=== PATIENT | female | born 1955 | race Caucasian/White ===

== ENCOUNTER 2023-04-18 10:14 | Emergency (ER) | payer MEDICARE, OTHER, SELFPAY ==
[2023-04-18 10:51] VITALS: BP 133/90; PULSE 56; RESP 20; TEMP 36.4; O2SAT 97; BMI 31.1
--- NOTE | 2023-04-18 10:56 | XR_ITS ---
[address] [address] Patient Name: BHARGAVI CHOPRA MRN: [id number] date: 1955 Sex: F Assigned Patient Location: ER Current Patient Location: ER Accession/Order Number: [id number] Exam Date: 04/18/2023 11:34 Report Date: 04/18/2023 12:16 At the request of: RICO BOBO Procedure: XR ankle RT min 3V STUDY: XR foot RT min 3V, XR ankle RT min 3V, [id number], [id number] HISTORY: c/o pain with injury COMPARISON: None FINDINGS: No acute fracture, dislocation, or suspicious osseous lesion. Healed fracture of the fifth metatarsal. 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 Mild osteoarthritis at the articulation of the medial and lateral malleoli with the talus. No lucent lesion of the talar dome. IMPRESSION: No acute osseous abnormality. Electronically authenticated by: BELINDA AGUILA Date: 04/18/2023 12:16
--- NOTE | 2023-04-18 10:56 | XR_ITS ---
[address] [address] Patient Name: BHARGAVI CHOPRA MRN: [id number] date: 1955 Sex: F Assigned Patient Location: ER Current Patient Location: ER Accession/Order Number: [id number] Exam Date: 04/18/2023 11:34 Report Date: 04/18/2023 12:16 At the request of: RICO BOBO Procedure: XR foot RT min 3V STUDY: XR foot RT min 3V, XR ankle RT min 3V, [id number], [id number] HISTORY: c/o pain with injury COMPARISON: None FINDINGS: No acute fracture, dislocation, or suspicious osseous lesion. Healed fracture of the fifth metatarsal. 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 Mild osteoarthritis at the articulation of the medial and lateral malleoli with the talus. No lucent lesion of the talar dome. IMPRESSION: No acute osseous abnormality. Electronically authenticated by: BELINDA AGUILA Date: 04/18/2023 12:16
--- NOTE | 2023-04-18 13:10 | ED_ITS ---
HPI - Extremity Injury (Lower) General Chief Complaint: Extremity Injury, Lower Stated Complaint: LOWER EXTREMITY INJURY RT ANKLE Time Seen by Provider: 04/18/23 13:10 Source: patient Mode of arrival: ambulance Limitations: no limitations History of Present Illness HPI Narrative: Patient presents to emergency department complaining of right ankle pain. Patient states 2 weeks ago she skipped a step and inverted her right foot causing it to swell and have pain. She has been putting weight on it but still has a lot of pain when she walks so she came in to be evaluated. He denies any paresthesias or weakness. She did not hit her head or have loss of consciousness and denies any other injury. She has not taking any medications at home for pain. Related Data Allergies Allergy/AdvReac Type Severity Reaction Status Date / Time codeine Allergy Severe Anaphylaxis Verified 04/18/23 10:49 metronidazole [From Flagyl] Allergy Severe Hives Verified 04/18/23 10:49 shellfish derived Allergy Severe Anaphylaxis Verified 04/18/23 10:51 iodoine Allergy Severe Anaphylaxis Uncoded 04/18/23 10:51 Review of Systems ROS Status of ROS 10 or more systems reviewed and unremarkable except as noted in history and below [facility] Social History Smoking status: Former smoker Exam Narrative Exam Narrative: Nurses notes and vital signs reviewed and patient is not hypoxic. General: Nontoxic, Well-appearing and in no apparent distress. Skin: Warm, dry, no pallor noted. No Rash Head: Normocephalic, atraumatic. Neck: Supple, non-tender. Eye: Pupils are equal, round and EOMI. No scleral icterus. Ears, Nose, Mouth, and Throat: TM clear, no posterior oropharynx erythema or nasal mucosal hypertrophy, uvula is mid-line Oral mucosa is moist Cardiovascular: Regular Rate and Rhythm without murmur, gallop or rub. Respiratory: No accessory muscle use or respiratory distress. Lungs are clear to auscultation, no wheezing, rales or rhonchi Chest Wall: no tenderness Back: No midline thoracic or lumbar vertebral tenderness. No CVA tenderness Musculoskeletal: Tenderness to palpation to the right mid lateral malleolus with mild edema noted. No ecchymosis. No pain at the base of the 5th. DP +2, PTT is 2, capillary refill is brisk. Full range of motion. no calf or popliteal tenderness, no lower extremity edema/swelling GI: Abdomen is soft, non-distended. Normal bowel sounds. No masses appreciated. No tenderness to palpation. No rebound, guarding, or rigidity noted. Neurological: A&O x4. No cranial nerve dysfunction observed. No truncal ataxia. Moves all extremities. Sensation intact. Psychiatric: Cooperative and interactive. Normal mood and affect. Constitutional Vital Signs - 24 hr 04/18/23 10:51 Temperature 97.6 F Pulse Rate [Monitor] 56 L Respiratory Rate 20 Blood Pressure [Right Arm] 133/90 H Pulse Oximetry 97 Oxygen Delivery Method Room Air Course Vital Signs Vital signs: Vital Signs Temperature 97.6 F 04/18/23 10:51 Pulse Rate 56 L 04/18/23 10:51 Respiratory Rate 20 04/18/23 10:51 Blood Pressure 133/90 H 04/18/23 10:51 Pulse Oximetry 97 04/18/23 10:51 Oxygen Delivery Method Room Air 04/18/23 10:51 Temperature 97.6 F 04/18/23 10:51 Pulse Rate 56 L 04/18/23 10:51 Respiratory Rate 20 04/18/23 10:51 Blood Pressure 133/90 H 04/18/23 10:51 Pulse Oximetry 97 04/18/23 10:51 Oxygen Delivery Method Room Air 04/18/23 10:51 MDM - Extremity Injury (Lower) MDM Narrative Medical decision making narrative: All results discussed with patient. Patient was placed in an Aircast and she has crutches at home. She is follow-up with primary care doctor and Dr. funes. rice, At this time the patient is without objective evidence of an acute process requiring hospitalization or inpatient management. The patient has remained hemodynamically stable. No additional indication for emergent studies at this time. I answered all questions. Discussed discharge instructions including standard anticipatory guidance and what should prompt a return to the emergency department, including if they get worse are not getting better or develops any new or concerning symptoms. I've given them specific time frame in which to follow-up, and who to follow-up with. The patient demonstrates understanding. Patient is nontoxic and stable for discharge with outpatient follow-up. This note was created with the assistance of a speech recognition program. Although the intention is to generate documents that actually reflects the content of the visit, no guarantees can be provided that every mistake has been identified and corrected by editing. Discharge Plan Discharge Chief Complaint: Extremity Injury, Lower Clinical Impression: Ankle sprain and strain Patient Disposition: Home, Self-Care Time of Disposition Decision: 13:13 Condition: Good Instructions: Ankle Sprain (ED) Stand Alone Forms: Portal Instructions Referrals: Melody Pearson MD [Primary Care Provider] - 1 week Lui Funes MD [Physician] - 1 week
[2023-04-18 13:29] VITALS: BP 161/93; PULSE 58; RESP 14; O2SAT 100
== END 2023-04-18 13:42 | disposition home or self-care (01) ==
PROVIDERS: Emergency Provider Emergency Medicine; PCP Emergency Medicine
DX: S93.401A Sprain of unspecified ligament of right ankle, initial encounter (principal); S96.911A Strain of unspecified muscle and tendon at ankle and foot level, right foot, initial encounter; X50.9XXA Other and unspecified overexertion or strenuous movements or postures, initial encounter; Z87.891 Personal history of nicotine dependence
CPT/HCPCS: 73610; 73630; 99284

== ENCOUNTER 2023-06-11 13:15 | Outpatient (OUT) | payer MEDICARE, OTHER, SELFPAY ==
[2023-06-11 13:41] LABS: Basophils Absolute Auto 0.1 10^3/uL (0.0-0.1); Basophils Percent Auto 0.8 % (0.2-2.0); Eosinophils Absolute Auto 0.2 10^3/uL (0.0-0.7); Eosinophils Percent Auto 3.4 % (0.9-7.0); Hematocrit 40.8 % (36.0-48.0); Hemoglobin 13.3 g/dL (12.0-16.0); Immature Granulocytes Abs Auto 0.01 10^3/uL (0.00-0.03); Immature Granulocytes Pct Auto 0.2 % (0.0-0.5); Lymphocytes Absolute Auto 2.5 10^3/uL (1.2-3.8); Lymphocytes Percent Auto 37.4 % (20.5-60.0); Mean Corpuscular HGB Conc 32.6 g/dL (29.9-35.2); Mean Corpuscular Hemoglobin 28.4 pg (26.7-34.0); Mean Platelet Volume 10.2 fL (9.5-13.5); Monocytes Absolute Auto 0.7 10^3/uL (0.3-0.8); Monocytes Percent Auto 10.2 % (1.7-12.0); Neutrophils Absolute Auto 3.2 10^3/uL (1.4-6.5); Platelet Count 301 10^3/uL (150-450); Red Blood Count 4.69 10^6/uL (4.20-5.40); Red Cell Distribution Width 14.5 % (11.0-15.0); White Blood Count 6.6 10^3/uL (4.0-11.0)
[2023-06-11 13:48] LABS: Microalbumin Urine Random <1.3 mg/dL (<=30.0)
[2023-06-11 14:00] LABS: Alanine Aminotransferase 23 U/L (14-59); Albumin Globulin Ratio 0.9; Albumin Level 3.9 g/dL (3.4-5.0); Alkaline Phosphatase 109 U/L (46-116); Aspartate Amino Transferase 22 U/L (15-37); BUN Creatinine Ratio 12.7; Bilirubin Total 0.5 mg/dL (0.2-1.0); Calcium 9.2 mg/dL (8.5-10.1); Carbon Dioxide 25.2 mmol/L (21.0-32.0); Chloride 108 mmol/L (98-107); Chol HDL Ratio 2.7; Cholesterol 143 mg/dL (<=200); Estimated GFR (African America 51 (>=60); Estimated GFR (Non-African Ame 42 (>=60); Globulin 4.2 g/dL; Glucose 90 mg/dL (74-106); HDL Cholesterol 53 mg/dL (40-60); Potassium 4.2 mmol/L (3.5-5.1); Sodium 142 mmol/L (136-145); Total Protein 8.1 g/dL (6.4-8.2); Triglycerides 60 mg/dL (<=150)
== END 2023-06-11 13:16 | disposition home or self-care (01) ==
LOC: LAB 13:19
PROVIDERS: PCP Family Medicine; Visit Provider Family Medicine
DX: I10 Essential (primary) hypertension (principal); E78.5 Hyperlipidemia, unspecified
CPT/HCPCS: 36415; 80053; 80061; 82043; 85025

== ENCOUNTER 2023-07-29 12:01 | Outpatient (OUT) | payer MEDICARE, OTHER, SELFPAY ==
--- NOTE | 2023-07-29 12:21 | XR_ITS ---
The [address] [address] Patient Name: BHARGAVI CHOPRA MRN: [id number] date: 1955 Sex: F Assigned Patient Location: LAB Current Patient Location: LAB Accession/Order Number: [id number] Exam Date: 07/29/2023 12:25 Report Date: 07/29/2023 17:02 At the request of: CORNELIUS DE LA TORRE Procedure: XR hand LT min 3V PROCEDURE: XR hand LT min 3V COMPARISON: None. HISTORY: Pain In Left Finger M79.645 FINDINGS: BONES:no acute fracture, mild degenerative changes most significant at first carpal-metacarl joint SOFT TISSUES:Negative. No visible soft tissue swelling. EFFUSION:None visible. OTHER: Negative. XR/XR hand LT min 3V IMPRESSION: Mild degenerative changes Electronically authenticated by: NIEVES CISNEROS Date: 07/29/2023 17:02
[2023-07-29 12:25] LABS: Basophils Absolute Auto 0.1 10^3/uL (0.0-0.1); Basophils Percent Auto 0.8 % (0.2-2.0); Eosinophils Absolute Auto 0.2 10^3/uL (0.0-0.7); Eosinophils Percent Auto 2.5 % (0.9-7.0); Hematocrit 40.4 % (36.0-48.0); Immature Granulocytes Abs Auto 0.01 10^3/uL (0.00-0.03); Immature Granulocytes Pct Auto 0.2 % (0.0-0.5); Lymphocytes Absolute Auto 2.3 10^3/uL (1.2-3.8); Lymphocytes Percent Auto 37.5 % (20.5-60.0); Mean Corpuscular HGB Conc 32.2 g/dL (29.9-35.2); Mean Corpuscular Hemoglobin 29.2 pg (26.7-34.0); Mean Corpuscular Volume 90.8 fL (81.0-99.0); Mean Platelet Volume 10.6 fL (9.5-13.5); Monocytes Absolute Auto 0.6 10^3/uL (0.3-0.8); Monocytes Percent Auto 10.2 % (1.7-12.0); Neutrophils Percent Auto 48.8 % (43.0-75.0); Platelet Count 277 10^3/uL (150-450); Red Blood Count 4.45 10^6/uL (4.20-5.40); Red Cell Distribution Width 14.6 % (11.0-15.0); White Blood Count 6.1 10^3/uL (4.0-11.0)
[2023-07-29 12:28] LABS: Erythrocyte Sedimentation Rate 20 mm/hr (<=30)
[2023-07-30 04:07] LABS: Rheumatoid Factor (RF) <10.0 IU/mL (<14.0)
== END 2023-07-29 12:02 | disposition home or self-care (01) ==
LOC: LAB 12:03
PROVIDERS: PCP Family Medicine; Visit Provider Family Medicine
DX: M79.645 Pain in left finger(s) (principal)
CPT/HCPCS: 36415; 73130; 85025; 85652; 86430; 86431

== ENCOUNTER 2023-11-05 15:19 | Outpatient (OUT) | payer MEDICARE, OTHER, SELFPAY ==
[2023-11-05 15:51] LABS: Anion Gap 10.3; BUN Creatinine Ratio 14.4; Calcium 9.8 mg/dL (8.5-10.1); Carbon Dioxide 28.5 mmol/L (21.0-32.0); Chloride 106 mmol/L (98-107); Estimated GFR (African America 59 (>=60); Estimated GFR (Non-African Ame 49 (>=60); Glucose 72 mg/dL (74-106); Potassium 3.8 mmol/L (3.5-5.1); Sodium 141 mmol/L (136-145)
== END 2023-11-05 15:20 | disposition home or self-care (01) ==
LOC: LAB 15:21
PROVIDERS: PCP Family Medicine; Visit Provider Family Medicine
DX: I10 Essential (primary) hypertension (principal)
CPT/HCPCS: 36415; 80048; 87624

== ENCOUNTER 2024-07-21 13:00 | Outpatient (OUT) | payer MEDICARE, OTHER, SELFPAY ==
--- OUTSIDE RECORDS SUMMARY | 2024-07-21 13:18 | XMS_ITS | CCD ---
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 Role Phone Janet Velásquez Attending Unavailable Aurea De La Torre Primary Care Provider JULIETA TOMAS Referring Unavailable JULIETA TOMAS Attending Unavailable JULIETA TOMAS Admitting Unavailable AUREA DE LA TORRE Primary Care Unavailable [place] Unavailable Nieves Adams Unavailable DAIANA, DR VO Admitting Unavailable KARASIK, DR VO Attending Unavailable DE LA TORRE, DR AUREA Dixon Primary Care Unavailable KARASIK, DR VO Consulting Unavailable DE LA TORRE, DR AUREA Dixon Admitting Unavailable DE LA TORRE, DR AUREA Dixon Attending Unavailable DE LA TORRE, DR AUREA Dixon Primary Care Unavailable DE LA TORRE, DR AUREA Dixon Consulting Unavailable KARASIK, DR VO Admsusan Unavailable KARASIK, DR VO Attending Unavailable DE LA TORRE, DR AUREA Dixon Primary Care Unavailable KARASIK, DR VO Consulting Unavailable WEST, DR NIEVES Hernandez Consulting Unavailable KARASIK, DR VO Admitting Unavailable KARASIK, DR VO Attending Unavailable DE LA TORRE, DR AUREA Dixon Primary Care Unavailable KARASIK, DR VO Consulting Unavailable KARASIK, DR VO Admsusan Unavailable KARASIK, DR VO Attending Unavailable DE LA TORRE, DR AUREA Dixon Primary Care Unavailable KARASIK, DR VO Consulting Unavailable KARASIK, DR VO Admsusan Unavailable KARASIK, DR VO Attending Unavailable DE LA TORRE, DR AUREA Dixon Primary Care Unavailable KARASIK, DR VO Consulting Unavailable KARASIK, DR VO Admitting Unavailable KARASIK, DR VO Attending Unavailable DE LA TORRE, DR AUREA Dixon Primary Care Unavailable KARASIK, DR VO Consulting Unavailable DE LA TORRE, DR AUREA Dixon Primary Care Unavailable KARASIK, DR VO Admitting Unavailable KARASIK, DR VO Attending Unavailable KARASIK, DR VO Consulting Unavailable Aurea De La Torre Unavailable ShanelleHunterin Unavailable Jaqueline Huerta Unavailable Aurea De La Torre MD Primary Care Provider [phone] ERNESTINA CALLAHAN Attending Unavailable ERNESTINA CALLAHAN Referring Unavailable MARCOS FERNANDEZ Attending Unavailable DAVIDSON DUMONT Attending Unavailable DAVIDSON DUMONT Attending Unavailable DAVIDSON DUMONT Attending Unavailable Allergies Allergy Classification Reported Allergen(s) Allergy Type Date of Onset Reaction(s) Facility (2 sources) Codeine Drug Allergy 03-15-[address] [facility], heart beat fast, [facility] Repository (11 sources) Iodine Drug Allergy 03-15-20 18 [facility] Repository (2 sources) metroNIDAZOLE Drug Allergy 03-15-20 18 [facility] Repository (2 sources) Sulfonamides (Antibiotic) Drug allergy (disorder) 03-15-20 18 [facility] Repository (8 sources) Codeine Drug Allergy 02-20-20 10 [place], [place] (2 sources) Iodine Drug Allergy 02-20-20 10 [place], [place] (11 sources) metroNIDAZOLE Drug Allergy 12-14-19 21 [place], [place] (1 source) Sulfonamides (Antibiotic) Propensity to adverse reactions to drug 12-14-19 21 [place], [place] (9 sources) Codeine Drug Allergy [facility] Other (9 sources) Sulfacetamide / Sulfur Drug Allergy [facility] Other (2 sources) Cephalexin Drug Allergy 07-14-20 24 Unknown Reaction [facility] Repository (1 source) clopidogrel Drug Allergy [facility] Repository (1 source) Codeine Drug Allergy 09-27-20 20 [facility] Repository (1 source) Iodine Drug Allergy 09-27-20 20 [facility] Repository (1 source) metroNIDAZOLE Drug Allergy 09-27-20 20 [facility] Repository (1 source) nabumetone Drug Allergy [facility] Rep[facility] (1 source) Naproxen Drug Allergy [facility] (1 source) pantoprazole Drug Allergy 09-27-20 20 [facility] (1 source) Penicillin Drug Allergy [facility] (1 source) Shellfish Drug allergy (disorder) [facility] (1 source) Sulfonamides (Antibiotic) Drug allergy (disorder) 09-27-20 20 [facility] Repository (7 sources) Cephalexin Drug Allergy 11-20-19 24 Unknown [facility] (8 sources) clopidogrel Drug Allergy 02-20-20 10 [facility] Other (13 sources) nabumetone Drug Allergy 09-19-20 13 Unknown, Unknown Reaction [facility] (8 sources) Naproxen Drug Allergy 11-20-19 24 Unknown, Unknown Reaction [facility] Other (6 sources) Shellfish Drug allergy Unknown [facility] Other (7 sources) Substance with sulfonamide structure and antibacterial mechanism of action (substance) Drug allergy 02-20-20 10 [facility] Other (6 sources) Substance with penicillin structure and antibacterial mechanism of action (substance) Drug allergy Unknown [facility] Other (1 source) nabumetone Drug Allergy 11-20-19 24 [facility] (1 source) Penicillin G Drug Allergy 11-20-19 24 [facility] (1 source) Sulfamethoxazole / Trimethoprim Drug Allergy 11-20-19 24 [facility] (1 source) Shellfish-Derived Products Drug Allergy 11-20-19 24 [facility] (1 source) Penicillins Allergy to substance 07-14-20 24 Unknown Reaction [facility] (1 source) Shellfish Allergy to substance 07-14-20 24 Unknown Reaction [facility] Medications Current Medications Medication Drug Class(es) Dates Sig (Normalized) Sig (Original) Aspir-81 (3 sources) Aspir-81 Active aspirin 81 mg chewable tablet (2 sources) Platelet Aggregation Inhibitor, Nonsteroidal Anti-inflammatory Drug Start: 12-17-2020 aspirin chewable tablet 81 mg take 1 tablet by mouth once erinn y aspirin 81 MG EC tablet Take 81 mg by mouth daily 0 Suspended atorvastatin (10 sources) HMG-CoA Reductase Inhibitor take 1 tablet by mouth in the morning atorvastatin (Lipitor) 40 MG tablet Take 40 mg by mouth in the morning. 0 Active Lipitor Active benztropine mesylate 0.5 mg oral tablet (1 source) Anticholinergic, Antihistamine Start: 11-28-2022 take 1 tablet by mouth at bedtime benztropine (Cogentin) 0.5 MG tablet Take 0.5 mg by mouth at bedtime 0 11/28/2022 Active ciprofloxacin 3 mg/ml ophthalmic solution (1 source) Quinolone Antimicrobial Start: 12-28-2023 Ciprofloxacin HCl 0.3 % 1 application into the lower eyelid of affected eye Ophthalmic tid for 5 day(s) Dec, Active clindamycin 300 mg oral capsule (5 sources) Lincosamide Antibacterial Start: 09-04-2023 take 1 capsule by mouth every twelve hours Clindamycin HCl 300 MG 1 capsule Orally every 12 hrs for 7 day(s) Dec, Active clomiPRAMINE hydrochloride 25 mg oral capsule (11 sources) Tricyclic Antidepressant Start: 03-15-2018 take 25 mg by mouth once daily at bedtime Clomipramine Active 25 MG PO Daily at bedtime March 15, 2018 12:00am clomiPRAMINE HCl Active clonazePAM 0.5 mg oral tablet (12 sources) Benzodiazepine Start: 03-09-2024 take 0.5 mg by mouth once daily at bedtime Clonazepam Active 0.5 MG PO Daily at bedtime March 09, 2024 12:00am take 1 tablet by miguelito th every twenty-four hours clonazePAM 0.5 MG 1 tablet at bedtime Orally Once a day Active take 1 tablet by mouth three marleny es daily clonazePAM (KLONOPIN) 0.5 MG tablet Take 0.5 mg by mouth 3 times daily. 0 Suspended estradiol 0.01 mg vaginal insert (1 source) Estrogen Start: 11-23-2023 End: 11-22-2024 estradiol (Vagifem) 10 MCG tablet vaginal tablet Indications: Vaginal atrophy , Vaginal itching Insert 1 tablet (10 mcg) into the vagina 2 (two) times a week 24 tablet 3 11/23/2023 11/22/2024 Active estrogens, conjugated (fdc) 0.625 mg/ml vaginal cream (1 source) Estrogen Estrogens Conjugated (Premarin) 0.625 MG/GM cream as directed Vaginal 0 Active fluconazole 100 mg oral tablet (7 sources) Azole Antifungal Start: 07-07-2024 take 100 mg by mouth once daily Fluconazole Active 100 MG PO Daily July 07, 2024 12:00am take 1 tablet by mouth once Fluc onazole 150 MG 1 tablet Orally once for 10 days Active FLUoxetine 10 mg oral capsule (1 source) Serotonin Reuptake Inhibitor take 1 capsule by mouth in the morning FLUoxetine (PROzac) 10 MG capsule Take 10 mg by mouth in the morning. 0 Active hydrocortisone 25 mg/ml topical cream (1 source) Corticosteroid Anusol-HC 2.5 % 1 application Externally three times daily, as needed for 30 days Active losartan potassium 50 mg oral tablet (14 sources) Angiotensin 2 Receptor Quan Start: 02-16-20 End: 05-16-20 take 1 tablet by mouth once daily Losartan Active 0 .ROUTE .COMPLEX May 16, 2024 8:35am TAKE 1 TABLET BY MOUTH EVERY DAY Start: 02-16-2024 End: 02-16-2024 take 50 mg by mouth once daily Losartan Discontinued 5 0 MG PO Daily February 16, 2024 12:00am February 16, 2024 8:47am take 1 tablet by miguelito th once daily Losartan Potassium 50 MG TAKE 1 TABLET BY MOUTH EVERY DAY for 90 Active metoprolol tartrate 25 mg oral tablet (2 sources) beta-Adrenergic Quan take 1 tablet by mouth twice daily at mealtime metoprolol tartrate (Lopressor) 25 MG tablet TAKE 1 TABLET BY MOUTH TWICE A DAY WITH FOOD FOR 90 DAYS 0 Active pantoprazole 40 mg delayed release oral tablet (12 sources) Proton Pump Inhibitor Start: 03-09-20 End: 07-07-20 take 40 mg by mouth once daily Pantoprazole Active 40 MG PO Daily July 07, 2024 2:34pm Start: 06-17-2021 take 1 tablet by miguelito th every twenty-four hours Pantoprazole Sodium 40 MG 1 tablet Orally Once a day for 90 days Jun, Active microencapsulated potassium chloride 20 meq extended release oral tablet (9 sources) Start: 03-09-2024 take 20 mEq by mouth twice daily Potassium Chloride Active 20 MEQ PO Twice daily March 09, 2024 12:00am take 1 tablet by mouth twice caren ly Klor-Con M20 20 MEQ TAKE 1 TABLET BY MOUTH TWICE A DAY for 90 Active potassium chlori de (Klor-Con) 20 MEQ packet 1 (one) time each day at the same time 0 Active Klor-Con Active take 20 mEq by mouth twice daily potassium chloride (KLOR-CON) 20 MEQ packet Take 20 mEq by mouth 2 times daily 0 Suspended predniSONE 10 mg oral tablet (1 source) Start: 12-26-2023 take 1 mg by mouth three times daily at mealtime predniSONE (Deltasone) 10 MG tablet Indications: Viral URI 1 po tid with food x 5 days 9 tablet 0 12/26/2023 Active 72 hr scopolamine 0.0139 mg/hr transdermal system (1 source) Anticholinergic Scopolamine 1 MG/3DAYS 1 patch to skin behind the ear as needed Transdermal for 15 days Active 1000 ml sodium chloride 9 mg/ml injection (1 source) Start: 12-17-2020 0.9 % sodium chloride infusion Completed/Discontinued Medications Medication Drug Class(es) Dates Sig (Normalized) Sig (Original) acetaminophen 325 mg / HYDROcodone bitartrate 5 mg oral tablet (1 source) Opioid Agonist Start: 03-22-2018 End: 03-09-2024 take 1-2 tablets by mouth every six hours as needed for pain Hydrocodone-Acetam inophen (Hiram) 5-325 mg tablet Discontinued 2 TAB PO Q6H 45 March 22, 2018 March 09, 2024 9:18am 1-2 tabs every 6 hours as needed for pain benzonatate 200 mg oral capsule (2 sources) Non-narcotic Antitussive Start: 03-09-2024 End: 07-14-2024 take 200 mg by mouth three times daily Benzonatate Discontinued 200 MG PO Three times daily 14 09March 09, 2024 12:00am July 14, 2024 2:01pm Start: 12-29-2023 End: 03-09-2024 Benzonatate Discontinued 200 MG PO 2-3 TIMES PER DAY December 29, 2023 1:00am March 09, 2024 9:18am fluvoxaMINE maleate 100 mg oral tablet (1 source) Serotonin Reuptake Inhibitor Start: 03-15-2018 End: 03-09-2024 take 100 mg by mouth once daily at bedtime Fluvoxamine Discontinued 100 MG PO Daily at bedtime March 15, 2018 12:00am March 09, 2024 9:18am hydroCHLOROthiazide 12.5 mg / losartan potassium 50 mg oral tablet (2 sources) Thiazide Diuretic, Angiotensin 2 Receptor Quan Start: 03-15-2018 End: 02-16-2024 take 1 tablet by mouth once daily at bedtime Losartan-Hydrochl orothiazide Discontinued 1 TAB PO Daily at bedtime March 15, 2018 12:00am February 16, 2024 8:22am losartan-hydroCH LOROthiazide (Hyzaar) 100-25 MG tablet Take by mouth 0 Active methylPREDNISolone 4 mg oral tablet (4 sources) Corticosteroid Start: 03-09-2024 End: 07-14-2024 take 1 tablet by mouth once Methylprednisolone (Medrol (Theo)) 4 mg tablets,dose pack Discontinued 0 PO per package directions 06 05March 09, 2024 12:00am July 14, 2024 2:01pm PO PER PKG DIR Start: 06-13-2021 Medrol 4 MG as directed Orally May, Active mupirocin 0.02 mg/mg topical ointment (5 sources) RNA Synthetase Inhibitor Antibacterial Start: 03-09-2024 End: 07-14-2024 Mupirocin Discontinued 1 APPLIC TOPICAL Twice daily March 09, 2024 12:00am July 14, 2024 2:02pm Start: 09-04-2023 Mupirocin 2 % 1 application Externally Twice a day for 5 days Aug, Active 24 hr nitroglycerin 0.2 mg/h r transdermal system (2 sources) Nitrate Vasodilator nitroGLYCERI N (NITROSTAT) 0.[address] 0.4 mg under the tongue every 5 minutes as needed for Chest pain up to max of 3 total doses. If no relief after 1 dose, call 911. 0 Suspended apply 0.2 mg transdermal route e very hour nitroGLYCERIN (NITRODUR) 0.2 MG/HR Place 1 patch onto the skin daily 0 Suspended oseltamivir 75 mg oral capsule (1 source) Neuraminidase Inhibitor Start: 03-09-2024 End: 07-14-2024 take 1 capsule by mouth twice daily Oseltamivir (Tamiflu) 75 mg capsule Discontinued 75 MG PO Twice daily 10 March 09, 2024 12:00am July 14, 2024 2:01pm triamcinolone acetonide 40 mg/ml injectable suspension (10 sources) Corticosteroid Start: 08-04-2023 Kenalog-40 Jul, 40 mg Problems Active Problems Problem Classification Problem Date Documented Date Episodic/Chronic Abdominal pain (9 sources) Left upper quadrant pain; Translations: [Left upper quadrant pain] Episodic Bacterial infection; unspecified site (1 source) Other specified bacterial agents as the cause of diseases classified elsewhere Episodic Disorders of lipid metabolism (8 sources) Dyslipidemia; Translations: [Hyperlipidemia, unspecified] 07-14-2024 Chronic Esophageal disorders (6 sources) Gastroesophageal reflux disease without esophagitis; Translations: [Gastro-esophageal reflux disease without esophagitis] Chronic Essential hypertension (13 sources) Essential (primary) hypertension; Translations: [Essential hypertension] Onset: 09-18-2022 Chronic Immunizations and screening for infectious disease (2 sources) Encounter for screening for human papillomavirus (HPV); Translations: [Contact with or exposure to other viral diseases] Onset: 11-12-2022 12-26-2023 Episodic Inflammation; infection of eye (except that caused by tuberculosis or sexually transmitteddisease) (1 source) Unspecified acute conjunctivitis, bilateral Episodic Influenza (1 source) Influenza; Translations: [Influenza due to unidentified influenza virus with other respiratory manifestations] 03-09-2024 Episodic Osteoarthritis (15 sources) Bilateral arthritis of hip; Translations: [Bilateral primary osteoarthritis of hip] Onset: 08-07-2021 Resolved: 08-07-2021 Chronic Other acquired deformities (9 sources) Lumbar spondylolisthesis; Translations: [Spondylolisthesis, lumbar region] Episodic Other connective tissue disease (1 source) Pain in left finger(s) Episodic Other connective tissue disease (1 source) Trigger thumb, left thumb Episodic Other connective tissue disease (1 source) Radial styloid tenosynovitis [de Quervain] Episodic Other female genital disorders (4 sources) Other specified noninflammatory disorders of vagina; Translations: [OTH SPEC NONINFLAMMATORY D/O VAGINA] Onset: 08-19-2022 Episodic Other screening for suspected conditions (not mental disorders or infectious disease) (8 sources) Encounter for screening for malignant neoplasm of cervix; Translations: [Encounter for screening mammogram for malignant neoplasm of breast] Onset: 09-18-2022 Episodic Other upper respiratory infections (2 sources) Bacterial sinusitis; Translations: [Chronic sinusitis, unspecified] Chronic Other upper respiratory infections (1 source) Viral upper respiratory tract infection; Translations: [Acute upper respiratory infection, unspecified] 12-26-2023 Episodic Residual codes; unclassified (1 source) Family history of malignant neoplasm of kidney; Translations: [FAM HX MALIGNANT NEOPLASM KIDNEY] Onset: 09-22-2022 Episodic Residual codes; unclassified (1 source) Family history of malignant neoplasm of other organs or systems; Translations: [FAM HX MALIG NEOPLASM OTH ORGN/SYS] Onset: 09-22-2022 Episodic Skin and subcutaneous tissue infections (1 source) Local infection of the skin and subcutaneous tissue, unspecified Episodic Superficial injury; contusion (1 source) Blister (nonthermal) of nose, initial encounter Episodic Unclassified (1 source) L08.9 - Local infection of the skin and subcutaneous tissue, unspecified; Translations: [L08.9 - Local infection of the skin and subcutaneous tissue, unspecified] Onset: 12-04-2018 Unclassified (2 sources) History of cardiac catheterization; Translations: [S/P cardiac cath] Onset: 12-17-2020 12-17-2020 Past or Other Problems Problem Classification Problem Date Documented Da te Episodic/Chronic Other acquired deformities (1 source) Spondylolisthesi s, lumbar region; Translations: [Spondylolisthes is, lumbar region M43.16] Onset: 08-07-2021 Resolved: 08-07-2021 Episodic Other non-traumatic joint disorders (1 source) Pain in right hip; Translations: [Pain in right hip M25.551] Onset: 08-07-2021 Resolved: 08-07-2021 Episodic Other non-traumatic joint disorders (1 source) Pain in left hip; Translations: [Pain in left hip M25.552] Onset: 08-07-2021 Resolved: 08-07-2021 Episodic Spondylosis; intervertebral disc disorders; other back problems (1 source) Low back pain; Translations: [Lumbar pain M54.5] Onset: 08-07-2021 Resolved: 08-07-2021 Episodic Results Test Name Value Interpretation Reference Range Facility RAPID DNA COVIDon 12-26-2023 Interpretation and review of laboratory results Normal [facility] SARS-CoV-2 (COVID-19) RNA DEBORAH+probe Ql (Unsp spec) Negative [facility] RHEUMATOID FACTORon 07-29-20 23 RHEUMATOID FACTOR see note [place] [facility] Other RHEUMATOID FACTOR <10.0 IU/mL <14.0 IU/mL [facility] Other PAP ACOG PANEL 2: 30 to 65on 11-15-2022 . . Normal [facility] Comment on above: Performed By: #### [id number] #### [facility] [address] [place] [address] Dr. Ricardo Malhotra Age Gdln ACOG Testing Comment Normal [facility] Comment on above: Result Comment: <21 or >65 or no age provided Performed By: #### [id number] #### [facility] [address] [place] [address] Dr. Ricardo Malhotra DIAGNOSIS: Comment [facility] Comment on above: Result Comment: NEGA TIVE FOR INTRAEPITHELIAL LESION OR MALIGNANCY. Performed By: #### [id number] #### [facility] [address] [place] [address] Dr. Ricardo Malhotra Methodology: Comment [facility] Comment on above: Result Comment: This liquid based ThinPrep(R) pap test was screened with the use of an image guided system. Performed By: #### [id number] #### [facility] [address] [place] [address] Dr. Ricardo Malhotra Note: Comment [facility] Comment on above: Result Comment: The Pap smear is a screening test designed to aid in the detection of premalignant and malignant conditions of the uterine cervix. It is not a diagnostic procedure and should not be used as the sole means of detecting cervical cancer. Both false-positive and false-negative reports do occur. . Performed By: #### [id number] #### [facility] [address] [place] [address] Dr. Ricardo Malhotra Performed by: Comment [facility] Comment on above: Result Comment: Amina Stephenson, [employer] Manager (ASCP) Performed By: #### [id number] #### [facility] [address] [place] [address] Dr. Ricardo Malhotra Specimen adequacy: Comment Normal [facility] Comment on above: Result Comment: Sati sfactory for evaluation. No endocervical component is identified. Performed By: #### [id number] #### [facility] [address] [place] [address] Dr. Ricardo Malhotra CBC AUTO DIFFon 09-18-2022 BASO # 0.1 103/ul Normal 0.0-0.1 [facility] Comment on above: Performed By: #### C BC #### [facility] [address] [place] [address] Dr. Ricardo Malhotra Basophils/100 WBC (Bld) 1.1 % Normal 0.2-2.0 [facility] Comment on above: Performed By: #### C BC #### [facility] [address] [place] [address] Dr. Ricardo Malhotra EO # 0.3 103/ul Normal 0.0-0.7 [facility] Comment on above: Performed By: #### C BC #### [facility] [address] [place] [address] Dr. Ricardo Malhotra Eosinophils/100 WBC (Bld) 3.6 % Normal 0.9-7.0 [facility] Comment on above: Performed By: #### C BC #### [facility] [address] [place] [address] Dr. Ricardo Malhotra Erythrocyte distribution width (RBC) [Ratio] 14.1 % Normal 11.0-15.0 [facility] Comment on above: Performed By: #### C BC #### [facility] [address] [place] [address] Dr. Ricardo Malhotra Hematocrit (Bld) [Volume fraction] 39.1 % Normal 36.0-48.0 [facility] Comment on above: Performed By: #### C BC #### [facility] [address] [place] [address] Dr. Ricardo Malhotra Hemoglobin (Bld) [Mass/Vol] 12.8 g/dL Normal 12.0-16.0 [facility] Comment on above: Performed By: #### C BC #### [facility] [address] [place] [address] Dr. Ricardo Malhotra IG # 0.02 10e3/ul Normal 0.00-0.03 [facility] Comment on above: Performed By: #### C BC #### [facility] [address] [place] [address] Dr. Ricardo Malhotra IG % 0.3 % Normal 0.0-0.5 [facility] Comment on above: Performed By: #### C BC #### [facility] [address] [place] [address] Dr. Ricardo Malhotra LYMPH # 2.2 103/ul Normal 1.2-3.8 [facility] Comment on above: Performed By: #### C BC #### [facility] [address] [place] [address] Dr. Ricardo Malhotra Lymphocytes/100 WBC (Bld) 32.0 % Normal 20.5-60.0 [facility] Comment on above: Performed By: #### C BC #### [facility] [address] [place] [address] Dr. Ricardo Malhotra MANUAL DIFF REQ NO Normal [facility] Comment on above: Performed By: #### C BC #### [facility] [address] [place] [address] Dr. Ricardo Malhotra MCH (RBC) [Entitic mass] 28.7 pg Normal 26.7-34.0 [facility] Comment on above: Performed By: #### C BC #### [facility] [address] [place] [address] Dr. Ricardo Malhotra MCHC (RBC) [Mass/Vol] 32.7 g/dL Normal 29.9-35.2 [facility] Comment on above: Performed By: #### C BC #### [facility] [address] [place] [address] Dr. Ricardo Malhotra MCV (RBC) [Entitic vol] 87.7 fL Normal 81.0-99.0 [facility] Comment on above: Performed By: #### C BC #### [facility] [address] [place] [address] Dr. Ricardo Malhotra MONO # 0.8 103/ul Normal 0.3-0.8 [facility] Comment on above: Performed By: #### C BC #### [facility] [address] [place] [address] Dr. Ricardo Malhotra Monocytes/100 WBC (Bld) 10.9 % Normal 1.7-12.0 [facility] Comment on above: Performed By: #### C BC #### [facility] [address] [place] [address] Dr. Ricardo Malhotra NEUT # 3.7 103/ul Normal 1.4-6.5 [facility] Comment on above: Performed By: #### C BC #### [facility] [address] [place] [address] Dr. Ricardo Malhotra Neutrophils/100 WBC (Bld) 52.1 % Normal 43.0-75.0 [facility] Comment on above: Performed By: #### C BC #### [facility] [address] [place] [address] Dr. Ricardo Malhotra Platelet mean volume (Bld) [Entitic vol] 10.5 fL Normal 9.5-13.5 [facility] Comment on above: Performed By: #### C BC #### [facility] [address] [place] [address] Dr. Ricardo Malhotra PLT 301 103/ul Normal 150-450 [facility] Comment on above: Performed By: #### C BC #### [facility] [address] [place] [address] Dr. Ricardo Malhotra RBC 4.46 106/ul Normal 4.20-5.40 [facility] Comment on above: Performed By: #### C BC #### [facility] [address] [place] [address] Dr. Ricardo Malhotra WBC 7.0 103/ul Normal 4.0-11.0 [facility] Comment on above: Performed By: #### C BC #### [facility] [address] [place] [address] Dr. Ricardo Malhotra LIPID PROFILEon 09-18-2022 CHOL-HDL RATIO NORM SEE BELOW Normal [facility] Comment on above: Result Comment: 3.3 - 4.4 LOW RISK 4.4 - 7.1 AVERAGE RISK 7.1 - 11.0 MODERATE RISK >11.0 HIGH RISK Performed By: #### L IPID, BMP #### [facility] [address] [address] [address] Ricardo Malhotra Cholesterol [Mass/Vol] 154 mg/dL Normal <=200 [facility] Comment on above: Performed By: #### L IPID, BMP #### [facility] [address] [address] [address] Ricardo Malhotra Cholesterol in HDL [Mass/Vol] 54 mg/dL Normal 40-60 [facility] Comment on above: Performed By: #### L IPID, BMP #### [facility] [address] [address] [address] Ricardo Malhotra Cholesterol in LDL [Mass/Vol] 82.6 mg/dL Normal [facility] Comment on above: Performed By: #### L IPID, BMP #### [facility] [address] [address] [address] Ricardo Malhotra Cholesterol.total/Cho lesterol in HDL [Mass ratio] 2.9 {ratio} Normal [facility] Comment on above: Performed By: #### L IPID, BMP #### [facility] [address] [place] [address] Dr. Ricardo Malhotra HDL NORMAL > or = 60 mg/dl - LOW CARDIOVASCULAR RISK <40 mg/dl - HIGH CARDIOVASCULAR RISK Normal [facility] Comment on above: Performed By: #### L IPID, BMP #### [facility] [address] [place] [address] Dr. Ricardo Malhotra LDL CALC NORMAL SEE BELOW Normal [facility] Comment on above: Result Comment: <100 mg/dl OPTIMAL 100 - 129 mg/dl NEAR OR ABOVE OPTIMAL 130 - 159 mg/dl BORDERLINE HIGH 160 - 189 mg/dl HIGH >190 mg/dl VERY HIGH Performed By: #### L IPID, BMP #### [facility] [address] [address] [address] Ricardo Malhotra Triglyceride [Mass/Vol] 87 mg/dL Normal <=150 [facility] Comment on above: Performed By: #### L IPID, BMP #### [facility] [address] [address] [address] Ricardo Malhotra VLDL CALC 17.4 mg/dL Normal [facility] Comment on above: Performed By: #### L IPID, BMP #### [facility] [address] [address] [address] Ricardo Malhotra MG MAMM SCREEN 3D IRLANDA CADon 09-18-2022 MG MAMM SCREEN 3D IRLANDA CAD Patient: BHARGAVI CHOPRA Exam Date: 09/18/2022 : 1955 Gender:F Ordering : DR TAVO AHMADI . Admission #: [id number] Family : DR AUREA DE LA TORRE M.D. Order #: [id number] CLICK HERE TO VIEW EXAM RADIOLOGY REPORT PROCEDURE: MAMMOGRAM SCREENING 3D BILATERAL CAD COMPARISON: MG MAMM SCREEN IRLANDA W CAD, 01/09/2021. INDICATIONS: Screening mammography Calculator Name NCI Breast Cancer Risk Assessment Tool 5 Year Breast Cancer Risk 2.20% Lifetime Breast Cancer Risk 7.20% Personal Breast Cancer No Personal Ovarian Cancer No Treatments Excision Family Cancers Father with skin cancer at age 55; Father with renal cancer at age 83. LOCATION: [facility] BREAST COMPOSITION: Heterogeneously dense,which may obscure small masses. FINDINGS: DIAGNOSTIC CATEGORY 1--NEGATIVE. NO CHANGE FROM COMPARISON ASSESSMENT. Scattered benign-appearing calcifications are present. Scattered benign-appearing lymph nodes are present. RIGHT BREAST: No significant suspicious finding. LEFT BREAST: No significant suspicious finding. Linear scar marker RECOMMENDATIONS: ROUTINE MAMMOGRAM AND CLINICAL EVALUATION IN 12 MONTHS. PLEASE NOTE: A NORMAL MAMMOGRAM DOES NOT EXCLUDE THE POSSIBILITY OF BREAST CANCER. A CLINICALLY SUSPICIOUS PALPABLE LUMP SHOULD BE BIOPSIED. Dictated by: Nieves Zuniga MD on 09/18/2022 at 13:40 Approved by: Nieves Zuniga MD on 09/18/2022 at 13:42 Normal [facility] PROF CHEM 8 (BAS METB)on Anion gap [Moles/Vol] 11.0 mmol/L Normal [facility] Comment on above: Performed By: #### L IPID, BMP #### [facility] [address] [address] [address] Ricardo Malhotra Calcium [Mass/Vol] 8.7 mg/dL Normal 8.5-10.1 [facility] Comment on above: Performed By: #### L IPID, BMP #### [facility] [address] [address] [address] Ricardo Malhotra Chloride [Moles/Vol] 107 mmol/L Normal 98-107 [facility] Comment on above: Performed By: #### L IPID, BMP #### [facility] [address] [address] [address] Ricardo Malhotra CO2 [Moles/Vol] 25.9 mmol/L Normal 21.0-32.0 [facility] Comment on above: Performed By: #### L IPID, BMP #### [facility] [address] [address] [address] Ricardo Malhotra Creatinine [Mass/Vol] 1.06 mg/dL Critically high 0.55-1.02 [facility] Comment on above: Performed By: #### L IPID, BMP #### [facility] [address] [address] [address] Ricardo Malhotra EGFR-AF ZAMBIAN >60 Normal >=60 [facility] Comment on above: Performed By: #### L IPID, BMP #### [facility] [address] [address] [address] Ricardo aMlhotra EGFR-NON AF ZAMBIAN 52 mL/min/1.73m2 Critically low >=60 [facility] Comment on above: Performed By: #### L IPID, BMP #### [facility] [address] [address] [address] Ricardo Malhotra Glucose [Mass/Vol] 89 mg/dL Normal 74-106 [facility] Comment on above: Performed By: #### L IPID, BMP #### [facility] [address] [address] [address] Ricardo Malhotra Potassium [Moles/Vol] 3.9 mmol/L Normal 3.5-5.1 [facility] Comment on above: Performed By: #### L IPID, BMP #### [facility] [address] [address] [address] Ricardo Malhotra Sodium [Moles/Vol] 140 mmol/L Normal 136-145 [facility] Comment on above: Performed By: #### L IPID, BMP #### [facility] [address] [place] [address] Dr. Ricardo Malhotra Urea nitrogen [Mass/Vol] 18.0 mg/dL Normal 7.0-18.0 [facility] Comment on above: Performed By: #### L IPID, BMP #### [facility] [address] [place] [address] Dr. Ricardo Malhotra Urea nitrogen/Creatinine [Mass ratio] 17.0 mg/mg Normal [facility] Comment on above: Performed By: #### L IPID, BMP #### [facility] [address] [place] [address] Dr. Ricardo Malhotra VAGINITIS/VAGINOSIS DNA PROB Yifan 08-21-2022 Reba species Negative Normal Negative [facility] Comment on above: Performed By: #### V AGINT #### [facility] [address] [place] [address] Dr. Ricardo Malhotra Gardnerella vaginalis Negative Normal Negative [facility] Comment on above: Performed By: #### V AGINT #### [facility] [address] [place] [address] Dr. Ricardo Malhotra Trichomonas vaginalis Negative Normal Negative [facility] Comment on above: Performed By: #### V AGINT #### [facility] [address] [place] [address] Dr. Ricardo Malhotra VAGINITIS/VAGINOSIS DNA PROB Yifan 06-12-2022 Reba species Positive Abnormal Negative [facility] Comment on above: Performed By: #### V AGINT #### [facility] [address] [place] [address] Dr. Ricardo Malhotra Gardnerella vaginalis Positive Abnormal Negative [facility] Comment on above: Performed By: #### V AGINT #### [facility] [address] [place] [address] Dr. Ricardo Malhotra Trichomonas vaginalis Negative Normal Negative [facility] Comment on above: Performed By: #### V AGINT #### [facility] [address] [place] [address] Dr. Ricardo Malhotra VAGINITIS/VAGINOSIS DNA PROB Yifan 04-13-2022 Reba species Negative Normal Negative [facility] Comment on above: Performed By: #### V AGINT #### [facility] [address] [place] [address] Dr. Ricardo Malhotra Gardnerella vaginalis Negative Normal Negative [facility] Comment on above: Performed By: #### V AGINT #### [facility] [address] [place] [address] Dr. Ricardo Malhotra Trichomonas vaginalis Negative Normal Negative [facility] Comment on above: Performed By: #### V AGINT #### [facility] [address] [place] [address] Dr. Ricardo Malhotra VAGINITIS/VAGINOSIS DNA PROB Yifan 03-27-2022 Reba species Negative Normal Negative [facility] Comment on above: Performed By: #### V AGINT #### [facility] [address] [place] [address] Dr. Ricardo Malhotra Gardnerella vaginalis Positive Abnormal Negative [facility] Comment on above: Performed By: #### V AGINT #### [facility] [address] [place] [address] Dr. Ricardo Malhotra Trichomonas vaginalis Negative Normal Negative [facility] Comment on above: Performed By: #### V AGINT #### [facility] [address] [place] [address] Dr. Ricardo Malhotra VAGINITIS/VAGINOSIS DNA PROB Yifan 03-07-2022 Reba species Negative Normal Negative [facility] Comment on above: Performed By: #### V AGINT #### [facility] [address] [place] [address] Dr. Ricardo Malhotra Gardnerella vaginalis Positive Abnormal Negative [facility] Comment on above: Performed By: #### V AGINT #### [facility] [address] [place] [address] Dr. Ricardo Malhotra Trichomonas vaginalis Negative Normal Negative [facility] Comment on above: Performed By: #### V AGINT #### [facility] [address] [address] [address] Ricardo Malhotra Cardiac Catheterizationon Cardiac Diagnostic Report Demographics Patient KEYSHA BURK Date of Study 12/17/2020 Name Date of 1955 Gender Female Age 65 year(s) Race Room [id number]^GREGORIO Height: 62.99 inch, 160 cm Number Corporate [id number] Weight: 167 pounds, 75.9 kg ID # Patient [id number] BSA: 1.79 m^2 BMI: 29.65 Acct # kg/m^2 MR # [id number] Performing Physician Julieta Tomas Referring Physician # Assisting Physician Additional Comments H&P reviewed and patient examined by performing physician prior to the procedure on 12/17/2020 at 1152 No changes noted. If changes, see note below. Mallampati Classification 2 / ASA Classification II : per Physician . Patient medications reviewed by Physician prior to procedure. Procedure Procedure Type: Diagnostic procedure: Lt Heart, Coronary Angio, LVgram Complications: - No complication Indications: - Abnormal adenosine stress study - Angina - Stable Conclusions Procedure Summary Nonobstructive coronary disease Good ventricular function. Recommendations Risk factor modification. Medical therapy as needed. GI work up Signature ---- ---- Angiographic Findings Cardiac Arteries and Lesion Findings LMCA: Mild irregularities 10-20%. LAD: Normal 0% stenosis.Diagonal is NL LCx: Normal 0% stenosis. RCA: Mild irregularities 20-30%.PDA and PLB are NL Ramus: Mild irregularities 30-40%.ostial disease Coronary Tree Dominance: Right LV Analysis LV function assessed as:Normal. Ejection Fraction + +---+ !Method !EF%! + +---+ !LV gram !60 ! + +---+ LV Segment Contractility 1 - Normal 3 - Mild 5 - Severe 7 - Dyskinesis hypokinesis hypokinesis 2 - 4 - Moderate 6 - Akinesis 8 - Aneurysm Hypokinesis hypokinesis Procedure Data Procedure Start Time: 12/17/2020 12:05. Procedure End Time: 12/17/2020 12:15. Diagnostic Cath Status: Elective Entry Locations - Retrograde Percutaneous access was performed through the Right Femoral artery. A 6 Fr sheath was inserted. Procedure Medications: - Versed I.V. 1 mg. - Pepcid I.V. 20 mg. - Lidocaine HCl 1% 10mg/ml S.Q. 10 ml. Catheters and Wires: - 6 FrRight side6F Catheter JL 4 was used for Left coronary angiography. - 6 FrRight side6F Catheter JR 4 was used for Left ventriculography. Contrast Material: - Isovue 016033 ml - Isovue 45051 ml Fluoroscopy Time: Diagnostic: 2:30 minutes. Total: 2:30 minutes. Estimated Blood Loss: 2 ml. Medical History Allergies - Codeine:Reaction - Other. - Iodine:Reaction - Other. - Sulfa:Reaction - Other. - *Unlisted:(Flagyl). Risk Factors The patient risk factors include:last creatinine: 1 mg/dl and creatinine clearance: 66.31 ml/min. Admission Data Admission Date: 12/17/2020 Admission Status: Outpatient. -The patient's anginal syndrome was assessed as CCS II according to the [place] clinical classification. Hemodynamics Condition: Baseline Room Air Estimated: 176.45Heart Rate: 84 bpm Pressure +-----+ + !Site !Pressure ! +-----+ + !AO !161/81 (116) ! +-----+ + !AO !153/74 (104) ! +-----+ + !LV !148/1 ,13 ! +-----+ + !LV !151/-1 ,15 ! +-----+ + !LV !161/1 ,13 ! +-----+ + !LV !158/1 ,16 ! +-----+ + Valve Gradients and Areas + +------- --+---------+------- --+ +------ ---+ + !Valve !Peak !Mean !Area !Index !Flow !Source ! + +------- --+---------+------- --+ +------ ---+ + !Aortic !0 !0 ! ! ! ! ! + +------- --+---------+------- --+ +------ ---+ + !Aortic !0 !0 ! ! ! ! ! + +------- --+---------+------- --+ +------ ---+ + Shunts Oxygen Values O2 [id number] Lokicvvdedo008.45 [employer] [facility] [place] [place] Lazaro, fay Incoming Cardio Results From [facility]/ - 12/17/2020 12:46 PM EST Cardiac Diagnostic Report Demographics Patient KEYSHA BURK Date of Study 12/17/2020 Name Date of 1955 Gender Female Age 65 year(s) Race Room [id number]^ACOSTANisha Height: 62.99 inch, 160 cm Number Corporate [id number] Weight: 167 pounds, 75.9 kg ID # Patient [id number] BSA: 1.79 m^2 BMI: 29.65 Acct # kg/m^2 MR # [id number] Performing Physician Julieta Tomas Referring Physician # Assisting Physician Additional Comments H&P reviewed and patient examined by performing physician prior to the procedure on 12/17/2020 at 1152 No changes noted. If changes, see note below. Mallampati Classification 2 / ASA Classification II : per Physician . Patient medications reviewed by Physician prior to procedure. Procedure Procedure Type: Diagnostic procedure: Lt Heart, Coronary Angio, LVgram Complications: - No complication Indications: - Abnormal adenosine stress study - Angina - Stable Conclusions Procedure Summary Nonobstructive coronary disease Good ventricular function. Recommendations Risk factor modification. Medical therapy as needed. GI work up Signature ---- ---- Angiographic Findings Cardiac Arteries and Lesion Findings LMCA: Mild irregularities 10-20%. LAD: Normal 0% stenosis.Diagonal is NL LCx: Normal 0% stenosis. RCA: Mild irregularities 20-30%.PDA and PLB are NL Ramus: Mild irregularities 30-40%.ostial disease Coronary Tree Dominance: Right LV Analysis LV function assessed as:Normal. Ejection Fraction + +--- + !Method !EF%! + +--- + !LV gram !60 ! + +--- + LV Segment Contractility 1 - Normal 3 - Mild 5 - Severe 7 - Dyskinesis hypokinesis hypokinesis 2 - 4 - Moderate 6 - Akinesis 8 - Aneurysm Hypokinesis hypokinesis Procedure Data Procedure Start Time: 12/17/2020 12:05. Procedure End Time: 12/17/2020 12:15. Diagnostic Cath Status: Elective Entry Locations - Retrograde Percutaneous access was performed through the Right Femoral artery. A 6 Fr sheath was inserted. Procedure Medications: - Versed I.V. 1 mg. - Pepcid I.V. 20 mg. - Lidocaine HCl 1% 10mg/ml S.Q. 10 ml. Catheters and Wires: - 6 FrRight side6F Catheter JL 4 was used for Left coronary angiography. - 6 FrRight side6F Catheter JR 4 was used for Left ventriculography. Contrast Material: - Isovue 814025 ml - Isovue 40172 ml Fluoroscopy Time: Diagnostic: 2:30 minutes. Total: 2:30 minutes. Estimated Blood Loss: 2 ml. Medical History Allergies - Codeine:Reaction - Other. - Iodine:Reaction - Other. - Sulfa:Reaction - Other. - *Unlisted:(Flagyl). Risk Factors The patient risk factors include:last creatinine: 1 mg/dl and creatinine clearance: 66.31 ml/min. Admission Data Admission Date: 12/17/2020 Admission Status: Outpatient. -The patient's anginal syndrome was assessed as CCS II according to the [place] clinical classification. Hemodynamics Condition: Baseline Room Air Estimated: 176.45Heart Rate: 84 bpm Pressure +-----+ + !Site !Pressure ! +-----+ + !AO !161/81 (116) ! +-----+ + !AO !153/74 (104) ! +-----+ + !LV !148/1 ,13 ! +-----+ + !LV !151/-1 ,15 ! +-----+ + !LV !161/1 ,13 ! +-----+ + !LV !158/1 ,16 ! +-----+ + Valve Gradients and Areas + +------- --+---------+------- --+ +------ ---+ + !Valve !Peak !Mean !Area !Index !Flow !Source ! + +------- --+---------+------- --+ +------ ---+ + !Aortic !0 !0 ! ! ! ! ! + +------- --+---------+------- --+ +------ ---+ + !Aortic !0 !0 ! ! ! ! ! + +------- --+---------+------- --+ +------ ---+ + Shunts Oxygen Values O2 Fbxkienf792.24O2 Gsgtmfwwbji925.45 [place], [place] Vital Signs Date Time Vital Sign Value Performing Clinician Facility 07-14-2024 13:39-0400 Body height 157.48 cm [facility] 07-14-2024 13:39-0400 Body mass index (BMI) [Ratio] 30.7 kg/m2 [facility] 07-14-2024 13:39-0400 Body weight 76.2 kg [facility] 07-14-2024 13:39-0400 Diastolic blood pressure 85 mm[Hg] [facility] 07-14-2024 13:39-0400 Heart rate 64 /min [facility] 07-14-2024 13:39-0400 Systolic blood pressure 134 mm[Hg] [facility] 12-26-2023 12:58-0500 Body temperature 96.6 [degF] Marcos Fernandez DO Work Phone: [facility] 12-26-2023 12:58-0500 Diastolic blood pressure 78 mm[Hg] Marcos Fernandez DO Work Phone: [facility] [employer] 12-26-2023 12:58-0500 Heart rate 69 /min Marcos Fernandez DO Work Phone: [facility] [employer] 12-26-2023 12:58-0500 SaO2% (BldA) [Mass fraction] 97 % Marcos Fernandez DO Work Phone: [facility] [employer] 12-26-2023 12:58-0500 Systolic blood pressure 120 mm[Hg] Marcos Fernandez DO Work Phone: [facility] [employer] 09-04-2023 11:00-0400 Body height 157.48 cm Jaqueline Huerta Other [employer] Other 09-04-2023 11:00-0400 Body mass index (BMI) [Ratio] 29.85 kg/m2 Jaqueline Huerta Other [employer] Other 09-04-2023 11:00-0400 Body weight 74.03 kg Jaqueline Huerta Other [employer] Other 09-04-2023 11:00-0400 Diastolic blood pressure 76 mm[Hg] Jaqueline Huerta Other [employer] Other 09-04-2023 11:00-0400 SaO2% (BldA) [Mass fraction] 97 % Jaqueline Huerta Other [employer] Other 09-04-2023 11:00-0400 Systolic blood pressure 138 mm[Hg] Jaqueline Huerta Other [employer] Other 08-04-2023 14:00-0400 Body height 157.48 cm Yo Timmons Other [employer] Other 08-04-2023 14:00-0400 Body mass index (BMI) [Ratio] 30.36 kg/m2 Yo Manleyley Other [employer] Other 08-04-2023 14:00-0400 Body weight 75.3 kg Yo Manleyley Other [employer] Other 07-29-2023 11:15-0400 Body height 157.48 cm Aurea De La Torre Other [employer] Other 07-29-2023 11:15-0400 Body mass index (BMI) [Ratio] 30.4 kg/m2 Aurea De La Torre Other [employer] Other 07-29-2023 11:15-0400 Body weight 75.39 kg Aurea De La Torre Other [employer] Other 07-29-2023 11:15-0400 Diastolic blood pressure 76 mm[Hg] Aurea De La Torre Other [employer] Other 07-29-2023 11:15-0400 Respiratory rate 12 /min Aurea De La Torre Other [employer] Other 07-29-2023 11:15-0400 Systolic blood pressure 102 mm[Hg] Aurea De La Torre Other [employer] Other 12-17-2020 15:15-0500 BP Diastolic 62 mm[Hg] [facility] [place] 12-17-2020 15:15-0500 BP Systolic 136 mm[Hg] [facility] , [place] 12-17-2020 15:15-0500 Pulse (Heart Rate) 72 /min [facility] [place] 12-17-2020 15:15-0500 Pulse Oximetry 99 % randee [facility] , [place] 12-17-2020 15:15-0500 Respiratory Rate 16 /min Julieta Garduno [facility], [place] 12-17-2020 13:10-0500 Body Temperature 97.81 [degF] Julieta Garduno [facility], [place] 12-17-2020 10:39-0500 BMI (Body Mass Index) 29.65 kg/m2 [facility], [place] 12-17-2020 10:39-0500 Body weight 75.93 kg [facility] [place] 12-17-2020 10:39-0500 Height 160 cm [facility] [place], [place] Encounters Encounter Date Encounter Type Care Provider Facility Start: 07-14-2024 End: 07-14-2024 ambulatory [facility] Work Phone: Start: 07-14-2024 End: 07-14-2024 Patient encounter procedure [facility] Work Phone: Start: 07-13-2024 End: 07-13-2024 ambulatory DAVIDSON NUNESISIAH Not Available Start: 06-13-2024 End: 06-13-2024 ambulatory DAVIDSON R JULIA Not Available Start: 05-30-2024 End: 05-30-2024 ambulatory DAVIDSON Draper JULIA Not Available Start: 12-28-2023 End: 12-28-2023 ambulatory Aurea De La Torre Other [employer] Other Start: 12-28-2023 Office outpatient visit 15 minutes Aurea De La Torre [facility] Start: 12-26-2023 End: 12-26-2023 Office outpatient visit 25 minutes Marcos Fernandez DO Work Phone: [facility] Comment on above: Viral URI (Primary D x); Exposure to COVID-19 virus Start: 12-26-2023 End: 12-26-2023 ambulatory MARCOS FERNANDEZ Not Available Start: 11-20-2023 End: 11-20-2023 ambulatory ERNESTINA CALLAHAN Not Available Start: 11-04-2023 End: 11-04-2023 ambulatory Aurea De La Torre Other [employer] Other Start: 11-04-2023 Telephone encounter Aurea De La Torre [facility] Start: 09-07-2023 End: 09-07-2023 ambulatory Aurea De La Torre Other [employer] Other Start: 09-07-2023 Nursing evaluation o f patient and report Aurea De La Torre [facility] Start: 09-04-2023 End: 09-04-2023 ambulatory Jaqueline Huerta Other [employer] Other Start: 09-04-2023 Office outpatient visit 15 minutes Jaqueline Huerta [facility] Start: 08-04-2023 End: 08-04-2023 ambulatory Yo Timmons Other [employer] Other Start: 08-04-2023 Office outpatient ne w 45 minutes Yo Timmons [facility] Start: 07-29-2023 End: 07-29-2023 ambulatory Aurea De La Torre Other [employer] Other Start: 07-29-2023 Office outpatient visit 15 minutes Aurea De La Torre [facility] Start: 01-14-2023 End: 01-14-2023 ambulatory Aurea De La Torre Other [employer] Other Start: 01-14-2023 Telephone encounter Aurea De La Torre [facility] Start: 11-04-2022 End: 11-04-[address] TAVO AHMADI Facility:[facility] Start: 09-18-2022 End: 09-19-[address] AUREA DE LA TORRE Facility:[facility] Start: 08-19-2022 End: 08-19-[address] TAVO AHMADI Facility:[facility] Start: 06-10-2022 End: 06-10-[address] TAVO AHMADI Facility:[facility] Start: 04-12-2022 End: 04-12-[address] TAVO AHMADI Facility:[facility] Start: 03-26-2022 End: 03-26-[address] TAVO AHMADI Facility:[facility] Start: 03-06-2022 End: 03-06-[address] AUREA DE LA TORRE Facility:[facility] Start: 12-16-2021 End: 12-16-2021 ambulatory Nieves Adams Other [employer] Other Start: 12-16-2021 Telephone encounter Nieves Adams [facility] Start: 08-07-2021 Office outpatient visit 15 minutes Tal Toro [facility] Start: 12-17-2020 End: 12-17-2020 Patient encounter procedure ALEJA TOMAS [facility] Start: 12-17-2020 End: 12-17-2020 Subsequent hospital visit by physician Julieta Tomas Work Phone: [facility] Start: 12-04-2018 End: 12-04-2018 Patient encounter procedure Janet Velásquez Facility:[facility] Procedures Date Procedure Procedure Detail Performing Clinician Start: 12-26-2023 Sars-cov-2 detection by dna/rna Phuc Azevedo DO Work Phone: Start: 09-18-2022 Mammography Marcos draper DO Work Phone: Start: 12-17-2020 End: 12-17-2020 [employer] RE[employer] Start: 12-17-2020 Catheterization and angiography procedure details panel Julieta Tomas Work Phone: Plan of Treatment Date Care Activity Detail Author Start: 12-14-2024 End: 12-14-2024 Patient encounter procedure 12/14/2024 1:30 PM EST Office Visit [facility] [address] [place] [address] Ernestina Callahan DO [address] [place] [address] (work) [facility] Start: 09-18-2023 Screening for malignant neoplasm of breast Mammogram [facility] Start: 07-17-2023 Influenza vaccination Influenza Vaccine (#1) [facility] Start: 12-08-2020 Annual Wellness Visit (AWV) Annual Wellness Visit (AWV) [place], [place] Start: 07-17-2020 Influenza vaccination Flu vaccine (#1) [place] Start: 2019 Pneumococcal 65+ years Vaccine (1 of 1 - PPSV23) Pneumococcal 65+ years Vaccine (1 of 1 - PPSV23) [place] Start: 2019 Pneumococcal Vaccine: 65+ Years (1 - PCV) Pneumococcal Vaccine: 65+ Years (1 - PCV) [facility] Start: 2009 Screening for osteoporosis DEXA (modify frequency per FRAX score) [place], [place] Start: 2004 Screening for malignant neoplasm of breast Breast cancer screen [place], [place] Start: 2004 Screening for malignant neoplasm of colon Colon cancer screen colonoscopy [place], [place] Start: 2004 Shingles Vaccine (1 of 2) Shingles Vaccine (1 of 2) [place] Start: 1994 Diabetes screen Diabetes screen [place], [place] Start: 1994 Lipid panel Lipid screen [place] Start: 1973 DTaP/Tdap/Td vaccine (1 - Tdap) DTaP/Tdap/Td vaccine (1 - Tdap) [place], [place] Start: 1954 Creatinine measurement Creatinine monitoring [place], [place] Start: 1954 Hepatitis C screening Hepatitis C screen [place], [place] Start: 1954 Potassium monitoring Potassium monitoring [place], [place] Start: 1954 Screening for malignant neoplasm of colon [facility] metabo lic 2000 panel - Serum or Plasma [facility] Immunizations Immunization Date Immunization Notes Care Provider Fa cility 09-07-2023 influenza, high dose seasonal, preservative-free Aurea De La Torre Other [employer] Other 09-07-2023 influenza virus vaccine, unspecified formulation [facility] 08-27-2022 influenza virus vaccine, split virus (incl. purified surface antigen) Aurea De La Torre Other [employer] Other 08-27-2022 influenza virus vaccine, unspecified formulation Marcos Fernandez DO Work Phone: [facility] 09-21-2021 COVID-19 Vaccine Pfi zer - Documentation Purposes Only Aurea De La Torre Other [facility] 08-29-2021 influenza virus vaccine, split virus (incl. purified surface antigen) Aurea De La Torre Other [employer] [facility] [employer] Other 08-29-2021 influenza virus vaccine, unspecified formulation [facility] 08-28-2020 influenza virus vaccine, split virus (incl. purified surface antigen) Aurea De La Torre Other [employer] [facility] Other 08-28-2020 influenza virus vaccine, unspecified formulation [facility] 09-15-2019 influenza virus vaccine, split virus (incl. purified surface antigen) Aurea De La Torre Other [employer] [facility] Other 09-15-2019 influenza virus vaccine, unspecified formulation [facility] 09-01-2018 influenza virus vaccine, split virus (incl. purified surface antigen) Aurea De La Torre Other [facility] [employer] Other 09-01-2018 influenza virus vaccine, unspecified formulation [facility] 08-31-2017 tetanus and diphther ia toxoids, adsorbed, preservative free, for adult use (5 Lf of tetanus toxoid and 2 Lf of diphtheria toxoid) Aurea De La Torre Other [facility] 08-13-2016 tetanus and diphther ia toxoids, adsorbed, preservative free, for adult use (5 Lf of tetanus toxoid and 2 Lf of diphtheria toxoid) Aurea De La Torre Other [facility] 08-24-2013 tetanus and diphther ia toxoids, adsorbed, preservative free, for adult use (5 Lf of tetanus toxoid and 2 Lf of diphtheria toxoid) Aurea Tyler Other [facility] Payers Date Payer Category Payer Unknown [id number] 2019 Medicare MEDICARE MEDICAR E PART B [id number] 2019-[place] [address] Medicare [id number] 2018 Self-pay 1959 Medicare [id number] 1959 Unknown [id number] 1954 Unknown [id number] 1954 Unknown [id number] [id number] 1954 Unknown [id number] [id number] 1954 Unknown [id number] 2.16.840.1.862130.3.579.2.593 1954 Unknown [id number] 2.16.840.1.181959.3.579.2.593 1954 Unknown [id number] 2.16.840.1.498280.3.579.2.593 1954 Unknown [id number] 2.16.840.1.166866.3.579.2.593 1954 Unknown [id number] 2.16.840.1.361005.3.579.2.593 1954 Unknown [id number] 2.16.840.1.966354.3.579.2.593 1954 Unknown [id number] 2.16.840.1.948110.3.579.2.9 1954 Unknown [id number] 2.16.840.1.060051.3.579.2.1259 1954 Unknown [id number] 2.16.840.1.295903.3.579.2.9 1954 Unknown [id number] 2.16.840.1.982315.3.579.2.9 1954 Unknown [id number] 2.16.840.1.496717.3.579.2.1259 Unknown [id number] Social History Date Type Detail Facility Start: 12-17-2020 End: 11-19-2023 Tobacco smoking status NMIS Never smoker [facility] Start: 12-17-2020 Tobacco use and exposure Never used [facility] Start: 12-17-2020 End: 11-20-2023 Alcohol intake Ex-drinker (finding) [facility] Sex Assigned At Not on file [facility] Start: 11-19-2023 Sex Assigned At [employer] Other Start: 11-19-2023 History of Social function [facility] Start: 11-19-2023 Alcohol Comment occasional [facility] Start: 1955 Sex Assigned At Female [facility] Start: 11-18-2023 Gender identity Identifies as female gender (finding) [facility] Start: 11-18-2023 Sexual orientation Heterosexual (finding) [facility] Start: 03-09-2024 Tobacco smoking status NMIS Ex-smoker (finding) [facility] Clinical Notes 08-07-2021 to 12-28-2023 Note Date & Type Note Facility 12-28-2023 Evaluation note Encounter Date Diagnosis Assessment Notes Dec, Chronic sinusitis, unspecified (ICD-10 - J32.9) Sinus infections can be triggered by a secondary infection from a viral URI or even seasonal allergies. Take medications as directed. Use saline nasal spray prior to presciption nasal spray. Take medications as directed, and complete all doses of medication even if you start to feel better. Patient advised to follow up with PCP if symptoms persist or worsen. Patient verbalized understanding and agreement with treatment plan. Dec, Other specified bacterial agents as the cause of diseases classified elsewhere (ICD-10 - B96.89) Dec, Acute bacterial conjunctivitis of both eyes (ICD-10 - H10.33) [place] eye is contagious. Wash hands frequently and try not to rub eyes. Use warm wash cloth to keep them clean or to remove discharge from eyes. Use drops until eyes are clear then 3 more days [employer] Other 02-10-2024 History of Present illness Narrative* Marcos Fernandez, - 12/26/2023 12:40 PM EST HPI: Historian of HPI: patient Bhargavi Chopra is a 68 y.o. female who presents today to the Urgent Care with the following complaints and denials which have been present for 3 day(s) C/O Denies Symptom Comments [] [x] Runny Nose [] [x] Difficulty Swallowing [] [x] Sore Throat [x] [] Cough [] [x] Ear Pain [x] [] Fever [] [x] Chills [] [x] Nasal Congestion [x] [] Myalgia [x] [] Sinus Pain [x] [] Sinus Pressure Additional Comments: pt has taken tylenol OTC medication without relief Admits headache ROS: A complete system ROS was performed and negative aside from the pertinent positives noted in the HPI and PE. Physical Exam Vitals reviewed. Constitutional: Appearance: Normal appearance. HENT: Head: Normocephalic and atraumatic. Right Ear: Tympanic membrane normal. Left Ear: Tympanic membrane normal. Nose: Nose normal. Mouth/Throat: Mouth: Mucous membranes are moist. Pharynx: Oropharynx is clear. Eyes: Extraocular Movements: Extraocular movements intact. Conjunctiva/sclera: Conjunctivae normal. Pupils: Pupils are equal, round, and reactive to light. Neck: Vascular: No carotid bruit. Cardiovascular: Rate and Rhythm: Normal rate and regular rhythm. Heart sounds: Normal heart sounds. No murmur heard. Pulmonary: Effort: Pulmonary effort is normal. Comments: Coarse air entry Abdominal: General: Abdomen is flat. Palpations: There is no mass. Musculoskeletal: General: Normal range of motion. Cervical back: Normal range of motion and neck supple. Right lower leg: No edema. Left lower leg: No edema. Skin: General: Skin is warm and dry. Neurological: General: No focal deficit present. Mental Status: She is alert and oriented to person, place, and time. Psychiatric: Mood and Affect: Mood normal. Behavior: Behavior normal. Thought Content: Thought content normal. Diagnoses and all orders for this visit: Viral URI (Primary) - predniSONE (Deltasone) 10 MG tablet; 1 po tid with food x 5 days Exposure to COVID-19 virus - RAPID DNA COVID COVID test is negative. Patient will take prednisone for general inflammation with her URI. Follow-up with PCP as necessary.Take medications as prescribed. Use a humidifier when possible. May use acetaminophen for pain or fever. IH Testing: [id number] Evaluation note* Encounter Date Diagnosis Assessment Notes Treatment Notes Treatment Clinical Notes Oct, Essential (primary) hypertension (ICD-10 - I10) [employer] Other 10-20-2023 Evaluation note* Encounter Date Diagnosis Assessment Notes Treatment Notes Treatment Clinical Notes Aug, Local infection of the skin and subcutaneous tissue, unspecified (ICD-10 - L08.9) Discussed with pt symptoms and most likely staph infection as she has had in the past. Discussed treatment. Directed on use. Call if symptoms worsen or change. Aug, Blister (nonthermal) of nose, initial encounter (ICD-10 - S00.32XA) [employer] Other 09-19-2023 Evaluation note* Encounter Date Diagnosis Assessment Notes Treatment Notes Treatment Clinical Notes Jul, Trigger finger of left thumb (ICD-10 - M65.312) Patient's symptoms are likely the result of trigger finger. However some pain could be coming from degeneration in the first MCP joint as well. The etiology and pathologic process was discussed in length with the patient. We discussed treatment options including observation, anti-inflammatories, corticosteroid injections, and surgery. Patient wishes to proceed with a corticosteroid injection. We performed marcaine/kenalog cortisone injection into the palmar aspect of the finger near at the A1 tracy under sterile technique. The patient tolerated this well without complication. We discussed that the finger may feel numb and tingle for hours after this injection. Jul, Tendinitis, de Quervain's (ICD-10 - M65.4) Patient's symptoms are likely the result of De Quervains tenosynovitis of the first dorsal compartment of the wrist. The etiology and pathologic process was discussed in length with the patient. We discussed treatment options including observation, anti-inflammatories, corticosteroid injections, and surgery. Patient wishes to proceed with a corticosteroid injection. We performed marcaine/kenalog cortisone injection into the first dorsal wrist compartment under sterile technique. The patient tolerated this well without complication. We discussed that the finger may feel numb and tingle for hours after this injection. She was also given a thumb spica brace to help with immobilization of the thumb to help with symptoms. She will return to office in 4 weeks as needed if she continues to have symptoms. [employer] Other 09-13-2023 Evaluation note* Encounter Date Diagnosis Assessment Notes Treatment Notes Treatment Clinical Notes Jul, Pain of left thumb (ICD-10 - M79.645) Pt has family history of RA. Would like to have labs and xray. Discussed ortho referral for possible injection [employer] Other 09-22-2021 Evaluation note* Encounter Date Diagnosis Assessment Notes Treatment Notes Treatment Clinical Notes Jul, Pain in right hip (ICD-10 - M25.551) Jul, Spondylolisthesi s, lumbar region (ICD-10 - M43.16) Bhargavi returns today for follow-up of her discogenic back pain resultant of spondylolisthesis. She did a trial of therapy as well as medications and currently has no complaints and is very happy with her recovery. At this juncture we have discussed the findings and diagnosis as well as reviewed appropriate imaging and performed interpretation of related testing and examination. Prior medical notes and history have been reviewed. At this time I would recommend continuing back stretching and core strengthening exercises and have also recommended a trial of a supportive back brace to help with postural changes. She agrees to this and will follow up as needed As patient is improving, we will continue conservative treatment. Advised patient if at any point she develops radicular pain, to contact us. Patient was in understanding. Suggested patient obtain an OTC lumbar support to help with posture as needed. Instructed on oral NSAIDs if needed. Call with questions/concerns . Jul, Pain in left hip (ICD-10 - M25.552) Jul, Lumbar pain (ICD-10 - M54.5) We will treat conservatively this time. Could require spine referral Jul, Arthritis of both hips (ICD-10 - M16.0) Today we have discussed degenerative joint disease of the hip and its treatment. Imaging was explained and discussed with the patient. We discussed recommended conservative therapies including physical therapy, anti-inflammatory medications, and weight loss strategies. We also discussed other treatment options including cortisone injections. I have laid out the course of hip DJD including the end-stage treatment of total joint arthroplasty. The patient recognizes and understands our options and goals and we will move forward with our treatment. This is very mild at the time and I do not believe is her main issue. We will treat accordingly but no treatment at this time [employer] Other Evaluation noteNo [employer] Other Evaluation note* Diagnosis Viral URI- Primary Acute upper respiratory infections of unspecified site Exposure to COVID-19 virus [facility] Diagnosis Onset Date Resolution Status Dyslipidemia acute Essential (primary) hypertension [facility] Work Phone: History general Narrative - Reported* Type Description Date Medical History hypertension Medical History mood disorder Medical History hiatal hernia Surgical History C section Surgical History cholecystectomy Surgical History heart cath 2020 Hospitalization History see above [employer] Other Summary Purpose Family History No Family History Records Found Relationship Condition Age at Onset Recorded Date/T neptali father Heart disease Unknown Unknown Malignant neoplasm Unknown Hypertension Unknown mother Unknown Heart disease Unknown Advance Directives No Advanced Directives Records Found Advance Directive Response Recorded Date/ Time Advance Directives No March 11 12:45pm Discharge Instructions * Discharge Instr - Activity* Precious Flor RN - 12/17/2020 12:57 PM EST Refer to Cardiac Cath Discharge * Additional Instructions* Precious Flor RN - 12/17/2020 Refer to Cardiac Cath Discharge Instructions documented in this encounter Assessments Diagnosis S/P cardiac cath Other postprocedural status Reason for Referral Reason [facility] - Bone cre ek - OV, xray, labs Diagnosis 1 Pain of left thumb ( M79.645) Referral Organization [facility] linbrian Referring Provider First Name Aurea Referring Provider Last Name Tyler Referring Provider Specialty Family [facility] Referred Organization Unknown Facility Referred Provider Specialty Orthopaedic Surgery Referral Priority Routine Chief Complaint and Reason for Visit Chief Complaint wellness Reason for Visit Dyslipidemia Essential (primary) hypertension Additional Source Comments INFORMATION SOURCE (unrecogn ized section and content) DATE CREATED AUTHOR 12/20/2018 [facility] DATE CREATED AUTHOR AUTHOR'S ORGANIZ ATION 12/17/2020 [facility] DATE CREATED AUTHOR AUTHOR'S ORGANIZ ATION 11/15/2022 [facility] pital DATE CREATED AUTHOR AUTHOR'S ORGANIZ ATION 07/15/2024 [facility] EPIC Reason for Visit (unrecogniz ed section and content) Status Reason Specialty Diagnoses / Procedures Referre d By Contact Referred To Contact [facility] Care Teams (unrecognized sec tion and content) 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 Specialty Start Date End Date Aurea De La Torre MD [address] [place] [address] PCP - General Family Medicine 11/20/23 Team Status: Active Member Role Status Dates Aurea De La Torre MD Primary Care Provider Active Team Status: Inactive Member Role Status Dates Aurea De La Torre MD Primary Care Provide r, Attending Provider Active Start: July 14, 2024 End: July 14, 2024 Goals (unrecognized section and content) Goals may be documented in a n alternate section FOR RECORDS PERTAINING TO PATIENTS WHO ARE OR HAVE BEEN ENROLLED IN A CHEMICAL DEPENDENCY/SUBSTANCEABUSE PROGRAM, SOME INFORMATION MAY BE OMITTED. This clinical summary was aggregated from multiple sources. Caution should be exercised in using it in the provision of clinical care. This summary normalizes information from multiple sources, and as a consequence, information in this document may materially change the coding, format and clinical context of patient data. In addition, data may be omitted in some cases. CLINICAL DECISIONS SHOULD BE BASED ON THE PRIMARY CLINICAL RECORDS. [employer] [facility]. provides no warranty or guarantee of the accuracy or completeness of information in this document.
[2024-07-21 13:30] LABS: Basophils Absolute Auto 0.1 10^3/uL (0.0-0.1); Basophils Percent Auto 0.7 % (0.2-2.0); Eosinophils Absolute Auto 0.3 10^3/uL (0.0-0.7); Eosinophils Percent Auto 2.7 % (0.9-7.0); Hematocrit 41.6 % (36.0-48.0); Hemoglobin 13.9 g/dL (12.0-16.0); Immature Granulocytes Abs Auto 0.04 10^3/uL (0.00-0.03); Immature Granulocytes Pct Auto 0.4 % (0.0-0.5); Lymphocytes Absolute Auto 3.9 10^3/uL (1.2-3.8); Mean Corpuscular HGB Conc 33.4 g/dL (29.9-35.2); Mean Corpuscular Hemoglobin 28.7 pg (26.7-34.0); Mean Corpuscular Volume 85.8 fL (81.0-99.0); Mean Platelet Volume 10.2 fL (9.5-13.5); Monocytes Percent Auto 10.4 % (1.7-12.0); Neutrophils Absolute Auto 4.3 10^3/uL (1.4-6.5); Neutrophils Percent Auto 44.8 % (43.0-75.0); Platelet Count 330 10^3/uL (150-450); Red Blood Count 4.85 10^6/uL (4.20-5.40); Red Cell Distribution Width 13.9 % (11.0-15.0); White Blood Count 9.6 10^3/uL (4.0-11.0)
[2024-07-21 14:05] LABS: Alanine Aminotransferase 26 U/L (14-59); Albumin Globulin Ratio 0.9; Albumin Level 3.5 g/dL (3.4-5.0); Alkaline Phosphatase 102 U/L (46-116); Anion Gap 13.7; Aspartate Amino Transferase 18 U/L (15-37); BUN Creatinine Ratio 15.4; Bilirubin Total 0.6 mg/dL (0.2-1.0); Calcium 9.3 mg/dL (8.5-10.1); Carbon Dioxide 26.1 mmol/L (21.0-32.0); Chloride 106 mmol/L (98-107); Chol HDL Ratio 2.8; Cholesterol 168 mg/dL (<=200); Estimated GFR (African America 55 (>=60); Estimated GFR (Non-African Ame 46 (>=60); Globulin 3.7 g/dL; Glucose 88 mg/dL (74-106); HDL Cholesterol 59 mg/dL (40-60); Potassium 3.8 mmol/L (3.5-5.1); Sodium 142 mmol/L (136-145); Total Protein 7.2 g/dL (6.4-8.2); Triglycerides 100 mg/dL (<=150)
== END 2024-07-21 13:01 | disposition home or self-care (01) ==
PROVIDERS: PCP Family Medicine; Visit Provider Family Medicine
DX: E78.5 Hyperlipidemia, unspecified (principal); I10 Essential (primary) hypertension
CPT/HCPCS: 36415; 80053; 80061; 85025

== ENCOUNTER 2024-09-29 14:02 | Outpatient (OUT) | payer MEDICARE, OTHER, SELFPAY ==
--- NOTE | 2024-09-29 14:09 | XR_ITS ---
The [address] [address] Patient Name: BHARGAVI CHOPRA MRN: [id number] date: 1955 Sex: F Assigned Patient Location: [facility] Current Patient Location: Accession/Order Number: [id number] Exam Date: 09/29/2024 14:18 Report Date: 10/01/2024 08:05 At the request of: CORNELIUS DE LA TORRE Procedure: XR hand IRLANDA min 3v EXAMINATION: XR hand IRLANDA min 3v HISTORY: Osteoarthritis ; bilateral hand pain, thumb pain radiating into wrist; no known injury COMPARISON: No relevant comparison available. FINDINGS: RIGHT FINDINGS: BONES: Mild degenerative changes at the first carpal-metacarpal joint and at the second distal interphalangeal joint. No fracture, dislocation, or bone lesion. SOFT TISSUES: No visible soft tissue swelling. OTHER: Negative. LEFT FINDINGS: BONES: Mild degenerative changes at the first carpal-metacarpal joint and at the second distal interphalangeal joint. No fracture, dislocation, or bone lesion. SOFT TISSUES: No visible soft tissue swelling. OTHER: Negative. XR/XR hand IRLANDA min 3v IMPRESSION: RIGHT CONCLUSION: Mild degenerative changes. LEFT CONCLUSION: Mild degenerative changes. Electronically authenticated by: YANELIS BOTELLO Date: 10/01/2024 08:05
--- OUTSIDE RECORDS SUMMARY | 2024-09-29 14:24 | XMS_ITS | CCD ---
Author Organization [facility] Care Team Providers Care Rib Matcher And Fitter Name Role Phone Janet Velásquez Attending Unavailable [...] AUREA Dixon Consulting Unavailable KARASIK, DR VO Admitting Unavailable [...] Attending Unavailable KARASIK, DR VO Consulting Unavailable De La Torre, Aurea Unavailable ShanelleYo wiseman Unavailable Jaqueline Huerta Unavailable [phone] Aurea De La Torre MD Primary Care Provider ERNESTINA CALLAHAN Attending Unavailable ERNESTINA CALLAHAN Referring Unavailable MARCOS FERNANDEZ Attending Unavailable KUBITZ, REYES R Attending Unavailable KUBITZ, REYES R Attending Unavailable KUBITZ, REYES R Attending Unavailable KUBITZ, REYES R Referring Unavailable KUBITZ, REYES R Attending Unavailable BLACKSTONCLOVER Attending Unavailable KUBITZ, REYES R Referring Unavailable WILFREDOKETURAH Attending Unavailable KUBITZ, REYES R Referring Unavailable BRINK, GREYSON Attending Unavailable KUBITZ, REYES R Referring Unavailable KUBITZ, REYES R Attending Unavailable BLACKSTON, CLOVER Azar Attending Unavailable KUBITZ, REYES R Referring Unavailable BRINK, GREYSON Attending Unavailable KUBITZ, REYES R Referring Unavailable BRINK, GREYSON Attending Unavailable KUBITZ, REYES R Referring Unavailable BRINK, GREYSON Attending Unavailable KUBITZ, REYES R Referring Unavailable BRINK, GREYSON Attending Unavailable KUBITZ, REYES R Referring Unavailable BRINK, GREYSON Attending Unavailable KUBITZ, REYES R Referring Unavailable BRINK, GREYSON Attending Unavailable KUBITZ, REYES R Referring Unavailable BLACKSTONCLOVER Attending Unavailable KUBITZ, REYES R Referring Unavailable BRINK, GREYSON Attending Unavailable KUBITZ, REYES R Referring Unavailable BRINK, GREYSON Attending Unavailable KUBITZ, REYES R Referring Unavailable BRINK, GREYSON Attending Unavailable KUBITZ, REYES R Referring Unavailable KUBITZ, REYES R Attending Unavailable BRINK, GREYSON Attending Unavailable KUBITZ, REYES R Referring Unavailable Allergies Allergy Classification Reported Allergen(s) Allergy Type Date of Onset Reaction(s) Facility (3 sources) Codeine Drug Allergy 03-15-20 18 Hives, heart beat fast, [facility] (12 sources) Iodine Drug Allergy 03-15-20 18 [facility] (3 sources) metroNIDAZOLE Drug Allergy 03-15-20 18 [facility] (3 sources) Sulfonamides (Antibiotic) Drug allergy (disorder) 03-15-20 18 [facility] (20 sources) Codeine Drug Allergy 02-20-20 10 [place], [place] (20 sources) Iodine Drug Allergy 02-20-20 10 [place], [place] (20 sources) metroNIDAZOLE Drug Allergy 12-14-19 21 [place], [place] (1 source) Sulfonamides (Antibiotic) Propensity to adverse reactions to drug 12-14-19 21 [place], [place] (9 sources) Codeine Drug Allergy [facility] Other (9 sources) Sulfacetamide / Sulfur Drug Allergy [facility] Other (3 sources) Cephalexin Drug Allergy 07-14-20 24 Unknown Reaction [facility] (1 source) clopidogrel Drug Allergy [facility] (1 source) Codeine Drug Allergy 09-27-20 20 [facility] (1 source) Iodine Drug Allergy 09-27-20 20 [facility] (1 source) metroNIDAZOLE Drug Allergy 09-27-20 20 [facility] (1 source) nabumetone Drug Allergy [facility] (1 source) Naproxen Drug Allergy [facility] (1 source) pantoprazole Drug Allergy 09-27-20 20 [facility] (1 source) Penicillin Drug Allergy [facility] (1 source) Shellfish Drug allergy (disorder) [facility] (1 source) Sulfonamides (Antibiotic) Drug allergy (disorder) 09-27-20 20 [facility] (20 sources) Cephalexin Drug Allergy 11-20-19 24 Unknown [facility] (20 sources) clopidogrel Drug Allergy 02-20-20 10 [facility] Other (14 sources) nabumetone Drug Allergy 09-19-20 13 Unknown, Unknown Reaction [facility] (20 sources) Naproxen Drug Allergy 11-20-19 24 [facility] Other (6 sources) Shellfish Drug allergy Unknown [facility] Other (20 sources) Substance with sulfonamide structure and antibacterial mechanism of action (substance) Drug allergy 02-20-20 10 [facility] Other (6 sources) Substance with penicillin structure and antibacterial mechanism of action (substance) Drug allergy Unknown [employer] Other (20 sources) nabumetone Drug Allergy 11-20-19 [facility] (20 sources) Penicillin G Drug Allergy 11-20-19 24 [facility] (20 sources) Sulfamethoxazole / Trimethoprim Drug Allergy 11-20-19 [facility] (20 sources) Shellfish-Derived Products Drug Allergy 11-20-19 Anaphylaxis [facility] (2 sources) Penicillins Allergy to substance 07-14-20 Unknown Reaction [facility] (2 sources) Shellfish Allergy to substance 07-14-20 Unknown Reaction [facility] Medications Current Medications Medication Drug Class(es) Dates Sig (Normalized) Sig (Original) Aspir-81 (3 sources) Aspir-81 Active aspirin 81 mg chewable tablet (2 sources) Platelet Aggregation Inhibitor, Nonsteroidal Anti-inflammatory Drug Start: 12-17-2020 aspirin chewable tablet 81 mg take 1 tablet by mouth once erinn y aspirin 81 MG EC tablet Take 81 mg by mouth daily 0 Suspended atorvastatin 40 mg oral tablet (20 sources) HMG-CoA Reductase Inhibitor take 1 tablet by mouth in the morning atorvastatin (Lipitor) 40 MG tablet Take 40 mg by mouth in the morning. Active Lipitor Active benztropine mesylate 0.5 mg oral tablet (20 sources) Anticholinergic, Antihistamine Start: 11-28-2022 take 1 tablet by mouth at bedtime benztropine (Cogentin) 0.5 MG tablet Take 0.5 mg by mouth at bedtime 11/28/2022 Active ciprofloxacin 3 mg/ml ophthalmic solution [...] Active clomiPRAMINE hydrochloride 25 mg oral capsule (12 sources) Tricyclic Antidepressant Start: 03-15-2018 take 25 mg by mouth once daily at bedtime Clomipramine Active 25 MG PO Daily at bedtime March 15, 2018 12:00am clomiPRAMINE HCl Active clonazePAM 0.5 mg oral tablet (20 sources) Benzodiazepine Start: 03-09-2024 take 0.5 mg by mouth once daily at bedtime Clonazepam Active 0.5 MG PO Daily at bedtime March 09, 2024 12:00am take 1 tablet by mouth three marleny es daily clonazePAM (KLONOPIN) 0.5 MG tablet Take 0.5 mg by mouth 3 times daily. 0 Suspended 1 ml dexamethasone phosphate 4 mg/ml injection (20 sources) Corticosteroid Start: 08-01-2024 dexAMETHasone (Decadron) 4 MG/ML injection Indications: Pain of left heel , Plantar fasciitis of left foot Apply to Iontophoresis pad qPT sessions x 9 max 30 mL 08/01/2024 Active estradiol 0.01 mg vaginal insert (20 sources) Estrogen Start: 08-15-2024 Yuvafem 10 MCG tablet vaginal tablet Indications: Vaginal atrophy , Vaginal itching INSERT 1 TABLET INTO THE VAGINA TWICE A WEEK 24 tablet 3 08/15/2024 Active Start: 11-23-2023 End: 11-22-2024 estradiol (Vagifem) 10 MCG t ablet vaginal tablet Indications: Vaginal atrophy , Vaginal itching Insert 1 tablet (10 mcg) into the vagina 2 (two) times a week 24 tablet 3 11/23/2023 08/15/2024 Discontinued estrogens, conjugated (intermediate) 0.625 mg/ml vaginal cream (20 sources) Estrogen Estrogens Conjug ated (Premarin) 0.625 MG/GM cream as directed Vaginal Active Estrogens Conjug ated (Premarin) 0.625 MG/GM cream as directed Vaginal 0 Active fluconazole 100 mg oral tablet (8 sources) Azole Antifungal Start: 07-07-2024 take 100 mg by mouth once daily Fluconazole Active 100 MG PO Daily July 07, 2024 12:00am take 1 tablet by mouth once Fluc onazole 150 MG 1 tablet Orally once for 10 days Active FLUoxetine 10 mg oral capsule (20 sources) Serotonin Reuptake Inhibitor take 1 capsule by mouth in the morning FLUoxetine (PROzac) 10 MG capsule Take 10 mg by mouth in the morning. Active hydrocortisone 25 mg/ml topical cream (1 source) Corticosteroid Anusol-HC 2.5 % 1 application Externally three times daily, as needed for 30 days Active Losartan (20 sources) Angiotensin 2 Receptor Quan Start: 08-08-20 take 1 tablet by mouth once daily Losartan Active 0 .ROUTE .COMPLEX August 08, 2024 1:11pm TAKE 1 TABLET BY MOUTH EVERY DAY Start: 02-16-2024 End: 08-08-2024 take 1 tablet by mouth once daily Losartan Discontinued 0 .ROUTE .COMPLEX May 16, 2024 8:35am August 08, 2024 1:11pm TAKE 1 TABLET BY MOUTH EVERY DAY Start: 02-16-2024 End: 02-16-2024 take 50 mg by mouth once daily Losartan Discontinued 5 0 MG PO Daily February 16, 2024 12:00am February 16, 2024 8:47am metoprolol tartrate 25 mg oral tablet (20 sources) beta-Adrenergic Quan take 1 tablet by mouth twice daily at mealtime metoprolol tartrate (Lopressor) 25 MG tablet TAKE 1 TABLET BY MOUTH TWICE A DAY WITH FOOD FOR 90 DAYS Active microencapsulated potassium chloride 20 meq extended release oral tablet (20 sources) Start: 024 take 20 mEq by mouth twice daily Potassium Chloride Active 20 MEQ PO Twice daily March 09, 2024 12:00am potassium chlori de (Klor-Con) 20 MEQ packet 1 (one) time each day at the same time Active take 1 tablet by mouth twice caren ly Klor-Con M20 20 MEQ TAKE 1 TABLET BY MOUTH TWICE A DAY for 90 Active Klor-Con Active take 20 mEq by [...] / HYDROcodone bitartrate 5 mg oral tablet (2 sources) Opioid Agonist Start: 03-22-2018 End: 03-09-2024 take 1-2 tablets by mouth every six hours as needed for pain Hydrocodone-Acetam inophen ([place]) 5-325 mg tablet Discontinued 2 TAB PO Q6H 45 March 22, 2018 March 09, 2024 9:18am 1-2 tabs every 6 hours as needed for pain benzonatate 200 mg oral capsule (4 sources) Non-narcotic Antitussive Start: 03-09-2024 End: 07-14-2024 take 200 mg by mouth three times daily Benzonatate Discontinued 200 MG PO Three times daily 14 09March 09, 2024 12:00am July 14, 2024 2:01pm Start: 12-29-2023 End: 03-09-2024 Benzonatate Discontinued 200 MG PO 2-3 TIMES PER DAY December 29, 2023 1:00am March 09, 2024 9:18am fluvoxaMINE maleate 100 mg oral tablet (2 sources) Serotonin Reuptake Inhibitor Start: 03-15-2018 End: 03-09-2024 take 100 mg by mouth once daily at bedtime Fluvoxamine Discontinued 100 MG PO Daily at bedtime March 15, 2018 12:00am March 09, 2024 9:18am hydroCHLOROthiazide 12.5 mg / losartan potassium 50 mg oral tablet (20 sources) Thiazide Diuretic, Angiotensin 2 Receptor Quan Start: 03-15-2018 End: 02-16-2024 take 1 tablet by mouth once daily at bedtime Losartan-Hydrochl orothiazide Discontinued 1 TAB PO Daily at bedtime March 15, 2018 12:00am February 16, 2024 8:22am losartan-hydroCH LOROthiazide (Hyzaar) 100-25 MG tablet Take by mouth Active methylPREDNISolone (7 sources) Corticosteroid Start: 07-13-2024 End: 08-01-2024 methylPREDNISolone (Medrol Dospak) 4 MG tablets Indications: Pain of left heel , Plantar fasciitis of left foot Follow schedule on package instructions 1 each 07/13/2024 08/01/2024 Discontinued Start: 03-09-2024 End: 07-14-2024 take 1 tablet by mouth once Methylprednisolone (Medrol (Theo)) 4 mg tablets,dose pack Discontinued 0 PO per package directions 06 05March 09, 2024 12:00am July 14, 2024 2:01pm PO PER PKG DIR Start: 06-13-2021 Medrol 4 MG as directed Orally May, Active mupirocin 0.02 mg/mg topical ointment (6 sources) RNA Synthetase Inhibitor Antibacterial Start: 03-09-2024 [...] 0 Suspended oseltamivir 75 mg oral capsule (2 sources) Neuraminidase Inhibitor Start: 03-09-2024 End: 07-14-2024 take 1 capsule by mouth twice daily Oseltamivir (Tamiflu) 75 mg capsule Discontinued 75 MG PO Twice daily 10 March 09, 2024 12:00am July 14, 2024 2:01pm pantoprazole 40 mg delayed release oral tablet (20 sources) Proton Pump Inhibitor Start: 06-17-2021 End: 07-07-2024 take 40 mg by mouth once daily Pantoprazole Discontinued 40 MG PO Daily March 09, 2024 12:00am July 07, 2024 2:34pm triamcinolone acetonide 40 mg/ml injectable suspension (10 sources) Corticosteroid Start: 08-04-2023 Kenalog-40 Jul, 40 mg Problems Active Problems Problem Classification Problem Date Documented Date Episodic/Chronic Abdominal pain (9 sources) Left upper quadrant pain; Translations: [Left upper quadrant pain] Episodic Bacterial infection; unspecified site (1 source) Other specified bacterial agents as the cause of diseases classified elsewhere Episodic Disorders of lipid metabolism (10 sources) Dyslipidemia; Translations: [Hyperlipidemia, unspecified] 07-14-2024 Chronic Esophageal disorders (6 sources) Gastroesophageal reflux disease without esophagitis; Translations: [Gastro-esophageal reflux disease without esophagitis] Chronic Essential hypertension (15 sources) Essential (primary) hypertension; Translations: [Essential hypertension] Onset: 09-18-2022 Chronic Immunizations and screening for infectious disease (2 sources) Encounter for screening for human papillomavirus (HPV); Translations: [Contact with or exposure to other viral diseases] Onset: 11-12-2022 12-26-2023 Episodic Inflammation; infection of eye (except that caused by tuberculosis or sexually transmitteddisease) (1 source) Unspecified acute conjunctivitis, bilateral Episodic Influenza (2 sources) Influenza; Translations: [Influenza due to unidentified influenza virus with other respiratory manifestations] 03-09-2024 Episodic Osteoarthritis (15 sources) Bilateral arthritis of hip; Translations: [Bilateral primary osteoarthritis of hip] Onset: 08-07-2021 Resolved: 08-07-2021 Chronic Osteoporosis (2 sources) Osteoporosis; Translations: [Age-related osteoporosis without current pathological fracture] 08-01-2024 Chronic Other acquired deformities (9 sources) Lumbar spondylolisthesis; Translations: [Spondylolisthesis, lumbar region] Episodic Other connective tissue disease (1 source) Pain in left finger(s) Episodic Other connective tissue disease (1 source) Trigger thumb, left thumb Episodic Other connective tissue disease (1 source) Radial styloid tenosynovitis [de Quervain] Episodic Other connective tissue disease (15 sources) Pain of left heel; Translations: [Pain in left foot] 08-22-2024 Episodic Other connective tissue disease (15 sources) Plantar fasciitis of left foot; Translations: [Plantar fascial fibromatosis] 08-22-2024 Episodic Other female genital disorders (4 sources) [...] Test Name Value Interpretation Reference Range Facility Basophils Auto (Bld) [#/Vol] on 07-21-2024 Basophils (Bld) [#/Vol] 0.1 10 3/uL 0.0-0.1 [facility] Basophils/100 WBC Auto (Bld) on 07-21-2024 Basophils/100 WBC (Bld) 0.7 % 0.2-2.0 [facility] Cholesterol in LDL Calc [Mas s/Vol]on 07-21-2024 Cholesterol in LDL [Mass/Vol] 89.0 mg/dL [facility] Comment on above: <100 mg/dl [id number] 0-129 mg/dl NEAR OR ABOVE [id number] mg/dl BORDERLINE [id number] mg/dl HIGH>190 mg/dl VERY HIGH Cholesterol in VLDL Calc [Ma ss/Vol]on 07-21-2024 Cholesterol in VLDL [Mass/Vol] 20.0 mg/dL [facility] Eosinophils/100 WBC Auto (Bl d)on 07-21-2024 Eosinophils/100 WBC (Bld) 2.7 % 0.9-7.0 [facility] Erythrocyte distribution wid th Auto (RBC) [Ratio]on 07-21-2024 Erythrocyte distribution width (RBC) [Ratio] 13.9 % 11.0-15.0 [facility] Estimated glomerular filtrat ion rate (GFR) non- Americanon 07-21-2024 GFR/1.73 sq M.predicted among non-blacks MDRD (S/P/Bld) [Vol rate/Area] 46 mL/min/{1.73_m2} Low >=60 [facility] Globulin Calc (S) [Mass/Vol] on 07-21-2024 Globulin (S) [Mass/Vol] 3.7 g/dL [facility] Hematocrit Auto (Bld) [Volum e fraction]on 07-21-2024 Hematocrit (Bld) [Volume fraction] 41.6 % 36.0-48.0 [facility] Hemoglobin [Mass/volume] in Bloodon 07-21-2024 Hemoglobin (Bld) [Mass/Vol] 13.9 g/dL 12.0-16.0 [facility] Laboratory - Chemistry and C hemistry - challengeon 07-21-2024 Albumin [Mass/Vol] 3.5 g/dL 3.4-5.0 [facility] ALP [Catalytic activity/Vol] 102 U/L 46-116 [facility] ALT [Catalytic activity/Vol] 26 U/L 14-59 [facility] AST [Catalytic activity/Vol] 18 U/L 15-37 [facility] Bilirubin [Mass/Vol] 0.6 mg/dL 0.2-1.0 [facility] Calcium [Mass/Vol] 9.3 mg/dL 8.5-10.1 [facility] Chloride [Moles/Vol] 106 mmol/L 98-107 [facility] Cholesterol [Mass/Vol] 168 mg/dL <=200 [facility] Cholesterol in HDL [Mass/Vol] 59 mg/dL 40-60 [facility] Comment on above: > or =60 mg/dl - LOW CARDIOVASCULAR RISK<40 mg/dl - HIGH CARDIOVASCULAR RISK CO2 [Moles/Vol] 26.1 mmol/L 21.0-32.0 [facility] Creatinine [Mass/Vol] 1.17 mg/dL High 0.55-1.02 [facility] GFR/1.73 sq M.predicted MDRD (S/P/Bld) [Vol rate/Area] 55 mL/min/{1.73_m2} Low >=60 [facility] Glucose [Mass/Vol] 88 mg/dL 74-106 [facility] Potassium [Moles/Vol] 3.8 mmol/L 3.5-5.1 [facility] Protein [Mass/Vol] 7.2 g/dL 6.4-8.2 [facility] Sodium [Moles/Vol] 142 mmol/L 136-145 [facility] Triglyceride [Mass/Vol] 100 mg/dL <=150 [facility] Urea nitrogen [Mass/Vol] 18.0 mg/dL 7.0-18.0 [facility] Urea nitrogen/Creatinine [Mass ratio] 15.4 mg/mg [facility] Laboratory - Hematology and Cell countson 07-21-2024 Immature granulocytes/100 WBC (Bld) 0.4 % 0.0-0.5 [facility] Leukocytes [#/volume] correc annabelle for nucleated erythrocytes in Blood by Automated counon 07-21-2024 WBC corrected for nucl RBC Auto (Bld) [#/Vol] 9.6 10 3/uL 4.0-11.0 [facility] Lymphocytes Auto (Bld) [#/Vo l]on 07-21-2024 Lymphocytes (Bld) [#/Vol] 3.9 10 3/uL High 1.2-3.8 [facility] Lymphocytes/100 WBC Auto (Bl d)on 07-21-2024 Lymphocytes/100 WBC (Bld) 41.0 % 20.5-60.0 [facility] MCH Auto (RBC) [Entitic mass ]on 07-21-2024 MCH (RBC) [Entitic mass] 28.7 pg 26.7-34.0 [facility] MCHC Auto (RBC) [Mass/Vol]on 07-21-2024 MCHC (RBC) [Mass/Vol] 33.4 g/dL 29.9-35.2 [facility] MCV Auto (RBC) [Entitic vol] on 07-21-2024 MCV (RBC) [Entitic vol] 85.8 fL 81.0-99.0 [facility] Monocytes Auto (Bld) [#/Vol] on 07-21-2024 Monocytes (Bld) [#/Vol] 1.0 10 3/uL High 0.3-0.8 [facility] Monocytes/100 WBC Auto (Bld) on 07-21-2024 Monocytes/100 WBC (Bld) 10.4 % 1.7-12.0 [facility] Neutrophils Auto (Bld) [#/Vo l]on 07-21-2024 Neutrophils (Bld) [#/Vol] 4.3 10 3/uL 1.4-6.5 [facility] Neutrophils/100 WBC Auto (Bl d)on 07-21-2024 Neutrophils/100 WBC (Bld) 44.8 % 43.0-75.0 [facility] No Panel Informationon 07-21 Eosinophils # (Auto) 0.3 10 3/uL 0.0-0.7 [facility] Immature Granulocyte # (Auto) 0.04 10 3/uL High 0.00-0.03 [facility] Platelet mean volume Auto (B ld) [Entitic vol]on 07-21-2024 Platelet mean volume (Bld) [Entitic vol] 10.2 fL 9.5-13.5 [facility] Platelets Auto (Bld) [#/Vol] on 07-21-2024 Platelets (Bld) [#/Vol] 330 10 3/uL 150-450 [facility] RBC Auto (Bld) [#/Vol]on RBC (Bld) [#/Vol] 4.85 10 6/uL 4.20-5.40 [facility] Serum or plasma albumin/glob ulin mass ratioon 07-21-2024 Albumin/Globulin [Mass ratio] 0.9 {ratio} [facility] Serum or plasma anion gap de terminationon 07-21-2024 Anion gap [Moles/Vol] 13.7 mmol/L [facility] Serum or plasma total choles terol/high density lipoprotein (HDL) cholesterol mass abel 07-21-2024 Cholesterol.total/Cho lesterol in HDL [Mass ratio] 2.8 {ratio} [facility] Comment on above: 3.3 - 4.4 LOW RISK4. 4 - 7.1 AVERAGE RISK7.1 - 11.0 MODERATE RISK>11.0 HIGH RISK MR ANKLE LEFT WO IV CONTRAST on 07-13-2024 MR ANKLE LEFT WO IV CONTRAST EXAM: MR ANKLE LEFT WO IV CONTRAST HISTORY: Heel pain. Planter fasciitis. TECHNIQUE: Multisequence multiplanar MRI of the ankle was performed without contrast COMPARISON: None available FINDINGS: Achilles tendon is intact. There is thickening of the medial cord plantar fascia with thickness measuring up to 6 mm. Mild adjacent soft tissue edema as well as minimal edema within the calcaneus at the attachment of the medial cord plantar fascia. Small plantar calcaneal enthesophyte. The tibialis posterior, flexor hallucis longus, and flexor digitorum longus tendons are intact. No space-occupying lesion within the tarsal tunnel. Peroneus longus and peroneus brevis tendons are intact. Extensor tendons are intact. The anterior and posterior tibiofibular ligaments, anterior and posterior talofibular ligaments, and calcaneofibular ligament are intact. Superficial and deep fibers of the deltoid ligament are intact. Spring ligament is intact. Sinus tarsi fat is preserved. No well defined or measurable cartilage defect of the tibial plafond, talar dome, or subtalar joint. No ankle joint effusion. No evidence of fracture or stress reaction of the visualized bones. Mild subcutaneous soft tissue edema of the ankle. IMPRESSION: Findings compatible with planter fasciitis. ELECTRONICALLY SIGNED BY: Angelo Carlson, DO Normal Not Available RAPID DNA COVIDon 12-26-2023 Interpretation and review of laboratory results Normal [facility] SARS-CoV-2 (COVID-19) RNA DEBORAH+probe Ql (Unsp spec) Negative [facility] RHEUMATOID FACTORon 07-29-20 23 RHEUMATOID FACTOR see note [employer] Other RHEUMATOID FACTOR <10.0 IU/mL <14.0 IU/mL [employer] Other PAP ACOG PANEL 2: 30 to 65on 11-15-2022 . . Normal [facility] Comment on above: Performed By: #### [id number] #### [facility] [address] [place] [address] Dr. Ricardo Malhotra Age Gdln ACOG Testing Comment Normal [facility] Comment on above: Result Comment: <21 or >65 or no age provided Performed By: #### [id number] #### [facility] [address] [address] [address] Ricardo Malhotra DIAGNOSIS: Comment [facility] Comment on above: Result Comment: NEGA TIVE FOR INTRAEPITHELIAL LESION OR MALIGNANCY. Performed By: #### [id number] #### [facility] [address] [address] [address] Ricardo Malhotra Methodology: Comment [facility] Comment on above: Result Comment: This liquid based ThinPrep(R) pap test was screened with the use of an image guided system. Performed By: #### [id number] #### [facility] [address] [address] [address] Ricardo Malhotra Note: Comment [facility] Comment on above: Result Comment: The Pap smear is a screening test designed to aid in the detection of premalignant and malignant conditions of the uterine cervix. It is not a diagnostic procedure and should not be used as the sole means of detecting cervical cancer. Both false-positive and false-negative reports do occur. . Performed By: #### [id number] #### [facility] [address] [place] [address] Dr. Ricardo Malhotra Performed by: Comment Normal [facility] Comment on above: Result Comment: Amina Stephenson, Supply Chain Generalist (ASCP) Performed By: #### [id number] #### [facility] [address] [place] [address] Dr. Ricardo Malhotra Specimen adequacy: Comment Normal [facility] Comment on above: Result Comment: Sati sfactory for evaluation. No endocervical component is identified. Performed By: #### [id number] #### [facility] [address] [place] [address] Dr. Ricardo Malhotra CBC AUTO DIFFon 09-18-2022 BASO # 0.1 103/ul Normal 0.0-0.1 [facility] Comment on above: Performed By: #### C BC #### [facility] [address] [place] [address] Dr. Ricardo Malhotra Basophils/100 WBC (Bld) 1.1 % Normal 0.2-2.0 [facility] Comment on above: Performed By: #### C BC #### [facility] [address] [place] [address] Dr. Ricardo Malhotra EO # 0.3 103/ul Normal 0.0-0.7 [facility] [facility] Comment on above: Performed By: #### C BC #### [facility] [address] [place] [address] Dr. Ricardo Malhotra Eosinophils/100 WBC (Bld) 3.6 % Normal 0.9-7.0 [facility] Comment on above: Performed By: #### C BC #### [facility] [address] [place] [address] Dr. Ricardo Malhotra Erythrocyte distribution width (RBC) [Ratio] 14.1 % Normal 11.0-15.0 [facility] Comment on above: Performed By: #### C BC #### [facility] [address] [place] [address] Dr. Ricardo Malhotra Hematocrit (Bld) [Volume fraction] 39.1 % Normal 36.0-48.0 [facility] Comment on above: Performed By: #### C BC #### [facility] [address] [place] [address] Dr. Ricardo Malhotra Hemoglobin (Bld) [Mass/Vol] 12.8 g/dL Normal 12.0-16.0 [facility] Comment on above: Performed By: #### C BC #### [facility] [address] [place] [address] Dr. Ricardo Malhotra IG # 0.02 10e3/ul Normal 0.00-0.03 [facility] Comment on above: Performed By: #### C BC #### [facility] [address] [place] [address] Dr. Ricardo Malhotra IG % 0.3 % Normal 0.0-0.5 [facility] Comment on above: Performed By: #### C BC #### [facility] [address] [place] [address] Dr. Ricardo Malhotra LYMPH # 2.2 103/ul Normal 1.2-3.8 [facility] Comment on above: Performed By: #### C BC #### [facility] [address] [place] [address] Dr. Ricardo Malhotra Lymphocytes/100 WBC (Bld) 32.0 % Normal 20.5-60.0 [facility] Comment on above: Performed By: #### C BC #### [facility] [address] [place] [address] Dr. Ricardo Malhotra MANUAL DIFF REQ NO Normal [facility] Comment on above: Performed By: #### C BC #### [facility] [address] [place] [address] Dr. Ricardo Malhotra MCH (RBC) [Entitic mass] 28.7 pg Normal 26.7-34.0 [facility] Comment on above: Performed By: #### C BC #### [facility] [address] [place] [address] Dr. Ricardo Malhotra MCHC (RBC) [Mass/Vol] 32.7 g/dL Normal 29.9-35.2 [facility] Comment on above: Performed By: #### C BC #### [facility] [address] [address] [address] Ricardo Malhotra MCV (RBC) [Entitic vol] 87.7 fL Normal 81.0-99.0 [facility] Comment on above: Performed By: #### C BC #### [facility] [address] [address] [address] Ricardo Malhotra MONO # 0.8 103/ul Normal 0.3-0.8 [facility] Comment on above: Performed By: #### C BC #### [facility] [address] [place] [address] Dr. Ricardo Malhotra Monocytes/100 WBC (Bld) 10.9 % Normal 1.7-12.0 [facility] Comment on above: Performed By: #### C BC #### [facility] [address] [place] [address] Dr. Ricardo Malhotra NEUT # 3.7 103/ul Normal 1.4-6.5 [facility] Comment on above: Performed By: #### C BC #### [facility] [address] [place] [address] Dr. Ricardo Malhotra Neutrophils/100 WBC (Bld) 52.1 % Normal 43.0-75.0 [facility] Comment on above: Performed By: #### C BC #### [facility] [address] [place] [address] Dr. Ricardo Malhotra Platelet mean volume (Bld) [Entitic vol] 10.5 fL Normal 9.5-13.5 [facility] Comment on above: Performed By: #### C BC #### [facility] [address] [place] [address] Dr. Ricardo Malhotra PLT 301 103/ul Normal 150-450 [facility] Comment on above: Performed By: #### C BC #### [facility] [address] [place] [address] Dr. Ricardo Malhotra RBC 4.46 106/ul Normal 4.20-5.40 [facility] Comment on above: Performed By: #### C BC #### [facility] [address] [address] [address] Ricardo Malhotra WBC 7.0 103/ul Normal 4.0-11.0 [facility] Comment on above: Performed By: #### C BC #### [facility] [address] [address] [address] Ricardo Malhotra LIPID PROFILEon 09-18-2022 CHOL-HDL RATIO NORM SEE BELOW Normal [facility] Comment on above: Result Comment: 3.3 - 4.4 LOW RISK 4.4 - 7.1 AVERAGE RISK 7.1 - 11.0 MODERATE RISK >11.0 HIGH RISK Performed By: #### L IPID, BMP #### [facility] [address] [address] [address] Ricardo Malhotra Cholesterol [Mass/Vol] 154 mg/dL Normal <=200 [facility] Comment on above: Performed By: #### L IPID, BMP #### [facility] [address] [address] [address] Ricardo Malhotra Cholesterol in HDL [Mass/Vol] 54 mg/dL Normal 40-60 [facility] Comment on above: Performed By: #### L IPID, BMP #### [facility] [address] [place] [address] Dr. Ricardo Malhotra Cholesterol in LDL [Mass/Vol] 82.6 mg/dL Normal [facility] Comment on above: Performed By: #### L IPID, BMP #### [facility] [address] [address] [address] Ricardo Malhotra Cholesterol.total/Cho lesterol in HDL [Mass ratio] 2.9 {ratio} Normal [facility] Comment on above: Performed By: #### L IPID, BMP #### [facility] [address] [place] [address] Dr. Ricardo Malhotra HDL NORMAL > or = 60 mg/dl - LOW CARDIOVASCULAR RISK <40 mg/dl - HIGH CARDIOVASCULAR RISK Normal [facility] Comment on above: Performed By: #### L IPID, BMP #### [facility] [address] [place] [address] Dr. Ricardo Malhotra LDL CALC NORMAL SEE BELOW Normal [facility] Comment on above: Result Comment: <100 mg/dl OPTIMAL 100 - 129 mg/dl NEAR OR ABOVE OPTIMAL 130 - 159 mg/dl BORDERLINE HIGH 160 - 189 mg/dl HIGH >190 mg/dl VERY HIGH Performed By: #### L IPID, BMP #### [facility] [address] [address] [address] Ricardo Malhotra Triglyceride [Mass/Vol] 87 mg/dL Normal <=150 [facility] Comment on above: Performed By: #### L IPID, BMP #### [facility] [address] [address] [address] Ricardo Malhotra VLDL CALC 17.4 mg/dL Normal [facility] Comment on above: Performed By: #### L IPID, BMP #### [facility] [address] [address] [address] Ricardo Malhotra MG MAMM SCREEN 3D IRLANDA CADon 09-18-2022 MG MAMM SCREEN 3D IRLANDA CAD Patient: BHARGAVI CHOPRA Exam Date: 09/18/2022 : 1955 Gender:F Ordering : DR TAVO AHMADI . Admission #: [id number] Family : DR AUREA DE LA TORRE M.D. Order #: [id number] CLICK HERE TO VIEW EXAM RADIOLOGY REPORT [...] renal cancer at age 82. LOCATION: [facility] BREAST COMPOSITION: Heterogeneously dense,which may obscure small [...] Zuniga MD on 09/18/2022 at 13:42 Normal [facility] PROF CHEM 8 (BAS METB)on Anion gap [Moles/Vol] 11.0 mmol/L Normal [facility] Comment on above: Performed By: #### L IPID, BMP #### [facility] [address] [place] [address] Dr. Ricardo Malhotra Calcium [Mass/Vol] 8.7 mg/dL Normal 8.5-10.1 [facility] Comment on above: Performed By: #### L IPID, BMP #### [facility] [address] [place] [address] Dr. Ricardo Malhotra Chloride [Moles/Vol] 107 mmol/L Normal 98-107 [facility] Comment on above: Performed By: #### L IPID, BMP #### [facility] [address] [place] [address] Dr. Ricardo Malhotra CO2 [Moles/Vol] 25.9 mmol/L Normal 21.0-32.0 [facility] Comment on above: Performed By: #### L IPID, BMP #### [facility] [address] [place] [address] Dr. Ricardo Malhotra Creatinine [Mass/Vol] 1.06 mg/dL Critically high 0.55-1.02 [facility] Comment on above: Performed By: #### L IPID, BMP #### [facility] [address] [place] [address] Dr. Ricardo Malhotra EGFR-AF NIGERIEN >60 Normal >=60 [facility] Comment on above: Performed By: #### L IPID, BMP #### [facility] [address] [place] [address] Dr. Ricardo Malhtora EGFR-NON AF NIGERIEN 52 mL/min/1.73m2 Critically low >=60 [facility] Comment on above: Performed By: #### L IPID, BMP #### [facility] [address] [place], [place] [address] Dr. Ricardo Malhotra Glucose [Mass/Vol] 89 mg/dL Normal 74-106 [facility] Comment on above: Performed By: #### L IPID, BMP #### [facility] [address] [place] [address] Dr. Ricardo Malhotra Potassium [Moles/Vol] 3.9 mmol/L Normal 3.5-5.1 [facility] Comment on above: Performed By: #### L IPID, BMP #### [facility] [address] [place] [address] Dr. Ricardo Malhotra Sodium [Moles/Vol] 140 mmol/L Normal 136-145 [facility] Comment on above: Performed By: #### L IPID, BMP #### [facility] [address] [place] [address] Dr. Ricardo Malhotra Urea nitrogen [Mass/Vol] 18.0 mg/dL Normal 7.0-18.0 [facility] Comment on above: Performed By: #### L IPID, BMP #### [facility] [address] [place] [address] Dr. Ricardo Malhotra Urea nitrogen/Creatinine [Mass ratio] 17.0 mg/mg Normal [facility] Comment on above: Performed By: #### L IPID, BMP #### [facility] [address] [place] [address] Dr. Ricardo Malhotra VAGINITIS/VAGINOSIS DNA PROB Yifan 08-21-2022 Reba species Negative Normal Negative [facility] Comment on above: Performed By: #### V AGINT #### [facility] [address] [place] [address] Dr. Ricardo Malhotra Gardnerella vaginalis Negative Normal Negative [facility] Comment on above: Performed By: #### V AGINT #### [facility] [address] [place] [address] Dr. Ricardo Malhotra Trichomonas vaginalis Negative Normal Negative [facility] Comment on above: Performed By: #### V AGINT #### [facility] [address] [place] [address] Dr. Ricardo Malhotra VAGINITIS/VAGINOSIS DNA PROB Yifan 06-12-2022 Reba species Positive Abnormal Negative [facility] Comment on above: Performed By: #### V AGINT #### [facility] [address] [place] [address] Dr. Ricardo Malhotra Gardnerella vaginalis Positive Abnormal Negative [facility] Comment on above: Performed By: #### V AGINT #### [facility] [address] [place] [address] Dr. Ricardo Malhotra Trichomonas vaginalis Negative Normal Negative [facility] Comment on above: Performed By: #### V AGINT #### [facility] [address] [place] [address] Dr. Ricardo Malhotra VAGINITIS/VAGINOSIS DNA PROB Yifan 04-13-2022 Reba species Negative Normal Negative [facility] Comment on above: Performed By: #### V AGINT #### [facility] [address] [place] [address] Dr. Ricardo Malhotra Gardnerella vaginalis Negative Normal Negative [facility] Comment on above: Performed By: #### V AGINT #### [facility] [address] [place] [address] Dr. Ricardo Malhotra Trichomonas vaginalis Negative Normal Negative [facility] Comment on above: Performed By: #### V AGINT #### [facility] [address] [place] [address] Dr. Ricardo Malhotra VAGINITIS/VAGINOSIS DNA PROB Yifan 03-27-2022 Reba species Negative Normal Negative [facility] Comment on above: Performed By: #### V AGINT #### [facility] [address] [place] [address] Dr. Ricardo Malhotra Gardnerella vaginalis Positive Abnormal Negative [facility] Comment on above: Performed By: #### V AGINT #### [facility] [address] [place] [address] Dr. Ricardo Malhotra Trichomonas vaginalis Negative Normal Negative [facility] Comment on above: Performed By: #### V AGINT #### [facility] [address] [place] [address] Dr. Ricardo Malhotra VAGINITIS/VAGINOSIS DNA PROB Yifan 03-07-2022 Reba species Negative Normal Negative [facility] Comment on above: Performed By: #### V AGINT #### [facility] [address] [address] [address] Ricardo Malhotra Gardnerella vaginalis Positive Abnormal Negative [facility] Comment on above: Performed By: #### V AGINT #### [facility] [address] [address] [address] Ricardo Malhotra Trichomonas vaginalis Negative Normal Negative [facility] Comment on above: Performed By: #### V AGINT #### [facility] [address] [address] [address] Ricardo Malhotra Cardiac Catheterizationon Cardiac Diagnostic Report Demographics Patient KEYSHA BURK Date of Study 12/17/2020 Name Date of 1955 Gender Female Age 65 year(s) Race Room 4606099^GREGORIO Height: 62.99 inch, 160 cm Number Corporate [id number] Weight: 167 pounds, 75.9 kg ID # Patient [id number] BSA: 1.79 m^2 BMI: 29.65 Acct # kg/m^2 MR # [id number] Performing Physician Julieta Tomas Referring Physician # [...] as needed. GI work up Signature ---- Electronically signed by Julieta Tomas(Perform [facility] Physician) on 12/17/2020 12:46 ---- Angiographic Findings Cardiac Arteries and Lesion [...] for Left ventriculography. Contrast Material: - Isovue [id number] ml - Isovue 07976 ml Fluoroscopy Time: Diagnostic: 2:30 minutes. Total: [...] assessed as CCS II according to the Williamson clinical classification. Hemodynamics Condition: Baseline Room Air [...] +------ ---+ + Shunts Oxygen Values O2 Cumoeugo343.24O2 [id number] [facility] [place] [place] Lazaro, fay Incoming Cardio Results From [facility]/ - 12/17/2020 12:46 PM EST Cardiac Diagnostic Report Demographics Patient KEYSHA BURK Date of Study 12/17/2020 Name Date of 1955 Gender Female Age 65 year(s) Race Room 1098703^GREGORIO Height: 62.99 inch, 160 cm Number Corporate [id number] Weight: 167 pounds, 75.9 kg ID # Patient [id number] BSA: 1.79 m^2 BMI: 29.65 Acct # kg/m^2 MR # [id number] Performing Physician Julieta Tomas Referring Physician # [...] as needed. GI work up Signature ---- Electronically signed by Julieta Tomas(Perform [facility] Physician) on 12/17/2020 12:46 ---- Angiographic Findings Cardiac Arteries and Lesion [...] for Left ventriculography. Contrast Material: - Isovue 235430 ml - Isovue 88722 ml Fluoroscopy Time: Diagnostic: 2:30 minutes. Total: [...] assessed as CCS II according to the Williamson clinical classification. Hemodynamics Condition: Baseline Room Air [...] +------ ---+ + Shunts Oxygen Values O2 Sddnbisg505.24O2 [address] [facility], [place] Vital Signs Date Time Vital Sign Value Performing Clinician Facility 07-14-2024 13:39-0400 Body height 157.48 cm [facility] 07-14-2024 13:39-0400 Body mass index (BMI) [Ratio] 30.7 kg/m2 [facility] 07-14-2024 13:39-0400 Body weight 76.2 kg [facility] 07-14-2024 13:39-0400 Diastolic blood pressure 85 mm[Hg] [facility] 07-14-2024 13:39-0400 Heart rate 64 /min [facility] 07-14-2024 13:39-0400 Systolic blood pressure 134 mm[Hg] [facility] 12-26-2023 12:58-0500 Body temperature 96.6 [degF] Marcos Fernandez DO Work Phone: [facility] [employer] 12-26-2023 12:58-0500 Diastolic blood pressure 78 mm[Hg] Marcos Fernandez [employer] Work Phone: [facility] 12-26-2023 12:58-0500 Heart rate 69 /min Marcos Fernandez [employer] Work Phone: [facility] [facility] 12-26-2023 12:58-0500 SaO2% (BldA) [Mass fraction] 97 % Marcos Fernandez [employer] Work Phone: [facility] [facility] 12-26-2023 12:58-0500 Systolic blood pressure 120 mm[Hg] Marcos Fernandez [employer] Work Phone: [facility] [facility] 09-04-2023 11:00-0400 Body height 157.48 cm Jaqueline Huerta Other [employer] Other 09-04-2023 11:00-0400 Body mass index (BMI) [Ratio] 29.85 kg/m2 Jaqueline Huerta Other [employer] Other 09-04-2023 11:00-0400 Body weight 74.03 kg Jaqueline Huerta Other [employer] Other 09-04-2023 11:00-0400 Diastolic blood pressure 76 mm[Hg] Jaqueline Huerta Other [employer] Other 09-04-2023 11:00-0400 SaO2% (BldA) [Mass fraction] 97 % Jaqueline Yaoacher Other [employer] Other 09-04-2023 11:00-0400 Systolic blood pressure 138 mm[Hg] Jaqueline Deanna Other [employer] Other 08-04-2023 14:00-0400 Body height 157.48 cm Yo Manleyley Other [employer] Other 08-04-2023 14:00-0400 Body mass index (BMI) [Ratio] 30.36 kg/m2 Yo Manleyley Other [employer] Other 08-04-2023 14:00-0400 Body weight 75.3 kg Yo Manleyley Other [employer] Other 07-29-2023 11:15-0400 Body height 157.48 cm Aurea De La Torre Other [employer] Other 07-29-2023 11:15-0400 Body mass index (BMI) [Ratio] 30.4 kg/m2 Aurea De La Torre Other [employer] Other 07-29-2023 11:15-0400 Body weight 75.39 kg Aurea De La Torre Other [employer] Other 07-29-2023 11:15-0400 Diastolic blood pressure 76 mm[Hg] Aurea De La Torre Other [employer] Other 07-29-2023 11:15-0400 Respiratory rate 12 /min Aurea De La Torre Other [employer] Other 07-29-2023 11:15-0400 Systolic blood pressure 102 mm[Hg] Aurea De La Torre Other [employer] Other 12-17-2020 15:15-0500 BP Diastolic 62 mm[Hg] [facility] [place] 12-17-2020 15:15-0500 BP Systolic 136 mm[Hg] [facility] [place] 12-17-2020 15:15-0500 Pulse (Heart Rate) 72 /min [facility] [place] 12-17-2020 15:15-0500 Pulse Oximetry 99 % [facility] [place] [facility] [place] 12-17-2020 15:15-0500 Respiratory Rate 16 /min [facility], [place] 12-17-2020 13:10-0500 Body Temperature 97.81 [degF] [facility], [place] 12-17-2020 10:39-0500 BMI (Body Mass Index) 29.65 kg/m2 [facility] [place] 12-17-2020 10:39-0500 Body weight 75.93 kg [place], [place] 12-17-2020 10:39-0500 Height 160 cm [place], [place] Encounters Encounter Date Encounter Type Care Provider Facility Start: 09-27-2024 End: 09-27-2024 ambulatory GREYSON KITCHEN Not Available Start: 09-26-2024 End: 09-26-2024 ambulatory REYES DUMONT Not Available Start: 09-23-2024 End: 09-23-2024 Bamboo flowsheet Greyson Kitchen TREATMENT COORDINATOR [facility] Start: 09-23-2024 End: 09-23-2024 Bamboo flowsheet Greyson Leivaink TREATMENT COORDINATOR [facility] Start: 09-23-2024 End: 09-23-2024 ambulatory Greyson Noam TREATMENT COORDINATOR [facility] Comment on above: Pain of left heel (P rimary Dx); Plantar fasciitis of left foot Start: 09-20-2024 End: 09-20-2024 Bamboo flowsheet Greyson Kitchen TREATMENT COORDINATOR [facility] Start: 09-20-2024 End: 09-20-2024 Bamboo flowsheet Greyson Brink TREATMENT COORDINATOR [facility] Start: 09-20-2024 End: 09-20-2024 ambulatory Greyson Brink TREATMENT COORDINATOR [facility] Comment on above: Pain of left heel (P rimary Dx); Plantar fasciitis of left foot Start: 09-15-2024 End: 09-15-2024 Bamboo flowsheet Greyson Brink TREATMENT COORDINATOR [facility] Start: 09-15-2024 End: 09-15-2024 Bamboo flowsheet Greyson Brink TREATMENT COORDINATOR [facility] Start: 09-15-2024 End: 09-15-2024 ambulatory Greyson Brink TREATMENT COORDINATOR [facility] Comment on above: Pain of left heel (P rimary Dx); Plantar fasciitis of left foot Start: 09-14-2024 End: 09-14-2024 Bamboo flowsheet Clover Andrew PT Work Phone: [facility] Start: 09-14-2024 End: 09-14-2024 Bamboo flowsheet Clover Andrew PT Work Phone: [facility] Start: 09-14-2024 End: 09-14-2024 ambulatory Clover Andrew PT Work Phone: [facility] Comment on above: Pain of left heel (P rimary Dx); Plantar fasciitis of left foot Start: 09-09-2024 End: 09-09-2024 Bamboo flowsheet Greyson Brink TREATMENT COORDINATOR [facility] Start: 09-09-2024 End: 09-09-2024 Bamboo flowsheet Greyson Brink TREATMENT COORDINATOR [facility] Start: 09-09-2024 End: 09-09-2024 ambulatory Greyson Brink TREATMENT COORDINATOR [facility] Comment on above: Pain of left heel (P rimary Dx); Plantar fasciitis of left foot Start: 09-06-2024 End: 09-06-2024 Bamboo flowsheet Greyson Brink TREATMENT COORDINATOR [facility] Start: 09-06-2024 End: 09-06-2024 Bamboo flowsheet Greyson Brink TREATMENT COORDINATOR [facility] Start: 09-06-2024 End: 09-06-2024 ambulatory Greyson Brink TREATMENT COORDINATOR [facility] Comment on above: Pain of left heel (P rimary Dx); Plantar fasciitis of left foot Start: 09-05-2024 End: 09-05-2024 ambulatory [facility] Work Phone: Start: 09-05-2024 End: 09-05-2024 Patient encounter procedure [facility] Work Phone: Start: 09-01-2024 End: 09-01-2024 Bamboo flowsheet Greyson Brink TREATMENT COORDINATOR [facility] Start: 09-01-2024 End: 09-01-2024 Bamboo flowsheet Greyson Brink TREATMENT COORDINATOR [facility] Start: 09-01-2024 End: 09-01-2024 ambulatory Greyson Brink TREATMENT COORDINATOR [facility] Comment on above: Pain of left heel (P rimary Dx); Plantar fasciitis of left foot Start: 08-30-2024 End: 08-30-2024 Bamboo flowsheet Greyson Brink TREATMENT COORDINATOR [facility] Start: 08-30-2024 End: 08-30-2024 Bamboo flowsheet Greyson Brink TREATMENT COORDINATOR [facility] Start: 08-30-2024 End: 08-30-2024 ambulatory Greyson Brink TREATMENT COORDINATOR [facility] Comment on above: Pain of left heel (P rimary Dx); Plantar fasciitis of left foot Start: 08-25-2024 End: 08-25-2024 Bamboo flowsheet Greyson Brink TREATMENT COORDINATOR [facility] Start: 08-25-2024 End: 08-25-2024 Bamboo flowsheet Greyson Brink TREATMENT COORDINATOR [facility] Start: 08-25-2024 End: 08-25-2024 ambulatory Greyson Brink TREATMENT COORDINATOR [facility] Comment on above: Pain of left heel (P rimary Dx); Plantar fasciitis of left foot Start: 08-23-2024 End: 08-23-2024 Bamboo flowsheet Greyson Brink TREATMENT COORDINATOR [facility] Start: 08-23-2024 End: 08-23-2024 Bamboo flowsheet Greyson Brink TREATMENT COORDINATOR [facility] Start: 08-23-2024 End: 08-23-2024 ambulatory Greyson Kitchen TREATMENT COORDINATOR [facility] Comment on above: Pain of left heel (P rimary Dx); Plantar fasciitis of left foot Start: 08-18-2024 End: 08-18-2024 Bamboo flowsheet Clover Andrew PT Work Phone: [facility] Start: 08-18-2024 End: 08-18-2024 Bamboo flowsheet Clover Andrew PT Work Phone: [facility] Start: 08-18-2024 End: 08-18-2024 ambulatory Clover Andrew PT Work Phone: [facility] Comment on above: Pain of left heel (P rimary Dx); Plantar fasciitis of left foot Start: 08-16-2024 End: 08-16-2024 ambulatory REYES DUMONT Not Available Start: 08-16-2024 End: 08-16-2024 Bamboo flowsheet Reyes Dumont DPM Work Phone: [facility] Start: 08-16-2024 End: 08-16-2024 Bamboo flowsheet Reyes Dumont DPM Work Phone: [facility] Start: 08-15-2024 End: 08-15-2024 ambulatory GREYSON KITCHEN Not Available Start: 08-11-2024 End: 08-11-2024 ambulatory KETURAH VILLALOBOS Not Available Start: 08-09-2024 End: 08-09-2024 ambulatory CLOVER ANDREW Not Available Start: 08-01-2024 End: 08-01-2024 Office outpatient visit 25 minutes Reyes Dumont DPM Work Phone: [facility] Comment on above: Pain of left heel (P rimary Dx); Plantar fasciitis of left foot; Osteoporosis, unspecified osteoporosis type, unspecified pathological fracture presence ([facility] Start: 08-01-2024 End: 08-01-2024 ambulatory REYES DUMONT Not Available Start: 07-27-2024 End: 07-27-2024 ambulatory REYES GONSALEZZ Not Available Start: 07-21-2024 Non-patient / Non-visit [facility] [employer] Work Phone: Start: 07-16-2024 Patient encounter procedure [facility] Start: 07-14-2024 End: 07-14-2024 ambulatory [facility] Work Phone: Start: 07-14-2024 End: 07-14-2024 Patient encounter procedure [facility] Work Phone: Start: 07-13-2024 End: 07-13-2024 ambulatory REYES Draper JULIA Not Available Start: 06-13-2024 End: 06-13-2024 ambulatory REYES R DESBITZ Not Available Start: 05-30-2024 End: 05-30-2024 ambulatory REYES R DESBITZ Not Available Start: 12-28-2023 End: 12-28-2023 ambulatory Aurea De La Torre Other [employer] Other Start: 12-28-2023 Office outpatient visit 15 minutes Aurea De La Torre [facility] Start: 12-26-2023 End: 12-26-2023 Office outpatient visit 25 minutes Marcos Fernandez DO Work Phone: [facility] Comment on above: Viral URI (Primary D x); Exposure to COVID-19 virus Start: 12-26-2023 End: 12-26-2023 ambulatory MARCOS FERNANDEZ Not Available Start: 11-20-2023 End: 11-20-2023 ambulatory ERNESTINA CALLAHAN Not Available Start: 11-04-2023 End: 11-04-2023 ambulatory Aurea De La Torre Other [employer] Other Start: 11-04-2023 Telephone encounter Aurea De La Torre [facility] Start: 09-07-2023 End: 09-07-2023 ambulatory Aurea De La Torre Other [employer] Other Start: 09-07-2023 Nursing evaluation o f patient and report Aurea De La Torre [facility] Start: 09-04-2023 End: 09-04-2023 ambulatory Jaqueline Huerta Other [employer] Other Start: 09-04-2023 Office outpatient visit 15 minutes Jaqueline Huerta [facility] Start: 08-04-2023 End: 08-04-2023 ambulatory Yo Timmons Other [employer] Other Start: 08-04-2023 Office outpatient ne w 45 minutes Yo Timmons [facility] Start: 07-29-2023 End: 07-29-2023 ambulatory Aurea De La Torre Other [employer] Other Start: 07-29-2023 Office outpatient visit 15 minutes Aurea De La Torre [facility] Start: 01-14-2023 End: 01-14-2023 ambulatory Aurea De La Torre Other [employer] Other Start: 01-14-2023 Telephone encounter Aurea De La Torre [facility] Start: 11-04-2022 End: 11-04-[address] TAVO [...] 12-16-2021 End: 12-16-2021 ambulatory Nieves Adams Other [employer] Other Start: 12-16-2021 Telephone encounter Nieves Adams [facility] Start: 08-07-2021 Office outpatient visit 15 minutes Tal Toro [facility] Start: 12-17-2020 End: 12-17-2020 Patient encounter procedure ERICANisha Emmie TOMAS [facility] Start: 12-17-2020 End: 12-17-2020 Subsequent hospital visit by physician Julieta Tomas Work Phone: [facility] Start: 12-04-2018 End: 12-04-2018 Patient encounter procedure Janet Velásquez Facility:[facility] Procedures Date Procedure Procedure Detail Performing Clinician Start: 12-26-2023 Sars-cov-2 detection by dna/rna Phuc Azevedo DO Work Phone: Start: 09-18-2022 Mammography Marcos draper DO Work Phone: Start: 12-17-2020 End: 12-17-2020 MOLD TECHNICIAN REPORT [facility] Start: 12-17-2020 Catheterization and angiography procedure details panel Julieta Emmie Tomas Work Phone: Plan of Treatment Date Care Activity Detail Author Start: 12-14-2024 End: 12-14-2024 Patient encounter procedure 12/14/2024 1:30 PM EST Office Visit [facility] [address] [place] [address] Ernestina Callahan DO [address] [place] [address] [facility] Start: 10-26-2024 End: 10-26-2024 Patient encounter procedure 10/26/2024 11:00 AM EST Office Visit [facility] [address] [place] [phone] Reyes Dumont DPM [address] [place] [address] [facility] Start: 10-06-2024 End: 10-06-2024 ambulatory 10/06/2024 1:00 PM EST Treatment [facility] [address] [place] [address] Greyson Kitchen TREATMENT COORDINATOR [facility] Start: 10-04-2024 End: 10-04-2024 ambulatory 10/04/2024 1:00 PM EST Treatment [facility] [address] [place] [address] Greyson Kitchen TREATMENT COORDINATOR [facility] Start: 09-29-2024 End: 09-29-2024 ambulatory 09/29/2024 1:00 PM EST Treatment [facility] [address] [facility] [address] [place] [address] Greyson Kitchen TREATMENT COORDINATOR [facility] Start: 09-27-2024 End: 09-27-2024 ambulatory 09/27/2024 1:00 PM EST Treatment [facility] [address] [place] [address] Greyson Kitchen TREATMENT COORDINATOR [facility] Start: 09-26-2024 End: 09-26-2024 Patient encounter procedure 09/26/2024 4:00 PM EST Office Visit [facility] [address] [facility] [address] [place] [address] Reyes Dumont DPM [address] [facility] [address] [place] [address] [facility] Start: 09-23-2024 End: 09-23-2024 ambulatory 09/23/2024 1:00 PM EST Treatment [facility] [address] [facility] [address] [place] [address] Greyson Kitchen TREATMENT COORDINATOR [facility] Start: 09-20-2024 End: 09-20-2024 ambulatory 09/20/2024 1:00 PM EST Treatment [facility] [address] [place] [address] Greyson Kitchen, TREATMENT COORDINATOR [facility] Start: 09-15-2024 End: 09-15-2024 ambulatory 09/15/2024 1:00 PM EDT Treatment [facility] [address] [place] [address] Greyson Kitchen, TREATMENT COORDINATOR [facility] Start: 09-14-2024 End: 09-14-2024 ambulatory 09/14/2024 11:00 AM EDT Treatment [facility] [address] [place] [address] Clover Andrew, PT [address] [address] [place] [address] [facility] Start: 09-09-2024 End: 09-09-2024 ambulatory 09/09/2024 11:30 AM EDT Treatment [facility] [address] [facility] [address] [place] [address] Greyson Kitchen, TREATMENT COORDINATOR [facility] Start: 09-06-2024 End: 09-06-2024 ambulatory 09/06/2024 1:00 PM EDT Treatment [facility] [address] [place] [address] Greyson Kitchen, TREATMENT COORDINATOR [facility] Start: 09-01-2024 End: 09-01-2024 ambulatory 09/01/2024 1:00 PM EDT Treatment [facility] [address] [place] [address] Greyson Kitchen, TREATMENT COORDINATOR [facility] Start: 08-30-2024 End: 08-30-2024 ambulatory 08/30/2024 11:00 AM EDT Treatment [facility] [address] [place] [address] Greyson Kitchen, TREATMENT COORDINATOR [facility] Start: 08-25-2024 End: 08-25-2024 ambulatory 08/25/2024 1:00 PM EDT Treatment [facility] [address] [place] [address] Greyson Kitchen, TREATMENT COORDINATOR [facility] Start: 08-23-2024 End: 08-23-2024 ambulatory 08/23/2024 1:00 PM EDT Treatment [facility] [address] [facility] [address] [place] [address] Greyson Kitchen, TREATMENT COORDINATOR [facility] Start: 08-18-2024 End: 08-18-2024 ambulatory 08/18/2024 1:00 PM EDT Treatment [facility] [address] [facility] [address] [place] [address] Clover Andrew, PT [address] [facility] [address] [place] [address] [facility] Start: 07-17-2024 Influenza vaccination Influenza Vaccine (#1) [facility] Start: 09-18-2023 Screening for malignant neoplasm of breast Mammogram [facility] Start: 07-17-2023 Influenza vaccination Influenza Vaccine (#1) [facility] Start: 12-08-2020 Annual Wellness Visit (AWV) Annual Wellness Visit (AWV) [place] Start: 07-17-2020 Influenza vaccination Flu vaccine (#1) [place] Start: 2019 Pneumococcal 65+ years Vaccine (1 of 1 - PPSV23) Pneumococcal 65+ years Vaccine (1 of 1 - PPSV23) [place] Start: 2019 Pneumococcal Vaccine: 65+ Years (1 - PCV) Pneumococcal Vaccine: 65+ Years (1 - PCV) [facility] Start: 2019 Pneumococcal Vaccine: 65+ Years (1 of 1 - PCV) Pneumococcal Vaccine: 65+ Years (1 of 1 - PCV) [facility] Start: 2009 Screening for osteoporosis DEXA (modify frequency per FRAX score) [place] Start: 2004 Screening for malignant neoplasm of breast Breast cancer screen [place] Start: 2004 Screening for malignant neoplasm of colon Colon cancer screen colonoscopy [place] Start: 2004 Shingles Vaccine (1 of 2) Shingles Vaccine (1 of 2) [place] Start: 1994 Diabetes screen Diabetes screen [place] Start: 1994 Lipid panel Lipid screen [place] Start: 1973 DTaP/Tdap/Td vaccine (1 - Tdap) DTaP/Tdap/Td vaccine (1 - Tdap) [place] Start: 1954 Creatinine measurement Creatinine monitoring [place], [place] Start: 1954 Hepatitis C screening Hepatitis C screen [place], [place] Start: 1954 Potassium monitoring Potassium monitoring [place], [place] Start: 1954 Screening for malignant neoplasm of colon [facility] Comprehensive metabo lic 2000 panel - Serum or Plasma [facility] Immunizations Immunization Date Immunization Notes Care Provider Fa cility 09-05-2024 influenza, high dose seasonal, preservative-free [facility] 09-05-2024 influenza virus vaccine, unspecified formulation Greyson Kitchen PTA [facility] 09-07-2023 influenza, high dose seasonal, preservative-free Aurea De La Torre Other [facility] [employer] Other 09-07-2023 influenza virus vaccine, unspecified formulation [facility] 08-27-2022 influenza virus vaccine, split virus (incl. purified surface antigen) Aurea De La Torre Other [facility] [employer] Other 08-27-2022 influenza virus vaccine, unspecified formulation Marcos Fernandez DO Work Phone: [facility] 09-21-2021 COVID-19 Vaccine Pfi zer - Documentation Purposes Only Aurea De La Torre Other [facility] 08-29-2021 influenza virus vaccine, split virus (incl. purified surface antigen) Aurea De La Torre Other [facility] [employer] Other 08-29-2021 influenza virus vaccine, unspecified formulation [facility] 08-28-2020 influenza virus vaccine, split virus (incl. purified surface antigen) Aurea De La Torre Other [employer] [facility] [employer] Other 08-28-2020 influenza virus vaccine, unspecified formulation [facility] 09-15-2019 influenza virus vaccine, split virus (incl. purified surface antigen) Aurea De La Torre Other [facility] [employer] Other 09-15-2019 influenza virus vaccine, unspecified formulation [facility] 09-01-2018 influenza virus vaccine, split virus (incl. purified surface antigen) Aurea De La Torre Other [facility] [employer] Other 09-01-2018 influenza virus vaccine, unspecified formulation [facility] 08-31-2017 tetanus and diphther ia toxoids, adsorbed, preservative free, for adult use (5 Lf of tetanus toxoid and 2 Lf of diphtheria toxoid) Aurea De La Torre Other [facility] 08-13-2016 tetanus and diphther ia toxoids, adsorbed, preservative free, for adult use (5 Lf of tetanus toxoid and 2 Lf of diphtheria toxoid) Aurea De La Torre Other [facility] 08-24-2013 tetanus and diphther ia toxoids, adsorbed, preservative free, for adult use (5 Lf of tetanus toxoid and 2 Lf of diphtheria toxoid) Aurea De La Torre Other [facility] Payers Date Payer Category Payer Private Health Insurance [employer] [id number] 2022 Unknown [id number]. [id number] 2019 Medicare [id number]. [id number] 2018 Self-pay 1959 Medicare [id number] [id number]. [id number] 1959 Unknown [id number] 1954 Unknown [id number] 2.16.840.1.497700.3.579.2. 177 1954 Unknown [id number] 2.16.840.1.314265.3.579.2. 593 1954 Unknown [id number] 2.16.840.1.922722.3.579.2. 593 1954 Unknown [id number] 2.16.840.1.245446.3.579.2. 593 1954 Unknown [id number] 2.16.840.1.458676.3.579.2. 593 1954 Unknown [id number] 2.16.840.1.857743.3.579.2. 593 1954 Unknown [id number] 2.16.840.1.881574.3.579.2. 593 1954 Unknown [id number] 2.16.840.1.893664.3.579.2. 593 1954 Unknown [id number] 2.16.840.1.594543.3.579.2. 593 1954 Unknown [id number] 2.16.840.1.760274.3.579.2. 1259 1954 Unknown [id number] 2.16.840.1.228120.3.579.2. 1259 1954 Unknown [id number] 2.16.840.1.899169.3.579.2. 1258 1954 Unknown [id number] 2.16840.1.638914.3.579.2. 1258 1954 Unknown [id number] 2.16.840.1.822944.3.579.2. 1258 1954 Unknown [id number] 2.840.1.916576.3.579.2. 1258 1954 Unknown [id number] 2.840.1.728125.3.579.2. 1258 1954 Unknown [id number] 2.840.1.142183.3.579.2. 1258 1954 Unknown [id number] 2.840.1.241906.3.579.2. 1258 1954 Unknown [id number] 2.840.1.608102.3.579.2. 1258 1954 Unknown [id number] 2.840.1.665924.3.579.2. 1258 1954 Unknown [id number] 2.840.1.643579.3.579.2. 1258 1954 Unknown [id number] 2.840.1.222104.3.579.2. 1258 1954 Unknown [id number] 2.840.1.908608.3.579.2. 1258 1954 Unknown [id number] 2.840.1.896742.3.579.2. 1258 1954 Unknown [id number] 2.840.1.752322.3.579.2. 1258 1954 Unknown [id number] 2.16840.1.907162.3.579.2. 1258 1954 Unknown [id number] 2.840.1.933353.3.579.2. 1259 1954 Unknown [id number] 2.16.840.1.760781.3.579.2. 9 1954 Unknown [id number] 2.16.840.1.000438.3.579.2. 9 1954 Unknown [id number] 2.16.840.1.510031.3.579.2. 9 1954 Unknown [id number] 2.16.840.1.530271.3.579.2. 9 1954 Unknown [id number] 2.16.840.1.294858.3.579.2. 9 1954 Unknown [id number] 2.16.840.1.628657.3.579.2. 9 Unknown [id number] 2.16.840.1.292968.3.579.2. 531 Social History Date Type Detail Facility Start: 12-17-2020 End: 05-30-2024 Tobacco smoking status OKIS Never smoker [facility] Start: 12-17-2020 End: 05-30-2024 Tobacco use and exposure [place] Start: 12-17-2020 End: 08-01-2024 Alcohol intake Ex-drinker (finding) [facility] Y Sex Assigned At Not on file [facility] [place] Start: 11-19-2023 End: 08-16-2024 Sex Assigned At [employer] Other Start: 11-19-2023 End: 08-16-2024 History of Social function [facility] Start: 11-19-2023 Alcohol Comment occasional [facility] Start: 1955 Sex Assigned At Female [facility] Start: 11-18-2023 Gender identity Identifies as female gender (finding) [facility] Start: 11-18-2023 Sexual orientation Heterosexual (finding) [facility] Start: 03-09-2024 Tobacco smoking status OKIS Ex-smoker (finding) [facility] Clinical Notes 08-07-2021 to 09-14-2024 Clover Andrew PT - 09/14/2024 11:00 AM EDTBrijeshdanielle Andrew, PT - 08/18/2024 1:00 PM Ney Dumont, DPM - 08/01/2024 2:00 PM EDT Note Date & Type Note Facility 09-14-2024 History of Presen t illness Narrative Physical Therapy Progress Visit Patient Name: Bhargavi Chopra Today's Date: 09/14/2024 Encounter Diagnoses Name Primary? Pain of left heel Yes Plantar fasciitis of left foot Visit number: 11 Timed Code Treatment Minutes: 40 minutes Total Treatment Time: 50 minutes (+15 min w/ Ionto to go patch) Time In: 1100 Time Out: 1150 History: Pt. Presents to PT with c/c of left heel pain which started 6 weeks ago. No CLEMENTINA. Presents to PT with CAM boot on left foot. Pt has been doing HEP with increased her pain. Tried power step orthotic and night splint. Injection helped decrease pain for 5 days. Pain is affecting her quality of life. Precautions: universal Subjective: Pt reports of some reduction in pain while walking. Pain as decreased from 10/10 to 5/10 while walking in shoes. Feels ionto patch is starting to help decrease pain. Has been using foot massager to help decrease pain. No worse no better. Pain: 5/10 walking in shoes, 0/10 walking in CAM boot Objective: PT Evaluation (08/09/24) Left ankle ROM: dorsiflexion 2 degree, PF normal, EV/INV normal Palpation: TTP plantar fascia origin Flexibility: calf muscle tightness Strength: grossly 4+/5 Gait: bilateral crutches NWB to PWB with CAM boot on left foot Treatment: Education: HEP education with demonstration, Educated on Eval Findings and POC Manual Therapy: (25 minutes) Passive ROM ankle, STM/IASTM to calf complex and plantar surface of foot. Joint mobilization (Grade III AP/PA mobs) in supine and prone. Soft Tissue Mobilization, Myofascial Release, Muscle Energy Technique, Neural Mobilization, Myofascial Cupping, Dry Needling, IASTM, and Scar mobilization Therapeutic Exercise: (15 minutes) Instructed Pt through Foot, intrinsic strengthening, ankle and calf flexibility type exercises. Strength, Endurance, Flexibility, ROM, HEP, Neural Mobilization, Power, and Core Stability Self Care: (0 Minutes): Extensive time spent educating Pt about her condition and how treating the intrinsic and ankle muscles will help to support her foot and reduce tension on Plantar Fascia. Pt was receptive and reported understanding. Therapeutic Activity: Exercises to improve dynamic activities, functional tasks, functional mobility to return to prior activity level Neuromuscular re-education: Balance Training, Muscle Facilitation, Dynamic Stability, Core Stabilization, and Blood Flow Restriction Training (BFRT) DN: left planter fascia, 5x needles, (10 minute rest) Modalities: (8 minutes) ultrasound, 1.5 intensity, 3.0 MHz, (held minutes) IFC with ice prone to left heel/plantar, (15 minutes) Iontophorsis patch placed on left heel pain, plantar surface; pt. Was educated to wear patch for up to 14 hours. Assessment: LEFS: Gait is antalgic due to heel pain. Passive Dorsiflexion 10 degrees (long sitting) Pt. Has participated in 11 PT session with start of POC on 08/09/24. Pt will benefit from skilled PT services to help decrease pain. PT treatment to focus on decreasing inflammation and improving ankle/foot muscular activation. Trial of DN treatment again today, pt. Tolerated well. Overall slow progress toward PT goals but is making progress in last couple weekly. Asked Pt to follow up with lpc for insoles/further recommendation. Follow up with Julia when orthotics arrive Outcome Measure: LEFS Short Term Goal: To be met in 2 weeks Goal 1: Pt to be instructed in home exercise program. [employer] Goals: To be met in 10 weeks Goal 1: Pt to report independence and compliance with home program. Goal 2: Pt. Will report of 0/10 left heel pain while walking/standing for long periods of time to help improve her quality of life and return to PLOF. Goal 3: Pt. Will demonstrate normal calf muscle flexibility to help decrease heel pain. Goal 4: Pt. Will demonstrate normal dorsiflexion ROM to help decrease heel pain. Goal 5: Pt. Will demonstrate normalized gait pattern without boot to return to PLOF. Pt will benefit from skilled PT for 1-2x/week from 08/18/24 to 10/31/24 to address the above impairments. I hereby deem this POC medically necessary. Please sign below. Date: documented in this encounter [facility] 08-18-2024 History of Presen t illness Narrative Physical Therapy Treatment Visit Patient Name: Bhargavi Chopra Today's Date: 08/18/24 Encounter Diagnoses Name Primary? Pain of left heel Yes Plantar fasciitis of left foot Visit number: 2 Timed Code Treatment Minutes: 25 minutes Total Treatment Time: 40 minutes Time In: 1300 Time Out: 1340 History: Pt. Presents to PT with c/c of left heel pain which started 6 weeks ago. No CLEMENTINA. Presents to PT with CAM boot on left foot. Pt has been doing HEP with increased her pain. Tried power step orthotic and night splint. Injection helped decrease pain for 5 days. Pain is affecting her quality of life. Precautions: universal Subjective: Pt has no drastic changes to report from initial visit. Continues to have severe foot pain. Pain: 10 Objective: PT Evaluation (08/09/24) Left ankle ROM: dorsiflexion 2 degree, PF normal, EV/INV normal Palpation: TTP plantar fascia origin Flexibility: calf muscle tightness Strength: grossly 4+/5 Gait: bilateral crutches NWB to PWB with CAM boot on left foot Treatment: Education: HEP education with demonstration, Educated on Eval Findings and POC Manual Therapy: (10 minutes) Passive ROM ankle, STM/IASTM to calf complex and plantar surface of foot. Joint mobilization, ice massage 5 minutes to heel, Soft Tissue Mobilization, Myofascial Release, Muscle Energy Technique, Neural Mobilization, Myofascial Cupping, Dry Needling, IASTM, and Scar mobilization Therapeutic Exercise: (20 minutes) Instructed Pt through Foot, intrinsic strengthening, and calf flexibility type exercises. Strength, Endurance, Flexibility, ROM, HEP, Neural Mobilization, Power, and Core Stability Therapeutic Activity: Exercises to improve dynamic activities, functional tasks, functional mobility to return to prior activity level Neuromuscular re-education: Balance Training, Muscle Facilitation, Dynamic Stability, Core Stabilization, and Blood Flow Restriction Training (BFRT) DN: 5x needles, 3x to dorsum of foot with plantar fascia and 2x on medial side of foot skin line junction (15 minute rest), pt. Was educated on DN and was agreeable. Pt. Tolerated treatment well. Modalities: (held minutes) ultrasound, 1.5 intensity, 3.0 MHz, (held minutes) IFC with ice prone to left heel/plantar, (held minutes) Iontophorsis patch placed on left heel pain; pt. Was educated to wear patch for up to 14 hours. Assessment: Pt. Has participated in 3 PT session with start of POC on 08/09/24. Pt will benefit from skilled PT services to help decrease pain. PT treatment to focus on decreasing inflammation. Trial of DN treatment today. Pt. Tolerated well. Added ice roller with helped to make foot feel better. Pt. Was instructed to order one for home. Outcome Measure: 20/80 LEFS Short Term Goal: To be met in 2 weeks Goal 1: Pt to be instructed in home exercise program. [facility] Goals: To be met in 10 weeks Goal 1: Pt to report independence and compliance with home program. Goal 2: Pt. Will report of 0/10 left heel pain while walking/standing for long periods of time to help improve her quality of life and return to PLOF. Goal 3: Pt. Will demonstrate normal calf muscle flexibility to help decrease heel pain. Goal 4: Pt. Will demonstrate normal dorsiflexion ROM to help decrease heel pain. Goal 5: Pt. Will demonstrate normalized gait pattern without boot to return to PLOF. Pt will benefit from skilled PT for 1-2x/week from 08/18/24 to 10/31/24 to address the above impairments. I hereby deem this POC medically necessary. Please sign below. Date: documented in this encounter [facility] 08-01-2024 History of Presen t illness Narrative Images from the original note were not included. Reason for Visit: Established Patient: Recheck LT heel pain Second Complaint: Recheck MRI LT ankle HPI Established patient presents for recheck of LT heel pain. Patient states that pain in the LT heel is 10/10 with ambulation/weightbearing activity. Pain has occasional 5/10 pain when sitting and resting. Patient states that she has been stretching several times a day however the heel hurts when she is stretching. Patient is icing 2-3 times a day and taking Tylenol as needed. Patient is applying Icy Hot to LT heel at bedtime. Patient is wearing a plantar fasciitis brace on the LT heel all night. Patient took a Medrol Dose Pack and the prednisone did not help her heel pain however it did help the arthritis in her hands. Patient denies any new injury or trauma. Second Complaint: To review MRI LT ankle without contrast performed at [facility] on 07-27-2024. Review of Systems General: Chills denies. Fatigue denies. Fever denies. Night sweats denies. Endocrine: Diabetes denies. Hyperpigmentation denies. Weakness denies. Cardiovascular: Chest pain denies. Shortness of breath denies. Gastrointestinal: Constipation denies. Diarrhea denies. Nausea denies. Vomiting denies. Hematology: Anemia denies. Bleeding problems denies. Easy bruising denies. Musculoskeletal: Bone/joint symptoms denies. Leg cramps denies. Peripheral Vascular: Edema denies. Raynaud's denies. Rest pain denies. Varicose veins denies. Skin: Nail changes denies. Rash denies. Skin lesion(s) denies. Ulceration admits. Neurologic: Dizziness denies. Gait abnormality denies. Headache denies. Tingling/Numbness denies. Examination General Examination: GENERAL EXAMINATION: awake, aware of surroundings, in no acute distress. is present through examination. Vascular: DORSALIS PEDIS PULSE: palpable bilateral. POSTERIOR TIBIAL PULSE: palpable bilateral. TEMPERATURE GRADIENT: warm to cool. EDEMA: none VARICOSITIES: CAPILLARY FILLING TIME(sec): less than 2 seconds bilateral. Ankle / Foot: MUSCLE STRENGTH:5/5 to the major muscle groups. Neurologic: NEUROLOGIC: normal. Dermatologic: SKIN FINDINGS: Texture, turgor and hair growth normal. NAIL PATHOLOGY: Intact toenails to 1-5 bilaterally. Orthopedic: JOINT RANGE OF MOTION: normal. DEFORMITIES: mild pes planovalgus bilaterally mild equinus 0 degrees dorsiflexion with the knee extended bilaterally. ORTHOPEDIC: Plantar fasciitis left at plantar fascial origin with increased plantar calcaneal bursitis left. No gross deformities noted besides mild pes planovalgus deformity. Right heel pain: Resolved. PAIN WITH PALPATION: Plantar fascial origin Left, plantar calcaneus at the area of bursitis left heel. Right heel pain: Resolved. PAIN WITH ROM: On end range dorsiflexion mild pulling bilaterally left. Right heel pain: Resolved. SHOE GEAR EVALUATION: Skechers slip on athletic shoes bilateral foot. Imaging: Heel X-Ray: 05-30-2024: Left heel x-rays, weightbearing LAT/LO views, obtained today show: Mild pes planovalgus with 1st metatarsal elevation, small plantar calcaneal spur. No other pathology noted. 05-30-2024: Right heel x-rays, weightbearing LAT/LO views, obtained today shows: Mild pes planovalgus right foot with 1st metatarsal head elevation, very minimal posterior calcaneal spur right, none plantarly. No other pathology noted. MRI: 07-27-2024: MRI left ankle without contrast performed at [facility] shows: Findings compatible with planter fasciitis. Assessments Left foot plantar fasciitis: Worsening Left heel pain: Worsening Plantar calcaneal bursitis: Worsening Left plantar calcaneal spur-mild Osteoporosis history Right posterior calcaneal spur-mild Pes planovalgus mild / flexible reducible: Bilaterally Right foot plantar fasciitis: Resolved Right heel pain: Resolved Plan 1. Patient was seen today for complaint of bilateral heel pain: With left pain still painful and right pain resolved. Patient is very happy that the right heel pain has resolved however left heel pain is worsening. Patient describes significant stretching -I believe she may have over stretched her left lower extremity including fascia and Achilles tendon and made it worse or she may have advanced to a partial-thickness tears pain is quite unbearable she can barely put her heel to the floor. NOTE: entire time in [id number] interaction with provider [id number] was 36 minutes and seconds with documentation and review of patient's x-rays: Greater than 40 minutes obviously. 2. Physical examination was performed. Patient was recent MRI was reviewed revealing patient's diagnoses. She was advised she does not have stress fracture or partial tear to plantar fascia that would cause her significant pain. 3. Patient was advised she needs complete nonweightbearing left heel until it is completely pain-free. We discussed differential diagnoses at this time which could include calcaneal stress fracture less likely though more likely plantar fascial partial tear. Activity modification: Patient was advised of the benefits of activity modification and the need to avoid activities that aggravate the injured anatomy, i.e., prolonged weightbearing/standing, bending, kneeling, squatting, climbing steps/stairs/ladders, and exercising. Patient voiced understanding. RX: Walker and kneeling scooter nonweightbearing requirement left heel. For assistance and complete nonweightbearing, immobilization, pain resolution and edema control: Appropriately fit and dispense 1 Aircast walker left lower extremity we also added two ADJUST -A -HEEL heel lifts left inside cam walker boot and 1 heel lift to right to assist with limb length discrepancy concern. She should wear this boot for all weight-bearing removed for ice bag application, stretching, sleeping, and bathing obviously. She may have to wear this while sleeping as well to assist with the plantar flexion of foot while sleeping in corresponding tightening of the plantar fascia. All this was explained to patient at length please note. 4. Oral anti-inflammatory: Extensive discussion with the patient entailed her multiple non podiatric issues that affect her ability to take oral anti-inflammatories. We discussed multiple types of medications topically orally injected with a could be used for pain resolution or improvement. Patient was advised to continue OTC Tylenol 2 tablets 500 mg b.I.d.-for pain and inflammation control. further prescription . 5. RX: physical therapy with iontophoresis and home exercise program. Continue to maximum medical improvement. Also, RX: Dexamethasone sent to patient's pharmacy for iontophoresis with physical therapy guidance. 6. Ice: Patient was advised of the benefits of ice application and the need to apply ice bag/frozen gel pack to affected area 15 minutes on/off for pain/edema control. Patient was advised to not fall asleep with ice bag/frozen gel pack applied to affected area. Patient voiced understanding. 7. Shoe gear: Patient was advised of the benefits of proper shoe gear and patient was instructed to wear well padded, well-constructed/stabilized type shoe, for all weightbearing. Patient should avoid walking barefoot and avoid wearing slippers, flip flops, sandals, low or high heeled shoes. Patient voiced understanding. As documented above, patient was advised nonweightbearing left heel until she is completely pain-free was advised. 8. Patient has been wearing Powerstep Professional Insoles in Bilateral shoes for all weightbearing activity, and yet pain has increased. I recommend custom foot orthotics be considered she was advised insurance will not be covering these items he financially responsible. We will pursue these pending MRI results. 9. Calf / Achilles Stretching: Patient was advised of the benefits of stretching. Patient was advised to perform calf/Achilles tendon stretches QID, hold for 15-25 seconds. Caution was advised about overstretching. Patient voiced understanding. Patient was given significant education about potential stretching. At this time I believe patient may have been over stretching she was advised to stop all stretching until her pain has completely resolved and then we can begin a gradual safely slowly returning to stretching as long as she remains pain-free. Apparently her stretching has been painful for her indicating either partial-thickness tear of the plantar fascia or patient has been over stretching which is obviously against medical advice. 10. Topical Pain relief: Patient advised to apply Biofreeze topically to Bilateral heel heel three times a day for pain reduction. Patient was further advised that other types of topical medicine may be required including prescription compounded medication from local pharmacy. 11. Custom foot orthotics/Night Splint/Airheel/possible corticosteroid injection: Patient was advised that we will check insurance for coverage for custom foot orthotics, night splint, Airheel and cortisone injection in case these treatment options are necessary. 12. Patient should reappoint in 2-3 weeks for recheck. documented in this encounter [facility] 12-28-2023 Evaluation note Encounter Date Diagnosis Assessment [...] conjunctivitis of both eyes (ICD-10 - H10.33) [facility] eye is contagious. Wash hands frequently and try not to rub eyes. Use warm wash cloth to keep them clean or to remove discharge from eyes. Use drops until eyes are clear then 3 more days [employer] Other 02-10-2024 History of Present illness Narrative* Marcos Fernandez, DO - 12/26/2023 12:40 PM EST HPI: Historian [...] or fever. IH Testing: [id number]* Encounter Date Diagnosis Assessment Notes Treatment Notes Treatment Clinical Notes Oct, Essential (primary) hypertension (ICD-10 - I10) [employer] Other 10-20-2023 Evaluation note* Encounter Date Diagnosis [...] of nose, initial encounter (ICD-10 - S00.32XA) [employer] Other 09-19-2023 Evaluation note* Encounter Date Diagnosis [...] needed if she continues to have symptoms. [employer] Other 09-13-2023 Evaluation note* Encounter Date Diagnosis Assessment Notes Treatment Notes Treatment Clinical Notes Jul, Pain of left thumb (ICD-10 - M79.645) Pt has family history of RA. Would like to have labs and xray. Discussed ortho referral for possible injection [employer] Other 09-22-2021 Evaluation note* Encounter Date Diagnosis [...] accordingly but no treatment at this time [facility]* Diagnosis Viral URI- Primary Acute upper respiratory infections of unspecified site Exposure to COVID-19 virus documented in this encounter [facility] Healthcare[facility] note* Diagnosis Onset Date Resolution Status Dyslipidemia acute Essential (primary) hypertension [facility] Work Phone: Evaluation note* Diagnosis Pain of left heel- Primary Plantar fasciitis of left foot [facility] Diagnosis Pain of left heel- Primary Plantar fasciitis of left foot documented in this encounter [facility] Healthcare[facility]* Diagnosis Pain of left heel- Primary Plantar fasciitis of left foot documented in this encounter [facility] Healthcare[facility] note* Diagnosis Pain of left heel- Primary Plantar fasciitis of left foot [facility] Diagnosis Onset Date Resolution Status Dyslipidemia acute Essential (primary) hypertension acute Medicare annual wellness visit, subsequent [facility] Work Phone: Evaluation note* Diagnosis Pain of left heel- Primary Plantar fasciitis of left foot [facility] Diagnosis Pain of left heel- Primary Plantar fasciitis of left foot Osteoporosis, unspecified osteoporosis type, unspecified pathological fracture presence (CMS/HCC) [facility] N[facility]ative - Reported* Type Description Date Medical History hypertension Medical History mood disorder Medical History hiatal hernia Surgical History C section Surgical History cholecystectomy Surgical History heart cath 2020 Hospitalization History see above [employer] Other Reason for visit Narrative* Rehabilitation - Outpatient (Routine) - Authorized Specialty Diagnoses / Procedures Referred By Ayana azar Referred To Contact Physical Therapy Diagnoses Pain of left heel Plantar fasciitis of left foot Procedures NC OFFICE/OUTPATIENT NEW HIGH MDM 60 MINUTES Reyes Dumont, DPSandi [address] [place] [address] Phone: tel: fax: Clover Andrew, PT [address] [facility] [address] [place] [address] Phone: tel: fax: Referral ID Status Reason Start Date Expiration Date Visits Requested Visits Authorized [id number] Authorized Specialty Services Required 08/01/2024 01/28/2025 20 30 [facility] Healthcare Summary Purpose Family History No Family History Records Found Relationship Condition Age at Onset Recorded Date/T neptali father Heart disease Unknown Unknown Malignant neoplasm Unknown Hypertension Unknown mother Unknown Heart disease Unknown Advance Directives No Advanced Directives Records Found Advance Directive Response Recorded Date/ Time Advance Directives No March 11 018 12:45pm Discharge Instructions * Discharge Instr - [...] of left thumb ( M79.645) Referral Organization [facility] Referring Provider First Name Aurea Referring Provider Last Name Tyler Referring Provider Specialty Family [facility] Referred Organization Unknown Facility Referred Provider Specialty Orthopaedic Surgery Referral Priority Routine Chief Complaint and Reason for Visit Chief Complaint wellness Reason for Visit Dyslipidemia Essential (primary) hypertension Chief Complaint wellness flu shot Reason for Visit Dyslipidemia Essential (primary) hypertension Medicare annual wellness visit, subsequent Additional Source Comments INFORMATION SOURCE (unrecogn ized section and content) DATE CREATED AUTHOR 12/20/2018 [facility] DATE CREATED AUTHOR AUTHOR'S ORGANIZ ATION 12/17/2020 [facility] DATE CREATED AUTHOR AUTHOR'S ORGANIZ ATION 11/15/2022 [facility] p[facility] DATE CREATED AUTHOR AUTHOR'S ORGANIZ ATION 09/28/2024 [facility] EPIC Reason for Visit (unrecogniz ed section and content) Status Reason Specialty Diagnoses / Procedures Referre d By Contact Referred To Contact [facility] Specialty Diagnoses / Procedures Referred By Ayana azar Referred To Contact Physical Therapy Diagnoses Pain of left heel Plantar fasciitis of left foot Procedures NC OFFICE/OUTPATIENT NEW HIGH MDM 60 MINUTES Reyes Dumont, DPM [address] [place] [address] Clover Andrew, PT [address] [facility] [address] [place] [address] Referral ID Status Reason Start Date Expiration Date Visits Requested Visits Authorized [id number] Authorized Specialty Services Required 08/01/2024 01/28/2025 20 30 Care Teams (unrecognized sec tion and content) [employer] Relationship Specialty Start Date End Date Aurea De La Torre MD [address] [facility] [place] [address] PCP - General Family Medicine 11/20/23 Team Status: Active Member Role Status Dates Aurea De La Torre MD Primary Care Provider Active Team Status: Inactive Member Role Status Dates Aurea De La Torre MD Primary Care Provide r, Attending Provider Active Start: July 14, 2024 End: July 14, 2024 [employer] Relationship Specialty Start Date End Date Aurea De La Torre MD [address] [facility] [place] [address] PCP - General Family Medicine 11/20/23 [employer] Relationship Specialty Start Date End Date Aurea De La Torre MD [address] [facility] [place] [address] PCP - General Family Medicine 11/20/23 [employer]cher [employer]itter Relationship Specialty Start Date End Date Aurea De La Torre MD [address] [facility] [place] [address] PCP - General Family Medicine 11/20/23 [employer] Relationship Specialty Start Date End Date Aurea De La Torre MD [address] [facility] [place] [address] PCP - General Family Medicine 11/20/23 [employer]cher [employer]itter Relationship Specialty Start Date End Date Aurea De La Torre MD [address] [facility] [place] [address] PCP - General Family Medicine 11/20/23 [employer]itter Relationship Specialty Start Date End Date Aurea De La Torre MD [address] [facility] [place] [address] PCP - General Family Medicine 11/20/23 [employer]cher [employer]itter Relationship Specialty Start Date End Date Aurea De La Torre MD [address] [facility] [place] [address] PCP - General Family Medicine 11/20/23 Team Status: Active Member Role Status Dates Aurea De La Torre MD Primary Care Provide r, Attending Provider Active Start: July 21, 2024 Team Status: Inactive Member Role Status Dates Aurea De La Torre MD Primary Care Provider Active Start: September 05, 2024 End: September 05, 2024 Ezequiel Love DO Attending Provider Active Sta rt: September 05, 2024 End: September 05, 2024 [employer] Relationship Specialty Start Date End Date Aurea De La Torre MD [address] [place] [phone] PCP - General Family Medicine 11/20/23 [employer]cher [employer]itter Relationship Specialty Start Date End Date Aurea De La Torre MD [address] [place] [phone] PCP - General Family Medicine 11/20/23 [employer] Matcher [employer]itter Relationship Specialty Start Date End Date Aurea De La Torre MD [address] [place] [address] PCP - General Family Medicine 11/20/23 Goals (unrecognized section and content) Goals may [...] BE BASED ON THE PRIMARY CLINICAL RECORDS. [employer] provides no warranty or guarantee of the accuracy or completeness of information in this document.
== END 2024-09-29 14:03 | disposition home or self-care (01) ==
PROVIDERS: PCP Family Medicine; Visit Provider Family Medicine
DX: M19.042 Primary osteoarthritis, left hand (principal); M19.041 Primary osteoarthritis, right hand
CPT/HCPCS: 73130

== ENCOUNTER 2025-01-19 11:57 | Outpatient (OUT) | payer MEDICARE, OTHER, SELFPAY ==
[2025-01-19 12:15] LABS: Basophils Percent Auto 0.7 % (0.2-2.0); Eosinophils Absolute Auto 0.2 10^3/uL (0.0-0.7); Eosinophils Percent Auto 2.9 % (0.9-7.0); Hematocrit 38.7 % (36.0-48.0); Hemoglobin 12.7 g/dL (12.0-16.0); Immature Granulocytes Abs Auto 0.01 10^3/uL (0.00-0.03); Immature Granulocytes Pct Auto 0.2 % (0.0-0.5); Lymphocytes Absolute Auto 2.1 10^3/uL (1.2-3.8); Lymphocytes Percent Auto 34.6 % (20.5-60.0); Mean Corpuscular HGB Conc 32.8 g/dL (29.9-35.2); Mean Corpuscular Hemoglobin 29.5 pg (26.7-34.0); Mean Corpuscular Volume 89.8 fL (81.0-99.0); Monocytes Absolute Auto 0.7 10^3/uL (0.3-0.8); Neutrophils Percent Auto 50.6 % (43.0-75.0); Platelet Count 240 10^3/uL (150-450); Red Blood Count 4.31 10^6/uL (4.20-5.40); Red Cell Distribution Width 14.6 % (11.0-15.0); White Blood Count 5.9 10^3/uL (4.0-11.0)
[2025-01-19 12:49] LABS: Alanine Aminotransferase 25 U/L (14-59); Albumin Level 3.6 g/dL (3.4-5.0); Alkaline Phosphatase 95 U/L (46-116); Anion Gap 13.5; Aspartate Amino Transferase 21 U/L (15-37); BUN Creatinine Ratio 12.6; Bilirubin Total 0.7 mg/dL (0.2-1.0); Calcium 9.1 mg/dL (8.5-10.1); Carbon Dioxide 25.5 mmol/L (21.0-32.0); Chloride 109 mmol/L (98-107); Estimated GFR (African America 59 (>=60 mL/min/1.73m^2); Estimated GFR (Non-African Ame 49 (>=60 mL/min/1.73m^2); Globulin 3.7 g/dL; Glucose 85 mg/dL (74-106); Sodium 144 mmol/L (136-145); Total Protein 7.3 g/dL (6.4-8.2)
== END 2025-01-19 11:58 | disposition home or self-care (01) ==
LOC: LAB 11:59
PROVIDERS: PCP Family Medicine; Visit Provider Internal Medicine Rheumatology
DX: M19.90 Unspecified osteoarthritis, unspecified site (principal); Z51.81 Encounter for therapeutic drug level monitoring; Z79.899 Other long term (current) drug therapy
CPT/HCPCS: 36415; 80053; 85025

== ENCOUNTER 2025-03-30 12:38 | Outpatient (OUT) | payer MEDICARE, OTHER, SELFPAY ==
--- OUTSIDE RECORDS SUMMARY | 2025-03-30 13:01 | XMS_ITS | CCD ---
Author Organization [facility] Care Team Providers Care Psychology Instructor Name Role Phone Janet Velásquez Attending Unavailable Cornelius De La Torre Primary Care Provider SUNITA TOMAS Referring Unavailable SUNITA TOMAS Attending Unavailable SUNITA TOMAS Admitting Unavailable CORNELIUS DE LA TORRE Primary Care Unavailable [place] Unavailable Nieves Adams Unavailable DAIANA, DR VO Admitting Unavailable KARASIK, DR VO Attending Unavailable DE LA TORRE, DR CORNELIUS Dixon Primary Care Unavailable KARASIK, DR VO Consulting Unavailable DE LA TORRE, DR CORNELIUS Dixon Admitting Unavailable DE LA TORRE, DR CORNELIUS Dixon Attending Unavailable DE LA TORRE, DR CORNELIUS Dixon Primary Care Unavailable DE LA TORRE, DR CORNELIUS Dixon Consulting Unavailable KARASIK, DR VO Admitting Unavailable KARASIK, DR VO Attending Unavailable DE LA TORRE, DR CORNELIUS Dixon Primary Care Unavailable KARASIK, DR VO Consulting Unavailable WEST, DR NIEVES Hernandez Consulting Unavailable KARASIK, DR VO Admitting Unavailable KARASIK, DR VO Attending Unavailable DE LA TORRE, DR CORNELIUS Dixon Primary Care Unavailable KARASIK, DR VO Consulting Unavailable KARASIK, DR VO Admsusan Unavailable KARASIK, DR VO Attending Unavailable DE LA TORRE, DR CORNELIUS Dixon Primary Care Unavailable KARASIK, DR VO Consulting Unavailable KARASIK, DR VO Admsusan Unavailable KARASIK, DR VO Attending Unavailable DE LA TORRE, DR CORNELIUS Dixon Primary Care Unavailable KARASIK, DR VO Consulting Unavailable KARASIK, DR VO Admitting Unavailable KARASIK, DR VO Attending Unavailable DE LA TORRE, DR CORNELIUS Dixon Primary Care Unavailable KARASIK, DR VO Consulting Unavailable DE LA TORRE, DR CORNELIUS Dixon Primary Care Unavailable KARASIK, DR VO Admitting Unavailable KARASIK, DR VO Attending Unavailable KARASIK, DR VO Consulting Unavailable De La Torre, Cornelius Unavailable ShanelleYo wiseman Unavailable Jaqueline Huerta Unavailable Cornelius De La Torre MD Primary Care Provider ERNESTINA CALLAHAN Attending Unavailable BRODIE POLLACK Referring Unavailable KUBITZ, REYES R Attending Unavailable KUBITZ, REYES R Attending Unavailable KUBITZ, REYES R Attending Unavailable KUBITZ, REYES R Referring Unavailable KUBITZ, REYES R Attending Unavailable BLACKSTONCLOVER Attending Unavailable KUBITZ, REYES R Referring Unavailable WILFREDOPONCHO Attending Unavailable KUBITZ, REYES R Referring Unavailable BRINK, ANTOINETTE Attending Unavailable KUBITZ, REYES R Referring Unavailable KUBITZ, REYES R Attending Unavailable BLACKSTON, CLOVER Azar Attending Unavailable KUBITZ, REYES R Referring Unavailable BRINK, ANTOINETTE Attending Unavailable KUBITZ, REYES R Referring Unavailable BRINK, ANTOINETTE Attending Unavailable KUBITZ, REYES R Referring Unavailable BRINK, ANTOINETTE Attending Unavailable KUBITZ, REYES R Referring Unavailable BRINK, ANTOINETTE Attending Unavailable KUBITZ, REYES R Referring Unavailable BRINK, ANTOINETTE Attending Unavailable KUBITZ, REYES R Referring Unavailable BRINK, ANTOINETTE Attending Unavailable KUBITZ, REYES R Referring Unavailable BLACKSTONCLOVER Attending Unavailable KUBITZ, REYES R Referring Unavailable BRINK, ANTOINETTE Attending Unavailable KUBITZ, REYES R Referring Unavailable BRINK, ANTOINETTE Attending Unavailable KUBITZ, REYES R Referring Unavailable BRINK, ANTOINETTE Attending Unavailable KUBITZ, REYES R Referring Unavailable KUBITZ, REYES R Attending Unavailable BRINK, ANTOINETTE Attending Unavailable KUBITZ, REYES R Referring Unavailable BRINK, ANTOINETTE Attending Unavailable KUBITZ, REYES R Referring Unavailable BRINK, ANTOINETTE Attending Unavailable KUBITZ, REYES R Referring Unavailable KUBITZ, REYES R Attending Unavailable Allergies Allergy Classification Reported Allergen(s) Allergy Type Date of Onset Reaction(s) Facility (5 sources) Codeine Drug Allergy 03-15-20 18 [facility], heart beat fast, [facility] Repository (14 sources) Iodine Drug Allergy 03-15-[address] [facility] Repository (5 sources) metroNIDAZOLE Drug Allergy 03-15-20 18 [place] Repository (5 sources) Sulfonamides (Antibiotic) Drug allergy (disorder) 03-15-20 18 [place] Repository (20 sources) Codeine Drug Allergy 02-20-20 10 [place], [place] (20 sources) Iodine Drug Allergy 02-20-20 10 [place], [place] (20 sources) metroNIDAZOLE Drug Allergy 12-14-19 21 [place], [place] (1 source) Sulfonamides (Antibiotic) Propensity to adverse reactions to drug 12-14-19 21 [place], [place] (9 sources) Codeine Drug Allergy [facility] [employer] Other (9 sources) Sulfacetamide / Sulfur Drug Allergy [facility] [facility] Other (5 sources) Cephalexin Drug Allergy 07-14-20 24 Unknown Reaction [facility] Repository (1 source) clopidogrel Drug Allergy [facility] Rep[facility] (1 source) Codeine Drug Allergy 09-27-20 20 [facility] (1 source) Iodine Drug Allergy 09-27-20 20 [facility] (1 source) metroNIDAZOLE Drug Allergy 09-27-20 20 [facility] (1 source) nabumetone Drug Allergy [facility] (1 source) Naproxen Drug Allergy [facility] (1 source) pantoprazole Drug Allergy 09-27-20 20 [facility] (1 source) Penicillin Drug Allergy [facility] (1 source) Shellfish Drug allergy (disorder) [facility] (1 source) Sulfonamides (Antibiotic) Drug allergy (disorder) 09-27-20 20 [facility] (20 sources) Cephalexin Drug Allergy 11-20-19 24 Unknown [facility] (20 sources) clopidogrel Drug Allergy 02-20-20 10 [facility] Other (16 sources) nabumetone Drug Allergy 09-19-20 13 Unknown, Unknown Reaction [facility] (20 sources) Naproxen Drug Allergy 11-20-19 24 [facility] [employer] Other (6 sources) Shellfish Drug allergy Unknown [facility] Other (20 sources) Substance with sulfonamide structure and antibacterial mechanism of action (substance) Drug allergy 02-20-20 10 [facility] Other (6 sources) Substance with penicillin structure and antibacterial mechanism of action (substance) Drug allergy Unknown [facility] Other (20 sources) nabumetone Drug Allergy 11-20-19 24 [facility] (20 sources) Penicillin G Drug Allergy 11-20-19 24 [facility] (20 sources) Sulfamethoxazole / Trimethoprim Drug Allergy 11-20-19 24 [facility] (20 sources) Shellfish-Derived Products Drug Allergy 11-20-19 24 Anaphylaxis [facility] (4 sources) Penicillins Allergy to substance 07-14-20 Unknown Reaction [facility] (4 sources) Shellfish Allergy to substance 07-14-20 24 Unknown Reaction [facility] Medications Current Medications Medication Drug Class(es) [...] Active clomiPRAMINE hydrochloride 25 mg oral capsule (14 sources) Tricyclic Antidepressant Start: 03-15-2018 take 1 capsule by mouth once daily at bedtime Clomipramine 25 mg capsule Active 25 MG PO Daily at bedtime March 14, 2018 11:00pm clomiPRAMINE HCl Active clonazePAM 0.5 mg oral tablet (20 sources) Benzodiazepine Start: 03-09-2024 take 1 tablet by mouth once daily at bedtime Clonazepam 0.5 mg tablet Active 0.5 MG PO Daily at bedtime March 08, 2024 11:00pm take 1 tablet by mouth three marleny es daily clonazePAM (KLONOPIN) 0.5 MG tablet Take 0.5 mg by mouth 3 times daily. 0 Suspended 1 ml dexamethasone phosphate 4 mg/ml injection (20 sources) Corticosteroid Start: 08-01-2024 End: 12-14-2024 dexAMETHasone (Decadron) 4 MG/ML injection Indications: Pain of left heel , Plantar fasciitis of left foot Apply to Iontophoresis pad qPT sessions x 9 max 30 mL 08/01/2024 12/14/2024 Discontinued doxycycline hyclate 100 mg oral tablet (1 source) Tetracycline-class Drug Start: 09-30-2024 take 1 tablet by mouth twice daily Doxycycline Hyclate 100 mg tablet Active 100 MG PO Twice daily September 30, 2024 12:00am estradiol 0.01 mg vaginal insert (20 sources) Estrogen Start: 12-15-2024 End: 12-15-2025 estradiol (Yuvafem) 10 MCG tablet vaginal tablet Indications: Vaginal atrophy , Vaginal itching Insert 1 tablet (10 mcg) into the vagina 2 (two) times a week 24 tablet 3 12/15/2024 12/15/2025 Active Start: 08-15-2024 End: 12-14-2024 Yuvafem 10 MCG tablet vagina l tablet Indications: Vaginal atrophy , Vaginal itching INSERT 1 TABLET INTO THE VAGINA TWICE A WEEK 24 tablet 3 08/15/2024 12/14/2024 Discontinued (Reorder) Start: 11-23-2023 End: 11-22-2024 estradiol (Vagifem) 10 MCG t ablet vaginal tablet Indications: Vaginal atrophy , Vaginal itching Insert 1 tablet (10 mcg) into the vagina 2 (two) times a week 24 tablet 3 11/23/2023 08/15/2024 Discontinued estrogens, conjugated (shelter) 0.625 mg/ml vaginal cream (20 sources) Estrogen End: 12-14-2024 Estrogens Conjugated (Premarin) 0.625 MG/GM cream as directed Vaginal 12/14/2024 Discontinued Estrogens Conjug ated (Premarin) 0.625 MG/GM cream as directed Vaginal 0 Active fluconazole 100 mg oral tablet (12 sources) Azole Antifungal Start: 07-07-2024 End: 09-27-2024 take 1 tablet by mouth once daily Fluconazole 100 mg tablet Active 100 MG PO Daily September 27, 2024 12:08pm take 1 tablet by mouth once Fluc [...] Active losartan potassium 50 mg oral tablet (20 sources) Angiotensin 2 Receptor Quan Start: 08-08-20 take 1 tablet by mouth once daily Losartan Active 0 .ROUTE .COMPLEX 90 August 08, 2024 1:11pm TAKE 1 TABLET BY MOUTH EVERY DAY Start: 02-16-2024 End: 08-08-2024 take 1 tablet by mouth once daily Losartan 50 mg tablet Discontinued 0 .ROUTE .COMPLEX 90 May 16, 2024 7:35am August 08, 2024 12:11pm TAKE 1 TABLET BY MOUTH EVERY DAY Start: 02-16-2024 End: 02-16-2024 take 1 tablet by mouth once daily Losartan 50 mg tablet Discontinued 50 MG PO Daily February 15, 2024 11:00pm February 16, 2024 7:47am metoprolol tartrate 25 mg oral tablet (20 sources) beta-Adrenergic Quan take 1 tablet by mouth twice daily at mealtime metoprolol tartrate (Lopressor) 25 MG tablet TAKE 1 TABLET BY MOUTH TWICE A DAY WITH FOOD FOR 90 DAYS Active Mupirocin (10 sources) RNA Synthetase Inhibitor Antibacterial Start: 09-27-20 Mupirocin 2 % ointment Active 1 APPLIC TOPICAL Twice daily September 27, 2024 12:08pm Start: 03-09-2024 End: 07-14-2024 Mupirocin 2 % ointment Disco ntinued 1 APPLIC TOPICAL Twice daily March 08, 2024 11:00pm July 14, 2024 1:02pm Start: 09-04-2023 Mupirocin 2 % 1 application Externally Twice a day for 5 days Aug, Active microencapsulated potassium chloride 20 meq extended release oral tablet (20 sources) Start: 03-09-2024 take 1 tablet by mouth twice daily Potassium Chloride 20 mEq tablet,ER particles/crystals Active 20 MEQ PO Twice daily March 08, 2024 11:00pm potassium chlori de (Klor-Con) 20 MEQ packet [...] / HYDROcodone bitartrate 5 mg oral tablet (4 sources) Opioid Agonist Start: 03-22-2018 End: 03-09-2024 take 1-2 tablets by mouth every six hours as needed for pain Hydrocodone-Acetam inophen (Chaplin) 5-325 mg tablet Discontinued 2 TAB PO Q6H as needed for pain 45 March 22, 2018 March 09, 2024 8:18am 1-2 tabs every 6 hours as needed for pain benzonatate 200 mg oral capsule (8 sources) Non-narcotic Antitussive Start: 03-09-2024 End: 07-14-2024 take 1 capsule by mouth three times daily as needed for cough Benzonatate 200 mg capsule Discontinued 200 MG PO Three times daily as needed for cough 14 09March 08, 2024 11:00pm July 14, 2024 1:01pm Start: 12-29-2023 End: 03-09-2024 Benzonatate 200 mg capsule D iscontinued 200 MG PO 2-3 TIMES PER DAY as needed for cough December 29, 2023 12:00am March 09, 2024 8:18am fluvoxaMINE maleate 100 mg oral tablet (4 sources) Serotonin Reuptake Inhibitor Start: 03-15-2018 End: 03-09-2024 take 1 tablet by mouth once daily at bedtime Fluvoxamine 100 mg tablet Discontinued 100 MG PO Daily at bedtime March 14, 2018 11:00pm March 09, 2024 8:18am hydroCHLOROthiazide 12.5 mg / losartan potassium 50 mg oral tablet (20 sources) Thiazide Diuretic, Angiotensin 2 Receptor Quan Start: 03-15-2018 End: 02-16-2024 take 1 tablet by mouth once daily at bedtime Losartan-Hydrochl orothiazide 50-12.5 mg tablet Discontinued 1 TAB PO Daily at bedtime March 14, 2018 11:00pm February 16, 2024 7:22am losartan-hydroCH LOROthiazide (Hyzaar) 100-25 MG tablet Take by mouth Active methylPREDNISolone (13 sources) Corticosteroid Start: 07-13-2024 End: 08-01-2024 methylPREDNISolone (Medrol Dospak) 4 MG tablets Indications: Pain of left heel , Plantar fasciitis of left foot Follow schedule on package instructions 1 each 07/13/2024 08/01/2024 Discontinued Start: 07-13-2024 methylPREDNISo lone (Medrol Dospak) 4 MG tablets Indications: Pain of left heel , Plantar fasciitis of left foot Follow schedule on package instructions 1 each 07/13/2024 Active Start: 03-09-2024 End: 07-14-2024 take 1 tablet by mouth once Methylprednisolone (Medrol (Theo)) 4 mg tablets,dose pack Discontinued 0 PO per package directions 06 05March 08, 2024 11:00pm July 14, 2024 1:01pm PO PER PKG DIR Start: 06-13-2021 Medrol 4 MG as directed Orally May, Active 24 hr nitroglycerin 0.2 mg/h r [...] 0 Suspended oseltamivir 75 mg oral capsule (4 sources) Neuraminidase Inhibitor Start: 03-09-2024 End: 07-14-2024 take 1 capsule by mouth twice daily Oseltamivir (Tamiflu) 75 mg capsule Discontinued 75 MG PO Twice daily 10 5 March 08, 2024 11:00pm July 14, 2024 1:01pm pantoprazole 40 mg delayed release oral tablet (20 sources) Proton Pump Inhibitor Start: 06-17-2021 End: 09-27-2024 take 1 tablet by mouth once daily Pantoprazole 40 mg tablet,delayed release (DR/EC) Discontinued 40 MG PO Daily March 08, 2024 11:00pm July 07, 2024 1:34pm triamcinolone acetonide 40 mg/ml injectable suspension (10 sources) Corticosteroid Start: 08-04-2023 Kenalog-40 Jul, 40 mg Problems Active Problems Problem Classification Problem Date Documented Date Episodic/Chronic Abdominal pain (9 sources) Left upper quadrant pain; Translations: [Left upper quadrant pain] Episodic Bacterial infection; unspecified site (1 source) Other specified bacterial agents as the cause of diseases classified elsewhere Episodic Disorders of lipid metabolism (14 sources) Dyslipidemia; Translations: [Hyperlipidemia, unspecified] 07-14-2024 Chronic Esophageal disorders (6 sources) Gastroesophageal reflux disease without esophagitis; Translations: [Gastro-esophageal reflux disease without esophagitis] Chronic Essential hypertension (19 sources) Essential (primary) hypertension; Translations: [Essential hypertension] Onset: 09-18-2022 Chronic Immunizations and screening for infectious disease (2 sources) Encounter for screening for human papillomavirus (HPV); Translations: [Contact with or exposure to other viral diseases] Onset: 11-12-2022 12-26-2023 Episodic Inflammation; infection of eye (except that caused by tuberculosis or sexually transmitteddisease) (1 source) Unspecified acute conjunctivitis, bilateral Episodic Influenza (4 sources) Influenza; Translations: [Influenza due to unidentified influenza virus with other respiratory manifestations] 03-09-2024 Episodic Menopausal disorders (2 sources) Atrophy of vagina; Translations: [Postmenopausal atrophic vaginitis] 12-14-2024 Chronic Osteoarthritis (19 sources) Bilateral arthritis of hip; Translations: [Bilateral primary osteoarthritis of hip] Onset: 08-07-2021 Resolved: 08-07-2021 Chronic Osteoporosis (4 sources) Osteoporosis; Translations: [Age-related osteoporosis without current pathological fracture] 08-01-2024 Chronic Other acquired deformities (9 sources) Lumbar spondylolisthesis; Translations: [Spondylolisthesis, lumbar region] Episodic Other aftercare (2 sources) Patient encounter status; Translations: [Encounter for other orthopedic aftercare] 11-25-2024 Episodic Other connective tissue disease (1 source) Pain in left finger(s) Episodic Other connective tissue disease (1 source) Trigger thumb, left thumb Episodic Other connective tissue disease (1 source) Radial styloid tenosynovitis [de Quervain] Episodic Other connective tissue disease (20 sources) Pain of left heel; Translations: [Pain in left foot] 08-22-2024 Episodic Other connective tissue disease (20 sources) Plantar fasciitis of left foot; Translations: [Plantar fascial fibromatosis] 08-22-2024 Episodic Other connective tissue disease (4 sources) Bilateral plantar fasciitis; Translations: [Plantar fascial fibromatosis] 07-13-2024 Episodic Other connective tissue disease (2 sources) Pain in right heel; Translations: [Pain in right foot] 08-01-2024 Episodic Other female genital disorders (4 sources) Other specified noninflammatory disorders of vagina; Translations: [OTH SPEC NONINFLAMMATORY D/O VAGINA] Onset: 08-19-2022 Episodic Other female genital disorders (2 sources) Pruritus of vagina; Translations: [Other specified noninflammatory disorders of vagina] 12-14-2024 Episodic Other screening for suspected conditions (not mental disorders or infectious disease) (14 sources) Encounter for screening for malignant neoplasm [...] MALIG NEOPLASM OTH ORGN/SYS] Onset: 09-22-2022 Episodic Residual codes; unclassified (2 sources) Postmenopausal state; Translations: [Asymptomatic menopausal state] 12-14-2024 Episodic Skin and subcutaneous tissue infections (1 [...] Test Name Value Interpretation Reference Range Facility XR HAND 3+ VIEWS LEFTon - XR HAND 3+ VIEWS LEFT XR HAND 3+ VIEWS LEFT Reason for exam: Pain 1st digit for one year, no known injury Views: 3 Findings: The alignment is normal. No fracture, dislocation or other acute pathology is demonstrated. No soft tissue abnormalities are seen. Impression: Negative exam. Dictated on: 02/07/2025 5:55 PM This report has been electronically signed and approved by the interpreting Radiologist. Normal Not Available XR WRIST 3+ VIEWS LEFTon XR WRIST 3+ VIEWS LEFT XR WRIST 3+ VIEWS LEFT Reason for exam: Distal radius pain for six months, no known injury Views: 4 Findings: The alignment is normal. No fracture, dislocation or other acute pathology is demonstrated. There is degenerative joint space narrowing and spurring at the base of the first metacarpal. No soft tissue abnormalities are seen. 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 Dictated on: 02/07/2025 5:56 PM This report has been electronically signed and approved by the interpreting Radiologist. Normal Not Available Basophils Auto (Bld) [#/Vol] on 07-21-2024 Basophils (Bld) [#/Vol] 0.1 10 3/uL 0.0-0.1 [facility] Basophils (Bld) [#/Vol] Automated basophil count 0.0-0.1 [facility] Basophils/100 WBC Auto (Bld) on 07-21-2024 Basophils/100 WBC (Bld) 0.7 % 0.2-2.0 [facility] Basophils/100 WBC (Bld) Automated basophil % 0.2-2.0 [facility] Cholesterol in LDL Calc [Mas s/Vol]on 07-21-2024 Cholesterol in LDL [Mass/Vol] 89.0 mg/dL [facility] Comment on above: <100 mg/dl [id number] 0-129 mg/dl NEAR OR ABOVE [id number] mg/dl BORDERLINE [id number] mg/dl HIGH>190 mg/dl VERY HIGH Cholesterol in LDL [Mass/Vol] Cholesterol in LDL [Mass/volume] in Serum or Plasma by calculation [facility] Comment on above: <100 mg/dl [id number] 0-129 mg/dl NEAR OR ABOVE [id number] mg/dl BORDERLINE [id number] mg/dl HIGH>190 mg/dl VERY HIGH Cholesterol in VLDL Calc [Ma ss/Vol]on 07-21-2024 Cholesterol in VLDL [Mass/Vol] 20.0 mg/dL [facility] Cholesterol in VLDL [Mass/Vol] Cholesterol in VLDL [Mass/volume] in Serum or Plasma by calculation [facility] Eosinophils/100 WBC Auto (Bl d)on 07-21-2024 Eosinophils/100 WBC (Bld) 2.7 % 0.9-7.0 [facility] Eosinophils/100 WBC (Bld) Automated eosinophil % 0.9-7.0 [facility] Erythrocyte distribution wid th Auto (RBC) [Ratio]on 07-21-2024 Erythrocyte distribution width (RBC) [Ratio] 13.9 % 11.0-15.0 [facility] Erythrocyte distribution width (RBC) [Ratio] Erythrocyte distribution width [Ratio] by Automated count 11.0-15.0 [facility] Estimated glomerular filtrat ion rate (GFR) non- Americanon 07-21-2024 GFR/1.73 sq M.predicted among non-blacks MDRD (S/P/Bld) [Vol rate/Area] 46 mL/min/{1.73_m2} Low >=60 [facility] GFR/1.73 sq M.predicted among non-blacks MDRD (S/P/Bld) [Vol rate/Area] Estimated glomerular filtration rate (GFR) non- Low >=60 [facility] Globulin Calc (S) [Mass/Vol] on 07-21-2024 Globulin (S) [Mass/Vol] 3.7 g/dL [facility] Globulin (S) [Mass/Vol] Serum globulin measurement by calculation (mass/volume) [facility] Hematocrit Auto (Bld) [Volum e fraction]on 07-21-2024 Hematocrit (Bld) [Volume fraction] 41.6 % 36.0-48.0 [facility] Hematocrit (Bld) [Volume fraction] Hematocrit [Volume Fraction] of Blood by Automated count 36.0-48.0 [facility] Hemoglobin [Mass/volume] in Bloodon 07-21-2024 Hemoglobin (Bld) [Mass/Vol] 13.9 g/dL 12.0-16.0 [facility] Hemoglobin (Bld) [Mass/Vol] Hemoglobin [Mass/volume] in Blood 12.0-16.0 [facility] Laboratory - Chemistry and C hemistry - challengeon 07-21-2024 Albumin [Mass/Vol] 3.5 g/dL 3.4-5.0 [facility] ALP [Catalytic activity/Vol] 102 U/L 46-116 [facility] ALT [Catalytic activity/Vol] 26 U/L 14-59 [facility] AST [Catalytic activity/Vol] 18 U/L 15-37 [facility] Bilirubin [Mass/Vol] 0.6 mg/dL 0.2-1.0 [facility] Calcium [Mass/Vol] 9.3 mg/dL 8.5-10.1 [facility] Chloride [Moles/Vol] 106 mmol/L 98-107 [facility] Cholesterol [Mass/Vol] 168 mg/dL <=200 [facility] Cholesterol in HDL [Mass/Vol] 59 mg/dL 40-60 [facility] Comment on above: > or =60 mg/dl - LOW CARDIOVASCULAR RISK<40 mg/dl - HIGH CARDIOVASCULAR RISK CO2 [Moles/Vol] 26.1 mmol/L 21.0-32.0 [facility] Creatinine [Mass/Vol] 1.17 mg/dL High 0.55-1.02 [facility] GFR/1.73 sq M.predicted MDRD (S/P/Bld) [Vol rate/Area] 55 mL/min/{1.73_m2} Low >=60 [facility] Glucose [Mass/Vol] 88 mg/dL 74-106 [facility] Potassium [Moles/Vol] 3.8 mmol/L 3.5-5.1 [facility] Protein [Mass/Vol] 7.2 g/dL 6.4-8.2 [facility] Sodium [Moles/Vol] 142 mmol/L 136-145 [facility] Triglyceride [Mass/Vol] 100 mg/dL <=150 [facility] Urea nitrogen [Mass/Vol] 18.0 mg/dL 7.0-18.0 [facility] Urea nitrogen/Creatinine [Mass ratio] 15.4 mg/mg [facility] Laboratory - Hematology and Cell countson 07-21-2024 Immature granulocytes/100 WBC (Bld) 0.4 % 0.0-0.5 [facility] Leukocytes [#/volume] correc annabelle for nucleated erythrocytes in Blood by Automated counon 07-21-2024 WBC corrected for nucl RBC Auto (Bld) [#/Vol] 9.6 10 3/uL 4.0-11.0 [facility] WBC corrected for nucl RBC Auto (Bld) [#/Vol] Leukocytes [#/volume] corrected for nucleated erythrocytes in Blood by Automated coun 4.0-11.0 [facility] Lymphocytes Auto (Bld) [#/Vo l]on 07-21-2024 Lymphocytes (Bld) [#/Vol] 3.9 10 3/uL High 1.2-3.8 [facility] Lymphocytes (Bld) [#/Vol] Lymphocytes [#/volume] in Blood by Automated count High 1.2-3.8 [facility] Lymphocytes/100 WBC Auto (Bl d)on 07-21-2024 Lymphocytes/100 WBC (Bld) 41.0 % 20.5-60.0 [facility] Lymphocytes/100 WBC (Bld) Lymphocytes/100 leukocytes in Blood by Automated count 20.5-60.0 [facility] MCH Auto (RBC) [Entitic mass ]on 07-21-2024 MCH (RBC) [Entitic mass] 28.7 pg 26.7-34.0 [facility] MCH (RBC) [Entitic mass] MCH [Entitic mass] by Automated count 26.7-34.0 [facility] MCHC Auto (RBC) [Mass/Vol]on 07-21-2024 MCHC (RBC) [Mass/Vol] 33.4 g/dL 29.9-35.2 [facility] MCHC (RBC) [Mass/Vol] MCHC [Mass/volume] by Automated count 29.9-35.2 [facility] MCV Auto (RBC) [Entitic vol] on 07-21-2024 MCV (RBC) [Entitic vol] 85.8 fL 81.0-99.0 [facility] MCV (RBC) [Entitic vol] MCV [Entitic volume] by Automated count 81.0-99.0 [facility] Monocytes Auto (Bld) [#/Vol] on 07-21-2024 Monocytes (Bld) [#/Vol] 1.0 10 3/uL High 0.3-0.8 [facility] Monocytes (Bld) [#/Vol] Automated blood monocyte count High 0.3-0.8 [facility] Monocytes/100 WBC Auto (Bld) on 07-21-2024 Monocytes/100 WBC (Bld) 10.4 % 1.7-12.0 [facility] Monocytes/100 WBC (Bld) Automated monocyte % 1.7-12.0 [facility] Neutrophils Auto (Bld) [#/Vo l]on 07-21-2024 Neutrophils (Bld) [#/Vol] 4.3 10 3/uL 1.4-6.5 [facility] Neutrophils (Bld) [#/Vol] Neutrophils [#/volume] in Blood by Automated count 1.4-6.5 [facility] Neutrophils/100 WBC Auto (Bl d)on 07-21-2024 Neutrophils/100 WBC (Bld) 44.8 % 43.0-75.0 [facility] Neutrophils/100 WBC (Bld) Automated neutrophil % 43.0-75.0 [facility] No Panel Informationon 07-21 Eosinophils # (Auto) 0.3 10 3/uL 0.0-0.7 [facility] Immature Granulocyte # (Auto) 0.04 10 3/uL High 0.00-0.03 [facility] Platelet mean volume Auto (B ld) [Entitic vol]on 07-21-2024 Platelet mean volume (Bld) [Entitic vol] 10.2 fL 9.5-13.5 [facility] Platelet mean volume (Bld) [Entitic vol] Platelet mean volume [Entitic volume] in Blood by Automated count 9.5-13.5 [facility] Platelets Auto (Bld) [#/Vol] on 07-21-2024 Platelets (Bld) [#/Vol] 330 10 3/uL 150-450 [facility] Platelets (Bld) [#/Vol] Platelets [#/volume] in Blood by Automated count 150-450 [facility] RBC Auto (Bld) [#/Vol]on RBC (Bld) [#/Vol] 4.85 10 6/uL 4.20-5.40 [facility] RBC (Bld) [#/Vol] Erythrocytes [#/volume] in Blood by Automated count 4.20-5.40 [facility] Serum or plasma albumin/glob ulin mass ratioon 07-21-2024 Albumin/Globulin [Mass ratio] 0.9 {ratio} [facility] Albumin/Globulin [Mass ratio] Serum or plasma albumin/globulin mass ratio [facility] Serum or plasma anion gap de terminationon 07-21-2024 Anion gap [Moles/Vol] 13.7 mmol[facility]ion gap [Moles/Vol] Serum or plasma anion gap determination [facility] Serum or plasma total choles terol/high density lipoprotein (HDL) cholesterol mass abel 07-21-2024 Cholesterol.total/Cho lesterol in HDL [Mass ratio] 2.8 {ratio} [facility] Comment on above: 3.3 - 4.4 LOW RISK4. 4 - 7.1 AVERAGE RISK7.1 - 11.0 MODERATE RISK>11.0 HIGH RISK Cholesterol.total/Cho lesterol in HDL [Mass ratio] Serum or plasma total cholesterol/high density lipoprotein (HDL) cholesterol mass rat [facility] Comment on above: 3.3 - 4.4 [...] Interpretation and review of laboratory results Normal [facility] SARS-CoV-2 (COVID-19) RNA DEBORAH+probe Ql (Unsp spec) Negative [facility] RHEUMATOID FACTORon 07-29-20 23 RHEUMATOID FACTOR see note [employer] Other RHEUMATOID FACTOR <10.0 IU/mL <14.0 IU/mL Self-A-r-T Other PAP ACOG PANEL 2: 30 to 65on 11-15-2022 . . Normal [facility] Comment on above: Performed By: #### [id number] #### [facility] [address] [place] [address] Dr. Ricardo Malhotra Age Gdln ACOG Testing Comment Normal [facility] Comment on above: Result Comment: <21 or >65 or no age provided Performed By: #### [id number] #### [facility] [address] [address] [address] Ricardo Malhotra DIAGNOSIS: Comment [facility] Comment on above: Result Comment: NEGA TIVE FOR INTRAEPITHELIAL LESION OR MALIGNANCY. Performed By: #### [id number] #### [facility] [address] [place] [address] Dr. Ricardo Malhotra Methodology: Comment [facility] Comment on above: Result Comment: This liquid based ThinPrep(R) pap test was screened with the use of an image guided system. Performed By: #### [id number] #### [facility] [address] [place] [address] Dr. Ricardo Malhotra Note: Comment Normal [facility] Comment on above: Result Comment: The Pap smear is a screening test designed to aid in the detection of premalignant and malignant conditions of the uterine cervix. It is not a diagnostic procedure and should not be used as the sole means of detecting cervical cancer. Both false-positive and false-negative reports do occur. . Performed By: #### [id number] #### [facility] [address] [place] [address] Dr. Ricardo Malhotra Performed by: Comment Normal [facility] Comment on above: Result Comment: Amina Stephenson Strip Stamp Straightener (ASCP) Performed By: #### [id number] #### [facility] [address] [place] [address] Dr. Ricardo Malhotra Specimen adequacy: Comment Normal [facility] Comment on above: Result Comment: Sati sfactory for evaluation. No endocervical component is identified. Performed By: #### 4 [id number] #### [facility] [address] [place] [address] Dr. Ricardo Malhotra CBC AUTO DIFFon 09-18-2022 BASO # 0.1 103/ul Normal 0.0-0.1 [facility] Comment on above: Performed By: #### C BC #### [facility] [address] [place] [address] Dr. Ricardo Malhotra Basophils/100 WBC (Bld) 1.1 % Normal 0.2-2.0 [facility] Comment on above: Performed By: #### C BC #### [facility] [address] [place] [address] Dr. Ricardo Malhotra EO # 0.3 103/ul Normal 0.0-0.7 [facility] Comment on above: Performed By: #### C BC #### [facility] [address] [place] [address] Dr. Ricardo Malhotra Eosinophils/100 WBC (Bld) 3.6 % Normal 0.9-7.0 [facility] Comment on above: Performed By: #### C BC #### [facility] [address] [place] [address] Dr. Ricardo Malhotra Erythrocyte distribution width (RBC) [Ratio] 14.1 % Normal 11.0-15.0 [facility] Comment on above: Performed By: #### C BC #### [facility] [address] [place] [address] Dr. Ricardo Malhotra Hematocrit (Bld) [Volume fraction] 39.1 % Normal 36.0-48.0 [facility] Comment on above: Performed By: #### C BC #### [facility] [address] [place] [address] Dr. Ricardo Malhotra Hemoglobin (Bld) [Mass/Vol] 12.8 g/dL Normal 12.0-16.0 [facility] Comment on above: Performed By: #### C BC #### [facility] [address] [place] [address] Dr. Ricardo Malhotra IG # 0.02 10e3/ul Normal 0.00-0.03 [facility] Comment on above: Performed By: #### C BC #### [facility] [address] [place] [address] Dr. Ricardo Malhotra IG % 0.3 % Normal 0.0-0.5 [facility] Comment on above: Performed By: #### C BC #### [facility] [address] [place] [address] Dr. Ricardo Malhotra LYMPH # 2.2 103/ul Normal 1.2-3.8 [facility] Comment on above: Performed By: #### C BC #### [facility] [address] [place] [address] Dr. Ricardo Malhotra Lymphocytes/100 WBC (Bld) 32.0 % Normal 20.5-60.0 [facility] Comment on above: Performed By: #### C BC #### [facility] [address] [place] [address] Dr. Ricardo Malhotra MANUAL DIFF REQ NO Normal [facility] Comment on above: Performed By: #### C BC #### [facility] [address] [place] [address] Dr. Ricardo Malhotra MCH (RBC) [Entitic mass] 28.7 pg Normal 26.7-34.0 [facility] Comment on above: Performed By: #### C BC #### [facility] [address] [place] [address] Dr. Ricardo Malhotra MCHC (RBC) [Mass/Vol] 32.7 g/dL Normal 29.9-35.2 [facility] Comment on above: Performed By: #### C BC #### [facility] [address] [place] [address] Dr. Ricardo Malhotra MCV (RBC) [Entitic vol] 87.7 fL Normal 81.0-99.0 [facility] Comment on above: Performed By: #### C BC #### [facility] [address] [place] [address] Dr. Ricardo Malhotra MONO # 0.8 103/ul Normal 0.3-0.8 [facility] Comment on above: Performed By: #### C BC #### [facility] [address] [place] [address] Dr. Ricardo Malhotra Monocytes/100 WBC (Bld) 10.9 % Normal 1.7-12.0 [facility] Comment on above: Performed By: #### C BC #### [facility] [address] [place] [address] Dr. Ricardo Malhotra NEUT # 3.7 103/ul Normal 1.4-6.5 [facility] Comment on above: Performed By: #### C BC #### [facility] [address] [place] [address] Dr. Ricardo Malhotra Neutrophils/100 WBC (Bld) 52.1 % Normal 43.0-75.0 [facility] Comment on above: Performed By: #### C BC #### [facility] [address] [place] [address] Dr. Ricardo Malhotra Platelet mean volume (Bld) [Entitic vol] 10.5 fL Normal 9.5-13.5 [facility] Comment on above: Performed By: #### C BC #### [facility] [address] [address] [address] Ricardo Malhotra PLT 301 103/ul Normal 150-450 [facility] Comment on above: Performed By: #### C BC #### [facility] [address] [address] [address] Ricardo Malhotra RBC 4.46 106/ul Normal 4.20-5.40 [facility] Comment on above: Performed By: #### C BC #### [facility] [address] [address] [address] Ricardo Malhotra WBC 7.0 103/ul Normal 4.0-11.0 [facility] Comment on above: Performed By: #### C BC #### [facility] [address] [place] [address] Dr. Ricardo Malhotra LIPID PROFILEon 09-18-2022 CHOL-HDL RATIO NORM SEE BELOW Normal [facility] Comment on above: Result Comment: 3.3 - 4.4 LOW RISK 4.4 - 7.1 AVERAGE RISK 7.1 - 11.0 MODERATE RISK >11.0 HIGH RISK Performed By: #### L IPID, BMP #### [facility] [address] [place] [address] Dr. Ricardo Malhotra Cholesterol [Mass/Vol] 154 mg/dL Normal <=200 [facility] Comment on above: Performed By: #### L IPID, BMP #### [facility] [address] [place] [address] Dr. Ricardo Malhotra Cholesterol in HDL [Mass/Vol] 54 mg/dL Normal 40-60 [facility] Comment on above: Performed By: #### L IPID, BMP #### [facility] [address] [place] [address] Dr. Ricardo Malhotra Cholesterol in LDL [Mass/Vol] 82.6 mg/dL Normal [facility] Comment on above: Performed By: #### L IPID, BMP #### [facility] [address] [place] [address] Dr. Ricardo Malhotra Cholesterol.total/Cho lesterol in HDL [Mass ratio] 2.9 {ratio} Normal [facility] Comment on above: Performed By: #### L IPID, BMP #### [facility] [address] [address] [address] Ricardo Malhotra HDL NORMAL > or = 60 mg/dl - LOW CARDIOVASCULAR RISK <40 mg/dl - HIGH CARDIOVASCULAR RISK Normal [facility] Comment on above: Performed By: #### L IPID, BMP #### [facility] [address] [address] [address] Ricardo Malhotra LDL CALC NORMAL SEE BELOW Normal [facility] Comment on above: Result Comment: <100 mg/dl OPTIMAL 100 - 129 mg/dl NEAR OR ABOVE OPTIMAL 130 - 159 mg/dl BORDERLINE HIGH 160 - 189 mg/dl HIGH >190 mg/dl VERY HIGH Performed By: #### L IPID, BMP #### [facility] [address] [place] [address] Dr. Ricardo Malhotra Triglyceride [Mass/Vol] 87 mg/dL Normal <=150 [facility] Comment on above: Performed By: #### L IPID, BMP #### [facility] [address] [address] [address] Ricardo Malhotra VLDL CALC 17.4 mg/dL Normal [facility] Comment on above: Performed By: #### L IPID, BMP #### [facility] [address] [place] [address] Dr. Ricardo Malhotra MG MAMM SCREEN 3D IRLANDA CADon 09-18-2022 MG MAMM SCREEN 3D IRLANDA CAD Patient: BHARGAVI CHOPRA Exam Date: 09/18/2022 : 1955 Gender:F Ordering : DR TAVO AHMADI . Admission #: [id number] Family : DR CORNELIUS DE LA TORRE M.D. Order #: [id number] CLICK HERE TO VIEW EXAM RADIOLOGY REPORT [...] renal cancer at age 82. LOCATION: [facility] BREAST COMPOSITION: Heterogeneously dense,which may obscure [...] Zuniga MD on 09/18/2022 at 13:42 Normal [facility] PROF CHEM 8 (BAS METB)on Anion gap [Moles/Vol] 11.0 mmol/L Normal [facility] Comment on above: Performed By: #### L IPID, BMP #### [facility] [address] [place] [address] Dr. Ricardo Malhotra Calcium [Mass/Vol] 8.7 mg/dL Normal 8.5-10.1 [facility] Comment on above: Performed By: #### L IPID, BMP #### [facility] [address] [place] [address] Dr. Ricardo Malhotra Chloride [Moles/Vol] 107 mmol/L Normal 98-107 [facility] Comment on above: Performed By: #### L IPID, BMP #### [facility] [address] [place] [address] Dr. Ricardo Malhotra CO2 [Moles/Vol] 25.9 mmol/L Normal 21.0-32.0 [facility] Comment on above: Performed By: #### L IPID, BMP #### [facility] [address] [place] [address] Dr. Ricardo Malhotra Creatinine [Mass/Vol] 1.06 mg/dL Critically high 0.55-1.02 [facility] Comment on above: Performed By: #### L IPID, BMP #### [facility] [address] [place] [address] Dr. Ricardo Malhotra EGFR-AF PERUVIAN >60 Normal >=60 [facility] Comment on above: Performed By: #### L IPID, BMP #### [facility] [address] [place] [address] Dr. Ricardo Malhotra EGFR-NON AF PERUVIAN 52 mL/min/1.73m2 Critically low >=60 [facility] Comment on above: Performed By: #### L IPID, BMP #### [facility] [address] [address] [address] Ricardo Malhotra Glucose [Mass/Vol] 89 mg/dL Normal 74-106 [facility] Comment on above: Performed By: #### L IPID, BMP #### [facility] [address] [place] [address] Dr. Ricardo Malhotra Potassium [Moles/Vol] 3.9 mmol/L Normal 3.5-5.1 [facility] Comment on above: Performed By: #### L IPID, BMP #### [facility] [address] [place] [address] Dr. Ricardo Malhotra Sodium [Moles/Vol] 140 mmol/L Normal 136-145 [facility] Comment on above: Performed By: #### L IPID, BMP #### [facility] [address] [place] [address] Dr. Ricardo Malhotra Urea nitrogen [Mass/Vol] 18.0 mg/dL Normal 7.0-18.0 [facility] Comment on above: Performed By: #### L IPID, BMP #### [facility] [address] [place] [address] Dr. Ricardo Malhotra Urea nitrogen/Creatinine [Mass ratio] 17.0 mg/mg Normal [facility] Comment on above: Performed By: #### L IPID, BMP #### [facility] [address] [place] [address] Dr. Ricardo Malhotra VAGINITIS/VAGINOSIS DNA PROB Yifan 08-21-2022 Reba species Negative Normal Negative [facility] Comment on above: Performed By: #### V AGINT #### [facility] [address] [place] [address] Dr. Ricardo Malhotra Gardnerella vaginalis Negative Normal Negative [facility] Comment on above: Performed By: #### V AGINT #### [facility] [address] [place] [address] Dr. Ricardo Malhotra Trichomonas vaginalis Negative Normal Negative [facility] Comment on above: Performed By: #### V AGINT #### [facility] [address] [place] [address] Dr. Ricardo Malhotra VAGINITIS/VAGINOSIS DNA PROB Yifan 06-12-2022 Reba species Positive Abnormal Negative [facility] Comment on above: Performed By: #### V AGINT #### [facility] [address] [place] [address] Dr. Ricardo Malhotra Gardnerella vaginalis Positive Abnormal Negative [facility] Comment on above: Performed By: #### V AGINT #### [facility] [address] [place] [address] Dr. Ricardo Malhotra Trichomonas vaginalis Negative Normal Negative [facility] Comment on above: Performed By: #### V AGINT #### [facility] [address] [place] [address] Dr. Ricardo Malhotra VAGINITIS/VAGINOSIS DNA PROB Yifan 04-13-2022 Reba species Negative Normal Negative [facility] Comment on above: Performed By: #### V AGINT #### [facility] [address] [place] [address] Dr. Ricardo Malhotra Gardnerella vaginalis Negative Normal Negative [facility] Comment on above: Performed By: #### V AGINT #### [facility] [address] [place] [address] Dr. Ricardo Malhotra Trichomonas vaginalis Negative Normal Negative [facility] Comment on above: Performed By: #### V AGINT #### [facility] [address] [place] [address] Dr. Ricardo Malhotra VAGINITIS/VAGINOSIS DNA PROB Yifan 03-27-2022 Reba species Negative Normal Negative [facility] Comment on above: Performed By: #### V AGINT #### [facility] [address] [address] [address] Ricardo Malhotra Gardnerella vaginalis Positive Abnormal Negative [facility] Comment on above: Performed By: #### V AGINT #### [facility] [address] [address] [address] Ricardo Malhotra Trichomonas vaginalis Negative Normal Negative [facility] Comment on above: Performed By: #### V AGINT #### [facility] [id number] Ricardo Malhotra VAGINITIS/VAGINOSIS DNA PROB Yifan 03-07-2022 Reba species Negative Normal Negative [facility] Comment on above: Performed By: #### V AGINT #### [facility] [address] [address] [address] Ricardo Malhotra Gardnerella vaginalis Positive Abnormal Negative [facility] Comment on above: Performed By: #### V AGINT #### [facility] [address] [place] [address] Dr. Ricardo Malhotra Trichomonas vaginalis Negative Normal Negative [facility] Comment on above: Performed By: #### V AGINT #### [facility] [address] [place] [address] Dr. Ricardo Malhotra Cardiac Catheterizationon Cardiac Diagnostic Report Demographics Patient KEYSHA BURK Date of Study 12/17/2020 Name Date of 1955 Gender Female Age 65 year(s) Race Room [id number]^GREGORIO Height: 62.99 inch, 160 cm Number [employer] [id number] Weight: 167 pounds, 75.9 kg ID # Patient [id number] BSA: 1.79 m^2 BMI: 29.65 Acct # kg/m^2 MR # [id number] Performing Physician Sunita Tomas Referring Physician # Assisting Physician Additional [...] for Left ventriculography. Contrast Material: - Isovue 000746 ml - Isovue 86544 ml Fluoroscopy Time: Diagnostic: 2:30 minutes. Total: [...] assessed as CCS II according to the Carbon clinical classification. Hemodynamics Condition: Baseline Room Air [...] +------ ---+ + Shunts Oxygen Values O2 [id number] [id number] [employer]- [place], [place] Lazaro, pn Incoming Cardio Results From [facility] - 12/17/2020 12:46 PM EST Cardiac Diagnostic Report Demographics Patient KEYSHA BURK Date of Study 12/17/2020 Name Date of 1955 Gender Female Age 65 year(s) Race Room [address] [place] [address]^THOM^SUNITA Height: 62.99 inch, 160 cm Number [employer] [id number] Weight: 167 pounds, 75.9 kg ID # Patient [id number] BSA: 1.79 m^2 BMI: 29.65 Acct # kg/m^2 MR # [id number] Performing Physician Sunita Tomas Referring Physician # Assisting Physician Additional [...] for Left ventriculography. Contrast Material: - Isovue [id number] ml - Isovue 26479 ml Fluoroscopy Time: Diagnostic: 2:30 minutes. Total: [...] assessed as CCS II according to the Carbon clinical classification. Hemodynamics Condition: Baseline Room Air [...] +------ ---+ + Shunts Oxygen Values O2 [id number] [id number] [facility]- [place], [place] Vital Signs Date Time Vital Sign Value Performing Clinician Facility 12-14-2024 13:32-0500 Body mass index (BMI) [Ratio] 31.97 kg/m2 Ernestina Rinkes DO Work Phone: [facility] 12-14-2024 13:32-0500 Body weight 78.02 kg Ernestina Rinkes DO Work Phone: [facility] 12-14-2024 13:32-0500 Diastolic blood pressure 80 mm[Hg] Ernestina Rinkes DO Work Phone: [facility] 12-14-2024 13:32-0500 Systolic blood pressure 126 mm[Hg] Ernestina Rinkes DO Work Phone: [facility] 09-27-2024 11:40-0500 Body height 157.48 cm [facility] 09-27-2024 11:40-0500 Body mass index (BMI) [Ratio] 31.8 kg/m2 [facility] 09-27-2024 11:40-0500 Body weight 78.92 kg [facility] 09-27-2024 11:40-0500 Diastolic blood pressure 88 mm[Hg] [facility] 09-27-2024 11:40-0500 Heart rate 61 /min [facility] 09-27-2024 11:40-0500 Systolic blood pressure 151 mm[Hg] [facility] 07-14-2024 13:39-0400 Body height 157.48 cm [facility] 07-14-2024 13:39-0400 Body mass index (BMI) [Ratio] 30.7 kg/m2 [facility] 07-14-2024 13:39-0400 Body weight 76.2 kg [facility] 07-14-2024 13:39-0400 Diastolic blood pressure 85 mm[Hg] [facility] 07-14-2024 13:39-0400 Heart rate 64 /min [facility] 07-14-2024 13:39-0400 Systolic blood pressure 134 mm[Hg] [facility] 06-13-2024 10:23-0400 Body temperature 97.2 [degF] Reyes Dumont DPM Work Phone: [facility] 06-13-2024 10:23-0400 Diastolic blood pressure 76 mm[Hg] Reyes Dumont DPM Work Phone: [facility] 06-13-2024 10:23-0400 Systolic blood pressure 129 mm[Hg] Reyes Dumont DPM Work Phone: [facility] 12-26-2023 12:58-0500 Body temperature 96.6 [degF] Marcos Rodriguez DO Work Phone: [facility] 12-26-2023 12:58-0500 Diastolic blood pressure 78 mm[Hg] Marcos Rodriguez DO Work Phone: [facility] 12-26-2023 12:58-0500 Heart rate 69 /min Marcos Rodriguez DO Work Phone: [facility] 12-26-2023 12:58-0500 SaO2% (BldA) [Mass fraction] 97 % Marcos Rodriguez DO Work Phone: [facility] 12-26-2023 12:58-0500 Systolic blood pressure 120 mm[Hg] Marcos Rodriguez DO Work Phone: [facility] 09-04-2023 11:00-0400 Body height 157.48 cm Jaqueline Huerta Other [facility] Other 09-04-2023 11:00-0400 Body mass index (BMI) [Ratio] 29.85 kg/m2 Jaqueline Huerta Other [facility] Other 09-04-2023 11:00-0400 Body weight 74.03 kg Jaqueline Huerta Other [facility] Other 09-04-2023 11:00-0400 Diastolic blood pressure 76 mm[Hg] Jaqueline Huerta Other [facility] Other 09-04-2023 11:00-0400 SaO2% (BldA) [Mass fraction] 97 % Jaqueline Healymarla Other [facility] Other 09-04-2023 11:00-0400 Systolic blood pressure 138 mm[Hg] Jaqueline Deanna Other [facility] Other 08-04-2023 14:00-0400 Body height 157.48 cm Yotiff Manleyley Other [facility] Other 08-04-2023 14:00-0400 Body mass index (BMI) [Ratio] 30.36 kg/m2 Yo Shanelle Other [facility] Other 08-04-2023 14:00-0400 Body weight 75.3 kg Yotiff Manleyley Other [facility] Other 07-29-2023 11:15-0400 Body height 157.48 cm Cornelius De La Torre Other [facility] Other 07-29-2023 11:15-0400 Body mass index (BMI) [Ratio] 30.4 kg/m2 Cornelius De La Torre Other [facility] Other 07-29-2023 11:15-0400 Body weight 75.39 kg Cornelius De La Torre Other [facility] Other 07-29-2023 11:15-0400 Diastolic blood pressure 76 mm[Hg] Cornelius De La Torre Other [facility] Other 07-29-2023 11:15-0400 Respiratory rate 12 /min Cornelius De La Torre Other [facility] Other 07-29-2023 11:15-0400 Systolic blood pressure 102 mm[Hg] Cornelius Tyler Other [facility] Other 12-17-2020 15:15-0500 BP Diastolic 62 mm[Hg] [facility] , [place] 12-17-2020 15:15-0500 BP Systolic 136 mm[Hg] [facility] , [place] 12-17-2020 15:15-0500 Pulse (Heart Rate) 72 /min [place], [place] 12-17-2020 15:15-0500 Pulse Oximetry 99 % [place], [place] 12-17-2020 15:15-0500 Respiratory Rate 16 /min [place], [place] 12-17-2020 13:10-0500 Body Temperature 97.81 [degF] [place], [place] 12-17-2020 10:39-0500 BMI (Body Mass Index) 29.65 kg/m2 [place] 12-17-2020 10:39-0500 Body weight 75.93 kg [place] 12-17-2020 10:39-0500 Height 160 cm [place] Encounters Encounter Date Encounter Type Care Provider Facility Start: 02-07-2025 End: 02-07-2025 ambulatory BRODIE JKAI Not Available Start: 12-14-2024 End: 12-14-2024 Bamboo flowsheet Ernestina E Rinkes DO Work Phone: [facility] Start: 12-14-2024 End: 12-14-2024 Bamboo flowsheet Ernestina E Rinkes DO Work Phone: [facility] Start: 12-14-2024 End: 12-14-2024 Patient encounter status Ernestina E Rinkes DO Work Phone: [facility] Work Phone: Start: 12-14-2024 End: 12-14-2024 Periodic preventive med est patient 65yrs& older Ernestina Callahan DO Work Phone: [facility] Comment on above: Encounter for gyneco logical examination without abnormal finding (Primary Dx); Screening for malignant neoplasm of cervix; Encounter for screening mammogram for breast cancer; Screening for osteoporosis; Postmenopausal status, age-related; Vaginal atrophy; Vaginal itching Start: 12-14-2024 End: 12-14-2024 ambulatory ERNESTINA CALLAHAN Not Available Start: 11-25-2024 End: 11-25-2024 Bamboo flowsheet Reyes Dumont DPM Work Phone: [facility] Start: 11-25-2024 End: 11-25-2024 Bamboo flowsheet Reyes Dumont DPM Work Phone: [facility] Start: 11-25-2024 End: 11-25-2024 ambulatory REYES DUMONT Not Available Start: 11-25-2024 End: 11-25-2024 Office outpatient visit 15 minutes Reyes Dumont DPM Work Phone: [facility] Comment on above: Plantar fasciitis of left foot (Primary Dx); Pain of left heel; Orthotic training Start: 10-06-2024 End: 10-06-2024 Bamboo flowsheet Antoinette Brink ELECTRICAL CONTINUITY INSPECTOR [facility] Start: 10-06-2024 End: 10-06-2024 Bamboo flowsheet Antoinette Brink ELECTRICAL CONTINUITY INSPECTOR [facility] Start: 10-06-2024 End: 10-06-2024 ambulatory Antoinette Brink ELECTRICAL CONTINUITY INSPECTOR [facility] Comment on above: Plantar fasciitis of left foot (Primary Dx); Pain of left heel Start: 09-29-2024 End: 09-29-2024 Bamboo flowsheet Antoinette Brink ELECTRICAL CONTINUITY INSPECTOR [facility] Start: 09-29-2024 End: 09-29-2024 Bamboo flowsheet Antoinette Brink ELECTRICAL CONTINUITY INSPECTOR [facility] Start: 09-29-2024 End: 09-29-2024 ambulatory Antoinette Brink ELECTRICAL CONTINUITY INSPECTOR [facility] Comment on above: Plantar fasciitis of left foot (Primary Dx); Pain of left heel Start: 09-27-2024 End: 09-27-2024 ambulatory ANTOINETTE BRINK Not Available Start: 09-27-2024 End: 09-27-2024 ambulatory Antoinette Brink ELECTRICAL CONTINUITY INSPECTOR [facility] Work Phone: Comment on above: Pain of left heel (P rimary Dx); Plantar fasciitis of left foot Start: 09-27-2024 End: 09-27-2024 Patient encounter procedure [facility] Work Phone: Start: 09-26-2024 End: 09-26-2024 Office outpatient visit 15 minutes Reyes Dumont DPM Work Phone: [facility] Comment on above: Plantar fasciitis of left foot (Primary Dx); Pain of left heel Start: 09-26-2024 End: 09-26-2024 ambulatory REYES DUMONT Not Available Start: 09-26-2024 End: 09-26-2024 Bamboo flowsheet Reyes Dumont DPM Work Phone: [facility] Start: 09-26-2024 End: 09-26-2024 Bamboo flowsheet Reyes Dumont DPM Work Phone: [facility] Start: 09-23-2024 End: 09-23-2024 Bamboo flowsheet Antoinette Brink ELECTRICAL CONTINUITY INSPECTOR [facility] Start: 09-23-2024 End: 09-23-2024 Bamboo flowsheet Antoinette Brink ELECTRICAL CONTINUITY INSPECTOR [facility] Start: 09-23-2024 End: 09-23-2024 ambulatory Antoinette Brink ELECTRICAL CONTINUITY INSPECTOR [facility] Comment on above: Pain of left heel (P rimary Dx); Plantar fasciitis of left foot Start: 09-20-2024 End: 09-20-2024 Bamboo flowsheet Antoinette Brink ELECTRICAL CONTINUITY INSPECTOR [facility] Start: 09-20-2024 End: 09-20-2024 Bamboo flowsheet Antoinette Brink ELECTRICAL CONTINUITY INSPECTOR [facility] Start: 09-20-2024 End: 09-20-2024 ambulatory Antoinette Brink ELECTRICAL CONTINUITY INSPECTOR [facility] Comment on above: Pain of left heel (P rimary Dx); Plantar fasciitis of left foot Start: 09-15-2024 End: 09-15-2024 Bamboo flowsheet Antoinette Brink ELECTRICAL CONTINUITY INSPECTOR [facility] Start: 09-15-2024 End: 09-15-2024 Bamboo flowsheet Antoinette Brink ELECTRICAL CONTINUITY INSPECTOR [facility] Start: 09-15-2024 End: 09-15-2024 ambulatory Antoinette Brink ELECTRICAL CONTINUITY INSPECTOR [facility] Comment on above: Pain [...] foot Start: 09-09-2024 End: 09-09-2024 Bamboo flowsheet Antoinette Brink ELECTRICAL CONTINUITY INSPECTOR [facility] Start: 09-09-2024 End: 09-09-2024 Bamboo flowsheet Antoinette Brink ELECTRICAL CONTINUITY INSPECTOR [facility] Start: 09-09-2024 End: 09-09-2024 ambulatory Antoinette Brink ELECTRICAL CONTINUITY INSPECTOR [facility] Comment on above: Pain of left heel (P rimary Dx); Plantar fasciitis of left foot Start: 09-06-2024 End: 09-06-2024 Bamboo flowsheet Antoinette Brink ELECTRICAL CONTINUITY INSPECTOR [facility] Start: 09-06-2024 End: 09-06-2024 Bamboo flowsheet Antoinette Brink ELECTRICAL CONTINUITY INSPECTOR [facility] Start: 09-06-2024 End: 09-06-2024 ambulatory Antoinette Brink ELECTRICAL CONTINUITY INSPECTOR [facility] Comment on above: Pain of left heel (P rimary Dx); Plantar fasciitis of left foot Start: 09-05-2024 End: 09-05-2024 ambulatory [facility] Work Phone: Start: 09-05-2024 End: 09-05-2024 Patient encounter procedure [facility] Work Phone: Start: 09-01-2024 End: 09-01-2024 Bamboo flowsheet Antoinette Brink ELECTRICAL CONTINUITY INSPECTOR [facility] Start: 09-01-2024 End: 09-01-2024 Bamboo flowsheet Antoinette Brink ELECTRICAL CONTINUITY INSPECTOR [facility] Start: 09-01-2024 End: 09-01-2024 ambulatory Antoinette Brink ELECTRICAL CONTINUITY INSPECTOR [facility] Comment on above: Pain of left heel (P rimary Dx); Plantar fasciitis of left foot Start: 08-30-2024 End: 08-30-2024 Bamboo flowsheet Antoinette Brink ELECTRICAL CONTINUITY INSPECTOR [facility] Start: 08-30-2024 End: 08-30-2024 Bamboo flowsheet Antoinette Brink ELECTRICAL CONTINUITY INSPECTOR [facility] Start: 08-30-2024 End: 08-30-2024 ambulatory Antoinette Brink ELECTRICAL CONTINUITY INSPECTOR [facility] Comment on above: Pain of left heel (P rimary Dx); Plantar fasciitis of left foot Start: 08-25-2024 End: 08-25-2024 Bamboo flowsheet Antoinette Brink ELECTRICAL CONTINUITY INSPECTOR [facility] Start: 08-25-2024 End: 08-25-2024 Bamboo flowsheet Antoinette Brink ELECTRICAL CONTINUITY INSPECTOR [facility] Start: 08-25-2024 End: 08-25-2024 ambulatory Antoinette Brink ELECTRICAL CONTINUITY INSPECTOR [facility] Comment on above: Pain of left heel (P rimary Dx); Plantar fasciitis of left foot Start: 08-23-2024 End: 08-23-2024 Bamboo flowsheet Antoinette Brink ELECTRICAL CONTINUITY INSPECTOR [facility] Start: 08-23-2024 End: 08-23-2024 Bamboo flowsheet Antoinette Brink ELECTRICAL CONTINUITY INSPECTOR [facility] Start: 08-23-2024 End: 08-23-2024 ambulatory Antoinette Santacruz ELECTRICAL CONTINUITY INSPECTOR [facility] Comment on above: Pain of left heel (P rimary Dx); Plantar fasciitis of left foot Start: 08-18-2024 End: 08-18-2024 Bamboo flowsheet Clover Andrew PT Work Phone: [facility] Start: 08-18-2024 End: 08-18-2024 Bamboo flowsheet Clover Azar Joannaeugene PT Work Phone: [facility] Start: 08-18-2024 End: 08-18-2024 ambulatory Clover Andrew PT Work Phone: [facility] Comment on above: Pain of left heel (P rimary Dx); Plantar fasciitis of left foot Start: 08-16-2024 End: 08-16-2024 ambulatory REYES DUMONT Not Available Start: 08-16-2024 End: 08-16-2024 Office outpatient visit 15 minutes Reyes Dumont DPM Work Phone: [facility] Comment on above: Plantar fasciitis of left foot (Primary Dx); Pain of left heel Start: 08-16-2024 End: 08-16-2024 Bamboo flowsheet Reyes Dumont DPM Work Phone: [facility] Start: 08-16-2024 End: 08-16-2024 Bamboo flowsheet Ryees Dumont DPM Work Phone: [facility] Start: 08-15-2024 End: 08-15-2024 Bamboo flowsheet Antoinette Santacruz ELECTRICAL CONTINUITY INSPECTOR [facility] Start: 08-15-2024 End: 08-15-2024 Bamboo flowsheet Antoinette Santacruz ELECTRICAL CONTINUITY INSPECTOR [facility] Start: 08-15-2024 End: 08-15-2024 ambulatory Antoinette Santacruz ELECTRICAL CONTINUITY INSPECTOR [facility] Comment on above: Pain of left heel (P rimary Dx); Plantar fasciitis of left foot Start: 08-11-2024 End: 08-11-2024 Bamboo flowsheet Poncho Callaway ELECTRICAL CONTINUITY INSPECTOR [facility] Start: 08-11-2024 End: 08-11-2024 Bamboo flowsheet Poncho Callaway ELECTRICAL CONTINUITY INSPECTOR [facility] Start: 08-11-2024 End: 08-11-2024 ambulatory Poncho Callaway ELECTRICAL CONTINUITY INSPECTOR [facility] Comment on above: Pain of left heel (P rimary Dx); Plantar fasciitis of left foot Start: 08-09-2024 End: 08-09-2024 Bamboo flowsheet Clover Byron Joannaeugene PT Work Phone: [facility] Start: 08-09-2024 End: 08-09-2024 Bamboo flowsheet Clover Andrew PT Work Phone: [facility] Start: 08-09-2024 End: 08-09-2024 ambulatory Clover T Lorrie PT Work Phone: [facility] Comment on above: Pain of left heel (P rimary Dx); Plantar fasciitis of left foot Start: 08-01-2024 End: 08-01-2024 Bamboo flowsheet Reyes Dumont DPM Work Phone: [facility] Start: 08-01-2024 End: 08-01-2024 Bamboo flowsheet Reyes Dumont DPM Work Phone: [facility] Start: 08-01-2024 End: 08-01-2024 Office outpatient visit 25 minutes Reyes Dumont DPM Work Phone: [facility] Comment on above: Pain of left heel (P rimary Dx); Plantar fasciitis of left foot; Osteoporosis, unspecified osteoporosis type, unspecified pathological fracture presence ([facility] Start: 08-01-2024 End: 08-01-2024 ambulatory REYES DUMONT Not Available Start: 07-28-2024 End: 07-28-2024 Telephone encounter Arabella Draper [facility] Comment on above: MRI results Start: 07-27-2024 End: 07-27-2024 ambulatory REYES DUMONT Not Available Start: 07-21-2024 Non-patient / Non-visit [facility] Work Phone: Start: 07-16-2024 Patient encounter procedure [facility] Start: 07-14-2024 End: 07-14-2024 ambulatory [facility] Work Phone: Start: 07-14-2024 End: 07-14-2024 Patient encounter procedure [facility] Work Phone: Start: 07-13-2024 End: 07-13-2024 Bamboo flowsheet Reyes Dumont DPM Work Phone: [facility] Start: 07-13-2024 End: 07-13-2024 Bamboo flowsheet Reyes Dumont DPM Work Phone: [facility] Start: 07-13-2024 End: 07-13-2024 Office outpatient visit 25 minutes Reyes Dumont DPM Work Phone: [facility] Comment on above: Pain of left heel (P rimary Dx); Bilateral plantar fasciitis; Plantar fasciitis of left foot; Osteoporosis, unspecified osteoporosis type, unspecified pathological fracture presence ([facility]) Start: 07-13-2024 End: 07-13-2024 ambulatory REYES DUMONT Not Available Start: 06-13-2024 End: 06-13-2024 ambulatory REYES DUMONT Not Available Start: 06-13-2024 End: 06-13-2024 Patient encounter procedure Reyes Dumont DPM Work Phone: [facility] Comment on above: Pain of left heel (P rimary Dx); Pain of right heel; Bilateral plantar fasciitis Start: 05-30-2024 End: 05-30-2024 ambulatory REYES DUMONT Not Available Start: 12-28-2023 End: 12-28-2023 ambulatory Cornelius De La Torre Other [facility] [employer] Other Start: 12-28-2023 Office outpatient vi sit 15 minutes Cornelius Tyler [facility] Start: 12-26-2023 End: 12-26-2023 Office outpatient visit 25 minutes Marcos Rodriguez DO Work Phone: [facility] Comment on above: Viral URI (Primary D x); Exposure to COVID-19 virus Start: 11-04-2023 End: 11-04-2023 ambulatory Cornelius De La Torre Other [facility] Other Start: 11-04-2023 Telephone encounter Cornelius Tyler [facility] Start: 09-07-2023 End: 09-07-2023 ambulatory Cornelius De La Torre Other [facility] Other Start: 09-07-2023 Nursing evaluation o f patient and report Cornelius Tyler [facility] Start: 09-04-2023 End: 09-04-2023 ambulatory Jaqueline Huerta Other [facility] Other Start: 09-04-2023 Office outpatient vi sit 15 minutes Jaqueline Huerta [facility] Start: 08-04-2023 End: 08-04-2023 ambulatory Yo Timmons Other [facility] Other Start: 08-04-2023 Office outpatient ne w 45 minutes Yo Timmons [facility] Start: 07-29-2023 End: 07-29-2023 ambulatory Cornelius De La Torre Other [facility] Other Start: 07-29-2023 Office outpatient vi sit 15 minutes Cornelius Tyler [facility] Start: 01-14-2023 End: 01-14-2023 ambulatory Cornelius De La Torre Other [facility] Other Start: 01-14-2023 Telephone encounter Cornelius De La Torre [facility] Start: 11-04-2022 End: 11-04-[address] TAVO AHMADI Facility: Start: 09-18-2022 End: 09-19-[address] CORNELIUS DE LA TORRE Facility:[facility] Start: 08-19-2022 End: 08-19-[address] TAVO AHMADI Facility:[facility] Start: 06-10-2022 End: 06-10-[address] TAVO AHMADI Facility:[facility] Start: 04-12-2022 End: 04-12-[address] TAVO AHMADI Facility:[facility] Start: 03-26-2022 End: 03-26-[address] TAVO AHMADI Facility:[facility] Start: 03-06-2022 End: 03-06-[address] CORNELIUS DE LA TORRE Facility:[facility] Start: 12-16-2021 End: 12-16-2021 ambulatory Nieves Adams Other [facility] Other Start: 12-16-2021 Telephone encounter Nieves Adams [facility] Start: 08-07-2021 Office outpatient vi sit 15 minutes Tal Toro [facility] Start: 12-17-2020 End: 12-17-2020 Patient encounter procedure SUNITA TOMAS [facility] Start: 12-17-2020 End: 12-17-2020 Subsequent hospital visit by physician Sunita Tomas Work Phone: [facility] Start: 12-04-2018 End: 12-04-2018 Patient encounter procedure Janet Velásquez Facility:[facility] Procedures Date Procedure Procedure Detail Performing Clinician Start: 12-26-2023 Sars-cov-2 detection by dna/rna Phuc Azevedo DO Work Phone: Start: 09-18-2022 Mammography Marcos draper DO Work Phone: Start: 12-17-2020 End: 12-17-2020 NONPROFIT DIRECTOR REPORT Hpf Scanning Start: 12-17-2020 Catheterization and angiography procedure details panel Sunita Tomas Work Phone: Plan of Treatment Date Care Activity Detail Author Start: 12-14-2024 End: 12-14-2024 Patient encounter procedure [facility] Comment on above: Encounter for gyneco logical examination without abnormal finding; Screening for malignant neoplasm of cervix; Encounter for screening mammogram for breast cancer Start: 10-27-2024 End: 10-27-2024 Patient encounter procedure 10/27/2024 11:00 AM EST Office Visit [facility] [address] [place] [id number] Reyes Dumont, DPM [address] [place] [address] [facility] Start: 10-26-2024 End: 10-26-2024 Patient encounter procedure 10/26/2024 11:00 AM EST Office Visit [facility] [address] [place] [address] Reyes Dumont, DPM [address] [place] [address] [facility] Start: 10-06-2024 End: 10-06-2024 ambulatory 10/06/2024 1:00 PM EST Treatment [facility] [address] [place] [address] Antoinette Santacruz, ELECTRICAL CONTINUITY INSPECTOR [facility] Start: 10-04-2024 End: 10-04-2024 ambulatory 10/04/2024 1:00 PM EST Treatment [facility] [address] [place] [address] Antoinette Santacruz, ELECTRICAL CONTINUITY INSPECTOR [facility] Start: 10-03-2024 Patient referral [facility] Work Phone: Start: 09-29-2024 End: 09-29-2024 ambulatory 09/29/2024 1:00 PM EST Treatment [facility] [address] [place] [id number] Antoinette Santacruz, ELECTRICAL CONTINUITY INSPECTOR [facility] Start: 09-27-2024 End: 09-27-2024 ambulatory 09/27/2024 1:00 PM EST Treatment [facility] [address] [place] [address] Antoinette Santacruz ELECTRICAL CONTINUITY INSPECTOR [facility] Start: 09-26-2024 End: 09-26-2024 Patient encounter procedure 09/26/2024 4:00 PM EST Office Visit [facility] [address] [place] [address] Reyes Dumont DPM [address] [place] [address] [facility] Start: 09-23-2024 End: 09-23-2024 ambulatory 09/23/2024 1:00 PM EST Treatment [facility] [address] [place] [address] Antoinette Santacruz PTA [facility] Start: 09-20-2024 End: 09-20-2024 ambulatory 09/20/2024 1:00 PM EST Treatment [facility] [address] [place] [address] Antoinette Santacruz ELECTRICAL CONTINUITY INSPECTOR [facility] Start: 09-15-2024 End: 09-15-2024 ambulatory 09/15/2024 1:00 PM EDT Treatment [facility] [address] [place] [address] Antoinette Santacruz ELECTRICAL CONTINUITY INSPECTOR [facility] Start: 09-14-2024 End: 09-14-2024 ambulatory 09/14/2024 11:00 AM EDT Treatment [facility] [address] [place] [address] Clover Andrew, PT [address] [place] [address] [facility] Start: 09-09-2024 End: 09-09-2024 ambulatory 09/09/2024 11:30 AM EDT Treatment [facility] [address] [place] [address] Antoinette Santacruz, ELECTRICAL CONTINUITY INSPECTOR [facility] Start: 09-06-2024 End: 09-06-2024 ambulatory 09/06/2024 1:00 PM EDT Treatment [facility] [address] [place] [address] Antoinette Santacruz, ELECTRICAL CONTINUITY INSPECTOR [facility] Start: 09-01-2024 End: 09-01-2024 ambulatory 09/01/2024 1:00 PM EDT Treatment [facility] [address] [facility] [address] [place] [address] Antoinette Santacruz, ELECTRICAL CONTINUITY INSPECTOR [facility] Start: 08-30-2024 End: 08-30-2024 ambulatory 08/30/2024 11:00 AM EDT Treatment [facility] [address] [facility] [address] [place] [address] Antoinette Santacruz, ELECTRICAL CONTINUITY INSPECTOR [facility] Start: 08-25-2024 End: 08-25-2024 ambulatory 08/25/2024 1:00 PM EDT Treatment [facility] [address] [facility] [address] [place] [address] Antoinette Santacruz, ELECTRICAL CONTINUITY INSPECTOR [facility] Start: 08-23-2024 End: 08-23-2024 ambulatory 08/23/2024 1:00 PM EDT Treatment [facility] [address] [facility] [address] [place] [address] Antoinette Santacruz, ELECTRICAL CONTINUITY INSPECTOR [facility] Start: 08-18-2024 End: 08-18-2024 ambulatory 08/18/2024 1:00 PM EDT Treatment [facility] [address] [facility] [address] [place] [address] Clover Andrew, PT [address] [email or web address] [address] [place] [address] [facility] Start: 08-16-2024 End: 08-16-2024 Patient encounter procedure 08/16/2024 2:45 PM EDT Office Visit [facility] [address] [place] [address] Reyes Dumont, DPM [address] [facility] [[email or web address]] [address] [place] [address] [facility] Start: 08-15-2024 End: 08-15-2024 ambulatory 08/15/2024 1:00 PM EDT Treatment [facility] [address] [facility] [address] [place] [address] Antoinette Santacruz, ELECTRICAL CONTINUITY INSPECTOR [facility] Start: 08-11-2024 End: 08-11-2024 ambulatory 08/11/2024 1:00 PM EDT Treatment [facility] [address] [facility] [address] [place] [address] Poncho Callaway, ELECTRICAL CONTINUITY INSPECTOR [facility] Start: 08-01-2024 End: 08-01-2024 Patient encounter procedure [facility] Comment on above: Arrived Start: 07-17-2024 Influenza vaccination Influenza Vacc ine (#1) [facility] Start: 07-13-2024 End: 07-13-2024 Patient encounter procedure 07/13/2024 1:00 PM EDT Office Visit [facility] [address] [facility] [address] [place] [address] Reyes Dumont, DPM [address] [facility] [address] [place] [address] Arrived [facility] Comment on above: Arrived Start: 09-18-2023 Screening for malign ant neoplasm of breast [facility] Start: 07-17-2023 Influenza vaccination Influenza Vacc ine (#1) [facility] Start: 12-08-2020 Annual Wellness Visi t (AWV) Annual Wellness Visit (AWV) [place], [place] Start: 07-17-2020 Influenza vaccination Flu vaccine (# 1) [place] Start: 2019 Pneumococcal 65+ yea rs Vaccine (1 of 1 - PPSV23) Pneumococcal 65+ years Vaccine (1 of 1 - PPSV23) [place] Start: 2019 Pneumococcal Vaccine : 65+ Years (1 - PCV) Pneumococcal Vaccine: 65+ Years (1 - PCV) [facility] Start: 2019 Pneumococcal Vaccine : 65+ Years (1 of 1 - PCV) Pneumococcal Vaccine: 65+ Years (1 of 1 - PCV) [facility] Start: 2009 Screening for osteoporosis DEXA (modify frequency per FRAX score) [place], [place] Start: 2004 Screening for malign ant neoplasm of breast Breast cancer screen [place], [place] Start: 2004 Screening for malign ant neoplasm of colon Colon cancer screen colonoscopy [place], [place] Start: 2004 Shingles Vaccine (1 of 2) Shingles Vaccine (1 of 2) [place], [place] Start: 1994 Diabetes screen Diabetes screen [place], [place] Start: 1994 Lipid panel Lipid screen [place], [place] Start: 1973 DTaP/Tdap/Td vaccine (1 - Tdap) DTaP/Tdap/Td vaccine (1 - Tdap) [place], [place] Start: 1954 Creatinine measurement Creatinine mo nitoring [place], [place] Start: 1954 Hepatitis C screening Hepatitis C sc reen [place], [place] Start: 1954 Potassium monitoring Potassium monit oring [place], [place] Start: 1954 Screening for malign ant neoplasm of colon [facility] Comprehensive metabo lic 2000 panel - Serum or Plasma [facility] DBT Breast - bilater al screening Bilateral screening mammogram with tomosynthesis Imaging Routine Encounter for screening mammogram for breast cancer Ordered: 12/14/2024 [facility] Comment on above: Ordered: 12/14/2024 DXA Skeletal system Views for bone density DEXA bone density Imaging Routine Screening for osteoporosis Postmenopausal status, age-related Ordered: 12/14/2024 [facility] Comment on above: Ordered: 12/14/2024 IGP, RFX APTIMA HPV ASCU IGP, RFX APTIMA HPV ASCU Lab Routine Screening for malignant neoplasm of cervix Ordered: 12/14/2024 [facility] Work Phone: Comment on above: Ordered: 12/14/2024 MR Ankle - left WO contrast MR ankle left wo IV contrast Imaging High Priority Pain of left heel Plantar fasciitis of left foot Ordered: 07/13/2024 [facility] Work Phone: Comment on above: Ordered: 07/13/2024 Patient referral [facility] Work Phone: XR Hand - bilateral 3 Views [facility] Immunizations Immunization Date Immunization Notes Care Provider Fa cility 09-05-2024 influenza, high dose seasonal, preservative-free [facility] 09-05-2024 influenza virus vaccine, unspecified formulation Antoinette Santacruz PTA [facility] 09-07-2023 influenza, high dose seasonal, preservative-free Cornelius De La Torre Other [facility] [employer] Other 09-07-2023 influenza virus vaccine, unspecified formulation Reyes Dumont DPM Work Phone: [facility] 08-27-2022 influenza virus vaccine, split virus (incl. purified surface antigen) Cornelius De La Torre Other [facility] [employer] Other 08-27-2022 influenza virus vaccine, unspecified formulation Marcos Rodriguez DO Work Phone: [facility] 09-21-2021 COVID-19 Vaccine Pfi zer - Documentation Purposes Only Cornelius De La Torre Other [facility] 08-29-2021 influenza virus vaccine, split virus (incl. purified surface antigen) Cornelius De La Torre Other [facility] [employer] Other 08-29-2021 influenza virus vaccine, unspecified formulation [facility] 08-28-2020 influenza virus vaccine, split virus (incl. purified surface antigen) Cornelius De La Torre Other [facility] [employer] Other 08-28-2020 influenza virus vaccine, unspecified formulation [facility] 09-15-2019 influenza virus vaccine, split virus (incl. purified surface antigen) Cornelius De La Torre Other [employer] Other 09-15-2019 influenza virus vaccine, unspecified formulation [facility] 09-01-2018 influenza virus vaccine, split virus (incl. purified surface antigen) Cornelius De La Torre Other [employer] Other 09-01-2018 influenza virus vaccine, unspecified formulation [facility] 08-31-2017 tetanus and diphther ia toxoids, adsorbed, preservative free, for adult use (5 Lf of tetanus toxoid and 2 Lf of diphtheria toxoid) Cornelius De La Torre Other [facility] 08-13-2016 tetanus and diphther ia toxoids, adsorbed, preservative free, for adult use (5 Lf of tetanus toxoid and 2 Lf of diphtheria toxoid) Cornelius De La Torre Other [facility] 08-24-2013 tetanus and diphther ia toxoids, adsorbed, preservative free, for adult use (5 Lf of tetanus toxoid and 2 Lf of diphtheria toxoid) Cornelius De La Torre Other [facility] Payers Date Payer Category Payer Private Health Insurance [employer] [id number] 2022 Unknown [id number] [id number]. [id number] 2019 Medicare [id number] [id number]. [id number] 2018 Self-pay 1959 Medicare [id number] [id number]. [id number] 1959 Unknown [id number] 1954 Unknown [id number] 2.16.840.1.365843.3.579.2. 177 1954 Unknown [id number] 2.16.840.1.022796.3.579.2. 593 1954 Unknown [id number] 2.16.840.1.744014.3.579.2. 593 1954 Unknown [id number] 2.16.840.1.514439.3.579.2. 593 1954 Unknown [id number] 2.16.840.1.440491.3.579.2. 593 1954 Unknown [id number] 2.16.840.1.980294.3.579.2. 593 1954 Unknown [id number] 2.16.840.1.373589.3.579.2. 593 1954 Unknown [id number] 2.16.840.1.068374.3.579.2. 593 1954 Unknown [id number] 2.16.840.1.498200.3.579.2. 593 1954 Unknown [id number] 2.16.840.1.262819.3.579.2. 1259 1954 Unknown [id number] 2.16.840.1.506729.3.579.2. 1259 1954 Unknown [id number] 2.16.840.1.671117.3.579.2. 1259 1954 Unknown [id number] 2.16.840.1.295768.3.579.2. 1259 1954 Unknown [id number] 2.16840.1.759061.3.579.2. 1258 1954 Unknown [id number] 2.16.840.1.785765.3.579.2. 1258 1954 Unknown [id number] 2.16840.1.506765.3.579.2. 1258 1954 Unknown [id number] 2.16840.1.293698.3.579.2. 1258 1954 Unknown [id number] 2.840.1.085751.3.579.2. 1258 1954 Unknown [id number] 2.840.1.522746.3.579.2. 1258 1954 Unknown [id number] 2.840.1.029915.3.579.2. 1258 1954 Unknown [id number] 2.840.1.349494.3.579.2. 1258 1954 Unknown [id number] 2.840.1.385986.3.579.2. 1258 1954 Unknown [id number] 2.840.1.649959.3.579.2. 1258 1954 Unknown [id number] 2.840.1.810816.3.579.2. 1258 1954 Unknown [id number] 2.840.1.342055.3.579.2. 1258 1954 Unknown [id number] 2.16840.1.556646.3.579.2. 1258 1954 Unknown [id number] 2.16840.1.016790.3.579.2. 1258 1954 Unknown [id number] 2.16840.1.142274.3.579.2. 1258 1954 Unknown [id number] 2.16.840.1.821223.3.579.2. 1258 1954 Unknown [id number] 2.16.840.1.645834.3.579.2. 1258 1954 Unknown [id number] 2.16.840.1.519204.3.579.2. 1258 1954 Unknown [id number] 2.16.840.1.210870.3.579.2. 1258 1954 Unknown [id number] 2.16.840.1.017871.3.579.2. 1258 1954 Unknown [id number] 2.16.840.1.788040.3.579.2. 1258 1954 Unknown [id number] 2.16.840.1.390861.3.579.2. 1258 1954 Unknown [id number] 2.16.840.1.751920.3.579.2. 1258 Unknown [id number] 2.16.840.1.134247.3.579.2. 531 Social History Date Type Detail Facility Start: 12-17-2020 End: 05-30-2024 Tobacco smoking status NCIS Never smoker [facility] Start: 12-17-2020 End: 05-30-2024 Tobacco use and exposure Never used [employer] [facility] [employer] Start: 12-17-2020 End: 12-14-2024 Alcohol intake Ex-drinker (finding) [employer] [facility] Sex Assigned At Not on file [employer] [facility] [place] Start: 11-19-2023 End: 11-25-2024 Sex Assigned At [facility] Other Start: 11-19-2023 End: 11-25-2024 History of Social function [facility] Start: 11-19-2023 Alcohol Comment occasional [facility] Start: 1955 Sex Assigned At Female [facility] Start: 11-18-2023 Gender identity Identifies as female gender (finding) [facility] Start: 11-18-2023 Sexual orientation Heterosexual (finding) [facility] Start: 03-09-2024 End: 03-09-2024 Tobacco smoking status NHIS Ex-smoker (finding) [facility] Start: 09-27-2024 End: 10-03-2024 Sex Female (finding) [facility] Clinical Notes 08-07-2021 to 12-14-2024 Ernestina Callahan, DO - 12/14/2024 1:30 PM Carlos Dumont, DPM - 11/25/2024 11:00 AM Freida Santacruz, ELECTRICAL CONTINUITY INSPECTOR - 09/29/2024 1:00 PM Freida Santacruz, ELECTRICAL CONTINUITY INSPECTOR - 09/27/2024 1:00 PM EST Note Date & Type Note Facility 12-14-2024 History of Present illness Narrative Images from the original note were not included. Ernestina Callahan, [facility] Patient: Bhargavi Chopra : 1955 (69 y.o.) Yearly Wellness Exam Date: 12/14/2024 Reason for Visit - Chief Complaint Patient presents with Gynecologic Exam Pt states in the past was on medication for her bones. Pt states been off medication for a couple of years. Pt states has not had DEXA done in a little while. (DEXA order sent to [facility]). Denies bowel/bladder/breast concerns. Denies vaginal bleeding/spotting. Visit Vitals BP 126/80 Wt 172 lb BMI 31.97 kg/m Smoking Status Never BSA 1.84 m Allergies Allergen Reactions Clopidogrel Hives Other Reaction(s): Unknown Codeine Swelling Tachycardia Iodine Hives Other Reaction(s): Unknown Shellfish-Derived Products Anaphylaxis Other Reaction(s): Unknown Sulfa Antibiotics Hives Other Reaction(s): Unknown Cephalexin Other Reaction(s): Unknown Metronidazole Other Reaction(s): Unknown Nabumetone Hives Other Reaction(s): Unknown Naproxen Hives Other Reaction(s): Unknown Penicillin G Other Reaction(s): Unknown Sulfamethoxazole-Trimethoprim Hives Other Reaction(s): Unknown History of Present Illness, Associated Treatments and Results - OB History Para Term AB Living 2 2 0 0 0 0 SAB IAB Ectopic Multiple Live Births 0 0 0 0 0 # Outcome Date GA Lbr Elliot/2nd Weight Sex Type Anes PTL Lv 2 Para 1 Para Obstetric Comments Pap smear 11/14/22 wnl W/ [place] Mammogram 09/18/22 @ [facility] Review of Systems - General: Chills denies. Allergy/Immunology: Rash Denies. ENT: Denies Difficulty swallowing. Endocrine: Denies Cold intolerance denies. Heat intolerance denied. Respiratory: Denies Chest pain denies. Shortness of breath denies. Breast: Denies Bloody nipple discharge denies. Breast lump denies. Cardiovascular: Denies Chest pain. Gastrointestinal: Abdominal pain denies. Blood in stool denies. Hematology: Easy bruising denies. Prolonged bleeding denies. Women Only: Breast lump denies. Vaginal bleeding between periods is denied. Vaginal discharge/itching denied. Genitourinary: Blood in urine denies. Painful urination denies. Incontinence denies. Skin: Hair changes. Neurologic: Seizures denied. Stroke denies. Psychiatric: Anxiety denies. Depressed mood denies. Medication Documentation Review Audit Reviewed by Hanny Grimm MA (Pearl Glue Operator) on 12/14/24 at 1329 Medication Order Taking? Sig Documenting Provider Last Dose Status atorvastatin (Lipitor) 40 MG tablet [id number] Take 40 mg by mouth in the morning. Ernestina Callahan DO Active benztropine (Cogentin) 0.5 MG tablet [id number] Take 0.5 mg by mouth at bedtime Ernestina Callahan DO Active clonazePAM (KlonoPIN) 0.5 MG tablet [id number] TAKE 1 TO 2 TABLETS BY MOUTH AT BEDTIME NEEDED FOR ANXIETY Ernestina Callahan DO Active Patient not taking: Discontinued 12/14/24 1328 Discontinued 12/14/24 1329 FLUoxetine (PROzac) 10 MG capsule [id number] Take 10 mg by mouth in the morning. Ernestina Callahan DO Active losartan (Cozaar) 50 MG tablet [id number] 1 (one) time each day at the same time Ernestina Callahan DO Active losartan-hydroCHLOROthiazide (Hyzaar) 100-25 MG tablet [id number] Take by mouth Ernestina Callahan DO Active metoprolol tartrate (Lopressor) 25 MG tablet [id number] TAKE 1 TABLET BY MOUTH TWICE A DAY WITH FOOD FOR 90 DAYS Ernestina Callahan DO Active pantoprazole (ProtoNix) 40 MG EC tablet [id number] TAKE 1 TABLET BY MOUTH EVERY DAY FOR 90 DAYS Ernestina Callahan DO Active potassium chloride (Klor-Con) 20 MEQ packet [id number] 1 (one) time each day at the same time Ernestina Callahan DO Active Yuvafem 10 MCG tablet vaginal tablet [id number] INSERT 1 TABLET INTO THE VAGINA TWICE A WEEK Ernestina Callahan DO Active Past Medical History: Diagnosis Date Abdominal pain, LUQ Abnormal stress test BCC (basal cell carcinoma) Benign essential HTN (CMS/HCC) Bilateral hip pain Bipolar disorder (CMS/HCC) Chicken pox Depression (CMS/HCC) Hemorrhoid High cholesterol (CMS/HCC) Hypertension (CMS/HCC) Hypokalemia Lumbar pain Measles without complication Obesity (BMI 30-39.9) Osteopenia Osteoporosis (CMS/HCC) Unspecified malignant neoplasm of skin, unspecified Vaginal discharge Vaginal yeast infection Past Surgical History: Procedure Laterality Date BREAST BIOPSY Left benign CATARACT EXTRACTION, BILATERAL SECTION, LOW TRANSVERSE CHOLECYSTECTOMY COLONOSCOPY EYE SURGERY HEART CATH 2020 OTHER SURGICAL HISTORY 03/22/2018 PPH OTHER SURGICAL HISTORY Radical excision of labial lesion Family History Problem Relation Name Age of Onset Heart disease Mother Hypertension Mother Cancer Father Hypertension Father Heart disease Father Heart disease Sibling Physical Exam - General appearance, mentation, extraocular movements, facial strength and movement, hearing, upper and lower extremity strength and tone, sensation to gross testing, coordination, and gait are normal or at baseline unless noted below. General Examination: GENERAL APPEARANCE: alert oriented well developed, well nourished. HEAD: normocephalic atraumatic. EYES: sclera anicteric. EARS: no obvious hearing deficit. SKIN: warm and dry. HEART: regular rate and rhythm. LUNGS: clear to auscultation bilaterally. CHEST: axillary nodes grossly normal. BREASTS: no masses palpable bilaterally, normal nipples bilaterally. ABDOMEN: soft, nontender, nondistended, no masses palpable. BACK: no costovertebral angle tenderness, no obvious scoliosis/kyphosis. FEMALE GENITOURINARY: atrophic vaginal mucosa, cervix absent of lesions, nontender, uterus AV, mobile, ovaries nonpalpable and nontender. EXTREMITIES: no edema. NEUROLOGIC: alert and oriented. PSYCH: cooperative with exam. Diagnoses and all orders for this visit: Encounter for gynecological examination without abnormal finding Screening for malignant neoplasm of cervix - IGP, RFX APTIMA HPV ASCU Encounter for screening mammogram for breast cancer - Bilateral screening mammogram with tomosynthesis Screening for osteoporosis - DEXA bone density Postmenopausal status, age-related - DEXA bone density Vaginal atrophy - estradiol (Yuvafem) 10 MCG tablet vaginal tablet; Insert 1 tablet (10 mcg) into the vagina 2 (two) times a week Vaginal itching - estradiol (Yuvafem) 10 MCG tablet vaginal tablet; Insert 1 tablet (10 mcg) into the vagina 2 (two) times a week Pap, pelvic and breast exam completed. Findings of today's exam discussed with the patient. Continue MSBE. Ca/Vit D recommendations reviewed with the patient. The patient is to contact the office with any changes to her gynecological condition. The patient is to return in 1 year or as needed ICD-10-CM 1. Encounter for gynecological examination without abnormal finding Z01.419 2. Screening for malignant neoplasm of cervix Z12.4 IGP, RFX APTIMA HPV ASCU 3. Encounter for screening mammogram for breast cancer Z12.31 Bilateral screening mammogram with tomosynthesis 4. Screening for osteoporosis Z13.820 DEXA bone density 5. Postmenopausal status, age-related Z78.0 DEXA bone density 6. Vaginal atrophy N95.2 estradiol (Yuvafem) 10 MCG tablet vaginal tablet 7. Vaginal itching N89.8 estradiol (Yuvafem) 10 MCG tablet vaginal tablet documented in this encounter [facility] 11-25-2024 History of Present illness Narrative 8Reason for Visit: Established Patient: Recheck LT custom foot orthotic /Left plantar fasciitis HPI Established patient presents for recheck of LT custom foot orthotic. Patient feels like orthotic is too high in the arch. She will have pain with extended weightbearing or ambulation. Patient states that original heel pain is 90% improved. Review of Systems General: Chills denies. Fatigue [...] aware of surroundings, in no acute distress. Vascular: DORSALIS PEDIS PULSE: palpable bilateral. POSTERIOR [...] dorsiflexion with the knee extended bilaterally. ORTHOPEDIC: left foot plantar fasciitis is painful on palpation and weight-bearing she states she is 90 percent improvement since last examination with foot orthotic intervention and treatment. No gross deformities noted besides mild pes planovalgus deformity. Right heel pain: Resolved. PAIN WITH PALPATION: Plantar fascial origin Left, plantar calcaneus at the area of bursitis left heel. Right heel pain: Resolved. PAIN WITH ROM: On end range dorsiflexion mild pulling bilaterally left. Right heel pain: Resolved. SHOE GEAR EVALUATION: Skechers slip on athletic shoes bilateral foot and custom foot orthotic left arch feels too high proximally medial at the junction where the arch joints of the heel. We will send back for modification. There is no defect in the orthotic please note. Imaging: Heel X-Ray: 05-30-2024: Left heel x-rays, [...] MRI left ankle without contrast performed at [facility] shows: Findings compatible with planter fasciitis. Assessments Left foot plantar fasciitis: 90 percent improved Left heel pain: 90 percent improved Plantar calcaneal bursitis: 90 percent improved Left plantar calcaneal spur-mild Osteoporosis history Right posterior calcaneal spur-mild Pes planovalgus mild / flexible reducible: Bilaterally Plan 1. Patient was seen today for complaint of Left chronic plantar fasciitis/ heel pain, which is improved by 90 percent per patient's statement. Her orthotic is irritating as it feels too high in the arch medially at the junction of heel and arch. We examined the patient's foot orthotic and foot pain is significantly improved to the point where she has no pain noted on my examination. Orthotic will be returned to lower proximal medial arch of left orthotic.. 2. Physical examination was performed. 3. Patient was advised to maintain stretching daily was appropriate shoe gear and foot orthotics. As we take her left orthotic from her for modification she was advised to return to her power step pro tech inserts bilaterally. 4. When orthotic arise post modification, patient can obtain the device through the front window admissions assistant area she does not need to schedule a visit though was advised after she obtains a device to contact us to give update on status. Future modifications may still be required. documented in this encounter [facility] 10-03-2024 Hospital Discharge instructions Ambulatory OrdersReferral to Rheumatology Time Frame: 10/03/24, Location: None [facility] Work Phone: 09-29-2024 History of Present illness Narrative Physical Therapy Treatment Visit Patient Name: Bhargavi Chopra Today's Date: 09/29/2024 Encounter Diagnoses Name Primary? Plantar fasciitis of left foot Yes Pain of left heel Visit number: 16 Timed Code Treatment Minutes: 53 minutes Total Treatment Time: 53 minutes (+15 min w/ Ionto to go patch) Time In: 1300 Time Out: 1355 History: Pt. Presents to PT with c/c of left heel pain which started 6 weeks ago. No CLEMENTINA. Presents to PT with CAM boot on left foot. Pt has been doing HEP with increased her pain. Tried power step orthotic and night splint. Injection helped decrease pain for 5 days. Pain is affecting her quality of life. Precautions: universal Subjective: Got orthoitics and is wearing them. Amb without devices. No adverse effects to last session. Pt is progressing well. Pain: 3/10 while standing in WB position. Objective: PT Evaluation (08/09/24) Left ankle ROM: dorsiflexion 2 degree, PF normal, EV/INV normal Palpation: TTP plantar fascia origin Flexibility: calf muscle tightness Strength: grossly 4+/5 Gait: bilateral crutches NWB to PWB with CAM boot on left foot Treatment: Education: HEP education with demonstration, Educated on Eval Findings and POC Manual Therapy: (15 minutes) Passive ROM ankle, STM/IASTM to calf complex and plantar surface of foot. Joint mobilization (Grade III AP/PA mobs) in supine and prone. Soft Tissue Mobilization, Myofascial Release, Muscle Energy Technique, Neural Mobilization, Myofascial Cupping, Dry Needling, IASTM, and Scar mobilization Therapeutic Exercise: (30 minutes) Instructed Pt through Foot, intrinsic strengthening, [...] rest) Modalities: (8 minutes) ultrasound, 1.5 intensity, 1.0 MHz, 100% (held minutes) IFC with ice prone to left heel/plantar, ( Minutes, No Charge) Iontophorsis patch placed on left heel pain, plantar surface; pt. Was educated to wear patch for up to 14 hours. Assessment: Pt. Has participated in 16 PT session with start of POC on 08/09/24. Pt will benefit from skilled PT services to help decrease pain. PT treatment to focus on decreasing inflammation and improving ankle/foot muscular activation. Overall slow progress toward PT goals but is making progress in last couple weeks. Continued with heel raise x 15 with support, without issue. Educated nto perform 15x daily. Assess response and progress as able. Outcome Measure: 20/80 LEFS Short Term Goal: To be met in 2 weeks Goal 1: Pt to be instructed in home exercise program. Halfway Goals: To be met in 10 weeks [...] POC medically necessary. Please sign below. Date: Cosigned by Clover Andrew, PT at 09/29/2024 2:57 PM EST documented in this encounter [facility] 09-27-2024 History of Present illness Narrative Physical Therapy Treatment Visit Patient Name: Bhargavi Chopra Today's Date: 09/27/2024 Encounter Diagnoses Name Primary? Pain of left heel Yes Plantar fasciitis of left foot Visit number: 15 Timed Code Treatment Minutes: 53 minutes Total Treatment Time: 53 minutes (+15 min w/ Ionto to go patch) Time In: 1300 Time Out: 1355 History: Pt. Presents to PT with c/c of left heel pain which started 6 weeks ago. No CLEMENTINA. Presents to PT with CAM boot on left foot. Pt has been doing HEP with increased her pain. Tried power step orthotic and night splint. Injection helped decrease pain for 5 days. Pain is affecting her quality of life. Precautions: universal Subjective: Got orthoitics and is wearing them. Amb without devices. Pt can burrer machine shower with minimal pain, but has numbness. No pain in the AM. Pain: 3/10 while standing in WB position. Objective: PT Evaluation (08/09/24) Left ankle ROM: dorsiflexion 2 degree, PF normal, EV/INV normal Palpation: TTP plantar fascia origin Flexibility: calf muscle tightness Strength: grossly 4+/5 Gait: bilateral crutches NWB to PWB with CAM boot on left foot Treatment: Education: HEP education with demonstration, Educated on Eval Findings and POC Manual Therapy: (15 minutes) Passive ROM ankle, STM/IASTM to calf complex and plantar surface of foot. Joint mobilization (Grade III AP/PA mobs) in supine and prone. Soft Tissue Mobilization, Myofascial Release, Muscle Energy Technique, Neural Mobilization, Myofascial Cupping, Dry Needling, IASTM, and Scar mobilization Therapeutic Exercise: (30 minutes) Instructed Pt through Foot, intrinsic strengthening, [...] rest) Modalities: (8 minutes) ultrasound, 1.5 intensity, 1.0 MHz, 100% (held minutes) IFC with ice prone to left heel/plantar, ( Minutes, No Charge) Iontophorsis patch placed on left heel pain, plantar surface; pt. Was educated to wear patch for up to 14 hours. Assessment: Pt. Has participated in 14 PT session with start of POC on 08/09/24. Pt will benefit from skilled PT services to help decrease pain. PT treatment to focus on decreasing inflammation and improving ankle/foot muscular activation. Overall slow progress toward PT goals but is making progress in last couple weeks. Continued with heel raise x 15 with support, without issue. Educated nto perform 15x daily. Assess response and progress as able. Asked Pt to follow up with nursing home aide for insoles/further recommendation. Follow up with Jen when orthotics arrive Outcome Measure: LEFS Short Term Goal: To be met in 2 weeks Goal 1: Pt to be instructed in home exercise program. Halfway Goals: To be met in 10 weeks [...] POC medically necessary. Please sign below. Date: Cosigned by Clover Andrew, PT at 09/28/2024 1:07 PM EST documented in this encounter [facility] 09-26-2024 History of Present illness Narrative 8Reason for Visit: Established Patient: Recheck LT heel pain Second Complaint: To obtain custom foot orthotics HPI Established patient presents for recheck of LT heel pain. Patient states the pain is getting better since last visit. Pain has occasional 4/10 pain when standing on it or even sitting. Patient is using crutches for ambulation assistance for long walks. Patient has completed 12 physical therapy sessions including Iontophoresis treatments. Patient is using a foot massager. Patient denies any new injury or trauma. Second Complaint: To obtain her custom foot orthotics. Patient understands that orthotics are a patient responsibility as they are not covered by her insurance. Review of Systems General: Chills denies. Fatigue [...] aware of surroundings, in no acute distress. Vascular: DORSALIS PEDIS PULSE: palpable bilateral. POSTERIOR [...] EVALUATION: Skechers slip on athletic shoes bilateral foot Patient's new pair of custom foot orthotics fit well bilaterally. She walked around the office and did feel support and better motion control with orthotic intervention. Imaging: Heel X-Ray: 05-30-2024: Left heel x-rays, [...] MRI left ankle without contrast performed at [facility] shows: Findings compatible with planter fasciitis. Assessments Left foot plantar fasciitis: Chronic Left heel pain: chronic Plantar calcaneal bursitis: chronic Left plantar calcaneal spur-mild Osteoporosis history Right posterior calcaneal spur-mild Pes planovalgus mild / flexible reducible: Bilaterally Right foot plantar fasciitis: Resolved Right heel pain: Resolved Plan 1. Patient was seen today for complaint of Left chronic plantar fasciitis/ heel pain. 2. Physical examination was performed. 3. Patient was slightly improved with physical therapy and present regimen for home exercise program and rest as well as other modalities. 4. Patient was appropriately fit and dispense 1 new pair of custom foot orthotics. She felt good with the devices in her shoes while walking through the office she was advised about possible break in period, shoe gear requirements well as warranted adjustments may be required in the future. 5. RX: patient should continue physical therapy with iontophoresis with physical therapy guidance, as well as home exercise program until maximum medical improvement.. 6. Ice: Patient was advised of the [...] or high heeled shoes. Patient voiced understanding. 8. Calf / Achilles Stretching: Patient was advised of the benefits of stretching. Patient was advised to perform calf/Achilles tendon stretches QID, hold for 15-25 seconds. Caution was advised about overstretching. Patient voiced understanding. Patient was given significant education about potential stretching. 9. Topical Pain relief: Patient advised to apply Biofreeze topically to Bilateral heel heel three times a day for pain reduction. Patient was further advised that other types of topical medicine may be required including prescription compounded medication from local pharmacy. 10. Reappoint: 3 weeks documented in this encounter [facility] 09-14-2024 History of Present illness Narrative Physical Therapy Progress Visit Patient [...] weekly. Asked Pt to follow up with nursing home aide for insoles/further recommendation. Follow up with Jen when orthotics arrive Outcome Measure: LEFS Short Term Goal: To be met in 2 weeks Goal 1: Pt to be instructed in home exercise program. Halfway Goals: To be met in 10 weeks [...] sign below. Date: documented in this encounter [facility] 08-18-2024 History of Present illness Narrative Physical Therapy Treatment Visit Patient [...] Continues to have severe foot pain. Pain: 10/10 Objective: PT Evaluation (08/09/24) Left ankle ROM: [...] to be instructed in home exercise program. Figure Skater Goals: To be met in 10 weeks [...] sign below. Date: documented in this encounter [facility] 08-16-2024 History of Present illness Narrative Images from the original note were not included. Subjective Patient ID: Bhargavi Chopra is a 69 y.o. female who presents for No chief complaint on file.. Current Medications Current Outpatient Medications: atorvastatin (Lipitor) 40 MG tablet, Take 40 mg by mouth in the morning., Disp: , Rfl: benztropine (Cogentin) 0.5 MG tablet, Take 0.5 mg by mouth at bedtime, Disp: , Rfl: clonazePAM (KlonoPIN) 0.5 MG tablet, TAKE 1 TO 2 TABLETS BY MOUTH AT BEDTIME NEEDED FOR ANXIETY, Disp: , Rfl: dexAMETHasone (Decadron) 4 MG/ML injection, Apply to Iontophoresis pad qPT sessions x 9 max, Disp: 30 mL, Rfl: 0 Estrogens Conjugated (Premarin) 0.625 MG/GM cream, as directed Vaginal, Disp: , Rfl: FLUoxetine (PROzac) 10 MG capsule, Take 10 mg by mouth in the morning., Disp: , Rfl: losartan (Cozaar) 50 MG tablet, 1 (one) time each day at the same time, Disp: , Rfl: losartan-hydroCHLOROthiazide (Hyzaar) 100-25 MG tablet, Take by mouth, Disp: , Rfl: metoprolol tartrate (Lopressor) 25 MG tablet, TAKE 1 TABLET BY MOUTH TWICE A DAY WITH FOOD FOR 90 DAYS, Disp: , Rfl: pantoprazole (ProtoNix) 40 MG EC tablet, TAKE 1 TABLET BY MOUTH EVERY DAY FOR 90 DAYS, Disp: , Rfl: potassium chloride (Klor-Con) 20 MEQ packet, 1 (one) time each day at the same time, Disp: , Rfl: Yuvafem 10 MCG tablet vaginal tablet, INSERT 1 TABLET INTO THE VAGINA TWICE A WEEK, Disp: 24 tablet, Rfl: 3 Allergies Clopidogrel, Codeine, Iodine, Shellfish-derived products, Sulfa antibiotics, Cephalexin, Metronidazole, Nabumetone, Naproxen, Penicillin g, and Sulfamethoxazole-trimethoprim Medical Histories Past Medical History: Diagnosis Date Abdominal pain, LUQ Abnormal stress test BCC (basal cell carcinoma) Benign essential HTN (CMS/HCC) Bilateral hip pain Bipolar disorder (CMS/HCC) Chicken pox Depression (CMS/HCC) Hemorrhoid High cholesterol (CMS/HCC) Hypertension (CMS/HCC) Hypokalemia Lumbar pain Measles without complication Obesity (BMI 30-39.9) Osteopenia Osteoporosis (CMS/HCC) Unspecified malignant neoplasm of skin, unspecified Vaginal discharge Vaginal yeast infection Surgical Histories Past Surgical History: Procedure Laterality Date BREAST BIOPSY Left benign CATARACT EXTRACTION, BILATERAL SECTION, LOW TRANSVERSE CHOLECYSTECTOMY COLONOSCOPY EYE SURGERY HEART CATH 2020 OTHER SURGICAL HISTORY 03/22/2018 [facility] OTHER SURGICAL HISTORY Radical excision of labial lesion Hospitalizations Family History Family History Problem Relation Name Age of Onset Heart disease Mother Hypertension Mother Cancer Father Hypertension Father Heart disease Father Heart disease Sibling Objective Foot Exam XR calcaneus 2 views left Imaging Result: 05-30-2024: Left heel x-rays, weightbearing LAT/LO views, obtained today show: Mild pes planovalgus with 1st metatarsal elevation, small plantar calcaneal spur. No other pathology noted. 05-30-2024: Right heel x-rays, weightbearing LAT/LO views, obtained today shows: Mild pes planovalgus right foot with 1st metatarsal head elevation, very minimal posterior calcaneal spur right, none plantarly. No other pathology noted. XR calcaneus 2 views right Imaging Result: 05-30-2024: Left heel x-rays, weightbearing LAT/LO views, obtained today show: Mild pes planovalgus with 1st metatarsal elevation, small plantar calcaneal spur. No other pathology noted. 05-30-2024: Right heel x-rays, weightbearing LAT/LO views, obtained today shows: Mild pes planovalgus right foot with 1st metatarsal head elevation, very minimal posterior calcaneal spur right, none plantarly. No other pathology noted. Assessment/Plan ICD-10-CM 1. Plantar fasciitis of left foot M72.2 2. Pain of left heel M79.672 Hose she was trying to walk on her toes nowSubjective Bhargavi Chopra is a 69 y.o. female who presents for No chief complaint on file. History of Present Illness Review of Systems Objective There were no vitals taken for this visit. Physical Exam Results Assessment & Plan Images from the original note were not included. General Examination: GENERAL EXAMINATION: awake, aware of surroundings, in no acute distress. Patient was follow up examination heel pain still present slight improvement. Review of Systems General: Chills denies. Fatigue [...] MRI left ankle without contrast performed at [facility] shows: Findings compatible with planter fasciitis. Assessments Left foot plantar fasciitis: Chronic Left heel pain: chronic Plantar calcaneal bursitis: chronic Left plantar calcaneal spur-mild Osteoporosis history Right posterior calcaneal spur-mild Pes planovalgus mild / flexible reducible: Bilaterally Right foot plantar fasciitis: Resolved Right heel pain: Resolved Plan 1. Patient was seen today for complaint of bilateral heel pain: left pain still painful; right pain resolved. Patient is very happy [...] barely put her heel to the floor. 2. Physical examination was performed. Patient was [...] and kneeling scooter nonweightbearing requirement left heel. 4. For assistance and complete nonweightbearing, immobilization, pain resolution and edema control: Patient should continue to wear Aircast walker left lower extremity with two ADJUST -A -HEEL heel lifts left [...] in corresponding tightening of the plantar fascia. 5. Oral anti-inflammatory: Extensive discussion with the patient entailed her multiple non podiatric issues that affect her ability to take oral anti-inflammatories. We discussed multiple types of medications topically orally injected with a could be used for pain resolution or improvement. Patient was advised to continue OTC Tylenol 2 tablets 500 mg b.I.d.-for pain and inflammation control. further prescription . 6. RX: patient should continue physical therapy with iontophoresis with physical therapy guidance, as well as home exercise program until maximum medical improvement.. 7. Ice: Patient was advised of the benefits of ice application and the need to apply ice bag/frozen gel pack to affected area 15 minutes on/off for pain/edema control. Patient was advised to not fall asleep with ice bag/frozen gel pack applied to affected area. Patient voiced understanding. 8. Shoe gear: Patient was advised of the [...] be covering these items he financially responsible. Patient was accepted and understood the reasoning for custom foot orthotics. She was casted for 1 new pair of custom foot orthotic she is on today's date via biofilm box method subtalar joint neutral position. 9. Calf / Achilles Stretching: Patient was [...] prescription compounded medication from local pharmacy. 11. Reappoint when custom foot orthotics are available. documented in this encounter [facility] 08-01-2024 History of Present illness Narrative Images from the original note [...] MRI LT ankle without contrast performed at [facility] on 07-27-2024. Review of [...] MRI left ankle without contrast performed at [facility] shows: Findings compatible with [...] to the floor. NOTE: entire time in [id number]-[id number]-[id number] interaction with provider bnjw-jt-kiai was 36 minutes and seconds with documentation [...] weeks for recheck. documented in this encounter [facility] 07-28-2024 Telephone encounter Note Patient was notified of results. Advised to continue to use crutches to offload LT. Foot. She should ice and elevate as much as possible. She should apply her topical pain reliever as directed. Patient has appointment on 08-01-2024 for follow up. [facility] 07-28-2024 Miscellaneous Notes Patient was notified of results. Advised to continue to use crutches to offload LT. Foot. She should ice and elevate as much as possible. She should apply her topical pain reliever as directed. Patient has appointment on 08-01-2024 for follow up. ----- Message from Dr. Reyes Dumont sent at 07/28/2024 10:13 AM EDT ----- Please inform patient the MRI findings are positive for plantar fasciitis only. There is no tear to her plantar fascia or any other pathology that would be explaining her level of pain. Continue present regimen aggressively, reappoint to discuss soon as possible. Offloading foot is imperative as much as possible to reduce pressure/ pain and allow for healing. documented in this encounter [facility] 07-28-2024 Telephone encounter Note ----- Message from Dr. Reyes Dumont sent at 07/28/2024 10:13 AM EDT ----- Please inform patient the MRI findings are positive for plantar fasciitis only. There is no tear to her plantar fascia or any other pathology that would be explaining her level of pain. Continue present regimen aggressively, reappoint to discuss soon as possible. Offloading foot is imperative as much as possible to reduce pressure/ pain and allow for healing. [facility] 07-14-2024 Evaluation note Diagnosis Onset Date Resolution Dyslipidemia acute July 14, 2024 1:32pm Essential (primary) hypertension acute July 14 1:32pm Medicare annual wellness visit, subsequent acute July 14, 024 1:32pm Osteoarthritis acute September 162023 11:30am [facility] Work Phone: 1(633) 843-601108-28-2024 History of Present illness Narrative* Reyes Dumont, DPSandi - 07/13/2024 2:45 PM EDT Images from the original note were not included. Reason for Visit: Established Patient: Recheck bilateral heel pain HPI Established patient presents for recheck of bilateral heel pain. Patient states that pain has resolved to the RT heel and has worsened to the LT heel. Pain to the LT heel is an 8-9/10 with ambulation/weightbearing activity. Patient states that the heel is also painful while performing her stretches. Patient states that she has been stretching several times a day, icing 2-3 times a day and taking Tylenol as needed. Patient is applying Icy Hot to LT heel at bedtime. Patient is wearing a plantar fasciitis brace on the LT heel all night. Patient denies any new injury or trauma. Review of Systems General: Chills denies. Fatigue [...] surroundings, in no acute distress. is present throughexamination. Vascular: DORSALIS PEDIS PULSE: palpable bilateral. POSTERIOR [...] right, none plantarly. No other pathology noted. Assessments Left foot plantar fasciitis: Worsening Right foot plantar fasciitis: Resolved Left heel pain: Worsening Right heel pain: Resolved Plantar calcaneal bursitis: Worsening Left plantar calcaneal spur-mild Osteoporosis history Right posterior calcaneal spur-mild Pes planovalgus mild / flexible reducible: Bilaterally Plan 1. Patient was seen today for complaint of bilateral heel pain: Lyto-zhlywbk-lesa-right. Right heelpain has basically resolved. Patient is very happy at this time however left heel pain is worsening. Patient describes significant stretching I believe she may have over stretched her left lower extremity including fascia and Achilles tendon and made it worse or she may have advanced to a partial-thickness tears pain is quite unbearable she can barely put her heel to the floor. NOTE: entire time in ywdb-jc-syuw interaction with provider updw-sy-gomn was 34 minutes 31 seconds with documentation and review of patient's x-rays: Greater than 40 minutes obviously. 2. Physical examination was performed. 3. Patient was advised she needs complete [...] and kneeling scooter nonweightbearing requirement left heel. 4. Oral anti-inflammatory: Extensive discussion with the patient entailed her multiple non podiatric issues that affect her ability to take oral anti- inflammatories. We discussed multiple types of medications topically orally injected with a could be used for pain resolution or improvement. Patientwas advised to continue OTC Tylenol 2 tablets 500 mg b.I.d.-for pain and inflammation control. further prescription . 5. RX: Medrol Dosepak, take 1 pack as directed. 0 refills. Patient had no contraindications statingshe had this medication in the past. 6. Ice: Patient was advised of the benefits of ice application and the need to apply ice bag/frozengel pack to affected area 15 minutes on/off for pain/edema control. Patient was advised to not fallasleep with ice bag/frozen gel pack applied to affected area. Patient voiced understanding. 7. Shoe gear: Patient was advised of the benefits of proper shoe gear and patient was instructed towear well padded, well-constructed/stabilized type shoe, for all weightbearing. Patient should avoid walking barefoot and avoid wearing slippers, flip flops, sandals, low or high heeled shoes. Patient voiced understanding. As documented above, patient was advised nonweightbearing left heel until she is completely pain-free was advised. 8. Patient has been wearing Powerstep Professional Insoles in Bilateral shoes for all weightbearingactivity, and yet pain has increased. I recommend [...] advised that other types of topical medicine maybe required including prescription compounded medication from local pharmacy. 11. Custom foot orthotics/Night Splint/Airheel/possible corticosteroid injection: Patient was advised that we will check insurance for coverage for custom foot orthotics, night splint, Airheel and cortisone injection in case these treatment options are necessary. 12. As patient's pain has worsened and patient was not a very good job I believe with her conservative attempts of pain resolution: MRI is definitely warranted left heel patient does have history of osteoporosis as well. Partial-thickness tear most likely is what is causing patient's pain versus less likely calcaneal stress fracture. 13. Patient should reappoint in 2-3 weeks for recheck. [id number] History of Present illness Narrative* Reyes Dumont DPM - 06/13/2024 10:15 AM EDT Images from the original note were not included. Reason for Visit: Established Patient: Recheck bilateral heel pain HPI Established patient presents for recheck of bilateral heel pain. Pain is the same since last officevisit. Patient states that when she is on her feet is is excruciating. Pain level today is 8/10 LT heel and 0/10 RT heel. Patient has been doing the exercises for treatment. She also ices, uses icy hot, and tylenol as needed. Review of Systems General: Chills denies. Fatigue [...] aware of surroundings, in no acute distress. Vascular: DORSALIS PEDIS PULSE: palpable bilateral. POSTERIOR [...] the knee extended bilaterally. ORTHOPEDIC: Plantar fasciitis bilaterally at plantar fascial origin amur-lroqpcr-ugwg-right with increased plantar calcaneal bursitis left only. No gross deformities noted besides mild pes planovalgus deformity. PAIN WITH PALPATION: Plantar fascial origin bilaterally yetq-xxdbnja-wdyu-right, plantar calcaneus at the area of bursitis left heel only. PAIN WITH ROM: On end range dorsiflexion mild pulling bilaterally qnrv-hxmarzz-ebus-right. SHOE GEAR EVALUATION: Skechers slip on athletic [...] right, none plantarly. No other pathology noted. Assessments Left foot plantar fasciitis greater than right Left heel pain greater than right Left plantar calcaneal spur-mild Right posterior calcaneal spur-mild Pes planovalgus mild / flexible reducible: Bilaterally Plan 1. Patient seen today for complaint of bilateral heel pain: Sknz-yqhyflg-wgma-right. Physical examination was performed And patient was no change in physical improvement unfortunately. 2. Past x-rays were reviewed from last visits and were not recommended to be repeated on today's date. 3. Activity modification: Patient was advised of the benefits of activity modification and the needto avoid activities that aggravate the injured anatomy, i.e., prolonged weightbearing/standing, bending, kneeling, squatting, climbing steps/stairs/ladders, and exercising. Patient voiced understanding. 4. Oral anti-inflammatory: patient was advised to continue OTC Tylenol 2 tablets 500 mg b.I.d.-for pain and inflammation control. further prescription NSAIDs can be prescribed as necessary. 5. Ice: Patient was advised of the benefits of ice application and the need to apply ice bag/frozengel pack to affected area 15 minutes on/off for pain/edema control. Patient was advised to not fallasleep with ice bag/frozen gel pack applied to affected area. Patient voiced understanding. 6. Shoe gear: Patient was advised of the benefits of proper shoe gear and patient was instructed towear well padded, well-constructed/stabilized type shoe, for all weightbearing. Patient should avoid walking barefoot and avoid wearing slippers, flip flops, sandals, low or high heeled shoes. Patient voiced understanding. 7. OTC insoles: continue for all weight-bearing: Powerstep Professional Insoles to wear in Bilateral shoes. 8. Calf / Achilles Stretching: Patient was advised of the benefits of stretching. Patient was advised to perform calf/Achilles tendon stretches QID, hold for 15-25 seconds. Caution was advised about overstretching. Patient voiced understanding. Patient was given significant education about potential stretching in the technique as well as educational handout dispensed to patient on today's date. 9. Topical Pain relief: Patient advised to apply Biofreeze topically to Bilateral heel heel three times a day for pain reduction. Patient was further advised that other types of topical medicine may be required including prescription compounded medication from local pharmacy. 10. Patient was injected in the plantar fascial origin via the plantar medial approach of the left heel under sterile technique. Prior to injection, the skin was cleansed with Betadine solution. Ethyl chloride spray was used for skin refrigerant. Injection consisted of 1 cc of 0.25% Marcaine with epinepherine ([facility]# [id number],LOT#[id number], EXP.04/09 ) and 1 cc of Celestone Soluspan 3mg ([facility]# [id number],LOT#[id number], EXP.09/08) . The site of injection was covered with Bacitracin ointment and Bandaid. Patient was given verbal instructions about possible cortisone flare and treatment. Patient was advised to reduce weightbearing stance, and dependency, and exercise for 2 weeks. 11. Custom foot orthotics/Night Splint/Airheel/possible corticosteroid injection: Patient was advised that we will check insurance for coverage for custom foot orthotics, night splint, Airheel and cortisone injection in case these treatment options are necessary. 12. Patient should reappoint in 2-3 weeks for recheck. documented in [id number] Evaluation note* Encounter Date Diagnosis Assessment Notes Treatment Notes Treatment Clinical Notes Dec, Chronic sinusitis, unspecified (ICD-10 - [...] conjunctivitis of both eyes (ICD-10 - H10.33) Becker eye is contagious. Wash hands frequently and try not to rub eyes. Use warm wash cloth to keep them clean or to remove discharge from eyes. Use drops until eyes are clear then 3 more days [facility] Other 02-10-2024 History of Present illness Narrative* Marcos Rodriguez, - 12/26/2023 12:40 PM EST HPI: Historian [...] or fever. IH Testing: documented in this encounterSaint [facility] [id number] Evaluation note* Encounter Date Diagnosis Assessment Notes Treatment Notes Treatment Clinical Notes Oct, Essential (primary) hypertension (ICD-10 - I10) [facility] Other 10-20-2023 Evaluation note* Encounter Date Diagnosis [...] of nose, initial encounter (ICD-10 - S00.32XA) [facility] Other 09-19-2023 Evaluation note* Encounter Date Diagnosis [...] needed if she continues to have symptoms. [facility] Other 09-13-2023 Evaluation note* Encounter Date Diagnosis Assessment Notes Treatment Notes Treatment Clinical Notes Jul, Pain of left thumb (ICD-10 - M79.645) Pt has family history of RA. Would like to have labs and xray. Discussed ortho referral for possible injection [facility] Other 09-22-2021 Evaluation note* Encounter Date Diagnosis [...] accordingly but no treatment at this time [employer] Other Evaluation noteNo InformationNortLECOM [facility] [employer] Other Evaluation note* Diagnosis Viral URI- Primary Acute upper respiratory infections of unspecified site Exposure to COVID-19 virus [facility] Diagnosis Onset Date Resolution Status Dyslipidemia acute Essential (primary) hypertension [facility] Work Phone: Evaluation note* Diagnosis Pain [...] hypertension acute Medicare annual wellness visit, subsequent acute [facility] Work Phone: Evaluation note* Diagnosis Pain of left heel- Primary Plantar fasciitis of left foot [facility] Diagnosis Pain of left heel- Primary Plantar fasciitis of left foot Osteoporosis, unspecified osteoporosis type, unspecified pathological fracture presence (CMS/HCC) documented in this encounter [facility]* Diagnosis Plantar fasciitis of left foot- Primary Pain of left heel documented in this encounter [facility]Evaluation note* Diagnosis Plantar fasciitis of left foot- Primary Pain of left heel [facility]* Diagnosis Pain of left heel- Primary Bilateral plantar fasciitis Plantar fasciitis of left foot Osteoporosis, unspecified osteoporosis type, unspecified pathological fracture presence (CMS/HCC) [facility] Diagnosis Pain of left heel- Primary Plantar fasciitis of left foot [facility]* Diagnosis Pain of left heel- Primary Pain of right heel Bilateral plantar fasciitis documented in this encounter [facility]Evaluation note* Diagnosis Plantar fasciitis of left foot- Primary Pain of left heel documented in this encounter [facility] HealthcareEvaluation note* Diagnosis Plantar fasciitis of left foot- Primary Pain of left heel [facility]* Diagnosis Plantar fasciitis of left foot- Primary Pain of left heel Orthotic training documented [facility] this encounter [facility]* Diagnosis Encounter for gynecological examination without abnormal finding- Primary Screening for malignant neoplasm of cervix Screening for malignant neoplasm of the cervix Encounter for screening mammogram for breast cancer Screening for osteoporosis Special screening for osteoporosis Postmenopausal status, age-related Vaginal atrophy Postmenopausal atrophic vaginitis Vaginal itching Pruritus of genital organs [facility] Narrative - Reported* Type Description Date Medical History hypertension Medical History mood disorder Medical History hiatal hernia Surgical History C section Surgical History cholecystectomy Surgical History heart cath 2020 Hospitalization History see above Self-A-r-T Other Reason for visit Narrative* Rehabilitation - Outpatient (Routine) - Authorized Specialty Diagnoses / Procedures Referred By Ayana azar Referred To Contact Physical Therapy Diagnoses Pain of left heel Plantar fasciitis of left foot Procedures TX OFFICE/OUTPATIENT NEW HIGH MDM 60 MINUTES Reyes Dumont R, DPM [address] [place] [address] Phone: tel: fax: Lorrie Clover T, PT [address] [facility] [address] [place] [address] Phone: tel: fax: Referral ID Status Reason Start Date Expiration Date Visits Requested Visits Authorized [id number] Authorized Specialty Services Required 08/01/2024 01/28/2025 20 30 [facility] Summary Purpose Family History No Family History Records Found Relationship Condition Age at Onset Recorded Date/T neptali father Heart disease Unknown Unknown Malignant neoplasm Unknown Hypertension Unknown mother Unknown Heart disease Unknown Advance Directives No Advanced Directives Records Found Advance Directive Response Recorded Date/ Time Advance Directives No March 11, 12:45pm Advance Directive Response Recorded Date/ Time Advance Directives No March 11 018 11:45am Discharge Instructions * Discharge Instr - Activity* Precious Flor RN - 12/17/2020 12:57 PM EST Refer to Cardiac Cath Discharge * Additional Instructions* Precious Flor RN - 12/17/2020 Refer to Cardiac Cath Discharge Instructions documented in this encounter Assessments Diagnosis S/P cardiac cath Other postprocedural status Reason for Referral Specialty Diagnoses / Procedures Referred By Ayana azar Referred To Contact Radiology Diagnoses Pain of left heel Plantar fasciitis of left foot Procedures MR ankle left wo IV contrast Reyes Dumont R, DPM [address] [place] [address] [facility] [address] [place] [address] Referral ID Status Reason Start Date Expiration Date V isits Requested Visits Authorized [id number] Authorized 07/13/2024 01/09/2025 1 1 Reason [facility] - Bone cre ek - OV, xray, labs Diagnosis 1 Pain of left thumb ( M79.645) Referral Organization [facility] Referring Provider First Name Cornelius Referring Provider Last Name Tyler Referring Provider Specialty [facility] Referred Organization Unknown Facility Referred Provider Specialty Orthopaedic Surgery Referral Priority Routine Chief Complaint and Reason for Visit Chief Complaint wellness Reason for Visit Dyslipidemia Essential (primary) hypertension Chief Complaint wellness flu shot Reason for Visit Dyslipidemia Essential (primary) hypertension Medicare annual wellness visit, subsequent Chief Complaint Admit Date wellness July 14, 2024 1: 32pm flu shot September 05, 2024 1 :46pm referral for hat conditioner September 11:30am Reason for Visit Admit Date Dyslipidemia July 14, 2024 1: 32pm Essential (primary) hypertension July 14, 2024 1:32pm Medicare annual wellness visit, subseque nt July 14, 2024 1:32pm Osteoarthritis September 27, 2024 11:30am Additional Source Comments INFORMATION SOURCE (unrecogn ized section and content) DATE CREATED AUTHOR 12/20/2018 [facility] DATE CREATED AUTHOR AUTHOR'S ORGANIZ ATION 12/17/2020 [facility] DATE CREATED AUTHOR AUTHOR'S ORGANIZ ATION 11/15/2022 [facility] DATE CREATED AUTHOR AUTHOR'S ORGANIZ ATION 02/12/2025 [facility] EPIC Reason for Visit (unrecogniz ed section and content) Status Reason Specialty Diagnoses / Procedures Referre d By Contact [facility] Diagnoses / Procedures Referred By Ayana t Referred To Contact Physical Therapy Diagnoses Pain of left heel Plantar fasciitis of left foot Procedures TX OFFICE/OUTPATIENT NEW HIGH MDM 60 MINUTES Reyes Dumont, DPM [address] [place] [address] Clover Andrew T, PT [address] [facility] [address] [place] [address] Referral ID Status Reason Start Date Expiration Date Visits Requested Visits Authorized [id number] Authorized Specialty Services Required 08/01/2024 01/28/2025 20 30 Reason Onset Date Comments MRI results 07/28/2024 Referral ID Status Reason Start Date Expiration Date Visits Requested Visits Authorized [id number] Authorized Specialty Services Required 08/01/2024 01/28/2025 20 20 Referral ID Status Reason Start Date Expiration Date Visits Requested Visits Authorized [id number] Authorized Specialty Services Required 08/01/2024 01/28/2025 10 10 Reason Comments Gynecologic Exam Pt states in the pas t was on medication for her bones. Pt states been off medication for a couple of years. Pt states has not had DEXA done in a little while. (DEXA order sent to [facility]). Denies bowel/bladder/breast concerns. Denies vaginal bleeding/spotting. Care Teams (unrecognized sec tion and content) Psychology Instructor Relationship Specialty Start Date End Date Cornelius De La Torre MD [address] [place] [phone] PCP - General Family Medicine 11/20/23 Team Status: Active Member Role Status Dates Cornelius De La Torre MD Primary Care Provider Active Team Status: Inactive Member Role Status Dates Cornelius De La Torre MD Primary Care Provide r, Attending Provider Active Start: July 14, 2024 End: July 14, 2024 Psychology Instructor Relationship Specialty Start Date End Date Cornelius De La Torre MD [address] [place] [address] PCP - General Family Medicine 11/20/23 Psychology Instructor Relationship Specialty Start Date End Date Cornelius De La Torre MD [address] [place] [phone] PCP - General Family Medicine 11/20/23 Psychology Instructor Relationship Specialty Start Date End Date Cornelius De La Torre MD [address] [place] [address] PCP - General Family Medicine 11/20/23 Psychology Instructor Relationship Specialty Start Date End Date Cornelius De La Torre MD [address] [place] [facility] [address] PCP - General Family Medicine 11/20/23 Psychology Instructor Relationship Specialty Start Date End Date Cornelius De La Torre MD [address] [place] [facility] [address] PCP - General Family Medicine 11/20/23 Psychology Instructor Relationship Specialty Start Date End Date Cornelius De La Torre MD [address] [place] [facility] [address] PCP - General Family Medicine 11/20/23 Psychology Instructor Relationship Specialty Start Date End Date Cornelius De La Torre MD [address] [place] [facility] [address] PCP - General Family Medicine 11/20/23 Team Status: Active Member Role Status Dates Cornelius De La Torre MD Primary Care Provide r, Attending Provider Active Start: July 21, 2024 Team Status: Inactive Member Role Status Dates Cornelius De La Torre MD Primary Care Provider Active Start: September 05, 2024 End: September 05, 2024 Ezequiel oLve DO Attending Provider Active Sta rt: September 05, 2024 End: September 05, 2024 Psychology Instructor Relationship Specialty Start Date End Date Cornelius De La Torre MD [address] [place] [facility] [place] [address] PCP - General Family Medicine 11/20/23 Psychology Instructor Relationship Specialty Start Date End Date Cornelius De La Torre MD [address] [place] [facility] [address] PCP - General Family Medicine 11/20/23 Psychology Instructor Relationship Specialty Start Date End Date Cornelius De La Torre MD [address] [place] [facility] [place] [phone] PCP - General Family Medicine 11/20/23 Team Status: Inactive Member Role Status Dates Cornelius De La Torre MD Primary Care Provide r, Attending Provider Active Start: September 27, 2024 End: September 27, 2024 Psychology Instructor Relationship Specialty Start Date End Date Cornelius De La Torre MD [address] [place] [facility] [place] [address] PCP - General Family Medicine 11/20/23 Psychology Instructor Relationship Specialty Start Date End Date Cornelius De La Torre MD [address] [place] [facility] [place] [address] PCP - General Family Medicine 11/20/23 Psychology Instructor Relationship Specialty Start Date End Date Cornelius De La Torre MD [address] [place] [facility] [place] [phone] PCP - General Family Medicine 11/20/23 Psychology Instructor Relationship Specialty Start Date End Date Cornelius De La Torre MD [address] [place] [facility] [place] [phone] PCP - General Family Medicine 11/20/23 Goals [...] BE BASED ON THE PRIMARY CLINICAL RECORDS. [facility] [employer] [facility]. provides no warranty or guarantee of the accuracy or completeness of information in this document.
[2025-03-30 13:10] LABS: Basophils Absolute Auto 0.1 10^3/uL (0.0-0.1); Basophils Percent Auto 0.8 % (0.2-2.0); Eosinophils Absolute Auto 0.2 10^3/uL (0.0-0.7); Eosinophils Percent Auto 3.1 % (0.9-7.0); Hemoglobin 12.4 g/dL (12.0-16.0); Immature Granulocytes Abs Auto 0.01 10^3/uL (0.00-0.03); Immature Granulocytes Pct Auto 0.2 % (0.0-0.5); Lymphocytes Absolute Auto 2.1 10^3/uL (1.2-3.8); Lymphocytes Percent Auto 33.8 % (20.5-60.0); Mean Corpuscular HGB Conc 32.6 g/dL (29.9-35.2); Mean Corpuscular Hemoglobin 29.7 pg (26.7-34.0); Mean Corpuscular Volume 91.1 fL (81.0-99.0); Monocytes Absolute Auto 0.7 10^3/uL (0.3-0.8); Monocytes Percent Auto 11.4 % (1.7-12.0); Neutrophils Absolute Auto 3.1 10^3/uL (1.4-6.5); Neutrophils Percent Auto 50.7 % (43.0-75.0); Platelet Count 260 10^3/uL (150-450); Red Blood Count 4.17 10^6/uL (4.20-5.40); Red Cell Distribution Width 14.6 % (11.0-15.0); White Blood Count 6.1 10^3/uL (4.0-11.0)
[2025-03-30 14:17] LABS: Alanine Aminotransferase 24 U/L (14-59); Albumin Level 3.5 g/dL (3.4-5.0); Alkaline Phosphatase 87 U/L (46-116); Anion Gap 12.4; Aspartate Amino Transferase 21 U/L (15-37); BUN Creatinine Ratio 14.4; Bilirubin Total 0.5 mg/dL (0.2-1.0); Calcium 9.2 mg/dL (8.5-10.1); Carbon Dioxide 27.8 mmol/L (21.0-32.0); Chloride 109 mmol/L (98-107); Estimated GFR (African America 55 (>=60 mL/min/1.73m^2); Estimated GFR (Non-African Ame 45 (>=60 mL/min/1.73m^2); Globulin 3.6 g/dL; Glucose 83 mg/dL (74-106); Potassium 4.2 mmol/L (3.5-5.1); Sodium 145 mmol/L (136-145); Total Protein 7.1 g/dL (6.4-8.2)
== END 2025-03-30 12:39 | disposition home or self-care (01) ==
LOC: LAB 12:39
PROVIDERS: PCP Family Medicine; Visit Provider Internal Medicine Rheumatology
DX: M19.90 Unspecified osteoarthritis, unspecified site (principal); Z51.81 Encounter for therapeutic drug level monitoring; Z79.899 Other long term (current) drug therapy
CPT/HCPCS: 36415; 80053; 85025

== ENCOUNTER 2025-07-19 14:38 | Outpatient (OUT) | payer MEDICARE, OTHER, SELFPAY ==
--- OUTSIDE RECORDS SUMMARY | 2025-07-19 14:42 | XMS_ITS | Clinical Summary ---
Author Organization [facility] Address [address], [address] [place] [address] Care Team Providers Care Vending Machine Coin Collector Name Role Phone Aurea Scott MD Primary Care Provider [phone] Allergies Active Allergy Reactions Criticality Noted Date Comments Codeine 12/14/2020 Metronidazole 12/14/2020 Iodine 12/14/2020 Sulfa Antibiotics 12/14/2020 Medications aspirin 81 MG EC tablet Take 81 mg by mouth daily Active clomiPRAMINE (ANAFRANIL) 25 MG capsule Take 25 mg by mouth nightly Active clonazePAM (KLONOPIN) 0.5 MG tablet Take 0.5 mg by mouth 3 times daily. Active potassium chloride (KLOR-CON) 20 MEQ packet Take 20 mEq by mouth 2 times daily Active losartan (COZAAR) 50 MG tablet Take 50 mg by mouth daily Active metoprolol tartrate (LOPRESSOR) 25 MG tablet Take 25 mg by mouth 2 times daily Active nitroGLYCERIN (NITRODUR) 0.2 MG/HR Place 1 patch onto the skin daily Active nitroGLYCERIN (NITROSTAT) 0.[address] 0.4 mg under the tongue every 5 minutes as needed for Chest pain up to max of 3 total doses. If no relief after 1 dose, call 911. Active Active Problems Problem Noted Date Diagnosed Date S/P cardiac cath 12/17/2020 Family History Medical History Relation Name Comments Heart Disease Brother Heart Disease Father Heart Disease Mother Heart Disease Sister Relation Name Status Comments Brother Father Mother Sister Social History Tobacco Use Types Packs/Day Years Used Date Smoking Tobacco: Never Smokeless Tobacco: Never Alcohol Use Standard Drinks/Week Comments Not Currently 0 (1 standard drink = 0.6 oz pur e alcohol) Comments No Sex and Gender Information Value Date Recorded Sex Assigned at Not on file Legal Sex Female 2:44 PM EST Gender Identity Not on file Sexual Orientation Not on file Last Filed Vital Signs Vital Sign Reading Time Taken Comments Blood Pressure 136/62 12/17/2020 3:15 PM EST Pulse 72 12/17/2020 3:15 PM EST Temperature 36.6 C (97.8 F) 12/17/2020 1:10 PM EST Respiratory Rate 16 12/17/2020 3:15 PM EST Oxygen Saturation 99% 12/17/2020 3:15 PM EST Inhaled Oxygen Concentration - - Weight 75.9 kg (167 lb 6.4 oz) 12/17/2020 10:39 AM EST Height 160 cm (5' 3 ) 12/17/2020 10:39 AM EST Body Mass Index 29.65 12/17/2020 10:39 AM EST Plan of Treatment Not on file Insurance MED[employer]ARE [employer] Care Teams Vending Machine Coin Collector Relationship Specialty Start Date End Date Aurea Scott MD PCP - General Family Medicine 2/1/21
--- OUTSIDE RECORDS SUMMARY | 2025-07-19 14:42 | XMS_ITS | Clinical Summary ---
Author Organization [facility] Address [address] [place] [address] Care Team Providers Care Communications Engineering Technician Name Role Phone Aurea Scott MD Primary Care Provider [phone] Allergies Active Allergy Reactions Criticality Noted Date Comments Codeine Swelling High 02/19/2010 Iodine Hives High 02/19/2010 Clopidogrel Bisulfate Hives High 02/19/2010 Sulfa (Sulfonamide Antibiotics) Hives High 0404/2010 Medications CLOMIPRAMINE 25 MG CAP 25mg.takes one daily 0 Active FLUVOXAMINE 100 MG TAB takes three tablets daily 0 Active LOSARTAN-HYDROC HLOROTHIAZIDE 100 MG-25 MG TAB takes one tablet daily 0 Active ASPIRIN 81 MG TAB takes one daily 0 Active Social History Tobacco Use Types Packs/Day Years Used Date Smoking Tobacco: Never Alcohol Use Standard Drinks/Week Comments No 0 (1 standard drink = 0.6 oz pur e alcohol) Comments No Sex and Gender Information Value Date Recorded Sex Assigned at Not on file Legal Sex Female 8:52 AM EST Gender Identity Not on file Sexual Orientation Not on file 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 Not on file Not on file Not o n file Last Filed Vital Signs Vital Sign Reading Time Taken Comments Blood Pressure 116/78 03/29/2010 12:54 PM EDT Pulse 78 03/29/2010 12:54 PM EDT Temperature 37.2 C (98.9 F) 03/29/2010 12:54 PM EDT Respiratory Rate 16 03/29/2010 12:54 PM EDT Oxygen Saturation - - Inhaled Oxygen Concentration - - Weight 65.8 kg (145 lb) 03/29/2010 12:54 PM EDT Height - - Body Mass Index - - Plan of Treatment Health Maintenance Due Date Last Done Comments Anxiety Screening 1972 Depression Screening 1972 Hepatitis C Screening 1972 DTaP,Tdap,Td Vaccine (1 - Tdap) [address] Colonography 1999 Cologuard (FIT-DNA) 1999 Colonoscopy 1999 Colorectal Cancer Screening 1999 Diabetes Screening 1999 Fecal Occult Blood 1999 Lipid Screening 1999 Sigmoidoscopy 1999 Pneumococcal Vaccine: 50+ (1 of 1 - PCV) 2004 Shingrix Vaccine (1 of 2) 2004 Bone Density Screening 2019 Advance Directive Discussion 11/16/2024 Influenza Vaccine (#1) 2025 RSV Vaccine (1 - 1-dose 75+ series) 2029 Insurance BLUE CARD PPO OOS Member Subscriber Plan / Payer (Ef fective 2009-Present) Name:Trinity Chopra Relation to Subscriber:Self Name:Trinity Chopra Payer ID:[id number] (NAIC) Type:PPO Address: [address] PPO Care Teams Communications Engineering Technician Relationship Specialty Start Date End Date Aurea Scott MD [address] [place] [address] PCP - General 01/24/10
--- OUTSIDE RECORDS SUMMARY | 2025-07-19 14:42 | XMS_ITS | Clinical Summary ---
Author Organization [facility] Address [address] [place] [address] Care Team Providers Care Lead Sprinkler Name Role Phone Aurea Scott MD Primary Care Provider [phone] Allergies Active Allergy Reactions Criticality Noted Date Comments Cephalexin 11/20/2023 Other Reaction(s): Unknown Clopidogrel Hives High 02/19/2010 Other Reaction(s): Unknown Codeine Swelling High 02/19/2010 Tachycardia Iodine Hives High 02/19/2010 Other Reaction(s): Unknown Metronidazole 12/14/2020 Other Reaction(s): Unknown Nabumetone Hives 11/20/2023 Other Reaction(s): Unknown Naproxen Hives 11/20/2023 Other Reaction(s): Unknown Penicillin G 11/20/2023 Other Reaction(s): Unknown Shellfish-Derived Products Anaphylaxis High 11/20/19 24 Other Reaction(s): Unknown Sulfa Antibiotics Hives High 02/19/2010 Other Reaction(s): Unknown Sulfamethoxazole-Trimethopri m Hives 11/20/2023 Other Reaction(s): Unknown Medications atorvastatin (Lipitor) 40 MG tablet Take 40 mg by mouth in the morning. Active clonazePAM (KlonoPIN) 0.5 MG tablet TAKE 1 TO 2 TABLETS BY MOUTH AT BEDTIME NEEDED FOR ANXIETY Active benztropine (Cogentin) 0.5 MG tablet Take 0.5 mg by mouth at bedtime 11/28/2022 Active FLUoxetine (PROzac) 10 MG capsule Take 10 mg by mouth in the morning. Active losartan (Cozaar) 50 MG tablet 1 (one) time each day at the same time Active losartan-hydroC HLOROthiazide (Hyzaar) 100-25 MG tablet Take by mouth Active metoprolol tartrate (Lopressor) 25 MG tablet TAKE 1 TABLET BY MOUTH TWICE A DAY WITH FOOD FOR 90 DAYS Active pantoprazole (ProtoNix) 40 MG EC tablet TAKE 1 TABLET BY MOUTH EVERY DAY FOR 90 DAYS Active potassium chloride (Klor-Con) 20 MEQ packet 1 (one) time each day at the same time Active estradiol (Yuvafem) 10 MCG tablet vaginal tabletIndicatio ns:Vaginal atrophy,Vaginal itching Insert 1 tablet (10 mcg) into the vagina 2 (two) times a week 24 tablet 3 12/15/2024 Active Active Problems No known active problems Family History Medical History Relation Name Comments Cancer Father Heart disease Father Hypertension Father Heart disease Mother Hypertension Mother Heart disease Sibling Relation Name Status Comments Father Mother Sibling Sister 2 Social History Tobacco Use Types Packs/Day Years Used Date Smoking Tobacco: Never Smokeless Tobacco: Never Alcohol Use Standard Drinks/Week Comments Not Currently 0 (1 standard drink = 0.6 oz pur e alcohol) occasional Comments Unknown Sex and Gender Information Value Date Recorded Sex Assigned at Female 11/18/2023 8:47 PM EST Legal Sex Female 7:21 PM EDT Gender Identity Female 11/18/2023 8:47 PM EST Sexual Orientation Straight 11/18/2023 8: 47 PM EST Last Filed Vital Signs Vital Sign Reading Time Taken Comments Blood Pressure 126/80 12/14/2024 1:32 PM EST Pulse 64 05/30/2024 1:32 PM EDT Temperature 36.2 C (97.2 F) 06/13/2024 10:23 AM EDT Respiratory Rate - - Oxygen Saturation 97% 12/26/2023 12:58 PM EST Inhaled Oxygen Concentration - - Weight 78 kg (172 lb) 12/14/2024 1:32 PM EST Height 156.2 cm (5' 1.5 ) 11/20/2023 10:33 AM ES T Body Mass Index 31.97 11/20/2023 10:33 AM EST Plan of Treatment Upcoming Encounters Date Type Department Care Team (Late st Contact Info) Description 01/03/2026 1:30 PM EST Office Visit [facility] [address] [place] [address] Delores Callahaneen ZackDO [address] [place] [address] Health Maintenance Due Date Last Done Comments CT Colonography 1954 Colonoscopy 1954 Colorectal Cancer Screening 1954 FIT-DNA 1954 FIT 1954 FOBT 1954 Sigmoidoscopy 1954 Pneumococcal Vaccine: 65+ Ye ars (1 of 1 - PCV) 2004 Influenza Vaccine (#1) 2025 , 08/27/2022, 08/29/2021, Additional history exists Mammogram 03/29/2026 03/29/2025, 09/18/2022 Procedures Procedure Name Priority Date/Time Associated Diagnosis Comments BI MAMMOGRAM SCREENING TOMOSYNTHESIS BILATERAL Routine 03/29/2025 1:15 PM EDT Encounter for screening mammogram for breast cancer from Last 3 Months or Most Recently Relevant to Health Maintenance Results * Bilateral screening mammogram with tomosynthesis (03/29/2025 1:15 PM EDT) Anatomical Region Laterality Modality Breast Bilateral Mammography 04/01/2025 10:5 2 AM EDT Impressions 04/01/2025 10:58 AM EDT Impression: No specific evidence of malignancy seen in either breast. BIRADS 2 - Benign Findings DENSITY: There are scattered areas of fibroglandular density. FOLLOW-UP: Routine Screening Mammogram ELECTRONICALLY SIGNED BY: Moustapha Quezada M.D. Narrative 04/01/2025 10:58 AM EDT Examination: BI MAMMOGRAM SCREENING TOMOSYNTHESIS BILATERAL Clinical History: screening Technique: Screening digital mammography study of both breasts was performed with 2-D and 3-D tomosynthesis imaging. Study was compared to the prior exam dated 09/18/2022. Findings: There is no evidence of interval dominant spiculated mass, grouped microcalcifications, or skin thickening which would be suggestive of malignancy. A single benign-appearing calcification is seen on the left which appears grossly unremarkable. Axillary lymph nodes noted bilaterally including partially visualized lymph nodes which appear grossly unremarkable. Procedure Note Moustapha Quezada MD - 04/01/2025 Examination: BI MAMMOGRAM SCREENING TOMOSYNTHESIS BILATERAL Clinical History: screening Technique: Screening digital mammography study of both breasts wasperformed with 2-D and 3-D tomosynthesis imaging. Study was compared tothe prior exam dated 09/18/2022. Findings: There is no evidence of interval dominant spiculated mass,grouped microcalcifications, or skin thickening which would be suggestiveof malignancy. A single benign-appearing calcification is seen on the left which appearsgrossly unremarkable. Axillary lymph nodes noted bilaterally includingpartially visualized lymph nodes which appear grossly unremarkable. IMPRESSION: Impression: No specific evidence of malignancy seen in either breast. BIRADS 2 - Benign Findings DENSITY: There are scattered areas of fibroglandular density. FOLLOW-UP: Routine Screening Mammogram ELECTRONICALLY SIGNED BY: Moustapha Quezada M.D. Ernestina Callahan DO IMG BI PROCEDURES Final Res ult from Last 3 Months or Most Recently Relevant to Health Maintenance [place] [address] [employer] Care Teams Lead Sprinkler Relationship Specialty Start Date End Date Aurea Scott MD PCP - General Family Medicine 11/20/23
--- OUTSIDE RECORDS SUMMARY | 2025-07-19 14:42 | XMS_ITS | Clinical Summary ---
Author Organization [facility] Address [address] [place] [address] Care Team Providers Care Highway Maintenance Crew Worker Name Role Phone Unavailable Primary Care Provider Unavailabl e Social History Tobacco Use Types Packs/Day Years Used Date Smoking Tobacco: Never Assessed Comments Unknown Sex and Gender Information Value Date Recorded Sex Assigned at Not on file Legal Sex Female 10:56 PM EDT Gender Identity Not on file Sexual Orientation Not on file Plan of Treatment Not on file
[2025-07-19 16:01] LABS: Hematocrit 38.8 % (36.0-48.0); Hemoglobin 12.9 g/dL (12.0-16.0); Immature Granulocytes Abs Auto 0.02 10^3/uL (0.00-0.03); Immature Granulocytes Pct Auto 0.2 % (0.0-0.5); Lymphocytes Absolute Auto 2.2 10^3/uL (1.2-3.8); Mean Corpuscular HGB Conc 33.2 g/dL (29.9-35.2); Mean Corpuscular Hemoglobin 30.2 pg (26.7-34.0); Mean Corpuscular Volume 90.9 fL (81.0-99.0); Platelet Count 279 10^3/uL (150-450); Red Blood Count 4.27 10^6/uL (4.20-5.40); White Blood Count 8.9 10^3/uL (4.0-11.0)
[2025-07-19 16:10] LABS: Alanine Aminotransferase 28 U/L (14-59); Albumin Globulin Ratio 1.0; Albumin Level 3.8 g/dL (3.4-5.0); Alkaline Phosphatase 77 U/L (46-116); Anion Gap 14.1; Aspartate Amino Transferase 24 U/L (15-37); Blood Urea Nitrogen 14.0 mg/dL (7.0-18.0); Calcium 9.3 mg/dL (8.5-10.1); Carbon Dioxide 25.5 mmol/L (21.0-32.0); Chloride 107 mmol/L (98-107); Estimated GFR (African America >60 (>=60 mL/min/1.73m^2); Estimated GFR (Non-African Ame 53 (>=60 mL/min/1.73m^2); Globulin 3.7 g/dL; Glucose 117 mg/dL (74-106); Potassium 3.6 mmol/L (3.5-5.1); Sodium 143 mmol/L (136-145); Total Protein 7.5 g/dL (6.4-8.2)
--- OUTSIDE RECORDS SUMMARY | 2025-07-19 18:48 | XMS_ITS | CCD ---
Author Organization [facility] Care Team Providers Care Front End Drupal Developer Name Role Phone Cornelius De La Torre Primary Care Provider [phone] SUNITA TOMAS Referring Unavailable SUNITA TOMAS Attending [...] CORNELIUS Dixon Consulting Unavailable KARASIK, DR VO Admsusan [...] Attending Unavailable KARASIK, DR VO Consulting Unavailable Cornelius De La Torre Unavailable Yo Timmons Unavailable Jaqueline Huerta Unavailable Cornelius De La Torre MD Primary Care Provider ERNESTINA CALLAHAN Attending Unavailable BRODIE POLLACK Referring Unavailable KUBITZ, REYES R Attending Unavailable KUBITZ, REYES R Attending Unavailable RINKESERNESTINA Referring Unavailable KUBITZ, REYES R Attending Unavailable KUBITZ, REYES R Referring Unavailable KUBITZ, REYES R Attending Unavailable BLACKSTON, CLOVER Azar Attending Unavailable KUBITZ, REYES R Referring Unavailable WILFREDO, PONCHO Attending Unavailable KUBITZ, REYES R Referring Unavailable [...] Attending Unavailable KUBITZ, REYES R Referring Unavailable BLACKSTON, CLOVER Azar Attending Unavailable KUBITZ, [...] Referring Unavailable KUBITZ, REYES R Attending Unavailable Cornelius De La Torre MD Primary Care Provider [phone] Brodie Pollack MD Attending Provider Yo Timmons DO Attending Provider Roxann Blake APRN Attending Provider Yo Timmons DO Other Provider Yo Timmons Attending Unavailable Cornelius De La Torre Primary Care Unavailable Hunter Timmonsin Emmie Admitting Unavailable Yo Timmons Attending Unavailable Cornelius De La Torre Primary Care Unavailable Hunter Timmonsin Emmie Admitting Unavailable oY Timmons Attending Unavailable Cornelius De La Torre Primary Care Unavailable Shanelle Yo A Admitting Unavailable Hunter Timmonsin A Admitting Unavailable Cornelius De La Torre Primary Care Unavailable Yo Timmons Attending Unavailable Cornelius De La Torre MD Primary Care Provider Allergies Allergy Classification Reported Allergen(s) Allergy Type Date of Onset Reaction(s) Facility (20 sources) Codeine Drug Allergy 02-20-20 10 [place], [place] (20 sources) Iodine Drug Allergy 02-20-20 10 [place], [place] (20 sources) metroNIDAZOLE Drug Allergy 12-14-19 21 [place], [place] (1 source) Sulfonamides (Antibiotic) Propensity to adverse reactions to drug 12-14-19 [place], [place] (9 sources) Codeine Drug Allergy [facility] Other (9 sources) Sulfacetamide / Sulfur Drug Allergy [facility] Other (12 sources) Cephalexin Drug Allergy 07-14-20 24 Unknown Reaction, Hives [facility] (1 source) clopidogrel Drug Allergy [facility] (1 source) Codeine Drug Allergy 09-27-20 20 [facility] (1 source) Iodine Drug Allergy 09-27-20 20 [facility] (1 source) metroNIDAZOLE Drug Allergy 09-27-20 20 [facility] (1 source) nabumetone Drug Allergy [facility] (1 source) Naproxen Drug Allergy [facility] (1 source) pantoprazole Drug Allergy 09-27-20 20 [facility] (1 source) Penicillin Drug Allergy [facility] (1 source) Shellfish Drug allergy (disorder) [facility] (1 source) Sulfonamides (Antibiotic) Drug allergy (disorder) 09-27-20 20 [facility] (20 sources) Cephalexin Drug Allergy 11-20-19 24 Unknown [facility] (20 sources) clopidogrel Drug Allergy 02-20-[address] [facility] [employer] [facility] Other (20 sources) nabumetone Drug Allergy 09-19-20 13 Unknown, Unknown Reaction [facility] (20 sources) Naproxen Drug Allergy 11-20-[address] [facility] [employer] [facility] Other (6 sources) Shellfish Drug allergy Unknown [employer] [facility] Other (20 sources) Substance with sulfonamide structure and antibacterial mechanism of action (substance) Drug allergy 02-20-[address] [facility] [employer] [facility] Other (6 sources) Substance with penicillin structure and antibacterial mechanism of action (substance) Drug allergy Unknown [facility] Other (20 sources) nabumetone Drug Allergy 11-20-19 24 [facility] (20 sources) Penicillin G Drug Allergy 11-20-19 24 [facility] (20 sources) Sulfamethoxazole / Trimethoprim Drug Allergy 11-20-19 24 [facility] (20 sources) Shellfish-Derived Products Drug Allergy 11-20-19 24 Anaphylaxis [facility] (12 sources) Penicillins; Translations: [Penicillins] Allergy to substance 07-14-20 Unknown Reaction, [facility] (12 sources) Shellfish; Translations: [shellfish derived] Allergy to substance 07-14-20 24 Unknown Reaction, Anaphylaxis [facility] (12 sources) Sulfonamides (Antibiotic); Translations: [Sulfa (Sulfonamide Antibiotics)] Allergy to substance 07-14-20 [facility] (1 source) Cephalexin Drug Allergy 05-31-20 25 [facility] (1 source) clopidogrel Drug Allergy 05-31-20 25 [facility] (1 source) Codeine Drug Allergy 05-31-20 25 [facility] (1 source) Iodine Drug Allergy 05-31-20 25 [facility] (1 source) metroNIDAZOLE Drug Allergy 05-31-20 25 [facility] (1 source) nabumetone Drug Allergy 05-31-20 25 [facility] (1 source) Naproxen Drug Allergy 05-31-20 25 [facility] Medications Current Medications Medication Drug Class(es) Dates Sig (Normalized) Sig (Original) Aspir-81 (3 sources) Aspir-81 Active aspirin 81 mg oral tablet (7 sources) Platelet Aggregation Inhibitor, Nonsteroidal Anti-inflammatory Drug Start: 05-18-2025 take 1 capsule by mouth once daily in the morning Aspirin 81 mg capsule Active 81 MG PO Every morning May 18, 2025 12:00am Complies with drug therapy Start: 12-17-2020 aspirin chewab le tablet 81 mg take 1 tablet by miguelito th once daily aspirin 81 MG EC tablet Take 81 mg by mouth daily 0 Suspended atorvastatin 80 mg oral tablet (20 sources) HMG-CoA Reductase Inhibitor Start: 05-18-2025 take 1 tablet by mouth once daily in the morning Atorvastatin 80 mg tablet Active 80 MG PO Every morning May 18, 2025 12:00am Complies with drug therapy take 1 tablet by mouth in the mo rning atorvastatin (Lipitor) 40 MG tablet Take 40 mg by mouth in the morning. Active Lipitor Active benztropine mesylate 0.5 mg oral tablet (20 sources) Anticholinergic, Antihistamine Start: 05-18-2025 take 1 tablet by mouth once daily in the morning Benztropine 0.5 mg tablet Active 0.5 MG PO Every morning May 18, 2025 12:00am Complies with drug therapy Start: 11-28-2022 take 1 tablet by miguelito th at bedtime benztropine (Cogentin) 0.5 MG tablet Take 0.5 mg by mouth at bedtime 11/28/2022 Active ciprofloxacin 3 mg/ml ophthalmic solution (1 source) Quinolone Antimicrobial Start: 12-28-2023 Ciprofloxacin HCl 0.3 % 1 application into the lower eyelid of affected eye Ophthalmic tid for 5 day(s) Dec, Active clonazePAM 0.5 mg oral tablet (20 sources) Benzodiazepine Start: 03-09-2024 take 1 tablet by mouth once daily at bedtime as needed for anxiety Clonazepam 0.5 mg tablet Active 0.5 MG PO Daily at bedtime as needed for anxiety March 09, 2024 12:00am Complies with drug therapy take 1 tablet by mouth three marleny [...] 9 max 30 mL 08/01/2024 12/14/2024 Discontinued estradiol 0.01 mg vaginal insert (20 sources) Estrogen Start: 12-15-2024 End: 12-15-2025 Estradiol (Yuvafem) 10 mcg tablet Active 10 MCG VAGINAL .twice per week May 18, 2025 12:00am Complies with drug therapy Start: 08-15-2024 End: 12-14-2024 Yuvafem 10 MCG [...] 0 Active fluconazole 100 mg oral tablet (20 sources) Azole Antifungal Start: 06-08-2025 take 1 tablet by mouth once daily Fluconazole 100 mg tablet Active 100 MG PO Daily June 08, 2025 9:58am Complies with drug therapy Start: 07-07-2024 End: 05-18-2025 take 1 tablet by mouth once daily Fluconazole 100 mg tablet Discontinued 100 MG PO Daily September 27, 2024 1:08pm May 18, 2025 4:04pm take 1 tablet by mouth once Fluc onazole 150 MG 1 tablet Orally once for 10 days Active FLUoxetine 10 mg oral capsule (20 sources) Serotonin Reuptake Inhibitor Start: 05-18-2025 take 1 capsule by mouth once daily in the morning Fluoxetine 10 mg capsule Active 10 MG PO Every morning May 18, 2025 12:00am Complies with drug therapy take 1 capsule by mouth in the m orning FLUoxetine (PROzac) 10 MG capsule Take 10 mg by mouth in the morning. Active hydrocortisone 25 mg/ml topical cream (1 source) Corticosteroid Anusol-HC 2.5 % 1 application Externally three times daily, as needed for 30 days Active hydroxychloroquine sulfate 200 mg oral tablet (5 sources) Antimalarial, Antirheumatic Agent Start: 2024 take 1 tablet by mouth twice daily Hydroxychloroquine 200 mg tablet Active 200 MG PO Twice daily May 18, 2025 12:00am Complies with drug therapy losartan potassium 50 mg oral tablet (20 sources) Angiotensin 2 Receptor Quan Start: 2024 take 1 tablet by mouth once daily in the morning Losartan 50 mg tablet Active 50 MG PO Every morning May 18, 2025 12:00am TAKE 1 TABLET BY MOUTH EVERY DAY Complies with drug therapy Start: 08-08-2024 take 1 tablet by miguelito th once daily Losartan Active 0 .ROUTE .COMPLEX August 08, 2024 1:11pm TAKE 1 TABLET BY MOUTH EVERY DAY Start: 02-16-2024 End: 05-18-2025 take 1 tablet by mouth once daily Losartan 50 mg tablet Discontinued 0 .ROUTE .COMPLEX January 31, 2025 11:51am May 18, 2025 4:06pm TAKE 1 TABLET BY MOUTH EVERY DAY Start: 02-16-2024 End: 02-16-2024 take 1 tablet by mouth once daily Losartan 50 mg tablet Discontinued 50 MG PO Daily February 16, 2024 12:00am February 16, 2024 8:47am metoprolol tartrate 25 mg oral tablet (20 sources) beta-Adrenergic Quan Start: 05-18-2025 take 1 tablet by mouth twice daily Metoprolol Tartrate 25 mg tablet Active 25 MG PO Twice daily May 18, 2025 12:00am Complies with drug therapy take 1 tablet by miguelito th twice daily at mealtime metoprolol tartrate (Lopressor) 25 MG tablet TAKE 1 TABLET BY MOUTH TWICE A DAY WITH FOOD FOR 90 DAYS Active mupirocin 0.02 mg/mg topical ointment (20 sources) RNA Synthetase Inhibitor Antibacterial Start: 05-28-2025 Mupirocin 2 % ointment Active 1 APPLIC TOPICAL Twice daily May 28, 2025 12:00am Complies with drug therapy Start: 09-27-2024 End: 05-18-2025 Mupirocin 2 % ointment Disco ntinued 1 APPLIC TOPICAL Twice daily September 27, 2024 1:08pm May 18, 2025 4:04pm Start: 09-27-2024 Mupirocin 2 % ointment Active 1 APPLIC TOPICAL Twice daily September 27, 2024 12:08pm Start: 03-09-2024 End: 07-14-2024 Mupirocin 2 % ointment Disco ntinued 1 APPLIC TOPICAL Twice daily March 09, 2024 12:00am July 14, 2024 2:02pm Start: 09-04-2023 Mupirocin 2 % 1 application Externally Twice a day for 5 days Aug, Active predniSONE 10 mg oral tablet (1 source) [...] / HYDROcodone bitartrate 5 mg oral tablet (11 sources) Opioid Agonist Start: 03-22-2018 End: 03-09-2024 take 1-2 tablets by mouth every six hours as needed for pain Hydrocodone-Acetam inophen ([place]) 5-325 mg tablet Discontinued 2 TAB PO Q6H as needed for pain March 22, 2018 March 09, 2024 9:18am 1-2 tabs every 6 hours as needed for pain benzonatate 200 mg oral capsule (20 sources) Non-narcotic Antitussive Start: 03-09-2024 End: 07-14-2024 take 1 capsule by mouth three times daily as needed for cough Benzonatate 200 mg capsule Discontinued 200 MG PO Three times daily as needed for cough 14 09March 09, 2024 12:00am July 14, 2024 2:01pm Start: 12-29-2023 End: 03-09-2024 Benzonatate 200 mg capsule D iscontinued 200 MG PO 2-3 TIMES PER DAY as needed for cough December 29, 2023 1:00am March 09, 2024 9:18am clindamycin 300 mg oral capsule (9 sources) Lincosamide Antibacterial Start: 05-28-2025 End: 07-11-2025 take 1 capsule by mouth twice daily Clindamycin Hcl 300 mg capsule Discontinued 300 MG PO Twice daily 29 05May 28, 2025 12:00am July 11, 2025 11:03am Start: 09-04-2023 take 1 capsule by mo ut every twelve hours Clindamycin HCl 300 MG 1 capsule Orally every 12 hrs for 7 day(s) Dec, Active clomiPRAMINE hydrochloride 25 mg oral capsule (20 sources) Tricyclic Antidepressant Start: 03-15-2018 End: 05-18-2025 take 1 capsule by mouth once daily at bedtime Clomipramine 25 mg capsule Discontinued 25 MG PO Daily at bedtime March 15, 2018 12:00am May 18, 2025 4:04pm clomiPRAMINE HCl Active doxycycline hyclate 100 mg oral tablet (8 sources) Tetracycline-class Drug Start: 09-30-2024 End: 05-16-2025 take 1 tablet by mouth twice daily Doxycycline Hyclate 100 mg tablet Discontinued 100 MG PO Twice daily September 30, 2024 1:00am May 16, 2025 11:54am fluvoxaMINE maleate 100 mg oral tablet (11 sources) Serotonin Reuptake Inhibitor Start: 03-15-2018 End: [...] tablet by mouth once daily at bedtime Losartan-Hydroc hlorothiazide 50-12.5 mg tablet Discontinued 1 TAB PO Daily at bedtime March 15, 2018 12:00am February 16, 2024 8:22am losartan-hydroCH LOROthiazide (Hyzaar) 100-25 MG tablet Take by mouth Active methylPREDNISolone (20 sources) Corticosteroid Start: 07-13-2024 End: 08-01-2024 methylPREDNISolone [...] 0 Suspended oseltamivir 75 mg oral capsule (11 sources) Neuraminidase Inhibitor Start: 03-09-2024 End: 07-14-2024 take 1 capsule by mouth twice daily Oseltamivir (Tamiflu) 75 mg capsule Discontinued 75 MG PO Twice daily 10 5 March 09, 2024 12:00am July 14, 2024 2:01pm pantoprazole 40 mg delayed release oral tablet (20 sources) Proton Pump Inhibitor Start: 06-17-2021 End: 05-18-2025 take 1 tablet by mouth once daily Pantoprazole 40 mg tablet,delayed release (DR/EC) Discontinued 40 MG PO Daily March 09, 2024 12:00am July 07, 2024 2:34pm microencapsulated potassium chloride 20 meq extended release oral tablet (20 sources) Start: 03-09-2024 End: 05-18-2025 take 1 tablet by mouth twice daily Potassium Chloride 20 mEq tablet,ER particles/crystal s Discontinued 20 MEQ PO Twice daily 60 30 May 15, 2025 12:16pm May 18, 2025 4:04pm potassium chlori de (Klor-Con) 20 MEQ packet [...] by mouth 2 times daily 0 Suspended traMADol hydrochloride 50 mg oral tablet (3 sources) Opioid Agonist Start: 05-30-2025 End: 06-12-2025 take 1 tablet by mouth every six hours as needed for pain Tramadol 50 mg tablet Discontinued 50 MG PO Every 6 hours as needed for pain 10 5 May 30, 2025 12:00am June 12, 2025 10:29am DO NOT RECONCILE UNTIL DOS 05/31/25 TO BE USED POST OP triamcinolone acetonide 40 mg/ml injectable suspension (10 sources) Corticosteroid Start: 08-04-2023 Kenalog-40 Jul, 40 mg Problems Active Problems Problem Classification Problem Date Documented Date Episodic/Chronic Abdominal pain (9 sources) Left upper quadrant pain; Translations: [Left upper quadrant pain] Episodic Bacterial infection; unspecified site (1 source) Other specified bacterial agents as the cause of diseases classified elsewhere Episodic Disorders of lipid metabolism (20 sources) Dyslipidemia; Translations: [Hyperlipidemia, unspecified] 07-14-2024 Chronic Esophageal disorders (6 sources) Gastroesophageal reflux disease without esophagitis; Translations: [Gastro-esophageal reflux disease without esophagitis] Chronic Essential hypertension (20 sources) Essential (primary) hypertension; Translations: [Essential hypertension] Onset: 09-18-2022 Chronic Immunizations and screening for infectious disease (2 sources) Encounter for screening for human papillomavirus (HPV); Translations: [Contact with or exposure to other viral diseases] Onset: 11-12-2022 12-26-2023 Episodic Inflammation; infection of eye (except that caused by tuberculosis or sexually transmitteddisease) (1 source) Unspecified acute conjunctivitis, bilateral Episodic Influenza (11 sources) Influenza; Translations: [Influenza due to unidentified influenza virus with other respiratory manifestations] 03-09-2024 Episodic Menopausal disorders (2 sources) Atrophy of vagina; Translations: [Postmenopausal atrophic vaginitis] 12-14-2024 Chronic Osteoarthritis (20 sources) Bilateral arthritis of hip; Translations: [Bilateral [...] left thumb Episodic Other connective tissue disease (2 sources) Radial styloid tenosynovitis [de Quervain]; Translations: [Radial styloid tenosynovitis [de Quervain]] Onset: 05-31-2025 Episodic Other connective tissue disease (20 sources) [...] [Pain in right foot] 08-01-2024 Episodic Other connective tissue disease (20 sources) Tenosynovitis of left radial styloid; Translations: [Radial styloid tenosynovitis [de Quervain]] 04-27-2025 Episodic Other connective tissue disease (20 sources) Osteophyte of bone; Translations: [Enthesopathy, unspecified] 04-27-2025 Episodic Other connective tissue disease (1 source) Enthesopathy, unspecified; Translations: [Enthesopathy, unspecified] Onset: 05-11-2025 Episodic Other female genital disorders (4 sources) Other specified noninflammatory disorders of vagina; Translations: [OTH SPEC NONINFLAMMATORY D/O VAGINA] Onset: 08-19-2022 Episodic Other female genital disorders (2 sources) Pruritus of vagina; Translations: [Other specified noninflammatory disorders of vagina] 12-14-2024 Episodic Other non-traumatic joint disorders (7 sources) Pain of left wrist; Translations: [Pain in left wrist] 04-26-2025 Episodic Other non-traumatic joint disorders (1 source) Pain in left wrist; Translations: [Pain in left wrist] Onset: 04-27-2025 Episodic Other screening for suspected conditions (not mental disorders or infectious disease) (14 sources) Encounter for screening for malignant neoplasm of cervix; Translations: [Encounter for screening mammogram for malignant neoplasm of breast] Onset: 09-18-2022 Episodic Other upper respiratory disease (4 sources) Nasal infection; Translations: [Other specified disorders of nose and nasal sinuses] 05-28-2025 Episodic Other upper respiratory infections (2 sources) [...] state; Translations: [Asymptomatic menopausal state] 12-14-2024 Episodic Residual codes; unclassified (6 sources) Postprocedural state finding; Translations: [Other specified postprocedural states] 05-30-2025 Episodic Skin and subcutaneous tissue infections (1 source) Local infection of the skin and subcutaneous tissue, unspecified Episodic Superficial injury; contusion (1 source) Blister (nonthermal) of nose, initial encounter Episodic Unclassified (2 sources) History of cardiac catheterization; [...] Test Name Value Interpretation Reference Range Facility Alanine aminotransferase [En zymatic activity/volume] in Serum or PlasmaOrdered By: Yo Timmons on 05-18-2025 ALT [Catalytic activity/Vol] 22 U/L 7-52 [facility] Comment on above: Performed By: #### C MP wRFX A1C, CBC #### [address] Albumin [Mass/volume] in Ser um or Plasma by Bromocresol green (BCG) dye binding methoOrdered By: Yo Timmons on 05-18-2025 Albumin BCG dye [Mass/Vol] 4.4 g/dL 3.5-5.7 [facility] Alkaline phosphatase [Enzyma tic activity/volume] in Serum or PlasmaOrdered By: Yo Timmons on 05-18-2025 ALP [Catalytic activity/Vol] 72 U/L 34-104 [facility] Comment on above: Result Comment: PERF ORMED BY: [place] [address] PATHOLOGIST LATHE SPOTTER VAUGHN ETIENNE M.D. Performed By: #### C MP wRFX A1C, CBC #### [facility] [address] [id number] [place] Aspartate aminotransferase [ Enzymatic activity/volume] in Serum or PlasmaOrdered By: Yo Timmons on 05-18-2025 AST [Catalytic activity/Vol] 21 U/L 13-39 [facility] Comment on above: Performed By: #### C MP wRFX A1C, CBC #### [facility] [address] Basophils [#/volume] in Bloo d by Automated countOrdered By: Yo Timmons on 05-18-2025 Basophils (Bld) [#/Vol] 0.1 10*3/uL 0.0-0.2 [facility] Comment on above: Result Comment: PERF ORMED BY: [place] [address] PATHOLOGIST LATHE SPOTTER VAUGHN ETIENNE M.D. Performed By: #### C MP wRFX A1C, CBC #### [address] Basophils/100 leukocytes in Blood by Automated countOrdered By: Yo Timmons on 05-18-2025 Basophils/100 WBC (Bld) 1.0 % . [facility] Comment on above: Performed By: #### C MP wRFX A1C, CBC #### [address] Bilirubin.total [Mass/volume ] in Serum or PlasmaOrdered By: Yo Timmons on 05-18-2025 Bilirubin [Mass/Vol] 0.7 mg/dL 0.3-1.0 [facility] Comment on above: Performed By: #### C MP wRFX A1C, CBC #### [facility] [address] CMP with reflex to A1Con Albumin [Mass/Vol] 4.4 g/dL Normal 3.5-5.7 [facility] Comment on above: Performed By: #### C MP wRFX A1C, CBC #### [place] [address] [place] GFR/1.73 sq M.predicted MDRD (S/P/Bld) [Vol rate/Area] 57.820 mL/min/{1.73_m2} Normal [facility] Comment on above: Performed By: #### C MP wRFX A1C, CBC #### [facility] [address] Calcium [Mass/volume] in Ser um or PlasmaOrdered By: Yo Timmons on 05-18-2025 Calcium [Mass/Vol] 9.7 mg/dL 8.6-10.3 [facility] Comment on above: Performed By: #### C MP wRFX A1C, CBC #### [facility] [address] Carbon dioxide, total [Moles /volume] in Serum or PlasmaOrdered By: Yo Timmons on 05-18-2025 CO2 [Moles/Vol] 29.3 mmol/L 21.0-31.0 [facility] Comment on above: Performed By: #### C MP wRFX A1C, CBC #### [facility] [address] [place] [address] [place] Chloride [Moles/volume] in S nigel or PlasmaOrdered By: Yo Timmons on 05-18-2025 Chloride [Moles/Vol] 107 mmol/L 98-107 [facility] Comment on above: Performed By: #### C MP wRFX A1C, CBC #### [address] Complete Blood Count Auto Di ffon 05-18-2025 Mean Corpuscular HGB Conc 33.4 g/dL Normal 32.0-35.0 [facility] Comment on above: Performed By: #### C MP wRFX A1C, CBC #### [facility] [address] [place] [address] [place] NRBC% 0.0 /100{WBC} Normal 0-0.5 [facility] Comment on above: Performed By: #### C MP wRFX A1C, CBC #### [facility] [address] White Blood Count 6.6 [CFU]/mL Normal 3.8-11.6 [facility] Comment on above: Performed By: #### C MP wRFX A1C, CBC #### [facility] [address] Creatinine [Mass/volume] in Serum or PlasmaOrdered By: Yo Timmons on 05-18-2025 Creatinine [Mass/Vol] 1.04 mg/dL 0.60-1.20 [facility] Comment on above: Performed By: #### C MP wRFX A1C, CBC #### [facility] [address] ECG 12 lead ECGon 05-18-2025 ECG 12 lead ECG [facility] [place] [address] [place] [address] Electrocardiograph Report Signed Patient: Bhargavi Chopra MR#: [id number] 180 : 1955 Acct:[id number] Age/Sex: 69 / F ADM Date: 05/18/25 Loc: Room: Type: [facility] Attending Dr: Yo Timmons DO Ordering Provider: Yo Timmons DO Date of Service: 05/18/2502/07/1534 ECG/ECG 12 lead ECG: Pre op Copies to: Test Reason : Blood Pressure : */* mmHG Vent. Rate : 59 BPM Atrial Rate : 59 BPM P-R Int : 194 ms QRS Dur : 92 ms QT Int : 426 ms P-R-T Axes : 57 25 31 degrees QTcB Int : 421 ms Sinus bradycardia Otherwise normal ECG When compared with ECG of 15-Mar-2018 09:25, No significant change was found Confirmed by [facility]INO [facility]ENZ [facility] ([id number] on 05/19/2025 8:54:36 AM Referred By: Electronically Signed By: LON NEVILLE MD FAC Transcribed By: MUS Signed By Lon Neville MD, FACC 05/19/25 0854 Normal [facility] Eosinophils [#/volume] in Bl ood by Automated countOrdered By: Yo Timmons on 05-18-2025 Eosinophils (Bld) [#/Vol] 0.2 10*3/uL 0.0-0.45 [facility] Comment on above: Performed By: #### C MP wRFX A1C, CBC #### [facility] [address] [place] [address] [place] Eosinophils/100 leukocytes i n Blood by Automated countOrdered By: Yo Timmons on 05-18-2025 Eosinophils/100 WBC (Bld) 2.4 % . [facility] Comment on above: Performed By: #### C MP wRFX A1C, CBC #### [place] [address] [place] Erythrocyte distribution wid th [Ratio] by Automated countOrdered By: Yo Timmons on 05-18-2025 Erythrocyte distribution width (RBC) [Ratio] 14.1 % 11.9-15.3 [facility] Comment on above: Performed By: #### C MP wRFX A1C, CBC #### [address] Erythrocytes [#/volume] in B lood by Automated countOrdered By: Yo Timmons on 05-18-2025 RBC (Bld) [#/Vol] 4.35 10*6/uL 3.60-5.00 [facility] Comment on above: Performed By: #### C MP wRFX A1C, CBC #### [place] [address] [place] Glucose [Mass/volume] in Ser um or PlasmaOrdered By: Yo Timmons on 05-18-2025 Glucose [Mass/Vol] 80 mg/dL 70-100 [facility] Comment on above: Performed By: #### C MP wRFX A1C, CBC #### [place] [address] [place] Hematocrit [Volume Fraction] of Blood by Automated countOrdered By: Yo Timmons on 05-18-2025 Hematocrit (Bld) [Volume fraction] 39.2 % 34.0-46.4 [facility] Comment on above: Performed By: #### C MP wRFX A1C, CBC #### [facility] [address] [place] [address] [place] Hemoglobin [Mass/volume] in BloodOrdered By: Yo Timmons on 05-18-2025 Hemoglobin (Bld) [Mass/Vol] 13.1 g/dL 11.8-15.4 [facility] Comment on above: Performed By: #### C MP wRFX A1C, CBC #### [address] Leukocytes [#/volume] correc annabelle for nucleated erythrocytes in Blood by Automated counOrdered By: Yo Timmons on 05-18-2025 WBC corrected for nucl RBC Auto (Bld) [#/Vol] 6.6 10*3/uL 3.8-11.6 [facility] Leukocytes [#/volume] in Blo od by Automated countOrdered By: Yo Timmons on 05-18-2025 WBC (Bld) [#/Vol] 6.6 10*3/uL 3.8-11.6 [facility] Comment on above: Performed By: #### C MP wRFX A1C, CBC #### [place] [address] [place] Lymphocytes [#/volume] in Bl ood by Automated countOrdered By: Yo Timmons on 05-18-2025 Lymphocytes (Bld) [#/Vol] 2.2 10*3/uL 1.00-4.8 [facility] Comment on above: Performed By: #### C MP wRFX A1C, CBC #### [place] [address] [place] Lymphocytes/100 leukocytes i n Blood by Automated countOrdered By: Yo Timmons on 05-18-2025 Lymphocytes/100 WBC (Bld) 33.0 % . [facility] Comment on above: Performed By: #### C MP wRFX A1C, CBC #### [place] [address] [place] MCH [Entitic mass] by Automa annabelle countOrdered By: Yo Timmons on 05-18-2025 MCH (RBC) [Entitic mass] 30.1 pg 24.7-34.3 [facility] Comment on above: Performed By: #### C MP wRFX A1C, CBC #### [address] [place] [address] [place] MCHC Auto (RBC) [Mass/Vol]Or dered By: Yo Timmons on 05-18-2025 MCHC (RBC) [Mass/Vol] 33.4 g/dL 32.0-35.0 [facility] MCV [Entitic volume] by Auto mated countOrdered By: Yo Timmons on 05-18-2025 MCV (RBC) [Entitic vol] 90.1 fL 80-100 [facility] Comment on above: Performed By: #### C MP wRFX A1C, CBC #### [place] [address] [place] Monocytes [#/volume] in Bloo d by Automated countOrdered By: Yo Timmons on 05-18-2025 Monocytes (Bld) [#/Vol] 0.7 10*3/uL 0.0-0.8 [facility] Comment on above: Performed By: #### C MP wRFX A1C, CBC #### [place] [address] [place] Monocytes/100 leukocytes in Blood by Automated countOrdered By: Yo Timmons on 05-18-2025 Monocytes/100 WBC (Bld) 10.5 % . [facility] Comment on above: Performed By: #### C MP wRFX A1C, CBC #### [place] [address] [place] Neutrophils [#/volume] in Bl ood by Automated countOrdered By: Yo Timmons on 05-18-2025 Neutrophils (Bld) [#/Vol] 3.5 10*3/uL 1.8-7.7 [facility] Comment on above: Performed By: #### C MP wRFX A1C, CBC #### [facility] [address] [place] [address] [place] Neutrophils/100 leukocytes i n Blood by Automated countOrdered By: Yo Timmons on 05-18-2025 Neutrophils/100 WBC (Bld) 53.1 % . [facility] Comment on above: Performed By: #### C MP wRFX A1C, CBC #### [address] No Panel InformationOrdered By: Yo Timmons on 05-18-2025 Estimated GFR (CKD-EPI) 57.820 mL/Min [facility] Creatinine Clearance (Chem N/A [facility] Nucleated erythrocytes [Pres ence] in Blood by Automated countOrdered By: Yo Timmons on 05-18-2025 Nucleated RBC Auto Ql (Bld) 0.0 /100{WBC} 0-0.5 [facility] Platelet mean volume [Entiti c volume] in Blood by Automated countOrdered By: Yo Timmons on 05-18-2025 Platelet mean volume (Bld) [Entitic vol] 8.4 fL 6.3-10.7 [facility] Comment on above: Performed By: #### C MP wRFX A1C, CBC #### [place] [address] [place] Platelets [#/volume] in Bloo d by Automated countOrdered By: Yo Timmons on 05-18-2025 Platelets (Bld) [#/Vol] 256 10*3/uL 150-450 [facility] Comment on above: Performed By: #### C MP wRFX A1C, CBC #### [address] Potassium [Moles/volume] in Serum or PlasmaOrdered By: Yo Timmons on 05-18-2025 Potassium [Moles/Vol] 4.3 mmol/L 3.5-5.1 [facility] Comment on above: Performed By: #### C MP wRFX A1C, CBC #### [place] [address] [place] Protein [Mass/volume] in Ser um or PlasmaOrdered By: Yo Timmons on 05-18-2025 Protein [Mass/Vol] 7.1 g/dL 6.4-8.9 [facility] Comment on above: Performed By: #### C MP wRFX A1C, CBC #### [address] Serum globulin measurement b y calculation (mass/volume)Ordered By: Yo Timmons on 05-18-2025 Globulin (S) [Mass/Vol] 2.7 g/dL [facility] Comment on above: Performed By: #### C MP wRFX A1C, CBC #### [facility] [address] Serum or plasma albumin/glob ulin mass ratioOrdered By: Yo Timmons on 05-18-2025 Albumin/Globulin [Mass ratio] 1.6 {ratio} [facility] Comment on above: Performed By: #### C MP wRFX A1C, CBC #### [facility] [address] Serum or plasma anion gap de terminationOrdered By: Yo Timmons on 05-18-2025 Anion gap [Moles/Vol] 10.0 mmol/L 6.0-15.0 [facility] Comment on above: Performed By: #### C MP wRFX A1C, CBC #### [address] Sodium [Moles/volume] in Ser um or PlasmaOrdered By: Yo Timmons on 05-18-2025 Sodium [Moles/Vol] 142 mmol/L 136-145 [facility] Comment on above: Performed By: #### C MP wRFX A1C, CBC #### [address] Urea nitrogen [Mass/volume] in Serum or PlasmaOrdered By: Yo Timmons on 05-18-2025 Urea nitrogen [Mass/Vol] 17 mg/dL 7-25 [facility] Comment on above: Performed By: #### C MP wRFX A1C, CBC #### [address] wrist LT wo conon 025 CT wrist LT wo con [facility] [place] [address] CT Scan Report Signed Patient: Bhargavi Chopra MR#: [id number] 180 : 1955 Acct:[id number] Age/Sex: 69 / F ADM Date: 05/11/25 Loc: CT Room: Type: [facility] CLI Attending Dr: Yo Timmons DO Copies to: Yo Timmons DO Ordering Provider: Yo Timmons DO Date of Service: 05/11/25 CT/CT wrist LT wo con: eval for bony prominence of left wrist CT of the left wrist without INTRAVENOUS CONTRAST: CLINICAL HISTORY: Left wrist pain, bruising and swelling COMPARISON: 05/11/2025 TECHNIQUE: Spiral images were obtained through the left wrist without contrast. 3-D reconstruction. This CT exam was performed using one or more following dose reduction techniques: Automated exposure control, adjustment of the mA and/or kV according to patient size, or use of iterative reconstruction technique. FINDINGS: No fractures. No dislocation. Mild scattered degenerative changes notably involving the first CMC joints. Otherwise, Joint spaces are grossly preserved. Soft tissues are grossly unremarkable. CT/CT wrist LT wo con IMPRESSION: Mild degenerative changes notably involving the first CMC joint Impression dictated by: Everette Paulino M.D. 05/11/2025 6:15 PM Dictation Location: [place] [address] Transcribed By: [facility] 05/11/251814 Dictated By: Everette Paulino MD 05/11/251809 Signed By: 05/11/251814 Normal [facility] XR hand BI 3Von 04-27-2025 XR hand BI 3V [facility] [address] [place] [address] XRay Report Signed Patient: Bhargavi Chopra MR#: [id number] 180 : 1955 Acct:[id number] Age/Sex: 69 / F ADM Date: 04/27/25 Loc: SOXD Room: Type: [facility] CLI Attending Dr: Yo Timmons DO Copies to: Yo Timmons DO Ordering Provider: Yo Timmons DO Date of Service: 04/27/25 XR/XR hand BI 3V: M25.532 - Pain in left wrist 4 views both hand plain film COMPARISON: None HISTORY: Bilateral first, carpometacarpal joint pain ACUTE FINDINGS: None DEGENERATIVE CHANGE: Mild to moderate bilateral first carpometacarpal degenerative changes. Mild joint space narrowing. Marginal spurring. Mild to moderate first metacarpophalangeal degenerative changes bilaterally SOFT TISSUE FINDINGS: Unremarkable JOINT EFFUSION: None POSTOP CHANGES: None BONY MINERALIZATION: Adequate XR/XR hand BI 3V IMPRESSION: Mild to moderate bilateral first carpometacarpal and metacarpophalangeal degenerative changes. Impression dictated by: Carmelo Kinney M.D. 04/27/2025 3:43 PM Dictation Location: [place] [address] Transcribed By: [facility] 04/27/25 1543 Dictated By: Carmelo Kinney DO 04/27/25 1540 Signed By: 04/27/25 1543 Normal [facility] Basophils Auto (Bld) [#/Vol] on 03-30-2025 Basophils (Bld) [#/Vol] 0.1 10 3/uL 0.0-0.1 [facility] Basophils/100 WBC Auto (Bld) on 03-30-2025 Basophils/100 WBC (Bld) 0.8 % 0.2-2.0 F [facility] Eosinophils/100 WBC Auto (Bl d)on 03-30-2025 Eosinophils/100 WBC (Bld) 3.1 % 0.9-7.0 [facility] Erythrocyte distribution wid th Auto (RBC) [Ratio]on 03-30-2025 Erythrocyte distribution width (RBC) [Ratio] 14.6 % 11.0-15.0 [facility] Estimated glomerular filtrat ion rate (GFR) non- Americanon 03-30-2025 GFR/1.73 sq M.predicted among non-blacks MDRD (S/P/Bld) [Vol rate/Area] 45 mL/min/{1.73_m2} Low >=60 mL/min/1.73 m 2 [facility] Globulin Calc (S) [Mass/Vol] on 03-30-2025 Globulin (S) [Mass/Vol] 3.6 g/dL F [facility] Hematocrit Auto (Bld) [Volum e fraction]on 03-30-2025 Hematocrit (Bld) [Volume fraction] 38.0 % 36.0-48.0 [facility] Hemoglobin [Mass/volume] in Bloodon 03-30-2025 Hemoglobin (Bld) [Mass/Vol] 12.4 g/dL 12.0-16.0 [facility] Laboratory - Chemistry and C hemistry - challengeon 03-30-2025 Albumin [Mass/Vol] 3.5 g/dL 3.4-5.0 [facility] ALP [Catalytic activity/Vol] 87 U/L 46-116 [facility] ALT [Catalytic activity/Vol] 24 U/L 14-59 [facility] AST [Catalytic activity/Vol] 21 U/L 15-37 [facility] Bilirubin [Mass/Vol] 0.5 mg/dL 0.2-1.0 [facility] Calcium [Mass/Vol] 9.2 mg/dL 8.5-10.1 [facility] Chloride [Moles/Vol] 109 mmol/L High 98-107 [facility] CO2 [Moles/Vol] 27.8 mmol/L 21.0-32.0 [facility] Creatinine [Mass/Vol] 1.18 mg/dL High 0.55-1.02 [facility] GFR/1.73 sq M.predicted MDRD (S/P/Bld) [Vol rate/Area] 55 mL/min/{1.73_m2} Low >=60 mL/min/1.73 m 2 [facility] Glucose [Mass/Vol] 83 mg/dL 74-106 [facility] Potassium [Moles/Vol] 4.2 mmol/L 3.5-5.1 [facility] Protein [Mass/Vol] 7.1 g/dL 6.4-8.2 [facility] Sodium [Moles/Vol] 145 mmol/L 136-145 [facility] Urea nitrogen [Mass/Vol] 17.0 mg/dL 7.0-18.0 [facility] Urea nitrogen/Creatinine [Mass ratio] 14.4 mg/mg [facility] Laboratory - Hematology and Cell countson 03-30-2025 Immature granulocytes/100 WBC (Bld) 0.2 % 0.0-0.5 [facility] Leukocytes [#/volume] correc annabelle for nucleated erythrocytes in Blood by Automated counon 03-30-2025 WBC corrected for nucl RBC Auto (Bld) [#/Vol] 6.1 10 3/uL 4.0-11.0 [facility] Lymphocytes Auto (Bld) [#/Vo l]on 03-30-2025 Lymphocytes (Bld) [#/Vol] 2.1 10 3/uL 1.2-3.8 [facility] Lymphocytes/100 WBC Auto (Bl d)on 03-30-2025 Lymphocytes/100 WBC (Bld) 33.8 % 20.5-60.0 [facility] MCH Auto (RBC) [Entitic mass ]on 03-30-2025 MCH (RBC) [Entitic mass] 29.7 pg 26.7-34.0 [facility] MCHC Auto (RBC) [Mass/Vol]on 03-30-2025 MCHC (RBC) [Mass/Vol] 32.6 g/dL 29.9-35.2 [facility] MCV Auto (RBC) [Entitic vol] on 03-30-2025 MCV (RBC) [Entitic vol] 91.1 fL 81.0-99.0 [facility] Monocytes Auto (Bld) [#/Vol] on 03-30-2025 Monocytes (Bld) [#/Vol] 0.7 10 3/uL 0.3-0.8 [facility] Monocytes/100 WBC Auto (Bld) on 03-30-2025 Monocytes/100 WBC (Bld) 11.4 % 1.7-12.0 [facility] Neutrophils Auto (Bld) [#/Vo l]on 03-30-2025 Neutrophils (Bld) [#/Vol] 3.1 10 3/uL 1.4-6.5 [facility] Neutrophils/100 WBC Auto (Bl d)on 03-30-2025 Neutrophils/100 WBC (Bld) 50.7 % 43.0-75.0 [facility] No Panel Informationon 03-30 Eosinophils # (Auto) 0.2 10 3/uL 0.0-0.7 [facility] Immature Granulocyte # (Auto) 0.01 10 3/uL 0.00-0.03 [facility] Platelet mean volume Auto (B ld) [Entitic vol]on 03-30-2025 Platelet mean volume (Bld) [Entitic vol] 10.0 fL 9.5-13.5 [facility] Platelets Auto (Bld) [#/Vol] on 03-30-2025 Platelets (Bld) [#/Vol] 260 10 3/uL 150-450 [facility] RBC Auto (Bld) [#/Vol]on RBC (Bld) [#/Vol] 4.17 10 6/uL Low 4.20-5.40 [facility] Serum or plasma albumin/glob ulin mass ratioon 03-30-2025 Albumin/Globulin [Mass ratio] 1.0 {ratio} [facility] Serum or plasma anion gap de terminationon 03-30-2025 Anion gap [Moles/Vol] 12.4 mmol/L Fi [facility] XR HAND 3+ VIEWS LEFTon 01-15 XR HAND 3+ VIEWS LEFT XR HAND 3+ VIEWS L EFT Reason for exam: Pain 1st digit for [...] by the interpreting Radiologist. Normal Not Available BI MAMMOGRAM SCREENING TOMOS YNTHESIS BILATERALon 12-14-2024 BI MAMMOGRAM SCREENING TOMOSYNTHESIS BILATERAL This is a summary report. The complete report is available in the patient's medical record. If you cannot access the medical record, please contact the sending organization for a detailed fax or copy. Examination: BI MAMMOGRAM SCREENING TOMOSYNTHESIS BILATERAL Clinical [...] Mammogram ELECTRONICALLY SIGNED BY: Moustapha Quezada M.D. Normal Not Available Comment on above: Order Comment: Spot compression and us prn DEXA BONE DENSITYon 12-14-19 DEXA BONE DENSITY Examination: DEXA BONE DENSITY Clinical History: screening, asymptomatic menopausal state Technique: Bone density study was performed. T score values for the lumbar spine, right femoral neck and left femoral neck were obtained. Comparison: None Findings: Value for the lumbar spine from L1-L4 is -1.5. Value for the right femoral neck is -2.2. Value for the left femoral neck is -1.9. Findings are compatible with severe osteopenia with moderate to high increased fracture risk. No evidence of osteoporosis. IMPRESSION: Impression: Findings compatible with severe osteopenia with moderate to high increased fracture risk. ELECTRONICALLY SIGNED BY: Moustapha Quezada M.D. Normal Not Available Basophils Auto (Bld) [#/Vol] on 07-21-2024 Basophils (Bld) [#/Vol] 0.1 10 3/uL 0.0-0.1 [facility] Basophils (Bld) [#/Vol] Automated basoph il count 0.0-0.1 [facility] Basophils/100 WBC Auto (Bld) on 07-21-2024 Basophils/100 WBC (Bld) 0.7 % 0.2-2.0 [facility] Basophils/100 WBC (Bld) Automated basophil % 0. 2-2.0 [facility] Cholesterol in LDL Calc [Mas s/Vol]on 07-21-2024 Cholesterol in LDL [Mass/Vol] 89.0 mg/dL [facility] Comment on above: <100 mg/dl [id number] 0-129 mg/dl NEAR OR ABOVE [id number] mg/dl BORDERLINE [id number] mg/dl HIGH>190 mg/dl VERY HIGH Cholesterol in LDL [Mass/Vol] Cholesterol in LDL [Mass/volume] in Serum or Plasma by calculation [facility] Comment on above: <100 mg/dl [id number] 0-129 mg/dl NEAR OR ABOVE [id number] mg/dl BORDERLINE [id number] mg/dl HIGH>190 mg/dl VERY HIGH Cholesterol in VLDL Calc [Ma ss/Vol]on 07-21-2024 Cholesterol in VLDL [Mass/Vol] 20.0 mg/dL [facility] Cholesterol in VLDL [Mass/Vol] Cholesterol in VLDL [Mass/volume] in Serum or Plasma by calculation [facility] Eosinophils/100 WBC Auto (Bl d)on 07-21-2024 Eosinophils/100 WBC (Bld) 2.7 % 0.9-7.0 [facility] Eosinophils/100 WBC (Bld) Automated eosinophil % 0.9-7.0 [facility] Erythrocyte distribution wid th Auto (RBC) [Ratio]on 07-21-2024 Erythrocyte distribution width (RBC) [Ratio] 13.9 % 11.0-15.0 [facility] Erythrocyte distribution width (RBC) [Ratio] Erythrocyte distribution width [Ratio] by Automated count 11.0-15.0 [facility] Estimated glomerular filtrat ion rate (GFR) non- Americanon 07-21-2024 GFR/1.73 sq M.predicted among non-blacks MDRD (S/P/Bld) [Vol rate/Area] 46 mL/min/{1.73_m2} Low >=60 [facility] GFR/1.73 sq M.predicted among non-blacks MDRD (S/P/Bld) [Vol rate/Area] Estimated glomerular filtration rate (GFR) non- Low >=60 [facility] Globulin Calc (S) [Mass/Vol] on 07-21-2024 Globulin (S) [Mass/Vol] 3.7 g/dL F [facility] Globulin (S) [Mass/Vol] Serum globulin measurement by calculation (mass/volume) [facility] Hematocrit Auto (Bld) [Volum e fraction]on 07-21-2024 Hematocrit (Bld) [Volume fraction] 41.6 % 36.0-48.0 [facility] Hematocrit (Bld) [Volume fraction] Hematocrit [Volume Fraction] of Blood by Automated count 36.0-48.0 [facility] Hemoglobin [Mass/volume] in Bloodon 07-21-2024 Hemoglobin (Bld) [Mass/Vol] 13.9 g/dL 12.0-16.0 [facility] Hemoglobin (Bld) [Mass/Vol] Hemoglobin [Mass/volume] in Blood 12.0-16.0 [facility] Laboratory - Chemistry and C hemistry - challengeon 07-21-2024 Albumin [Mass/Vol] 3.5 g/dL 3.4-5.0 [facility] ALP [Catalytic activity/Vol] 102 U/L 46-116 [facility] ALT [Catalytic activity/Vol] 26 U/L 14-59 [facility] AST [Catalytic activity/Vol] 18 U/L 15-37 [facility] Bilirubin [Mass/Vol] 0.6 mg/dL 0.2-1.0 [facility] Calcium [Mass/Vol] 9.3 mg/dL 8.5-10.1 [facility] Chloride [Moles/Vol] 106 mmol/L 98-107 [facility] Cholesterol [Mass/Vol] 168 mg/dL <=200 [facility] Cholesterol in HDL [Mass/Vol] 59 mg/dL 40-60 [facility] Comment on above: > or =60 mg/dl - LOW CARDIOVASCULAR RISK<40 mg/dl - HIGH CARDIOVASCULAR RISK CO2 [Moles/Vol] 26.1 mmol/L 21.0-32.0 [facility] Creatinine [Mass/Vol] 1.17 mg/dL High 0.55-1.02 [facility] GFR/1.73 sq M.predicted MDRD (S/P/Bld) [Vol rate/Area] 55 mL/min/{1.73_m2} Low >=60 [facility] Glucose [Mass/Vol] 88 mg/dL 74-106 [facility] Potassium [Moles/Vol] 3.8 mmol/L 3.5-5.1 Fir [facility] Protein [Mass/Vol] 7.2 g/dL 6.4-8.2 [facility] Sodium [Moles/Vol] 142 mmol/L 136-145 [facility] Triglyceride [Mass/Vol] 100 mg/dL <=150 F [facility] Urea nitrogen [Mass/Vol] 18.0 mg/dL 7.0-18.0 [facility] Urea nitrogen/Creatinine [Mass ratio] 15.4 mg/mg [facility] Laboratory - Hematology and Cell countson 07-21-2024 Immature granulocytes/100 WBC (Bld) 0.4 % 0.0-0.5 [facility] Leukocytes [#/volume] correc annabelle for nucleated erythrocytes in Blood by Automated counon 07-21-2024 WBC corrected for nucl RBC Auto (Bld) [#/Vol] 9.6 10 3/uL 4.0-11.0 [facility] WBC corrected for nucl RBC Auto (Bld) [#/Vol] Leukocytes [#/volume] corrected for nucleated erythrocytes in Blood by Automated coun 4.0-11.0 [facility] Lymphocytes Auto (Bld) [#/Vo l]on 07-21-2024 Lymphocytes (Bld) [#/Vol] 3.9 10 3/uL High 1.2-3.8 [facility] Lymphocytes (Bld) [#/Vol] Lymphocytes [#/volume] in Blood by Automated count High 1.2-3.8 [facility] Lymphocytes/100 WBC Auto (Bl d)on 07-21-2024 Lymphocytes/100 WBC (Bld) 41.0 % 20.5-60.0 [facility] Lymphocytes/100 WBC (Bld) Lymphocytes/100 leukocytes in Blood by Automated count 20.5-60.0 [facility] MCH Auto (RBC) [Entitic mass ]on 07-21-2024 MCH (RBC) [Entitic mass] 28.7 pg 26.7-34.0 [facility] MCH (RBC) [Entitic mass] MCH [Entitic mass] by Automated count 26.7-34.0 [facility] MCHC Auto (RBC) [Mass/Vol]on 07-21-2024 MCHC (RBC) [Mass/Vol] 33.4 g/dL 29.9-35.2 [facility] MCHC (RBC) [Mass/Vol] MCHC [Mass/volume] by Automated count 29.9-35.2 [facility] MCV Auto (RBC) [Entitic vol] on 07-21-2024 MCV (RBC) [Entitic vol] 85.8 fL 81.0-99.0 F [facility] MCV (RBC) [Entitic vol] MCV [Entitic vol ume] by Automated count 81.0-99.0 [facility] Monocytes Auto (Bld) [#/Vol] on 07-21-2024 Monocytes (Bld) [#/Vol] 1.0 10 3/uL High 0.3-0.8 [facility] Monocytes (Bld) [#/Vol] Automated blood monocyte count High 0.3-0.8 [facility] Monocytes/100 WBC Auto (Bld) on 07-21-2024 Monocytes/100 WBC (Bld) 10.4 % 1.7-12.0 [facility] Monocytes/100 WBC (Bld) Automated monocyte % 1. 7-12.0 [facility] Neutrophils Auto (Bld) [#/Vo l]on 07-21-2024 Neutrophils (Bld) [#/Vol] 4.3 10 3/uL 1.4-6.5 [facility] Neutrophils (Bld) [#/Vol] Neutrophils [#/volume] in Blood by Automated count 1.4-6.5 [facility] Neutrophils/100 WBC Auto (Bl d)on 07-21-2024 Neutrophils/100 WBC (Bld) 44.8 % 43.0-75.0 [facility] Neutrophils/100 WBC (Bld) Automated neutrophil % 43.0-75.0 [facility] No Panel Informationon 07-21 Eosinophils # (Auto) 0.3 10 3/uL 0.0-0.7 [facility] Immature Granulocyte # (Auto) 0.04 10 3/uL High 0.00-0.03 [facility] Platelet mean volume Auto (B ld) [Entitic vol]on 07-21-2024 Platelet mean volume (Bld) [Entitic vol] 10.2 fL 9.5-13.5 [facility] Platelet mean volume (Bld) [Entitic vol] Platelet mean volume [Entitic volume] in Blood by Automated count 9.5-13.5 [facility] Platelets Auto (Bld) [#/Vol] on 07-21-2024 Platelets (Bld) [#/Vol] 330 10 3/uL 150-450 [facility] Platelets (Bld) [#/Vol] Platelets [#/vol ume] in Blood by Automated count 150-450 [facility] RBC Auto (Bld) [#/Vol]on RBC (Bld) [#/Vol] 4.85 10 6/uL 4.20-5.40 [facility] RBC (Bld) [#/Vol] Erythrocytes [#/volume] in Blood by Automated count 4.20-5.40 [facility] Serum or plasma albumin/glob ulin mass ratioon 07-21-2024 Albumin/Globulin [Mass ratio] 0.9 {ratio} [facility] Albumin/Globulin [Mass ratio] Serum or plasma albumin/globulin mass ratio [facility] Serum or plasma anion gap de terminationon 07-21-2024 Anion gap [Moles/Vol] 13.7 mmol/L [facility] Anion gap [Moles/Vol] Serum or plasma an ion gap determination [facility] Serum or plasma total choles terol/high density lipoprotein (HDL) cholesterol mass abel 07-21-2024 Cholesterol.total/Malu sterol in HDL [Mass ratio] 2.8 {ratio} [facility] Comment on above: 3.3 - 4.4 LOW RISK4. 4 - 7.1 AVERAGE RISK7.1 - 11.0 MODERATE RISK>11.0 HIGH RISK Cholesterol.total/Malu sterol in HDL [Mass ratio] Serum or plasma total cholesterol/high density lipoprotein (HDL) cholesterol mass rat [facility] Comment on above: 3.3 - 4.4 LOW [...] Interpretation and review of laboratory results Normal [facility] SARS-CoV-2 (COVID-19) RNA DEBORAH+probe Ql (Unsp spec) Negative [facility] RHEUMATOID FACTORon 07-29-20 23 RHEUMATOID FACTOR see note [employer] Other RHEUMATOID FACTOR <10.0 IU/mL <14.0 IU/mL [employer] Other PAP ACOG PANEL 2: 30 to 65on 11-15-2022 . . Normal [facility] Comment on above: Performed By: #### [id number] #### [facility] [address] [place] [address] Dr. Ricardo Malhotra Age Gdln ACOG Testing Comment Normal [facility] Comment on above: Result Comment: <21 or >65 or no age provided Performed By: #### [id number] #### [facility] [address] [place] [address] Dr. Ricardo Malhotra DIAGNOSIS: Comment Normal [facility] Comment on above: Result Comment: NEGA TIVE FOR INTRAEPITHELIAL LESION OR MALIGNANCY. Performed By: #### [id number] #### [facility] [address] [place] [address] Dr. Ricardo Malhotra Methodology: Comment Normal [facility] Comment on above: Result Comment: This liquid based ThinPrep(R) pap test was screened with the use of an image guided system. Performed By: #### [id number] #### [facility] [address] [place] [address] Dr. Ricardo Malhotra Note: Comment Normal [facility] Comment on above: Result Comment: The Pap smear is a screening test designed to aid in the detection of premalignant and malignant conditions of the uterine cervix. It is not a diagnostic procedure and should not be used as the sole means of detecting cervical cancer. Both false-positive and false-negative reports do occur. . Performed By: #### [id number] #### [facility] [address] [place] [address] Dr. Ricardo Malhotra Performed by: Comment Normal [facility] Comment on above: Result Comment: [employer]a [employer] Ex[employer] Emissions Technician (ASCP) Performed By: #### [id number] #### [facility] [address] [place] [address] Dr. Ricardo Malhotra Specimen adequacy: Comment Normal [facility] Comment on above: Result Comment: Sati sfactory for evaluation. No endocervical component is identified. Performed By: #### [id number] #### [facility] [address] [place] [address] Dr. Ricardo Malhotra CBC AUTO DIFFon 09-18-2022 BASO # 0.1 103/ul Normal 0.0-0.1 [facility] Comment on above: Performed By: #### C BC #### [facility] [address] [place] [address] Dr. Ricardo Malhotra Basophils/100 WBC (Bld) 1.1 % Normal 0.2-2.0 [facility] Comment on above: Performed By: #### C BC #### [facility] [address] [place] [address] Dr. Ricardo Malhotra EO # 0.3 103/ul Normal 0.0-0.7 [facility] Comment on above: Performed By: #### C BC #### [facility] [address] [place] [address] Dr. Ricardo Malhotra Eosinophils/100 WBC (Bld) 3.6 % Normal 0.9-7.0 [facility] Comment on above: Performed By: #### C BC #### [facility] [address] [place] [address] Dr. Ricardo Malhotra Erythrocyte distribution width (RBC) [Ratio] 14.1 % Normal 11.0-15.0 [facility] Comment on above: Performed By: #### C BC #### [facility] [address] [place] [address] Dr. Ricardo Malhotra Hematocrit (Bld) [Volume fraction] 39.1 % Normal 36.0-48.0 [facility] Comment on above: Performed By: #### C BC #### [facility] [address] [place] [address] Dr. Ricardo Malhotra Hemoglobin (Bld) [Mass/Vol] 12.8 g/dL Normal 12.0-16.0 [facility] Comment on above: Performed By: #### C BC #### [facility] [address] [place] [address] Dr. Ricardo Malhotra IG # 0.02 10e3/ul Normal 0.00-0.03 [facility] Comment on above: Performed By: #### C BC #### [facility] [address] [place] [address] Dr. Ricardo Malhotra IG % 0.3 % Normal 0.0-0.5 [facility] Comment on above: Performed By: #### C BC #### [facility] [address] [place] [address] Dr. Ricardo Malhotra LYMPH # 2.2 103/ul Normal 1.2-3.8 [facility] Comment on above: Performed By: #### C BC #### [facility] [address] [place] [address] Dr. Ricardo Malhotra Lymphocytes/100 WBC (Bld) 32.0 % Normal 20.5-60.0 [facility] Comment on above: Performed By: #### C BC #### [facility] [address] [place] [address] Dr. Ricardo Malhotra MANUAL DIFF REQ NO Normal [facility] Comment on above: Performed By: #### C BC #### [facility] [address] [place] [address] Dr. Ricardo Malhotra MCH (RBC) [Entitic mass] 28.7 pg Normal 26.7-34.0 [facility] Comment on above: Performed By: #### C BC #### [facility] [address] [place] [address] Dr. Ricardo Malhotra MCHC (RBC) [Mass/Vol] 32.7 g/dL Normal 29.9-35.2 [facility] Comment on above: Performed By: #### C BC #### [facility] [address] [place] [address] Dr. Ricardo Malhotra MCV (RBC) [Entitic vol] 87.7 fL Normal 81.0-99.0 [facility] Comment on above: Performed By: #### C BC #### [facility] [address] [place] [address] Dr. Ricardo Malhotra MONO # 0.8 103/ul Normal 0.3-0.8 [facility] Comment on above: Performed By: #### C BC #### [facility] [address] [place] [address] Dr. Ricardo Malhotra Monocytes/100 WBC (Bld) 10.9 % Normal 1.7-12.0 [facility] Comment on above: Performed By: #### C BC #### [facility] [address] [place] [address] Dr. Ricardo Malhotra NEUT # 3.7 103/ul Normal 1.4-6.5 [facility] Comment on above: Performed By: #### C BC #### [facility] [address] [address] [address] Ricardo Malhotra Neutrophils/100 WBC (Bld) 52.1 % Normal 43.0-75.0 [facility] Comment on above: Performed By: #### C BC #### [facility] [address] [address] [address] Ricardo Malhotra Platelet mean volume (Bld) [Entitic vol] 10.5 fL Normal 9.5-13.5 [facility] Comment on above: Performed By: #### C BC #### [facility] [address] [place] [address] Dr. Ricardo Malhotra PLT 301 103/ul Normal 150-450 [facility] Comment on above: Performed By: #### C BC #### [facility] [address] [place] [address] Dr. Ricardo Malhotra RBC 4.46 106/ul Normal 4.20-5.40 [facility] Comment on above: Performed By: #### C BC #### [facility] [address] [place] [address] Dr. Ricardo Malhotra WBC 7.0 103/ul Normal 4.0-11.0 [facility] Comment on above: Performed By: #### C BC #### [facility] [address] [place] [address] Dr. Ricardo Malhotra LIPID PROFILEon 09-18-2022 CHOL-HDL RATIO NORM SEE BELOW Normal [facility] Comment on above: Result Comment: 3.3 - 4.4 LOW RISK 4.4 - 7.1 AVERAGE RISK 7.1 - 11.0 MODERATE RISK >11.0 HIGH RISK Performed By: #### L IPID, BMP #### [facility] [address] [place] [address] Dr. Ricardo Malhotra Cholesterol [Mass/Vol] 154 mg/dL Normal <=200 Th [facility] Comment on above: Performed By: #### L IPWOLF, BMP #### [facility] [address] [address] [address] Ricardo Malhotra Cholesterol in HDL [Mass/Vol] 54 mg/dL Normal 40-60 [facility] Comment on above: Performed By: #### L IPID, BMP #### [facility] [address] [address] [address] Ricardo Malhotra Cholesterol in LDL [Mass/Vol] 82.6 mg/dL Normal [facility] Comment on above: Performed By: #### L IPID, BMP #### [facility] [address] [address] [address] Ricardo Malhotra Cholesterol.total/Malu sterol in HDL [Mass ratio] 2.9 {ratio} Normal [facility] Comment on above: Performed By: #### L IPID, BMP #### [facility] [address] [place] [address] Dr. Ricardo Malhotra HDL NORMAL > or = 60 mg/dl - LO W CARDIOVASCULAR RISK <40 mg/dl - HIGH CARDIOVASCULAR RISK Normal [facility] Comment on above: Performed By: #### L IPID, BMP #### [facility] [address] [address] [address] Ricardo Malhotra LDL CALC NORMAL SEE BELOW Normal [facility] Comment on above: Result Comment: <100 mg/dl OPTIMAL 100 - 129 mg/dl NEAR OR ABOVE OPTIMAL 130 - 159 mg/dl BORDERLINE HIGH 160 - 189 mg/dl HIGH >190 mg/dl VERY HIGH Performed By: #### L IPID, BMP #### [facility] [address] [address] [address] Ricardo Malhotra Triglyceride [Mass/Vol] 87 mg/dL Normal <=150 T [facility] Comment on above: Performed By: #### L IPID, BMP #### [facility] [address] [place] [address] Dr. Ricardo Malhotra VLDL CALC 17.4 mg/dL Normal [facility] Comment on above: Performed By: #### L IPID, BMP #### [facility] [address] [address] [address] Ricardo Malhotra MG MAMM SCREEN 3D IRLANDA CADon 11-03-2022 MG MAMM SCREEN 3D IRLANDA CAD Patient: BHARGAVI CHOPRA Exam Date: 09/18/2022 : 1955 Gender:F Ordering : DR TAVO AHMADI . Admission #: [id number] Family : DR CORNELIUS DE LA TORRE M.D. Order #: [id number] CLICK HERE TO VIEW EXAM RADIOLOGY REPORT [...] renal cancer at age 82. LOCATION: [facility] BREAST COMPOSITION: Heterogeneously dense,which may obscure [...] Zuniga MD on 09/18/2022 at 13:42 Normal [facility] PROF CHEM 8 (BAS METB)on Anion gap [Moles/Vol] 11.0 mmol/L Normal [facility] Comment on above: Performed By: #### L IPID, BMP #### [facility] [address] [address] [address] Ricardo Malhotra Calcium [Mass/Vol] 8.7 mg/dL Normal 8.5-10.1 [facility] Comment on above: Performed By: #### L IPID, BMP #### [facility] [address] [address] [address] Ricardo Malhotra Chloride [Moles/Vol] 107 mmol/L Normal 98-107 [facility] Comment on above: Performed By: #### L IPID, BMP #### [facility] [address] [address] [address] Ricardo Malhotra CO2 [Moles/Vol] 25.9 mmol/L Normal 21.0-32.0 [facility] Comment on above: Performed By: #### L IPID, BMP #### [facility] [address] [address] [address] Ricardo Malhotra Creatinine [Mass/Vol] 1.06 mg/dL Critically high 0.55-1.02 [facility] Comment on above: Performed By: #### L IPID, BMP #### [facility] [address] [address] [address] Ricardo Malhotra EGFR-AF MOROCCAN >60 Normal >=60 [facility] Comment on above: Performed By: #### L IPID, BMP #### [facility] [address] [address] [address] Ricardo Malhotra EGFR-NON AF MOROCCAN 52 mL/min/1.73m2 Critically low >=60 [facility] Comment on above: Performed By: #### L IPID, BMP #### [facility] [address] [address] [address] Ricardo Malhotra Glucose [Mass/Vol] 89 mg/dL Normal 74-106 [facility] Comment on above: Performed By: #### L IPID, BMP #### [facility] [address] [address] [address] Ricardo Malhotra Potassium [Moles/Vol] 3.9 mmol/L Normal 3.5-5.1 [facility] Comment on above: Performed By: #### L IPID, BMP #### [facility] [address] [address] [address] Ricardo Malhotra Sodium [Moles/Vol] 140 mmol/L Normal 136-145 [facility] Comment on above: Performed By: #### L IPID, BMP #### [facility] [address] [address] [address] Ricardo Malhotra Urea nitrogen [Mass/Vol] 18.0 mg/dL Normal 7.0-18.0 [facility] Comment on above: Performed By: #### L IPID, BMP #### [facility] [address] [place] [address] Dr. Ricardo Malhotra Urea nitrogen/Creatinine [Mass ratio] 17.0 mg/mg Normal [facility] Comment on above: Performed By: #### L IPID, BMP #### [facility] [address] [place] [address] Dr. Ricardo Malhotra VAGINITIS/VAGINOSIS DNA PROB Yifan 08-21-2022 Reba species Negative Normal Negative [facility] Comment on above: Performed By: #### V AGINT #### [facility] [address] [place] [address] Dr. Ricardo Malhotra Gardnerella vaginalis Negative Normal Negative [facility] Comment on above: Performed By: #### V AGINT #### [facility] [address] [place] [address] Dr. Ricardo Malhotra Trichomonas vaginalis Negative Normal Negative [facility] Comment on above: Performed By: #### V AGINT #### [facility] [address] [place] [address] Dr. Ricardo Malhotra VAGINITIS/VAGINOSIS DNA PROB Yifan 06-12-2022 Reba species Positive Abnormal Negative [facility] Comment on above: Performed By: #### V AGINT #### [facility] [address] [place] [address] Dr. Ricardo Malhotra Gardnerella vaginalis Positive Abnormal Negative [facility] Comment on above: Performed By: #### V AGINT #### [facility] [address] [place] [address] Dr. Ricardo Malhotra Trichomonas vaginalis Negative Normal Negative [facility] Comment on above: Performed By: #### V AGINT #### [facility] [address] [place] [address] Dr. Ricardo Malhotra VAGINITIS/VAGINOSIS DNA PROB Yifan 04-13-2022 Reba species Negative Normal Negative [facility] Comment on above: Performed By: #### V AGINT #### [facility] [address] [place] [address] Dr. Ricardo Malhotra Gardnerella vaginalis Negative Normal Negative [facility] Comment on above: Performed By: #### V AGINT #### [facility] [address] [place] [address] Dr. Ricardo Malhotra Trichomonas vaginalis Negative Normal Negative [facility] Comment on above: Performed By: #### V AGINT #### [facility] [address] [place] [address] Dr. Ricardo Malhotra VAGINITIS/VAGINOSIS DNA PROB Yifan 03-27-2022 Reba species Negative Normal Negative [facility] Comment on above: Performed By: #### V AGINT #### [facility] [address] [place] [address] Dr. Ricardo Malhotra Gardnerella vaginalis Positive Abnormal Negative [facility] Comment on above: Performed By: #### V AGINT #### [facility] [address] [place] [address] Dr. Ricardo Malhotra Trichomonas vaginalis Negative Normal Negative [facility] Comment on above: Performed By: #### V AGINT #### [facility] [address] [place] [address] Dr. Ricardo Malhotra VAGINITIS/VAGINOSIS DNA PROB Yifan 03-07-2022 Reba species Negative Normal Negative [facility] Comment on above: Performed By: #### V AGINT #### [facility] [address] [place] [address] Dr. Ricardo Malhotra Gardnerella vaginalis Positive Abnormal Negative [facility] Comment on above: Performed By: #### V AGINT #### [facility] [address] [place] [address] Dr. Ricardo Malhotra Trichomonas vaginalis Negative Normal Negative [facility] Comment on above: Performed By: #### V AGINT #### [facility] [address] [place] [address] Dr. Ricardo Malhotra Cardiac Catheterizationon Cardiac Diagnostic Report Demographics Patient KEYSHA BURK Date of Study 12/17/2020 Name Date of 1955 Gender Female Age 65 year(s) Race Room 3546018^THOM^SUNITA Height: 62.99 inch, 160 cm Number Corporate [id number] Weight: 167 pounds, 75.9 kg ID # Patient [id number] BSA: 1.79 m^2 BMI: 29.65 Acct # kg/m^2 MR # [id number] Performing Physician Sunita Tomas Referring Physician # [...] therapy as needed. GI work up Signature - - Angiographic Findings Cardiac Arteries and Lesion Findings LMCA: Mild irregularities 10-20%. LAD: Normal 0% stenosis.Diagonal is NL LCx: Normal 0% stenosis. RCA: Mild irregularities 20-30%.PDA and PLB are NL Ramus: Mild irregularities 30-40%.ostial disease Coronary Tree Dominance: Right LV Analysis LV function assessed as:Normal. Ejection Fraction + --------+---+ !Method !EF%! + --------+---+ !LV gram !60 ! + --------+---+ LV Segment Contractility 1 - Normal 3 [...] for Left ventriculography. Contrast Material: - Isovue 971843 ml - Isovue 18674 ml Fluoroscopy Time: Diagnostic: 2:30 minutes. Total: [...] assessed as CCS II according to the Prydeinig clinical classification. Hemodynamics Condition: Baseline Room Air Estimated: 176.45Heart Rate: 84 bpm Pressure +-----+ + !Site !Pressure ! +-----+ + !AO !161/81 (116) ! +-----+ + !AO !153/74 (104) ! +-----+ + !LV !148/ ,13 ! +-----+ + !LV !151/- ,15 ! +-----+ + !LV !161/1 ,13 ! +-----+ + !LV !158/1 ,16 ! +-----+ + Valve Gradients and Areas + +-------- -+---------+--------- + +--------- + + !Valve !Peak !Mean !Area !Index !Flow !Source ! + +-------- -+---------+--------- + +--------- + + !Aortic !0 !0 ! ! ! ! ! + +-------- -+---------+--------- + +--------- + + !Aortic !0 !0 ! ! ! ! ! + +-------- -+---------+--------- + +--------- + + Shunts Oxygen Values O2 [id number] [id number] [facility] [place], [place] Lazaro, M[facility] Incoming Cardio Results From [facility] - 12/17/2020 12:46 PM EST Cardiac Diagnostic Report Demographics Patient KEYSHA BURK Date of Study 12/17/2020 Name Date of 1955 Gender Female Age 65 year(s) Race Room 5179010^THOM^SUNITA Height: 62.99 inch, 160 cm Number Corporate [id number] Weight: 167 pounds, 75.9 kg ID # Patient [id number] BSA: 1.79 m^2 BMI: 29.65 Acct # kg/m^2 MR # [id number] Performing Physician Sunita Tomas Referring Physician # [...] therapy as needed. GI work up Signature - - Angiographic Findings Cardiac Arteries and Lesion Findings LMCA: Mild irregularities 10-20%. LAD: Normal 0% stenosis.Diagonal is NL LCx: Normal 0% stenosis. RCA: Mild irregularities 20-30%.PDA and PLB are NL Ramus: Mild irregularities 30-40%.ostial disease Coronary Tree Dominance: Right LV Analysis LV function assessed as:Normal. Ejection Fraction + --------+--- + !Method !EF%! + --------+--- + !LV gram !60 ! + --------+--- + LV Segment Contractility 1 - Normal [...] for Left ventriculography. Contrast Material: - Isovue 989645 ml - Isovue 46373 ml Fluoroscopy Time: Diagnostic: 2:30 minutes. Total: [...] assessed as CCS II according to the Prydeinig clinical classification. Hemodynamics Condition: Baseline Room Air Estimated: 176.45Heart Rate: 84 bpm Pressure +-----+ + !Site !Pressure ! +-----+ + !AO !161/81 (116) ! +-----+ + !AO !153/74 (104) ! +-----+ + !LV !148/1 ,13 ! +-----+ + !LV !151/-1 ,15 ! +-----+ + !LV !161/1 ,13 ! +-----+ + !LV !158/1 ,16 ! +-----+ + Valve Gradients and Areas + +-------- -+---------+--------- + +--------- + + !Valve !Peak !Mean !Area !Index !Flow !Source ! + +-------- -+---------+--------- + +--------- + + !Aortic !0 !0 ! ! ! ! ! + +-------- -+---------+--------- + +--------- + + !Aortic !0 !0 ! ! ! ! ! + +-------- -+---------+--------- + +--------- + + Shunts Oxygen Values O2 [id number] Ijvqtoliblw942.45 [place], [place] Vital Signs Date Time Vital Sign Value Performing Clinician Facility 07-11-2025 11:00-0400 Body height 162.56 cm Cornelius De La Torre MD Work Phone: [facility] 07-11-2025 11:00-0400 Body mass index (BMI) [Ratio] 29.5 kg/m2 Cornelius De La Torre MD Work Phone: [facility] 07-11-2025 11:00-0400 Body weight 78.01 kg Cornelius De La Torre MD Work Phone: [facility] 05-31-2025 14:18-0400 Diastolic blood pressure 79 mm[Hg] Cornelius De La Torre MD Work Phone: [facility] 05-31-2025 14:18-0400 Heart rate 58 /min Cornelius De La Torre MD Work Phone: [facility] 05-31-2025 14:18-0400 Respiratory rate 16 /min Cornelius De La Torre MD [facility] [facility] 05-31-2025 14:18-0400 SaO2% (BldA) [Mass fraction] 96 % Cornelius De La Torre MD Work Phone: [facility] 05-31-2025 14:18-0400 Systolic blood pressure 143 mm[Hg] Cornelius De La Torre MD Work Phone: [facility] 05-31-2025 13:33-0400 Inhaled oxygen flow rate 6 L/min Cornelius De La Torre MD Work Phone: [facility] 05-31-2025 10:40-0400 Body height 157.48 cm Cornelius De La Torre MD Work Phone: [facility] 05-31-2025 10:40-0400 Body temperature 97.5 [degF] Cornelius De La Torre MD Work Phone: [facility] 05-31-2025 10:40-0400 Body weight 79 kg Cornelius De La Torre MD Work Phone: [facility] 05-28-2025 14:27-0400 Body height 157.48 cm Cornelius De La Torre MD Work Phone: [facility] 05-28-2025 14:27-0400 Body mass index (BMI) [Ratio] 31.8 kg/m2 Cornelius De La Torre MD Work Phone: [facility] 05-28-2025 14:27-0400 Body temperature 98.2 [degF] Cornelius De La Torre MD Work Phone: [facility] 05-28-2025 14:27-0400 Body weight 78.98 kg Cornelius De La Torre MD Work Phone: [facility] 05-28-2025 14:27-0400 Diastolic blood pressure 77 mm[Hg] Cornelius De La Torre MD Work Phone: [facility] 05-28-2025 14:27-0400 Heart rate 67 /min Cornelius De La Torre MD Work Phone: [facility] 05-28-2025 14:27-0400 Respiratory rate 16 /min Cornelius De La Torre MD Work Phone: [facility] 05-28-2025 14:27-0400 SaO2% (BldA) [Mass fraction] 98 % Cornelius De La Torre MD Work Phone: [facility] 05-28-2025 14:27-0400 Systolic blood pressure 146 mm[Hg] Cornelius De La Torre MD Work Phone: [facility] 05-16-2025 11:53-0400 Body height 157.48 cm Cornelius De La Torre MD Work Phone: [facility] 05-16-2025 11:53-0400 Body mass index (BMI) [Ratio] 31.8 kg/m2 Cornelius De La Torre MD Work Phone: [facility] 05-16-2025 11:53-0400 Body weight 78.92 kg Cornelius De La Torre MD Work Phone: [facility] 12-14-2024 13:32-0500 Body mass index (BMI) [Ratio] 31.97 kg/m2 Ernestina Rinkes DO Work Phone: [facility] 12-14-2024 13:32-0500 Body weight 78.02 kg Ernestina Rinkes DO Work Phone: [facility] 12-14-2024 13:32-0500 Diastolic blood pressure 80 mm[Hg] Ernestina Rinkes DO Work Phone: [facility] 12-14-2024 13:32-0500 Systolic blood pressure 126 mm[Hg] Ernestina Rinkes DO Work Phone: [facility] 09-27-2024 11:40-0500 Body height 157.48 cm [facility] 09-27-2024 11:40-0500 Body mass index (BMI) [Ratio] 31.8 kg/m2 [facility] 09-27-2024 11:40-0500 Body weight 78.92 kg [facility] 09-27-2024 11:40-0500 Diastolic blood pressure 88 mm[Hg] [facility] 09-27-2024 11:40-0500 Heart rate 61 /min [facility] 09-27-2024 11:40-0500 Systolic blood pressure 151 mm[Hg] [facility] 07-14-2024 13:39-0400 Body height 157.48 cm [facility] 07-14-2024 13:39-0400 Body mass index (BMI) [Ratio] 30.7 kg/m2 [facility] 07-14-2024 13:39-0400 Body weight 76.2 kg [facility] 07-14-2024 13:39-0400 Diastolic blood pressure 85 mm[Hg] [facility] 07-14-2024 13:39-0400 Heart rate 64 /min [facility] 07-14-2024 13:39-0400 Systolic blood pressure 134 mm[Hg] [facility] 06-13-2024 10:23-0400 Body temperature 97.2 [degF] Reyes Sánchezbitz DPM Work Phone: [facility] 06-13-2024 10:23-0400 Diastolic blood pressure 76 mm[Hg] Reyes Sánchezbitz DPM Work Phone: [facility] 06-13-2024 10:23-0400 Systolic blood pressure 129 mm[Hg] Reyes Sánchezbitz DPM Work Phone: [facility] 12-26-2023 12:58-0500 Body temperature 96.6 [degF] Marcos Rodriguez DO Work Phone: [facility] 12-26-2023 12:58-0500 Diastolic blood pressure 78 mm[Hg] Marcos Rodriguez DO Work Phone: [facility] 12-26-2023 12:58-0500 Heart rate 69 /min Marcos Rodriguez DO Work Phone: [facility] 12-26-2023 12:58-0500 SaO2% (BldA) [Mass fraction] 97 % Marcos Rodriguez DO Work Phone: [facility] 12-26-2023 12:58-0500 Systolic blood pressure 120 mm[Hg] Marcos Rodriguez DO Work Phone: [facility] 09-04-2023 11:00-0400 Body height 157.48 cm Jaqueline Huerta Other [employer] Other 09-04-2023 11:00-0400 Body mass index (BMI) [Ratio] 29.85 kg/m2 Jaqueline Tanbonny Other [employer] Other 09-04-2023 11:00-0400 Body weight 74.03 kg Jaqueline Huerta Other [employer] Other 09-04-2023 11:00-0400 Diastolic blood pressure 76 mm[Hg] Jaqueline Tanbonny Other [employer] Other 09-04-2023 11:00-0400 SaO2% (BldA) [Mass fraction] 97 % Jaqueline Yaopatricia Other [employer] Other 09-04-2023 11:00-0400 Systolic blood pressure 138 mm[Hg] Jaqueline Huerta Other [employer] Other 08-04-2023 14:00-0400 Body height 157.48 cm Yo Timmons Other [employer] Other 08-04-2023 14:00-0400 Body mass index (BMI) [Ratio] 30.36 kg/m2 Yo Timmons Other [employer] Other 08-04-2023 14:00-0400 Body weight 75.3 kg Yo Timmons Other [employer] Other 07-29-2023 11:15-0400 Body height 157.48 cm Cornelius De La Torre Other [employer] Other 07-29-2023 11:15-0400 Body mass index (BMI) [Ratio] 30.4 kg/m2 Cornelius De La Torre Other [employer] Other 07-29-2023 11:15-0400 Body weight 75.39 kg Cornelius De La Torre Other [employer] Other 07-29-2023 11:15-0400 Diastolic blood pressure 76 mm[Hg] Cornelius De La Torre Other [employer] Other 07-29-2023 11:15-0400 Respiratory rate 12 /min Cornelius De La Torre Other [employer] Other 07-29-2023 11:15-0400 Systolic blood pressure 102 mm[Hg] Cornelius De La Torre Other [employer] Other 12-17-2020 15:15-0500 BP Diastolic 62 mm[Hg] [facility] [place] 12-17-2020 15:15-0500 BP Systolic 136 mm[Hg] [facility] [place] 12-17-2020 15:15-0500 Pulse (Heart Rate) 72 /min [facility] [place] 12-17-2020 15:15-0500 Pulse Oximetry 99 % [facility] [place] 12-17-2020 15:15-0500 Respiratory Rate 16 /min [facility] 12-17-2020 13:10-0500 Body Temperature 97.81 [degF] [facility] [facility] 12-17-2020 10:39-0500 BMI (Body Mass Index) 29.65 kg/m2 [facility] [place] 12-17-2020 10:39-0500 Body weight 75.93 kg [facility] [place] 12-17-2020 10:39-0500 Height 160 cm [place], [place] Encounters Encounter Date Encounter Type Care Provider Facility Start: 07-11-2025 End: 07-11-2025 ambulatory Cornelius De La Torre MD Work Phone: [facility] Work Phone: Start: 07-11-2025 End: 07-11-2025 Patient encounter procedure Yo Timmons [facility] Work Phone: Start: 06-12-2025 End: 06-12-2025 ambulatory Cornelius De La Torre MD Work Phone: [facility] Work Phone: Start: 06-12-2025 End: 06-12-2025 Patient encounter procedure Yo Olea Shanelle [facility] Work Phone: Start: 05-31-2025 End: 05-31-2025 Admission to same day surgery center Yo Timmons DO [facility] [place] Start: 05-31-2025 End: 05-31-2025 ambulatory Cornelius De La Torre MD Work Phone: [facility] Work Phone: Start: 05-31-2025 Non-patient / Non-visit Yo lópez [facility] Work Phone: Start: 05-28-2025 End: 05-28-2025 ambulatory Cornelius De La Torre MD Work Phone: [facility] Work Phone: Start: 05-28-2025 End: 05-28-2025 Patient encounter procedure Roxann Blake [employer] [facility] Work Phone: Start: 05-18-2025 End: 05-18-2025 Patient encounter procedure Yo Timmons DO -Pre-Surgical Testing Work Phone: Start: 05-18-2025 End: 05-18-2025 ambulatory Cornelius De La Torre MD Work Phone: [facility] Work Phone: Start: 05-18-2025 Encounter for preprocedural laboratory examination Yo Timmons [facility] Start: 05-16-2025 End: 05-16-2025 ambulatory Cornelius De La Torre MD Work Phone: [facility] Work Phone: Start: 05-16-2025 End: 05-16-2025 Patient encounter procedure Yo Timmons DO -[facility] Work Phone: Start: 05-11-2025 End: 05-11-2025 Patient encounter procedure Yo Emmie Shanelle JIMENEZ -[facility] [place] Work Phone: Start: 05-11-2025 End: 05-11-2025 ambulatory Cornelius De La Torre MD Work Phone: [facility] Work Phone: Start: 04-27-2025 End: 04-27-2025 Patient encounter procedure Yo Timmons DO -[facility] Work Phone: Start: 04-27-2025 End: 04-27-2025 Patient encounter procedure Yo Emmie Shanelle JIMENEZ -[facility] Start: 04-27-2025 End: 04-27-2025 ambulatory Yo Timmons Facility:[facility] Start: 03-30-2025 Non-patient / Non-visit Brodie chinchilla MD -[facility] Work Phone: Start: 03-29-2025 End: 03-29-2025 ambulatory ERNESTINA CALLAHAN Not Available Start: 02-07-2025 End: 02-07-2025 ambulatory BRODIE POLLACK Not Available Start: 12-14-2024 End: 12-14-2024 Bamboo flowsheet Ernestina E Rinkes DO Work Phone: [facility] Start: 12-14-2024 End: 12-14-2024 Bamboo flowsheet Ernestina E Rinkes DO Work Phone: [facility] Start: 12-14-2024 End: 12-14-2024 Patient encounter status Ernestina E Rinkes DO Work Phone: [facility] Work Phone: Start: 12-14-2024 End: 12-14-2024 Periodic preventive med est patient 65yrs& older Ernestina Callahan DO Work Phone: [facility] Comment on above: Encounter for gyneco logical examination without abnormal finding (Primary Dx); Screening for malignant neoplasm of cervix; Encounter for screening mammogram for breast cancer; Screening for osteoporosis; Postmenopausal status, age-related; Vaginal atrophy; Vaginal itching Start: 12-14-2024 End: 12-14-2024 ambulatory ERNESTINA CALLAHAN Not Available Start: 11-25-2024 End: 11-25-2024 Bamboo flowsheet Reyes Dumont DPM Work Phone: [facility] Start: 11-25-2024 End: 11-25-2024 Bamboo flowsheet Reyes Dumont DPM Work Phone: [facility] Start: 11-25-2024 End: 11-25-2024 ambulatory REYES DUMONT Not Available Start: 11-25-2024 End: 11-25-2024 Office outpatient visit 15 minutes Reyes Dumont DPM Work Phone: [facility] Comment on above: Plantar fasciitis of left foot (Primary Dx); Pain of left heel; Orthotic training Start: 10-06-2024 End: 10-06-2024 Bamboo flowsheet Antoinette Brink [employer] [facility] Start: 10-06-2024 End: 10-06-2024 Bamboo flowsheet Antoinette Brink [employer] [facility] Start: 10-06-2024 End: 10-06-2024 ambulatory Antoinette Brink [employer] [facility] Comment on above: Plantar fasciitis of left foot (Primary Dx); Pain of left heel Start: 09-29-2024 End: 09-29-2024 Bamboo flowsheet Antoinette Brink [employer] [facility] Start: 09-29-2024 End: 09-29-2024 Bamboo flowsheet Antoinette Brink [employer] [facility] Start: 09-29-2024 End: 09-29-2024 ambulatory Antoinette Brink [employer] [facility] Comment on above: Plantar fasciitis of left foot (Primary Dx); Pain of left heel Start: 09-27-2024 End: 09-27-2024 ambulatory ANTOINETTE KITCHEN Not Available Start: 09-27-2024 End: 09-27-2024 ambulatory Antoinette Brink [employer]FRAME DESIGN ENGINE[employer] [facility] Work Phone: Comment on above: Pain of left heel (P rimary Dx); Plantar fasciitis of left foot Start: 09-27-2024 End: 09-27-2024 Patient encounter procedure [facility] Work Phone: Start: 09-26-2024 End: 09-26-2024 Office outpatient visit 15 minutes Reyes Dumont DPM Work Phone: [facility] Comment on above: Plantar fasciitis of left foot (Primary Dx); Pain of left heel Start: 09-26-2024 End: 09-26-2024 ambulatory REYES DUMONT Not Available Start: 09-26-2024 End: 09-26-2024 Bamboo flowsheet Reyes Dumont DPM Work Phone: [facility] Start: 09-26-2024 End: 09-26-2024 Bamboo flowsheet Reyes Dumont DPM Work Phone: [facility] Start: 09-23-2024 End: 09-23-2024 Bamboo flowsheet Antoinette Brink [employer] DES[employer] [facility] Start: 09-23-2024 End: 09-23-2024 Bamboo flowsheet Antoinette Brink [employer] DES[employer] [facility] Start: 09-23-2024 End: 09-23-2024 ambulatory Antoinette Brink [employer] [facility] Comment on above: Pain of left heel (P rimary Dx); Plantar fasciitis of left foot Start: 09-20-2024 End: 09-20-2024 Bamboo flowsheet Antoinette Brink [employer] DES[employer] [facility] Start: 09-20-2024 End: 09-20-2024 Bamboo flowsheet Antoinette Brink [employer] DES[employer] [facility] Start: 09-20-2024 End: 09-20-2024 ambulatory Antoinette Brink [employer] [facility] Comment on above: Pain of left heel (P rimary Dx); Plantar fasciitis of left foot Start: 09-15-2024 End: 09-15-2024 Bamboo flowsheet Antoinette Brink [employer] [facility] Start: 09-15-2024 End: 09-15-2024 Bamboo flowsheet Antoinette Brink [employer] [facility] Start: 09-15-2024 End: 09-15-2024 ambulatory Antoinette Brink [employer] [facility] Comment on above: Pain [...] 09-09-2024 End: 09-09-2024 Bamboo flowsheet Antoinette Brink [employer] DES[employer] [facility] Start: 09-09-2024 End: 09-09-2024 Bamboo flowsheet Antoinette Brink [employer] DES[employer] [facility] Start: 09-09-2024 End: 09-09-2024 ambulatory Antoinette Brink [employer] [facility] Comment on above: Pain of left heel (P rimary Dx); Plantar fasciitis of left foot Start: 09-06-2024 End: 09-06-2024 Bamboo flowsheet Antoinette Brink [employer] DES[employer] [facility] Start: 09-06-2024 End: 09-06-2024 Bamboo flowsheet Antoinette Brink [employer] DES[employer] [facility] Start: 09-06-2024 End: 09-06-2024 ambulatory Antoinette Brink [employer] DES[employer] [facility] Comment on above: Pain of left heel (P rimary Dx); Plantar fasciitis of left foot Start: 09-05-2024 End: 09-05-2024 ambulatory [facility] Work Phone: Start: 09-05-2024 End: 09-05-2024 Patient encounter procedure [facility] Work Phone: Start: 09-01-2024 End: 09-01-2024 Bamboo flowsheet Antoinette Brink [employer] DES[employer]INE[employer] [facility] Start: 09-01-2024 End: 09-01-2024 Bamboo flowsheet Antoinette Brink [employer] DES[employer]INE[employer] [facility] Start: 09-01-2024 End: 09-01-2024 ambulatory Antoniette Brink [employer] DESIGN ENGINE[employer] [facility] Comment on above: Pain of left heel (P rimary Dx); Plantar fasciitis of left foot Start: 08-30-2024 End: 08-30-2024 Bamboo flowsheet Antoinette Brink [employer]FRAME DESIGN ENGINE[employer] [facility] Start: 08-30-2024 End: 08-30-2024 Bamboo flowsheet Antoinette Brink [employer] DESIGN ENGINE[employer] [facility] Start: 08-30-2024 End: 08-30-2024 ambulatory Antoinette Brink [employer] DESIGN ENGINE[employer] [facility] Comment on above: Pain of left heel (P rimary Dx); Plantar fasciitis of left foot Start: 08-25-2024 End: 08-25-2024 Bamboo flowsheet Antoinette Brink [employer] DESIGN ENGINE[employer] [facility] Start: 08-25-2024 End: 08-25-2024 Bamboo flowsheet Antoinette Brink [employer] DESIGN [employer]INE[employer] [facility] Start: 08-25-2024 End: 08-25-2024 ambulatory Antoinette Brink [employer] DES[employer] [facility] Comment on above: Pain of left heel (P rimary Dx); Plantar fasciitis of left foot Start: 08-23-2024 End: 08-23-2024 Bamboo flowsheet Antoinette Brink [employer] DESIGN ENGINE[employer] [facility] Start: 08-23-2024 End: 08-23-2024 Bamboo flowsheet Antoinette Brink [employer] DESIGN ENGINE[employer] [facility] Start: 08-23-2024 End: 08-23-2024 ambulatory Antoinette Brink [employer] DES[employer] ENG[employer] [facility] Comment on above: Pain [...] 15 minutes Reyes Dumont DPM Work Phone: [facility] Comment on above: Plantar fasciitis of left foot (Primary Dx); Pain of left heel Start: 08-16-2024 End: 08-16-2024 Bamboo flowsheet Reyes Dumont DPM Work Phone: [facility] Start: 08-16-2024 End: 08-16-2024 Bamboo flowsheet Reyes Dumont DPM Work Phone: [facility] Start: 08-15-2024 End: 08-15-2024 Bamboo flowsheet Antoinette Brink [employer] DESIGN ENGINE[employer] [facility] Start: 08-15-2024 End: 08-15-2024 Bamboo flowsheet Antoinette Brink [employer]FRAME DESIGN ENGINE[employer] [facility] Start: 08-15-2024 End: 08-15-2024 ambulatory Antoinette Brink [employer]FRAME DESIGN ENGINE[employer] [facility] Comment on above: Pain of left heel (P rimary Dx); Plantar fasciitis of left foot Start: 08-11-2024 End: 08-11-2024 Bamboo flowsheet Poncho Callaway [employer]FRAME DESIGN ENGINE[employer] [facility] Start: 08-11-2024 End: 08-11-2024 Bamboo flowsheet Poncho Callaway [employer] DESIGN ENGINE[employer] [facility] Start: 08-11-2024 End: 08-11-2024 ambulatory Poncho Callaway [employer] DESIGN ENGINE[employer] [facility] Comment on above: Pain of left heel (P rimary Dx); Plantar fasciitis of left foot Start: 08-09-2024 End: 08-09-2024 Bamboo flowsheet Clover T Joannaeugene PT Work Phone: [facility] Start: 08-09-2024 End: 08-09-2024 Bamboo flowsheet Clover Andrew PT Work Phone: [facility] Start: 08-09-2024 End: 08-09-2024 ambulatory Clover T Lorrie PT Work Phone: [facility] Comment on above: Pain of left heel (P rimary Dx); Plantar fasciitis of left foot Start: 08-01-2024 End: 08-01-2024 Bamboo flowsheet Reyes Dumont DPM Work Phone: [facility] Start: 08-01-2024 End: 08-01-2024 Bamboo flowsheet Reyes Dumont DPM Work Phone: [facility] Start: 08-01-2024 End: 08-01-2024 Office outpatient visit 25 minutes Reyes Dumont DPM Work Phone: [facility] Comment on above: Pain of left heel (P rimary Dx); Plantar fasciitis of left foot; Osteoporosis, unspecified osteoporosis type, unspecified pathological fracture presence ([facility] Start: 08-01-2024 End: 08-01-2024 ambulatory REYES DUMONT Not Available Start: 07-28-2024 End: 07-28-2024 Telephone encounter Arabella Draper [facility] Comment on above: MRI results Start: 07-27-2024 End: 07-27-2024 ambulatory REYES DUMONT Not Available Start: 07-21-2024 Non-patient / Non-visit [facility] Work Phone: Start: 07-16-2024 Patient encounter procedure [facility] Start: 07-14-2024 End: 07-14-2024 ambulatory [facility] Work Phone: Start: 07-14-2024 End: 07-14-2024 Patient encounter procedure [facility] Work Phone: Start: 07-13-2024 End: 07-13-2024 Bamboo flowsheet Reyes Dumont DPM Work Phone: [facility] Start: 07-13-2024 End: 07-13-2024 Bamboo flowsheet Reyes Dumont DPM Work Phone: [facility] Start: 07-13-2024 End: 07-13-2024 Office outpatient visit 25 minutes Reyes Dumont DPM Work Phone: [facility] Comment on above: Pain of left heel (P rimary Dx); Bilateral plantar fasciitis; Plantar fasciitis of left foot; Osteoporosis, unspecified osteoporosis type, unspecified pathological fracture presence ([facility] Start: 07-13-2024 End: 07-13-2024 ambulatory REYES DUMONT Not Available Start: 06-13-2024 End: 06-13-2024 ambulatory REYES DUMONT Not Available Start: 06-13-2024 End: 06-13-2024 Patient encounter procedure Reyes Dumont DPM Work Phone: [facility] Comment on above: Pain of left heel (P rimary Dx); Pain of right heel; Bilateral plantar fasciitis Start: 05-30-2024 End: 05-30-2024 ambulatory REYES DUMONT Not Available Start: 12-28-2023 End: 12-28-2023 ambulatory Cornelius De La Torre Other [facility] [employer] Other Start: 12-28-2023 Office outpatient vi sit 15 minutes Cornelius De La Torre [facility] Start: 12-26-2023 End: 12-26-2023 Office outpatient visit 25 minutes Marcos Rodriguez DO Work Phone: [facility] Comment on above: Viral URI (Primary D x); Exposure to COVID-19 virus Start: 11-04-2023 End: 11-04-2023 ambulatory Cornelius De La Torre Other [employer] Other Start: 11-04-2023 Telephone encounter Cornelius Tyler [facility] Start: 09-07-2023 End: 09-07-2023 ambulatory Cornelius De La Torre Other [employer] Other Start: 09-07-2023 Nursing evaluation o f patient and report Cornelius Tyler [facility] Start: 09-04-2023 End: 09-04-2023 ambulatory Jaqueline Huerta Other [employer] Other Start: 09-04-2023 Office outpatient vi sit 15 minutes Jaqueline uHerta [facility] Start: 08-04-2023 End: 08-04-2023 ambulatory Yo Timmons Other [employer] Other Start: 08-04-2023 Office outpatient ne w 45 minutes Yo Timmons [facility] Start: 07-29-2023 End: 07-29-2023 ambulatory Cornelius De La Torre Other [employer] Other Start: 07-29-2023 Office outpatient vi sit 15 minutes Cornelius De La Torre [facility] Start: 01-14-2023 End: 01-14-2023 ambulatory Cornelius De La Torre Other [employer] Other Start: 01-14-2023 Telephone encounter Cornelius De La Torre [facility] Start: 11-04-2022 End: 11-04-[address] TAVO AHMADI Facility:[facility] Start: 09-18-2022 End: 09-19-[address] CORNELIUS [...] 12-16-2021 End: 12-16-2021 ambulatory Nieves Adams Other [employer] Other Start: 12-16-2021 Telephone encounter Nieves Adams [facility] Start: 08-07-2021 Office outpatient vi sit 15 minutes Tal Toro [facility] Start: 12-17-2020 End: 12-17-2020 Patient encounter procedure ALEJA TOMAS [facility] Start: 12-17-2020 End: 12-17-2020 Subsequent hospital visit by physician Sunita Tomas Work Phone: [facility] Procedures Date Procedure Procedure Detail Performing Clinician Start: 05-31-2025 OR Carpal Tunnel Rel ease Unilateral (Left) Cornelius De La Torre MD Work Phone: Start: 05-11-2025 CT of left wrist Cornelius De La Torre MD Work Phone: Start: 04-27-2025 Plain X-ray of bilat eral hands Cornelius De La Torre MD Work Phone: Start: 12-26-2023 Sars-cov-2 detection by dna/rna Phuc Azevedo DO Work Phone: Start: 09-18-2022 Mammography Marcos draper DO Work Phone: Start: 12-17-2020 End: 12-17-2020 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 POWER 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 REPORT [employer] Start: 12-17-2020 Catheterization and angiography procedure details panel Sunita Olea Nicolasaveronica Work Phone: Plan of Treatment Date Care Activity Detail Author Start: 05-31-2025 [facility] Start: 12-14-2024 End: 12-14-2024 Patient encounter procedure [facility] Comment on above: Encounter for gyneco logical examination without abnormal finding; Screening for malignant neoplasm of cervix; Encounter for screening mammogram for breast cancer Start: 10-27-2024 End: 10-27-2024 Patient encounter procedure 10/27/2024 11:00 AM EST Office Visit [facility] [address] [place] [phone] Reyes Dumont, DPM [address] [place] [address] [facility] Start: 10-26-2024 End: 10-26-2024 Patient encounter procedure 10/26/2024 11:00 AM EST Office Visit [facility] [address] [place] [address] Reyes Dumont, DPM [address] [place] [address] [facility] Start: 10-06-2024 End: 10-06-2024 ambulatory 10/06/2024 1:00 PM EST Treatment [facility] [address] [place] [address] Antoinette Kitchen, AIRFRAME DESIGN ENGINEER [facility] Start: 10-04-2024 End: 10-04-2024 ambulatory 10/04/2024 1:00 PM EST Treatment [facility] [address] [place] [address] Antoinette Kitchen, AIRFRAME DESIGN ENGINEER [facility] Start: 10-03-2024 Patient referral [facility] Work Phone: Start: 09-29-2024 End: 09-29-2024 ambulatory 09/29/2024 1:00 PM EST Treatment [facility] [address] [place] [address] Antoinette Kitchen AIRFRAME DESIGN ENGINEER [facility] Start: 09-27-2024 End: 09-27-2024 ambulatory 09/27/2024 1:00 PM EST Treatment [facility] [address] [place] [address] Antoinette Kitchen, AIRFRAME DESIGN ENGINEER [facility] Start: 09-26-2024 End: 09-26-2024 Patient encounter procedure 09/26/2024 4:00 PM EST Office Visit [facility] [address] [place] [phone] Reyes Dumont DPM [address] [facility] [address] [place] [address] [facility] Start: 09-23-2024 End: 09-23-2024 ambulatory 09/23/2024 1:00 PM EST Treatment [facility] [address] [place] [address] Antoinette Kitchen AIRFRAME DESIGN ENGINEER [facility] Start: 09-20-2024 End: 09-20-2024 ambulatory 09/20/2024 1:00 PM EST Treatment [facility] [address] [place] [address] Antoinette Kitchen AIRFRAME DESIGN ENGINEER [facility] Start: 09-15-2024 End: 09-15-2024 ambulatory 09/15/2024 1:00 PM EDT Treatment [facility] [address] [place] [address] Antoinette Kitchen AIRFRAME DESIGN ENGINEER [facility] Start: 09-14-2024 End: 09-14-2024 ambulatory 09/14/2024 11:00 AM EDT Treatment [facility] [address] [place] [address] Clover Andrew, PT [address] [place] [address] [facility] Start: 09-09-2024 End: 09-09-2024 ambulatory 09/09/2024 11:30 AM EDT Treatment [facility] [address] [place] [address] Antoinette Kitchen, AIRFRAME DESIGN ENGINEER [facility] Start: 09-06-2024 End: 09-06-2024 ambulatory 09/06/2024 1:00 PM EDT Treatment [facility] [address] [place] [address] Antoinette Kitchen, AIRFRAME DESIGN ENGINEER [facility] Start: 09-01-2024 End: 09-01-2024 ambulatory 09/01/2024 1:00 PM EDT Treatment [facility] [address] [place] [address] Antoinette Kitchen, AIRFRAME DESIGN ENGINEER [facility] Start: 08-30-2024 End: 08-30-2024 ambulatory 08/30/2024 11:00 AM EDT Treatment [facility] [address] [place] [address] Antoinette Kitchen, AIRFRAME DESIGN ENGINEER [facility] Start: 08-25-2024 End: 08-25-2024 ambulatory 08/25/2024 1:00 PM EDT Treatment [facility] [address] [place] [address] Antoinette Kitchen, AIRFRAME DESIGN ENGINEER [facility] Start: 08-23-2024 End: 08-23-2024 ambulatory 08/23/2024 1:00 PM EDT Treatment [facility] [address] [place] [address] Antoinette Kitchen, AIRFRAME DESIGN ENGINEER [facility] Start: 08-18-2024 End: 08-18-2024 ambulatory 08/18/2024 1:00 PM EDT Treatment [facility] [address] [place] [address] Clover Andrew, PT [address] [place] [address] [facility] Start: 08-16-2024 End: 08-16-2024 Patient encounter procedure 08/16/2024 2:45 PM EDT Office Visit [facility] [address] [place] [address] Reyes Dumont, DPM [address] [place] [address] [facility] Start: 08-15-2024 End: 08-15-2024 ambulatory 08/15/2024 1:00 PM EDT Treatment [facility] [address] [place] [address] Antoinette Kitchen, AIRFRAME DESIGN ENGINEER [facility] Start: 08-11-2024 End: 08-11-2024 ambulatory 08/11/2024 1:00 PM EDT Treatment [facility] [address] [place] [address] Poncho Callaway, AIRFRAME DESIGN ENGINEER [facility] Start: 08-01-2024 End: 08-01-2024 Patient encounter procedure [facility] Comment on above: Arrived Start: 07-17-2024 Influenza vaccination Influenza Vacc ine (#1) [facility] Start: 07-13-2024 End: 07-13-2024 Patient encounter procedure 07/13/2024 1:00 PM EDT Office Visit [facility] [address] [place] [phone] Reyes Dumont, DPM [address] [place] [address] [facility] Comment on above: Arrived Start: 09-18-2023 Screening for malign ant neoplasm of breast Mammogram [facility] Start: 07-17-2023 Influenza vaccination Influenza Vacc ine (#1) [facility] Start: 12-08-2020 Annual Wellness Visi t (AWV) Annual Wellness Visit (AWV) [place] Start: 07-17-2020 Influenza vaccination Flu vaccine (# 1) [place] Start: 2019 Pneumococcal 65+ yea rs Vaccine (1 of 1 - PPSV23) Pneumococcal 65+ years Vaccine (1 of 1 - PPSV23) [place] Start: 2019 Pneumococcal Vaccine : 65+ Years (1 - PCV) Pneumococcal Vaccine: 65+ Years (1 - PCV) [facility] Start: 2019 Pneumococcal Vaccine : 65+ Years (1 of 1 - PCV) Pneumococcal Vaccine: 65+ Years (1 of 1 - PCV) [facility] Start: 2009 Screening for osteoporosis DEXA (modify frequency per FRAX score) [place] Start: 2004 Screening for malign ant neoplasm of breast Breast cancer screen [place], [place] Start: 2004 Screening for malign ant neoplasm of colon Colon cancer screen colonoscopy [place] Start: 2004 Shingles Vaccine (1 of 2) Shingles Vaccine (1 of 2) [place] Start: 1994 Diabetes screen Diabetes screen [place], [place] Start: 1994 Lipid panel Lipid screen [place], [place] Start: 1973 DTaP/Tdap/Td vaccine (1 - Tdap) DTaP/Tdap/Td vaccine (1 - Tdap) [place], [place] Start: 1954 Creatinine measurement Creatinine mo nitoring [place] Start: 1954 Hepatitis C screening Hepatitis C sc reen [place] Start: 1954 Potassium monitoring Potassium monit oring [place] Start: 1954 Screening for malign ant neoplasm of colon [facility] Comprehensive metabo lic 2000 panel - Serum or Plasma [facility] DBT Breast - bilater al screening Bilateral screening mammogram with tomosynthesis Imaging Routine Encounter for screening mammogram for breast cancer Ordered: 12/14/2024 [facility] Comment on above: Ordered: 12/14/2024 DXA Skeletal system Views for bone density DEXA bone density Imaging Routine Screening for osteoporosis Postmenopausal status, age-related Ordered: 12/14/2024 [facility] Comment on above: Ordered: 12/14/2024 IGP, RFX APTIMA HPV ASCU IGP, RFX APTIMA HPV ASCU Lab Routine Screening for malignant neoplasm of cervix Ordered: 12/14/2024 [facility] Work Phone: Comment on above: Ordered: 12/14/2024 MR Ankle - left WO contrast MR ankle left wo IV contrast Imaging High Priority Pain of left heel Plantar fasciitis of left foot Ordered: 07/13/2024 [facility] Work Phone: Comment on above: Ordered: 07/13/2024 Patient Education Know your Meds [facility] Work Phone: Patient referral [facility] Work Phone: XR Hand - bilateral 3 Views [facility] Immunizations Immunization Date Immunization Notes Care Provider Fa cility 09-05-2024 influenza, high dose seasonal, preservative-free [facility] 09-05-2024 influenza virus vaccine, unspecified formulation Antoinette Kitchen PTA [facility] 11-22-2023 COVID-19 (PFIZER) 12Y and older Cornelius De La Torre MD Work Phone: [facility] 09-07-2023 influenza, high dose seasonal, preservative-free Cornelius De La Torre Other [employer] [facility] [employer] Other 09-07-2023 influenza virus vaccine, unspecified formulation Reyes Dumont DPM Work Phone: [facility] 08-27-2022 influenza virus vaccine, split virus (incl. purified surface antigen) Cornelius De La Torre Other [employer] [facility] [employer] Other 08-27-2022 influenza virus vaccine, unspecified formulation Marcos Rodriguez DO Work Phone: [facility] 09-21-2021 COVID-19 Vaccine Pfi zer - Documentation Purposes Only Cornelius De La Torre Other [facility] 08-29-2021 influenza virus vaccine, split virus (incl. purified surface antigen) Cornelius De La Torre Other [employer] Other 08-29-2021 influenza virus vaccine, unspecified formulation [facility] 02-05-2021 COVID-19 mRNA, Comirnaty (Pfizer) Cornelius De La Torre MD Work Phone: [facility] 01-14-2021 COVID-19 mRNA, Comirnaty (Pfizer) Cornelius De La Torre MD Work Phone: [facility] 08-28-2020 influenza virus vaccine, split virus (incl. purified surface antigen) Cornelius De La Torre Other [employer] Other 08-28-2020 influenza virus vaccine, unspecified formulation [facility] 09-15-2019 influenza virus vaccine, split virus (incl. purified surface antigen) Cornelius De La Torre Other [employer] Other 09-15-2019 influenza virus vaccine, unspecified formulation [facility] 09-01-2018 influenza virus vaccine, split virus (incl. purified surface antigen) Cornelius De La Torre Other [employer] Other 09-01-2018 influenza virus vaccine, unspecified formulation [facility] 08-31-2017 tetanus and diphther ia toxoids, adsorbed, preservative free, for adult use (5 Lf of tetanus toxoid and 2 Lf of diphtheria toxoid) Cornelius De La Torre Other [facility] 08-13-2016 tetanus and diphther ia toxoids, adsorbed, preservative free, for adult use (5 Lf of tetanus toxoid and 2 Lf of diphtheria toxoid) Cornelius De La Torre Other [facility] 08-24-2013 tetanus and diphther ia toxoids, adsorbed, preservative free, for adult use (5 Lf of tetanus toxoid and 2 Lf of diphtheria toxoid) Cornelius Tyler Other [facility] Payers Date Payer Category Payer Self-pay [id number] 2022 Private Health Insurance [employer] [id number]. [id number] 2022 Unknown [id number]. 1.13.693.2. [id number] 2019 Medicare [id number]. 1.13.693.2. 7.3.005861.315 1959 Medicare [id number] 1.2.840.848291.1.13.239.2. 7.3.114043.315 1959 Unknown [id number] 1.2.840.157221.1.13.239.2. 7.3.513529.315 1954 Unknown [id number] 2.16.840.1.352771.3.579.2. 177 1954 Unknown [id number] 2.16.840.1.960552.3.579.2. 593 1954 Unknown [id number] 2.16.840.1.776797.3.579.2. 593 1954 Unknown [id number] 2.16.840.1.492753.3.579.2. 593 1954 Unknown [id number] 2.16.840.1.181886.3.579.2. 593 1954 Unknown [id number] 2.16.840.1.302101.3.579.2. 593 1954 Unknown [id number] 2.16.840.1.414879.3.579.2. 593 1954 Unknown [id number] 2.16.840.1.445734.3.579.2. 593 1954 Unknown [id number] 2.16.840.1.385665.3.579.2. 59 1954 Unknown [id number] 2.840.1.927539.3.579.2. 125 1954 Unknown [id number] 2.840.1.904295.3.579.2. 125 1954 Unknown [id number] 2.840.1.465479.3.579.2. 125 1954 Unknown [id number] 2.840.1.653017.3.579.2. 1258 1954 Unknown [id number] 2.840.1.435179.3.579.2. 1259 1954 Unknown [id number] 2.840.1.109392.3.579.2. 125 1954 Unknown [id number] 2.16840.1.081204.3.579.2. 125 1954 Unknown [id number] 2.16.840.1.187680.3.579.2. 125 1954 Unknown [id number] 2.16.840.1.961061.3.579.2. 125 1954 Unknown [id number] 2.16.840.1.575025.3.579.2. 125 1954 Unknown [id number] 2.16840.1.887629.3.579.2. 125 1954 Unknown [id number] 2.16.840.1.064465.3.579.2. 1258 1954 Unknown [id number] 2.16.840.1.499039.3.579.2. 1258 1954 Unknown [id number] 2.16.840.1.958722.3.579.2. 1258 1954 Unknown [id number] 2.16.840.1.046662.3.579.2. 1258 1954 Unknown [id number] 2.840.1.716236.3.579.2. 1258 1954 Unknown [id number] 2.16840.1.663457.3.579.2. 1258 1954 Unknown [id number] 2.840.1.796403.3.579.2. 1258 1954 Unknown [id number] 2.16840.1.152888.3.579.2. 1258 1954 Unknown [id number] 2.840.1.702506.3.579.2. 1258 1954 Unknown [id number] 2.16840.1.751381.3.579.2. 1258 1954 Unknown [id number] 2.840.1.902828.3.579.2. 1258 1954 Unknown [id number] 2.16840.1.621230.3.579.2. 1258 1954 Unknown [id number] 2.16840.1.659479.3.579.2. 1258 1954 Unknown [id number] 2.16840.1.162913.3.579.2. 1258 1954 Unknown [id number] 2.16840.1.811495.3.579.2. 1258 1954 Unknown [id number] 2.16.840.1.555904.3.579.2. 1259 1954 Unknown [id number] 2.16.840.1.301776.3.579.2. 1259 1954 Unknown [id number] 2.16.840.1.796972.3.579.2. 1259 Unknown [id number] 2.16.840.1.373721.3.579.2. 531 Unknown [id number] 2.16.840.1.123939.3.579.2. 531 Unknown [id number] 2.16.840.1.000812.3.579.2. 531 Unknown [id number] 2.16.840.1.734180.3.579.2. 531 Social History Date Type Detail Facility Start: 12-17-2020 End: 05-30-2024 Tobacco smoking status WIIS Never smoker [facility] Start: 12-17-2020 End: 05-30-2024 Tobacco use and exposure Never used [email or web address] Start: 12-17-2020 End: 12-14-2024 Alcohol intake Ex-drinker (finding) [employer] [facility] Sex Assigned At Not on file [email or web address] Start: 11-19-2023 End: 11-25-2024 Sex Assigned At [employer] Other Start: 11-19-2023 End: 11-25-2024 History of Social function [facility] Start: 11-19-2023 Alcohol Comment occasional [facility] Start: 1955 Sex Assigned At Female [facility] Start: 11-18-2023 Gender identity Identifies as female gender (finding) [facility] Start: 11-18-2023 Sexual orientation Heterosexual (finding) [facility] Start: 03-09-2024 End: 05-31-2025 Tobacco smoking status NHIS Ex-smoker (finding) [facility] Start: 09-27-2024 End: 10-03-2024 Sex Female (finding) [facility] Goals Date Patient Goal Desired Activity /State Clinical Notes 08-07-2021 to 05-11-2025 Note Date & Type Note Facility 05-11-2025 Radiology Diagnostic study note [facility] [place] [address] CT Scan Report Signed Patient: Bhargavi Chopra MR#: [id number] : 1955 Acct:[id number] Age/Sex: 69 / F ADM Date: 5 Loc: CT Room: Type: [facility] CLI Attending Dr: Yo Timmons DO Copies to: Yo Timmons DO~ Ordering Provider: Yo Timmons DO Date of Service: 05/11/25 CT/CT wrist LT wo con: eval for bony prominence of left wrist CT of the left wrist without INTRAVENOUS CONTRAST: CLINICAL HISTORY: Left wrist pain, bruising and swelling COMPARISON: 05/11/2025 TECHNIQUE: Spiral images were obtained through the left wrist without contrast. 3-D reconstruction. This CT exam was performed using one or more following dose reduction techniques: Automated exposure control, adjustment of the mA and/or kV according to patient size, or use of iterative reconstruction technique. FINDINGS: No fractures. No dislocation. Mild scattered degenerative changes notably involving the first CMC joints. Otherwise, Joint spaces are grossly preserved. Soft tissues are grossly unremarkable. CT/CT wrist LT wo con IMPRESSION: Mild degenerative changes notably involving the first CMC joint Impression dictated by: Everette Paulino M.D. 05/11/2025 6:15 PM Dictation Location: [place] [address] Transcribed By: [facility] 05/11/251814 Dictated By: Everette Paulino MD 05/11/251809 Signed By: 05/11/251814 [facility] Work Phone: 04-27-2025 Evaluation note Diagnosis Onset Date Resolution Bone spur acute April 27 1:47pm De Quervain's tenosynovitis, left acute April 27, 1:47pm [facility] Work Phone: 1(109) 593-942106-12-2025 Evaluation note* Diagnosis Onset Date Resolution Status Admit Date Bone spur acute April 27 1:47pm De Quervain's tenosynovitis, left [place] April 27, 2025 1:47pm Bone spur acute May 16, 2025 11:38am De Quervain's tenosynovitis, left ac [place] May 16, 2025 11:38am [facility] Work Phone: 1(627) 992-584906-12-2025 Evaluation note* Diagnosis Onset Date Resolution Status Admit Date Bone spur acute April 27 1:47pm De Quervain's tenosynovitis, left acute April 27, 2025 1:47pm Bone spur acute May 16, 2025 11:38am De Quervain's tenosynovitis, left acute May 16, 2025 1 1:38am Nostril infection noneactive May 282024 2:25pm [facility] Work Phone: 1(684) 157-776506-12-2025 Evaluation note* Diagnosis Onset Date Resolution Status Admit Date Bone spur acute April 27 1:47pm De Quervain's tenosynovitis, left acute April 27, 2025 1:47pm Bone spur acute May 16, 2025 11:38am De Quervain's tenosynovitis, left acute May 16, 2025 11:38am Nostril infection noneactive May 282024 2:25pm Bone spur acute June 12 10:01am De Quervain's tenosynovitis, left acute June 12, 2025 10:01am Other specified postprocedur al states acute June 12, 2025 10:01am [facility] Work Phone: 1(143) 483-407406-12-2025 Evaluation note* Diagnosis Onset Date Resolution Status Admit Date Bone spur acute April 27 1:47pm De Quervain's tenosynovitis, left acute April 27, 2025 1:47pm Bone spur acute May 16, 2025 11:38am De Quervain's tenosynovitis, left acute May 16, 2025 11:38am Nostril infection noneactive May 282024 2:25pm Bone spur acute June 12 10:01am De Quervain's tenosynovitis, left acute June 12, 2025 10:01am Other specified postprocedur al states acute June 12, 2025 10:01am Bone spur acute July 11, 2 025 10:55am De Quervain's tenosynovitis, left acute July 11 10:55am Osteoarthritis of carpometacarpal joint of left thumb acute July 11 10:55am Other specified postprocedur al states acute July 11 10:55am [facility] Work Phone: 1(185) 246-631301-29-2025 History of Present illness Narrative* Ernestina Callahan, DO - 12/14/2024 1:30 PM EST Images from the original note were not included. Ernestina Callahan D.O. Obstetrics and Gynecology Patient: Bhargavi Chopra : 1955 (69 y.o.) Yearly Wellness Exam Date: 12/14/2024 Reason for Visit - Chief Complaint Patient presents with Gynecologic Exam Pt states in the past was on medication for her bones. Pt states been off medication for a couple of years. Pt states has not had DEXA done in a little while. (DEXA order sent to [place]). Denies bowel/bladder/breast concerns. Denies vaginal bleeding/spotting. Visit [...] Obstetric Comments Pap smear 11/14/22 wnl W/ [facility] Mammogram 09/18/22 @ [facility] Review of Systems [...] Review Audit Reviewed by Hanny Grimm MA (Tower Equipment Repairer) on 12/14/24 at 1329 Medication Order Taking? Sig Documenting Provider Last Dose Status atorvastatin (Lipitor) 40 MG tablet [id number] Take 40 mg by mouth in the morning. Ernestina Callahan DO Active benztropine (Cogentin) 0.5 MG tablet [id number] Take 0.5 mg by mouth at bedtime Ernestina Callahan DOActive clonazePAM (KlonoPIN) 0.5 MG tablet [id number] TAKE 1 TO 2 TABLETS BY MOUTH AT BEDTIME NEEDED FOR ANXIETY Ernestina Callahan DO Active Patient not taking: Discontinued 12/14/24 1328 Discontinued 12/14/24 1329 FLUoxetine (PROzac) 10 MG capsule [id number] Take 10 mg by mouth in the morning. Ernestina Callahan DO Active losartan (Cozaar) 50 MG tablet [id number] 1 (one) time each day at the same time Ernestina Callahan DO Active losartan-hydroCHLOROthiazide (Hyzaar) 100-25 MG tablet [id number] Take by mouth Ernestina Callahan DOActive metoprolol tartrate (Lopressor) 25 MG tablet [id number] TAKE 1 TABLET BY MOUTH TWICE A DAY WITH FOOD FOR 90 DAYS Ernestina Callahan DO Active pantoprazole (ProtoNix) 40 MG EC tablet [id number] TAKE 1 TABLET BY MOUTH EVERY DAY FOR 90 DAYS Ernestina Callahan DO Active potassium chloride (Klor-Con) 20 MEQ packet [id number] 1 (one) time each day at the same time Ernestina Callahan DO Active Yuvafem 10 MCG tablet vaginal tablet [id number] INSERT 1 TABLET INTO THE VAGINA TWICE A WEEK Griselda Callahan DO Active Past Medical History: Diagnosis [...] to gross testing, coordination, and gait are normalor at baseline unless noted below. General Examination: [...] MCG tablet vaginal tablet documented in this encounterShriners Hospitals for [id number] History of Present illness Narrative* Reyes Dumont DPM - 11/25/2024 11:00 AM EST 8Reason for Visit: Established Patient: Recheck LT custom foot orthotic /Left plantar fasciitis HPI Established patient presents for recheck of LT custom foot orthotic. Patient feels like orthotic istoo high in the arch. She will have [...] plantar fasciitis is painful on palpation and weight- bearing she states she is 90 percent improvement [...] MRI left ankle without contrast performed at [facility] shows: Findings compatible with [...] irritating as it feels too high in thearch medially at the junction of heel and [...] obtain the device through the front window office coordinator receptionist area she does not need to schedule a visit though was advised after she obtains a device to contact us to give update on status. Future modifications may still be required. documented in this encounterShriners Hospitals for [id number] Hospital Discharge instructionsAmbulatory Orders* Referral to Rheumatology Time Frame: 10/03/24, Location: None [facility] Work Phone: 1(832) 788-965311-14-2024 History of Present illness Narrative* Antoinette Kitchen PTA - 09/29/2024 1:00 PM EST Physical Therapy Treatment Visit Patient Name: Bhargavi [...] 5 days. Pain is affecting her quality oflife. Precautions: universal Subjective: Got orthoitics and is [...] response and progress as able. Outcome Measure: LEFS Short Term Goal: To be met in 2 weeks Goal 1: Pt to be instructed in home exercise program. Loader Unloader Goals: To be met in 10 weeks [...] 09/29/2024 2:57 PM EST documented in this encounterShriners Hospitals for [id number] History of Present illness Narrative* Antoinette Kitchen PTA - 09/27/2024 1:00 PM EST Physical Therapy Treatment Visit Patient Name: Bhargavi [...] 5 days. Pain is affecting her quality oflife. Precautions: universal Subjective: Got orthoitics and is wearing them. Amb without devices. Pt can contract administration coordinator shower with minimal pain, but has numbness. [...] able. Asked Pt to follow up with direct marketing specialist for insoles/further recommendation. Follow up with Jen when orthotics arrive Outcome Measure: 20/80 LEFS Short Term Goal: To be met in 2 weeks Goal 1: Pt to be instructed in home exercise program. Detention Goals: To be met in 10 weeks [...] 09/28/2024 1:07 PM EST documented in this encounterShriners Hospitals for [id number] History of Present illness Narrative* Reyes Sánchezlibiaalli, DPM - 09/26/2024 4:00 PM EST 8Reason for Visit: Established Patient: Recheck LT heel pain Second Complaint: To obtain custom foot orthotics HPI Established patient presents for recheck of LT heel pain. Patient states the pain is getting bettersince last visit. Pain has occasional 4/10 pain [...] MRI left ankle without contrast performed at [facility] shows: Findings compatible with planter fasciitis. Assessments [...] office she was advised about possible break inperiod, shoe gear requirements well as warranted adjustments [...] 10. Reappoint: 3 weeks documented in this encounterShriners Hospitals for [id number] History of Present illness Narrative* Clover Andrew, PT - 09/14/2024 11:00 AM EDT Physical Therapy Progress Visit Patient Name: Bhargavi [...] 5 days. Pain is affecting her quality oflife. Precautions: universal Subjective: Pt reports of some [...] pain, plantar surface; pt. Was educated to wearpatch for up to 14 hours. Assessment: LEFS: 29/80 Gait is antalgic due to heel pain. [...] weekly. Asked Pt to follow up with direct marketing specialist for insoles/further recommendation. Follow up with Jen when orthotics arrive Outcome Measure: 20 LEFS Short Term Goal: To be met in 2 weeks Goal 1: Pt to be instructed in home exercise program. Loader Unloader Goals: To be met in 10 weeks [...] Please sign below. Date: documented in this encounterShriners Hospitals for [id number] History of Present illness Narrative* Clover Andrew, PT - 08/18/2024 1:00 PM EDT Physical Therapy Treatment Visit Patient Name: Bhargavi [...] 5 days. Pain is affecting her quality oflife. Precautions: universal Subjective: Pt has no drastic [...] on 08/09/24. Pt will benefit from skilled PTservices to help decrease pain. PT treatment to focus on decreasing inflammation. Trial of DN treatment today. Pt. Tolerated well. Added ice roller with helped to make foot feel better. Pt. Was instructed to order one for home. Outcome Measure: 20 LEFS Short Term Goal: To be met in 2 weeks Goal 1: Pt to be instructed in home exercise program. Detention Goals: To be met in 10 weeks [...] Please sign below. Date: documented in this encounterShriners Hospitals for [id number] History of Present illness Narrative* Reyes Dumont, SHIRLENEM - 08/16/2024 2:45 PM EDT Images from the original [...] TABLETS BY MOUTH AT BEDTIME NEEDED FOR ANXIETY,Disp: , Rfl: dexAMETHasone (Decadron) 4 MG/ML injection, [...] visit. Physical Exam Results Assessment & Plan * Reyes Dumont DPM - 08/16/2024 2:45 PM EDT Images from the original [...] MRI left ankle without contrast performed at [facility] shows: Findings compatible with [...] heel pain: left pain still painful; right painresolved. Patient is very happy that the right [...] complete nonweightbearing, immobilization, pain resolution and edema control:Patient should continue to wear Aircast walker left [...] while sleeping as well to assist with theplantar flexion of foot while sleeping in corresponding [...] foot orthotics are available. documented in this encounterShriners Hospitals for [id number] History of Present illness Narrative* Reyes Dumont DPM - 08/01/2024 2:00 PM EDT Images from the original note [...] MRI LT ankle without contrast performed at [facility] on 07-27-2024. Review of [...] MRI left ankle without contrast performed at [facility] shows: Findings compatible with [...] made it worse or she may have advancedto a partial-thickness tears pain is quite unbearable she can barely put her heel to the floor. NOTE: entire time in pzne-na-wycq interaction with provider dvai-wh-atnc was 36 minutes and seconds with documentation [...] For assistance and complete nonweightbearing, immobilization, pain re solution and edema control: Appropriately fit and dispense 1 Aircast walker left lower extremity wealso added two ADJUST -A -HEEL heel lifts left inside cam walker boot and 1 heel lift to right to assist with limb length discrepancy concern. She should wear this boot for all weight-bearing removedfor ice bag application, stretching, sleeping, and bathing [...] 2-3 weeks for recheck. documented in this encounterShriners Hospitals for [id number] Telephone encounter Note* Telephone Encounter - RT. Bonny Raymond - 07/28/2024 10:29 AM EDT Patient was notified of results. Advised to continue to use crutches to offload LT. Foot. She should ice and elevate as much as possible. She should apply her topical pain reliever as directed. Patient has appointment on 08-01-2024 for follow up. [facility] Hospitals for [id number] Miscellaneous Notes* Telephone Encounter - RT. Mandi R - 07/28/2024 10:29 AM EDT Patient was notified of results. Advised to continue to use crutches to offload LT. Foot. She should ice and elevate as much as possible. She should apply her topical pain reliever as directed. Patient has appointment on 08-01-2024 for follow up. * Telephone Encounter - RT. Mandi R - 07/28/2024 10:29 AM EDT ----- Message from Dr. Reyes Dumont sent at 07/28/2024 10:13 AM EDT ----- Please inform patient the MRI findings are positive for plantar fasciitis only. There is no tear toher plantar fascia or any other pathology that would be explaining her level of pain. Continue present regimen aggressively, reappoint to discuss soon as possible. Offloading foot is imperative as much as possible to reduce pressure/ pain and allow for healing. documented in this encounterShriners Hospitals for [id number] Telephone encounter Note* Telephone Encounter - RT. Mandi R - 07/28/2024 10:29 AM EDT ----- Message from Dr. Reyes Dumont sent at 07/28/2024 10:13 AM EDT ----- Please inform patient the MRI findings are positive for plantar fasciitis only. There is no tear toher plantar fascia or any other pathology that would be explaining her level of pain. Continue present regimen aggressively, reappoint to discuss soon as possible. Offloading foot is imperative as much as possible to reduce pressure/ pain and allow for healing. [facility] Hospitals for [id number] Evaluation note* Diagnosis Onset Date Resolution Status Admit Date Dyslipidemia acute July 14, 2024 1:32pm Essential (primary) hypertension acute July 14 1:32pm Medicare annual wellness vis it, subsequent acute July 14 1:32pm Osteoarthritis acute September 162023 11:30am [facility] Work Phone: 1(430) 948-834108-28-2024 History of Present illness Narrative* Reyes Bonny Dumont, MALLORIE - 07/13/2024 2:45 PM EDT Images from [...] today for complaint of bilateral heel pain: Cxcj-bkgmizk-raxa-right. Right heelpain has basically resolved. Patient is [...] to the floor. NOTE: entire time in ivqu-ib-sgru interaction with provider qxfe-jk-ddod was 34 minutes 31 seconds with documentation [...] 2-3 weeks for recheck. documented in this encounterShriners Hospitals for [id number] History of Present illness Narrative* Reyes Dumont [...] Plantar fasciitis bilaterally at plantar fascial origin lpyz-znxwxru-qpiy-right with increased plantar calcaneal bursitis left only. No gross deformities noted besides mild pes planovalgus deformity. PAIN WITH PALPATION: Plantar fascial origin bilaterally qxhf-kkpodaw-eawq-right, plantar calcaneus at the area of bursitis left heel only. PAIN WITH ROM: On end range dorsiflexion mild pulling bilaterally ebid-ivjwiam-bykp-right. SHOE GEAR EVALUATION: Skechers slip on athletic [...] today for complaint of bilateral heel pain: Uorr-exoibjx-lzdb-right. Physical examination was performed And patient was [...] 1 cc of 0.25% Marcaine with epinepherine ([facility]# [id number],LOT#[id number], EXP.04/09 ) and 1 cc of Celestone Soluspan 3mg ([facility]# [id number],LOT#[id number], EXP.09/08) . The site of injection was [...] 2-3 weeks for recheck. documented in this encounterShriners Hospitals for [id number] Evaluation note* Encounter Date Diagnosis Assessment Notes [...] conjunctivitis of both eyes (ICD-10 - H10.33) [place] [facility] is contagious. Wash hands frequently and try not to rub eyes. Use warm wash cloth to keep them clean or to remove discharge from eyes. Use drops until eyes are clear then 3 more days [facility] Other 02-10-2024 History of Present illness Narrative* Marcos Abraham Michael, - 12/26/2023 12:40 PM EST HPI: Historian [...] or fever. IH Testing: documented in this encounterShriners Hospitals for [id number] Evaluation note* Encounter Date Diagnosis Assessment Notes Treatment Notes Treatment Clinical Notes Oct, Essential (primary) hypertension (ICD-10 - I10) [facility] Other [id number] Evaluation note* Encounter Date Diagnosis Assessment Notes Treatment Notes Treatment Clinical Notes Aug, Local infection of the skin and subcutaneous tissue, unspecified (ICD-10 - L08.9) Discussed with pt symptoms and most likely staph infection as she has had in the past. Discussed treatment. Directed on use. Call if symptoms worsen or change. Aug, Blister (nonthermal) of nose, initial encounter (ICD-10 - S00.32XA) [facility] Other 09-19-2023 Evaluation note* Encounter Date Diagnosis [...] needed if she continues to have symptoms. [facility] Other 09-13-2023 Evaluation note* Encounter Date Diagnosis Assessment Notes Treatment Notes Treatment Clinical Notes Jul, Pain of left thumb (ICD-10 - M79.645) Pt has family history of RA. Would like to have labs and xray. Discussed ortho referral for possible injection [facility] Other 09-22-2021 Evaluation note* Encounter Date Diagnosis [...] accordingly but no treatment at this time [place] [employer] Other Evaluation noteNo InformationNortGeisinger [facility] [employer] Other Evaluation note* Diagnosis Viral URI- Primary Acute upper respiratory infections of unspecified site Exposure to COVID-19 virus documented in this encounter [facility] HealthcareEvaluation note* Diagnosis Onset Date Resolution Status Dyslipidemia acute Essential (primary) hypertension [facility] Work Phone: Evaluation note* Diagnosis Pain of left heel- Primary Plantar fasciitis of left foot documented in this encounter [facility]* Diagnosis Pain of left heel- Primary Plantar fasciitis of left foot documented in this encounter [facility]* Diagnosis Pain of left heel- Primary Plantar fasciitis of left foot documented [facility]* Diagnosis Pain of left heel- Primary Plantar fasciitis of left foot documented in this encounter [facility]* Diagnosis Onset Date Resolution Status Dyslipidemia acute Essential (primary) hypertension acute Medicare annual wellness visit, subsequent acute [facility] Work Phone: Evaluation note* Diagnosis Pain of [...] of left heel documented in this encounter [facility]Evaluation note* Diagnosis Pain of left heel- Primary Bilateral plantar fasciitis Plantar fasciitis of left foot Osteoporosis, unspecified osteoporosis type, unspecified pathological fracture presence ([facility] documented in this encounter [facility]* Diagnosis Pain of left heel- Primary Plantar fasciitis of left foot documented in this encounter [facility]* Diagnosis Pain of left heel- Primary Pain of right heel Bilateral plantar fasciitis documented in this encounter [facility]* Diagnosis Plantar fasciitis of left foot- Primary Pain of left heel documented in this encounter [facility]* Diagnosis Plantar fasciitis of left foot- Primary Pain of left heel documented in this encounter [facility]* Diagnosis Plantar fasciitis of left foot- Primary Pain of left heel Orthotic training documented in this encounter [facility]* Diagnosis Encounter for gynecological examination without abnormal finding- Primary Screening for malignant neoplasm of cervix Screening for malignant neoplasm of the cervix Encounter for screening mammogram for breast cancer Screening for osteoporosis Special screening for osteoporosis Postmenopausal status, age-related Vaginal atrophy Postmenopausal atrophic vaginitis Vaginal itching Pruritus of genital organs documented in this encounter [facility] HealthcareHistory general Narrative - Reported* Type Description Date Medical History hypertension Medical History mood disorder Medical History hiatal hernia Surgical History C section Surgical History cholecystectomy Surgical History heart cath 2020 Hospitalization History see above [facility] Other Hospital Discharge instructions Additional Instructions Post-operative Instructions De Quervain's Tenosynovitis Yo Timmons DO Orthopedic Surgeon [facility] The following instructions will help you know what to expect in the days following your surgery. Do not, however, hesitate to call if you have any questions or concerns. Activities Rest as much as possible for the first day or so after surgery. Diet Gradually resume your normal diet. The night of your surgery, begin with small quantities of food you normally prefer to eat, then progress to your normal eating pattern. Pain Control Elevate your hand above the level of the heart by placing your arm on a pillow that rests on you chest. This will help reduce pain and swelling. Your pain pill prescription will be given to you in the recovery room; take as directed. Wound Care You may remove your dressing 48 hours after surgery. If your wound is not draining, you may run water over it. Do not scrub or submerge the wound. Do not get the dressing wet. Drainage Please observe the dressing for drainage, a foul odor, and/or increased pain unrelieved by rest or medication. Special Instructions Do not get dressing wet. Please notify your physician should you develop a fever (greater than 101 degrees); have increased pain or swelling unrelieved by rest, medication or ice; or if you develop any of the signs of infection as listed above. Follow-up Your follow up appointment should be made. If not, please call the office for scheduling for 10-14 days after your procedure Do not hesitate to call if you have any questions or concerns. Yo Timmons DO Orthopedic Surgeon [facility] Office: [address] [id number] Office number: [phone] [facility] Work Phone: Reyvwe for referral (narrative)No reason for referral information availableCleveland Clinic Mentor [facility] Work Phone: reason for visit Narrative* Rehabilitation - Outpatient (Routine) - Authorized Specialty Diagnoses / Procedures Referred By Ayana azar Referred To Contact Physical Therapy Diagnoses Pain of left heel Plantar fasciitis of left foot Procedures ME OFFICE/OUTPATIENT NEW HIGH MDM 60 MINUTES Reyes Dumont, MALLORIE [address] [place] [address] Phone: tel: fax: Clover Andrew, PT [address] [facility] [address] [place] [address] Phone: tel: fax: Referral ID Status Reason Start Date Expiration Date Visits Requested Visits Authorized [id number] Authorized Specialty Services Required 08/01/2024 01/28/2025 20 30 [facility] Discharge Instructions * Discharge Instr - Activity* Precious Flor RN - 12/17/2020 12:57 PM EST Refer to Cardiac Cath Discharge * Additional Instructions* Precious Flor RN - 12/17/2020 Refer to Cardiac Cath Discharge Instructions documented in this encounter Assessments Diagnosis S/P cardiac cath Other postprocedural status Summary Purpose Family History Relationship Condition Age at Onset Recorded Date/T neptali father Heart disease Unknown Unknown Malignant neoplasm Unknown Hypertension Unknown mother Unknown Heart disease Unknown Relationship Condition Age at Onset Recorded Date/T neptali father Heart disease Unknown Unknown Hypertension Unknown Malignant neoplasm of kidney Unknown mother Heart disease Unknown Advance Directives Advance Directive Response Recorded Date/ Time Advance Directives No March 11, 12:45pm Advance Directive Response Recorded Date/ Time Advance Directives No March 11 11:45am Reason for Referral Specialty Diagnoses / Procedures Referred By Ayana t Referred To Contact Radiology Diagnoses Pain of left heel Plantar fasciitis of left foot Procedures MR ankle left wo IV contrast Reyes Dumont, DPM [address] [place] [address] [facility] [address] [place] [address] Referral ID Status Reason Start Date Expiration Date V isits Requested Visits Authorized [id number] Authorized 07/13/2024 01/09/2025 1 1 Reason [facility] - Bone cre ek - OV, xray, labs Diagnosis 1 Pain of left thumb ( M79.645) Referral Organization [facility] Medical Kashif peña Referring Provider First Name Cornelius Referring Provider Last Name Tyler Referring Provider Specialty [facility] Referred Organization Unknown Facility Referred Provider Specialty [...] September 05, 2024 1 :46pm referral for cloud operations engineer September 11:30am Reason for Visit Admit Date Dyslipidemia July 14, 2024 1: 32pm Essential (primary) hypertension July 14, 2024 1:32pm Medicare annual wellness visit, subseque nt July 14, 2024 1:32pm Osteoarthritis November 12th, 2024 11:30am Chief Complaint Admit Date M25.532 April 27, 2025 12:0 0pm OP SP LT WRIST PAIN April 27, 2025 1:47 pm M77.9 May 11, 2025 2:50 pm Reason for Visit Admit Date Bone spur April 27, 2025 1:47 pm De Quervain's tenosynovitis, left April 162024 1:47pm Chief Complaint Admit Date M25.532 April 27, 2025 12:0 0pm OP SP LT WRIST PAIN April 27, 2025 1:47 pm M77.9 May 11, 2025 2:[address] RESULTS [facility] May 16, 2025 11:38 am Reason for Visit Admit Date Bone spur April 27, 2025 1:47 pm De Quervain's tenosynovitis, left April 162024 1:47pm Bone spur May 16, 2025 11:38 am De Quervain's tenosynovitis, left May 162024 11:38am Chief Complaint Admit Date M25.532 April 27, 2025 12:0 0pm OP SP LT WRIST PAIN April 27, 2025 1:47 pm M77.9 May 11, 2025 2:[address] RESULTS [facility] May 16, 2025 11:38 am Wrist Pain May 18, 2025 3:30p m Chief Complaint Admit Date M25.532 April 27, 2025 12:0 0pm OP SP LT WRIST PAIN April 27, 2025 1:47 pm M77.9 May 11, 2025 2:[address] RESULTS [facility] May 16, 2025 11:38 am Wrist Pain May 18, 2025 3:30p m staph infection on nose May 28, 2025 2:25pm Reason for Visit Admit Date Bone spur April 27, 2025 1:47 pm De Quervain's tenosynovitis, left April 162024 1:47pm Bone spur May 16, 2025 11:38 am De Quervain's tenosynovitis, left May 162024 11:38am Nostril infection May 28, 2025 2:25 pm Chief Complaint Admit Date M25.532 April 27, 2025 12:0 0pm OP SP LT WRIST PAIN April 27, 2025 1:47 pm M77.9 May 11, 2025 2:[address] RESULTS [facility] May 16, 2025 11:38 am Wrist Pain May 18, 2025 3:30p m staph infection on nose May 28, 2025 2:25pm Wrist Pain May 31, 2025 10:0 3am Chief Complaint Admit Date M25.532 April 27, 2025 12:0 0pm OP SP LT WRIST PAIN April 27, 2025 1:47 pm M77.9 May 11, 2025 2:[address] RESULTS [facility] May 16, 2025 11:38 am Wrist Pain May 18, 2025 3:30p m staph infection on nose May 28, 2025 2:25pm Wrist Pain May 31, 2025 10:0 3am 10-14 days post op June 12, 2025 10:0 1am Reason for Visit Admit Date Bone spur April 27, 2025 1:47 pm De Quervain's tenosynovitis, left April 162024 1:47pm Bone spur May 16, 2025 11:38 am De Quervain's tenosynovitis, left May 162024 11:38am Nostril infection May 28, 2025 2:25 pm Bone spur June 12, 2025 10:0 1am De Quervain's tenosynovitis, left May 172024 10:01am Other specified postprocedural states [facility] 2024 10:01am Chief Complaint Admit Date M25.532 April 27, 2025 12:0 0pm OP SP LT WRIST PAIN April 27, 2025 1:47 pm M77.9 May 11, 2025 2:[address] RESULTS [facility] May 16, 2025 11:38 am Wrist Pain May 18, 2025 3:30p m staph infection on nose May 28, 2025 2:25pm Wrist Pain May 31, 2025 10:0 3am 10-14 days post op June 12, 2025 10:0 1am 4 WKS July 11, 2025 10 :55am Reason for Visit Admit Date Bone spur April 27, 2025 1:47 pm De Quervain's tenosynovitis, left April 162024 1:47pm Bone spur May 16, 2025 11:38 am De Quervain's tenosynovitis, left May 162024 11:38am Nostril infection May 28, 2025 2:25 pm Bone spur June 12, 2025 10:0 1am De Quervain's tenosynovitis, left May 172024 10:01am Other specified postprocedural states Ju ly 2024 10:01am Bone spur July 11, 2025 10 :55am De Quervain's tenosynovitis, left July 11, 2025 10:55am Osteoarthritis of carpometacarpal joint of left thumb July 11, 2025 10:55am Other specified postprocedural states Au zac 2024 10:55am Additional Source Comments Reason for Visit (unrecogniz ed section and content) Status Reason Specialty Diagnoses / Procedures Referre d By Contact Referred To Contact [facility] Specialty Diagnoses / Procedures Referred By Contkyrie t Referred To Contact Physical Therapy Diagnoses Pain of left heel Plantar fasciitis of left foot Procedures ME OFFICE/OUTPATIENT NEW HIGH MDM 60 MINUTES Reyes Dumont, DPSandi [address] [place] [address] Clover Andrew, PT [address] [place] [address] Referral ID Status Reason Start Date Expiration Date Visits Requested Visits Authorized [id number] Authorized Specialty Services Required 08/01/2024 01/28/2025 20 30 Reason Onset Date Comments MRI results 07/28/2024 Referral ID Status Reason Start Date Expiration Date Visits Requested Visits Authorized [id number] Authorized Specialty Services Required 08/01/2024 01/28/2025 20 20 Referral ID Status Reason Start Date Expiration Date Visits Requested Visits Authorized [id number] Authorized Specialty Services Required 08/01/2024 01/28/2025 10 10 Reason Comments Gynecologic Exam Pt states in the pas t was on medication for her bones. Pt states been off medication for a couple of years. Pt states has not had DEXA done in a little while. (DEXA order sent to [place]). Denies bowel/bladder/breast concerns. Denies vaginal bleeding/spotting. INFORMATION SOURCE (unrecogn ized section and content) DATE CREATED AUTHOR 12/17/2020 [facility] DATE CREATED AUTHOR AUTHOR'S ORGANIZ ATION 11/15/2022 [facility] DATE CREATED AUTHOR AUTHOR'S ORGANIZ ATION 04/02/2025 [facility] EPIC DATE CREATED AUTHOR AUTHOR'S ORGANIZ ATION 06/13/2025 [facility] Group Care Teams (unrecognized sec tion and content) Team Status: Active Member Role Status Dates Cornelius De La Torre MD Primary Care Provider Active Team Status: Inactive Member Role Status Dates Cornelius De La Torre MD Primary Care Provider Active Start: April 27, 2025 End: April 27, 2025 Yo Timmons DO Attending Provider Active St art: April 27, 2025 End: April 27, 2025 Team Status: Inactive Member Role Status Dates Cornelius De La Torre MD Primary Care Provider Active Start: May 11, 2025 End: May 11, 2025 Yo Timmons DO Attending Provider Active St art: May 11, 2025 End: May 11, 2025 Team Status: Inactive Member Role Status Dates Cornelius De La Torre MD Primary Care Provider Active Start: May 16, 2025 End: May 16, 2025 Yo Timmons DO Attending Provider Active St art: May 16, 2025 End: May 16, 2025 Team Status: Inactive Member Role Status Dates Cornelius De La Torre MD Primary Care Provider Active Start: May 18, 2025 End: May 18, 2025 Yo Timmons DO Attending Provider Active St art: May 18, 2025 End: May 18, 2025 Team Status: Inactive Member Role Status Dates Cornelius De La Torre MD Primary Care Provider Active Start: May 28, 2025 End: May 28, 2025 Roxann Blake APRN Attending Provider Active Start: May 28, 2025 End: May 28, 2025 Team Status: Active Member Role Status Dates Cornelius De La Torre MD Primary Care Provider Active Start: May 31, 2025 Yo Timmons DO Attending Provider Active St art: May 31, 2025 Yo Timmons DO Other Provider Active Start: May 31, 2025 Team Status: Inactive Member Role Status Dates Cornelius De La Torre MD Primary Care Provider Active Start: June 12, 2025 End: June 12, 2025 Yo Timmons DO Attending Provider Active St art: June 12, 2025 End: June 12, 2025 Team Status: Inactive Member Role Status Dates Cornelius De La Torre MD Primary Care Provider Active Start: July 11, 2025 End: July 11, 2025 Yo Timmons DO Attending Provider Active St art: July 11, 2025 End: July 11, 2025 Team Status: Active Member Role Status Dates Cornelius De La Torre MD Primary Care Provider Active Team Status: Active Member Role Status Dates Cornelius De La Torre MD Primary Care Provider Active Start: March 30, 2025 Brodie Pollack MD Attending Provider Active St art: March 30, 2025 Team Status: Inactive Member Role Status Dates Cornelius De La Torre MD Primary Care Provider Active Start: April 27, 2025 End: April 27, 2025 Yo Timmons DO Attending Provider Active St art: April 27, 2025 End: April 27, 2025 Team Status: Inactive Member Role Status Dates Cornelius De La Torre MD Primary Care Provider Active Start: May 11, 2025 End: May 11, 2025 Yo Timmons DO Attending Provider Active St art: May 11, 2025 End: May 11, 2025 Front End Drupal Developer Relationship Specialty Start Date End Date Cornelius De La Torre MD [address] [facility] [place] [id number] PCP - General Family Medicine 11/20/23 Team Status: Inactive Member Role Status Dates Cornelius De La Torre MD Primary Care Provide r, Attending Provider Active Start: July 14, 2024 End: July 14, 2024 Front End Drupal Developer Relationship Specialty Start Date End Date Cornelius De La Torre MD [address] [place] [address] PCP - General Family Medicine 11/20/23 Front End Drupal Developer Relationship Specialty Start Date End Date Cornelius De La Torre MD [address] [place] [address] PCP - General Family Medicine 11/20/23 Front End Drupal Developer Relationship Specialty Start Date End Date Cornelius De La Torre MD [address] [facility] [place] [address] PCP - General Family Medicine 11/20/23 Front End Drupal Developer Relationship Specialty Start Date End Date Cornelius De La Torre MD [address] [facility] [place] [address] PCP - General Family Medicine 11/20/23 Front End Drupal Developer Relationship Specialty Start Date End Date Cornelius De La Torre MD [address] [facility] [place] [address] PCP - General Family Medicine 11/20/23 Front End Drupal Developer Relationship Specialty Start Date End Date Cornelius De La Torre MD [address] [facility] [place] [address] PCP - General Family Medicine 11/20/23 Front End Drupal Developer Relationship Specialty Start Date End Date Cornelius De La Torre MD [address] [facility] [place] [address] PCP - General Family Medicine 11/20/23 Team [...] September 05, 2024 End: September 05, 2024 Front End Drupal Developer Relationship Specialty Start Date End Date Cornelius De La Torre MD [address] [facility] [place] [phone] PCP - General Family Medicine 11/20/23 Front End Drupal Developer Relationship Specialty Start Date End Date Cornelius De La Torre MD [address] [facility] [place] [address] PCP - General Family Medicine 11/20/23 Front End Drupal Developer Relationship Specialty Start Date End Date Cornelius De La Torre MD [address] [facility] [place] [phone] PCP - General Family Medicine 11/20/23 Team Status: Inactive Member Role Status Dates Cornelius De La Torre MD Primary Care Provide r, Attending Provider Active Start: September 27, 2024 End: September 27, 2024 Front End Drupal Developer Relationship Specialty Start Date End Date Cornelius De La Torre MD [address] [facility] [place] [phone] PCP - General Family Medicine 11/20/23 Front End Drupal Developer Relationship Specialty Start Date End Date Cornelius De La Torre MD [address] [facility] [place] [address] PCP - General Family Medicine 11/20/23 Front End Drupal Developer Relationship Specialty Start Date End Date Cornelius De La Torre MD [address] [facility] [place] [address] PCP - General Family Medicine 11/20/23 Front End Drupal Developer Relationship Specialty Start Date End Date Cornelius De La Torre MD [address] [facility] [place] [address] PCP - General Family Medicine 11/20/23 Team Status: Inactive Member Role Status Dates Cornelius De La Torre MD Primary Care Provider Active Start: May 16, 2025 End: May 16, 2025 Yo Timmons DO Attending Provider Active St art: May 16, 2025 End: May 16, 2025 Team Status: Inactive Member Role Status Dates Cornelius De La Torre MD Primary Care Provider Active Start: May 18, 2025 End: May 18, 2025 Yo Timmons DO Attending Provider Active St art: May 18, 2025 End: May 18, 2025 Team Status: Inactive Member Role Status Dates Cornelius De La Torre MD Primary Care Provider Active Start: May 28, 2025 End: May 28, 2025 Roxann Blake APRN Attending Provider Active Start: May 28, 2025 End: May 28, 2025 Team Status: Inactive Member Role Status Dates Cornelius De La Torre MD Primary Care Provider Active Start: May 31, 2025 End: May 31, 2025 Yo Timmons DO Attending Provider Active St art: May 31, 2025 End: May 31, 2025 Team Status: Active Member Role Status Dates Cornelius De La Torre MD Primary Care Provider Active Start: May 31, 2025 Yo Timmons DO Attending Provider Active St art: May 31, 2025 Yo Timmons , Other Provider Active Start: May 31, 2025 Team Status: Inactive Member Role Status Dates Cornelius De La Torre MD Primary Care Provider Active Start: June 12, 2025 End: June 12, 2025 Yo Timmons DO Attending Provider Active St art: June 12, 2025 End: June 12, 2025 Team Status: Inactive Member Role Status Dates Cornelius De La Torre MD Primary Care Provider Active Start: July 11, 2025 End: July 11, 2025 Yo Timmons DO Attending Provider Active St art: July 11, 2025 End: July 11, 2025 Goals (unrecognized section and content) Goals may [...] BE BASED ON THE PRIMARY CLINICAL RECORDS. [facility] [employer] [facility]. provides no warranty or guarantee of the accuracy or completeness of information in this document.
== END 2025-07-19 14:39 | disposition home or self-care (01) ==
LOC: LAB 14:40
PROVIDERS: PCP Family Medicine; Visit Provider Internal Medicine Rheumatology
DX: M19.90 Unspecified osteoarthritis, unspecified site (principal); Z51.81 Encounter for therapeutic drug level monitoring
CPT/HCPCS: 36415; 80053; 85025

== ENCOUNTER 2025-08-18 13:16 | Outpatient (OUT) | payer MEDICARE, OTHER, SELFPAY ==
--- OUTSIDE RECORDS SUMMARY | 2025-08-16 06:44 | XMS_ITS | Continuity of Care Document ---
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 Name Role Phone Aurea Scott MD Primary Care Provider Yo Timmons DO Attending Provider Roxann Blake APRN Attending Provider Yo Timmons DO Other Provider Hima Renae MD Attending Provider Aurea Scott MD Attending Provider Care Teams Patient Care Team Team Status: Active Member Role Status Dates Aurea Scott MD Primary Care Provider Active Visit Care Team Team Status: Inactive Member Role Status Cedrick Scott MD Primary Care Provider Active Start: May 18, 2025 End: May 18, 2025 Yo Timmons DO Attending Provider Active St art: May 18, 2025 End: May 18, 2025 Visit Care Team Team Status: Inactive Member Role Status Cedrick Scott MD Primary Care Provider Active Start: May 28, 2025 End: May 28, 2025 Roxann Blake APRN Attending Provider Active Start: May 28, 2025 End: May 28, 2025 Visit Care Team Team Status: Active Member Role Status Cedrick Scott MD Primary Care Provider Active Start: May 31, 2025 Yo Timmons DO Attending Provider Active St art: May 31, 2025 Yo Timmons DO Other Provider Active Start: May 31, 2025 Visit Care Team Team Status: Inactive Member Role Status Cedrick Scott , MD Primary Care Provider Active Start: June 12, 2025 End: June 12, 2025 Yo Timmons DO Attending Provider Active St art: June 12, 2025 End: June 12, 2025 Visit Care Team Team Status: Inactive Member Role Status Dates Aurea Scott MD Primary Care Provider Active Start: July 11, 2025 End: July 11, 2025 Yo Timmons DO Attending Provider Active St art: July 11, 2025 End: July 11, 2025 Patient Care Team Team Status: Active Member Role Status Dates Aurea Scott MD Primary Care Provider Active Start: July 19, 2025 Hima Renae MD Attending Provider Active St art: July 19, 2025 Patient Care Team Team Status: Inactive Member Role Status Dates Aurea Scott MD Primary Care Provider Active Start: August 16, 2025 End: August 16, 2025 Aurea Scott MD Attending Provider Active St art: August 16, 2025 End: August 16, 2025 Chief Complaint and Reason for Visit Chief Complaint Admit Date Wrist Pain May 18, 2025 3:30p m staph infection on nose May 28, 2025 2:25pm Wrist Pain May 31, 2025 10:0 3am 10-14 days post op June 12, 2025 10:0 1am 4 WKS July 11, 2025 10 :55am Wellness August 16, 2025 9: 58am Reason for Visit Admit Date Nostril infection May 28, 2025 2:25 pm Bone spur June 12, 2025 10:0 1am De Quervain's tenosynovitis, left May 172024 10:01am Other specified postprocedural states Ju ly 2024 10:01am Bone spur July 11, 2025 10 :55am De Quervain's tenosynovitis, left July 11, 2025 10:55am Osteoarthritis of carpometacarpal joint of left thumb July 11, 2025 10:55am Other specified postprocedural states Au zac 2024 10:55am Blood glucose elevated August 16, 2025 9:58am Dyslipidemia August 16, 2025 9: 58am Essential (primary) hypertension August 16, 2025 9:58am Skin yeast infection August 16, 2025 9 :58am Weight gain, abnormal August 16, 2025 9:58am Allergies, Adverse Reactions, Alerts Allergen Type Severity Reaction Last Updated Verified Status cephalexin Allergy Unknown Hives August 16, 2025 10:00am Yes Active clopidogrel Allergy Unknown Hives August 16, 2025 10:00am Yes Active codeine Allergy Unknown Hives, heart be at fast, hives August 16, 2025 10:00am Yes Active iodine Allergy Unknown Anaphylaxis, hives, hives August 16, 2025 10:00am Yes Active metronidazole Allergy Unknown Hives August 10:00am Yes Active nabumetone Allergy Unknown Unknown Reaction August 16, 2025 10:00am Yes Active naproxen Allergy Unknown Rash August 16, 2025 10:00am Yes Active Penicillins Allergy Unknown Hives August 16, 2025 10:00am Yes Active shellfish derived Allergy Unknown Anaphylaxis Octobe r 2024 10:00am Yes Active Sulfa (Sulfonamide Antibiotics) Allergy Unknown Hives August 16, 2025 10:00am Yes Active Social History Smoking Status Status Start Date End Date Date of Observa tion Ex-smoker (finding) May 10:58am Observation Status Observation Response Date of Response Legal Sex Female (finding) Sex Assigned At Female 1955 Family History Relationship Condition Age at Onset Recorded Date/T neptali father Heart disease Unknown Unknown Hypertension Unknown Malignant neoplasm of kidney Unknown mother Heart disease Unknown Unknown Hypertension Unknown Problems Active Problems Medical Problem Onset Date Status Medicare annual wellness visit, subsequent Unkno wn Active De Quervain's tenosynovitis, left Unknown Active Other specified postprocedural states Unknown Active Skin yeast infection Unknown Active Dyslipidemia Unknown Active Weight gain, abnormal Unknown Active Elevated calcitonin level Unknown Active Blood glucose elevated Unknown Active Osteoarthritis Unknown Active Essential (primary) hypertension Unknown Active Bone spur Unknown Active Left wrist pain Unknown Active Osteoarthritis of carpometacarpal joint of left thumb Unknown Active Influenza Unknown Active Medications Medication Status Dose Units Route Directions Qty Days St art Date Stop Date End Date Instructions Adherence Benzonatate 200 mg capsule Discont inued 200 MG PO 2-3 TIMES PER DAY as needed for cough 20 2023 1:00am March 09, 2024 9:18a m Losartan 50 mg tablet Discont inued 0 .ROUTE .COMPLEX 90 February 16, 2024 8:47am May 16, 2024 8:35a m TAKE 1 TABLET BY MOUTH EVERY DAY Losartan 50 mg tablet Discont inued 0 .ROUTE .COMPLEX May 16, 2024 8:35am Septe mber 2023 1:11p m TAKE 1 TABLET BY MOUTH EVERY DAY Pantoprazol e 40 mg tablet,joanna yed release (DR/EC) Discont inued 40 MG PO Daily July 07, 2024 2:34pm 2023 1:08p m Fluconazole 100 mg tablet Discont inued 100 MG PO Daily July 07, 2024 12:00a m Novem monisha 2023 1:08p m Losartan 50 mg tablet Discont inued 0 .ROUTE .COMPLEX 2023 1:11pm January 31, 2025 11:51 am TAKE 1 TABLET BY MOUTH EVERY DAY Doxycycline Hyclate 100 mg tablet Discont inued 100 MG PO Twice daily er 2023 1:00am May 16, 2025 11:54 am Potassium Chloride 20 mEq tablet,ER particles/c rystals Discont inued 20 MEQ PO Twice daily 60 30 2024 4:00pm Febru juan pablo 2024 2:13p m Potassium Chloride 20 mEq tablet,ER particles/c rystals Discont inued 20 MEQ PO Twice daily 60 30 2024 2:13pm May 15, 2025 12:17 pm Losartan 50 mg tablet Discont inued 0 .ROUTE .COMPLEX January 31, 2025 11:51a m May 18, 2025 4:06p m TAKE 1 TABLET BY MOUTH EVERY DAY Potassium Chloride 20 mEq tablet,ER particles/c rystals Discont inued 20 MEQ PO Twice daily 60 30 May 15, 2025 12:16p m May 18, 2025 4:04p m Tramadol 50 mg tablet Discont inued 50 MG PO Every 6 hours as needed for pain 10 May 30, 2025 12:00a m June 12, 2025 10:29 am DO NOT RECONCILE UNTIL DOS 05/31/25 TO BE USED POST OP Fluconazole 100 mg tablet Discont inued 100 MG PO Daily June 08, 2025 9:58am Octob er 2024 10:06 am Losartan 50 mg tablet Active 0 .ROUTE .COMPLEX 90 Septem monisha 2024 8:28am TAKE 1 TABLET BY MOUTH EVERY DAY Complies with drug therapy Losartan-Hy drochloroth iazide 50-12.5 mg tablet Discont inued 1 TAB PO Daily at bedtime March 15, 2018 12:00a m February 16, 2024 8:22a m Fluvoxamine 100 mg tablet Discont inued 100 MG PO Daily at bedtime March 15, 2018 12:00a m March 09, 2024 9:18a m Clomipramin e 25 mg capsule Discont inued 25 MG PO Daily at bedtime March 15, 2018 12:00a m May 18, 2025 4:04p m Hydrocodone -Acetaminop hen (Walsh) 5-325 mg tablet Discont inued 2 TAB PO Q6H as needed for pain 45 March 22, 2018 March 09, 2024 9:18a m 1-2 tabs every 6 hours as needed for pain Atorvastati n 80 mg tablet Active 80 MG PO Every morning May 18, 2025 12:00a m Complies with drug therapy Fluoxetine 10 mg capsule Active 10 MG PO Every morning May 18, 2025 12:00a m Complies with drug therapy Benztropine 0.5 mg tablet Discont inued 0.5 MG PO Every morning May 18, 2025 12:00a m Octob er 2024 10:06 am Metoprolol Tartrate 25 mg tablet Active 25 MG PO Twice daily May 18, 2025 12:00a m Complies with drug therapy Potassium Chloride 20 mEq tablet,ER particles/c rystals Active 20 MEQ PO Twice daily May 18, 2025 12:00a m Complies with drug therapy Estradiol (Yuvafem) 10 mcg tablet Discont inued 10 MCG VAGINA L .twice per week May 18, 2025 12:00a m Octob er 2024 10:06 am Hydroxychlo roquine 200 mg tablet Active 200 MG PO Twice daily May 18, 2025 12:00a m Complies with drug therapy Losartan 50 mg tablet Discont inued 50 MG PO Every morning May 18, 2025 12:00a m Septe mber 2024 8:28a m TAKE 1 TABLET BY MOUTH EVERY DAY Pantoprazol e 40 mg tablet,joanna yed release (DR/EC) Active 40 MG PO Every morning May 18, 2025 12:00a m Complies with drug therapy Aspirin 81 mg capsule Active 81 MG PO Every morning May 18, 2025 12:00a m Complies with drug therapy Mupirocin 2 % ointment Discont inued 1 APPLIC TOPICA L Twice daily 15 Novemb er 2023 1:08pm May 18, 2025 4:04p m Pantoprazol e 40 mg tablet,joanna yed release (DR/EC) Discont inued 40 MG PO Daily 90 Novemb er 2023 1:08pm May 18, 2025 4:06p m Fluconazole 100 mg tablet Discont inued 100 MG PO Daily 7 Novemb er 2023 1:08pm May 18, 2025 4:04p m Losartan 50 mg tablet Discont inued 50 MG PO Daily February 16, 2024 12:00a m February 16, 2024 8:47a m Clonazepam 0.5 mg tablet Active 0.5 MG PO Daily at bedtime as needed for anxiety March 09, 2024 12:00a m Complies with drug therapy Potassium Chloride 20 mEq tablet,ER particles/c rystals Discont inued 20 MEQ PO Twice daily March 09, 2024 12:00a m Janua ry 2024 4:00p m Mupirocin 2 % ointment Discont inued 1 APPLIC TOPICA L Twice daily March 09, 2024 12:00a m Augus t 2023 2:02p m Pantoprazol e 40 mg tablet,joanna yed release (DR/EC) Discont inued 40 MG PO Daily March 09, 2024 12:00a m Augus t 2023 2:34p m Oseltamivir (Tamiflu) 75 mg capsule Discont inued 75 MG PO Twice daily 10 5 March 09, 2024 12:00a m Augus t 2023 2:01p m Benzonatate 200 mg capsule Discont inued 200 MG PO Three times daily as needed for cough 30 10 March 09, 2024 12:00a m Augus t 2023 2:01p m Methylpredn isolone (Medrol (Theo)) 4 mg tablets,dos e pack Discont inued 0 PO per package directions 06 05March 09, 2024 12:00a m Augus t 2023 2:01p m PO PER PKG DIR Clindamycin Hcl 300 mg capsule Discont inued 300 MG PO Twice daily 14 May 28, 2025 12:00a m Augus t 2024 11:03 am Mupirocin 2 % ointment Discont inued 1 APPLIC TOPICA L Twice daily May 28, 2025 12:00a m Octob er 2024 10:06 am Immunizations Immunization Event Date Not Given Reason Dose Number 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 Number Vaccine Information Statement (VIS) Detail Administration Location COVID-19 mRNA, Comirnaty ([employer]) September 21, 2021 COVID-19 mRNA, Comirnaty ([employer]) January 14, 2021 [id number] COVID-19 mRNA, Comirnaty ([employer]) February 05, 2021 [id number] COVID-19 ([employer]) 12Y and older November 22, 2023 [id number] Fluzone TIV High-Dose 65YR+ September 05, 2024 [id number] [facility] influenza, unspecified formulation September 01, 2018 influenza, unspecified formulation September 15, 2019 influenza, unspecified formulation August 28, 2020 influenza, unspecified formulation August 29, 2021 influenza, unspecified formulation August 27, 2022 influenza, unspecified formulation September 07, 2023 Tetanus, Diphtheria adult, 5 Lf pres free abs August 24, 2013 Tetanus, Diphtheria adult, 5 Lf pres free abs August 13, 2016 Tetanus, Diphtheria adult, 5 Lf pres free abs August 31, 2017 Relevant Diagnostic Tests and/or Laboratory Data Laboratory Results Test Collection Date/Time Result Date/Time Result Interpretation Reference Range Result Comment Performing Site Anion Gap July 19, 2025 2:53pm July 19, 2025 2:53pm 14.1 Basophils # (Auto) July 19, 2025 2:53pm July 19, 2025 2:53pm 0.1 10 3/uL 0.0-0.1 Albumin/Globu johnny Ratio July 19, 2025 2:53pm July 19, 2025 2:53pm 1.0 Basophils (%) (Auto) July 19, 2025 2:53pm July 19, 2025 2:53pm 0.8 % 0.2-2.0 Albumin July 19, 2025 2:53pm July 19, 2025 2:53pm 3.8 g/dL 3.4-5.0 Eosinophils # (Auto) July 19, 2025 2:53pm July 19, 2025 2:53pm 0.2 10 3/uL 0.0-0.7 Alkaline Phosphatase July 19, 2025 2:53pm July 19, 2025 2:53pm 77 U/L 46-116 Eosinophils (%) (Auto) July 19, 2025 2:53pm July 19, 2025 2:53pm 1.7 % 0.9-7.0 Alanine Aminotransfer ase (ALT/SGPT) July 19, 2025 2:53pm July 19, 2025 2:53pm 28 U/L 14-59 Hematocrit July 19, 2025 2:53pm July 19, 2025 2:53pm 38.8 % 36.0-48.0 Aspartate Amino Transf (AST/SGOT) July 19, 2025 2:53pm July 19, 2025 2:53pm 24 U/L 15-37 Hemoglobin July 19, 2025 2:53pm July 19, 2025 2:53pm 12.9 g/dL 12.0-16.0 BUN/Creatinin e Ratio July 19, 2025 2:53pm July 19, 2025 2:53pm 13.7 Immature Granulocyte # (Auto) July 19, 2025 2:53pm July 19, 2025 2:53pm 0.02 10 3/uL 0.00-0.03 Blood Urea Nitrogen July 19, 2025 2:53pm July 19, 2025 2:53pm 14.0 mg/dL 7.0-18.0 Immature Granulocyte % (Auto) July 19, 2025 2:53pm July 19, 2025 2:53pm 0.2 % 0.0-0.5 Calcium Level July 19, 2025 2:53pm July 19, 2025 2:53pm 9.3 mg/dL 8.5-10.1 Lymphocytes # (Auto) July 19, 2025 2:53pm July 19, 2025 2:53pm 2.2 10 3/uL 1.2-3.8 Chloride Level July 19, 2025 2:53pm July 19, 2025 2:53pm 107 mmol/L 98-107 Lymphocytes (%) (Auto) July 19, 2025 2:53pm July 19, 2025 2:53pm 24.9 % 20.5-60.0 Carbon Dioxide Level July 19, 2025 2:53pm July 19, 2025 2:53pm 25.5 mmol/L 21.0-32.0 Mean Corpuscular Hemoglobin July 19, 2025 2:53pm July 19, 2025 2:53pm 30.2 pg 26.7-34.0 Creatinine July 19, 2025 2:53pm July 19, 2025 2:53pm 1.02 mg/dL 0.55-1.02 Mean Corpuscular Hemoglobin Concent July 19, 2025 2:53pm July 19, 2025 2:53pm 33.2 g/dL 29.9-35.2 Estimated GFR () July 19, 2025 2:53pm July 19, 2025 2:53pm >60 >=60 mL/min/1.7 3m 2 Mean Corpuscular Volume July 19, 2025 2:53pm July 19, 2025 2:53pm 90.9 fL 81.0-99.0 Estimated GFR (Non- July 19, 2025 2:53pm July 19, 2025 2:53pm 53 Below low normal >=60 mL/min/1.7 3m 2 Monocytes # (Auto) July 19, 2025 2:53pm July 19, 2025 2:53pm 0.7 10 3/uL 0.3-0.8 Globulin July 19, 2025 2:53pm July 19, 2025 2:53pm 3.7 g/dL Monocytes (%) (Auto) July 19, 2025 2:53pm July 19, 2025 2:53pm 7.9 % 1.7-12.0 Glucose Level July 19, 2025 2:53pm July 19, 2025 2:53pm 117 mg/dL Above high normal 74-106 Mean Platelet Volume July 19, 2025 2:53pm July 19, 2025 2:53pm 10.7 fL 9.5-13.5 Potassium Level July 19, 2025 2:53pm July 19, 2025 2:53pm 3.6 mmol/L 3.5-5.1 Neutrophils # (Auto) July 19, 2025 2:53pm July 19, 2025 2:53pm 5.7 10 3/uL 1.4-6.5 Sodium Level July 19, 2025 2:53pm July 19, 2025 2:53pm 143 mmol/L 136-145 Neutrophils (%) (Auto) July 19, 2025 2:53pm July 19, 2025 2:53pm 64.5 % 43.0-75.0 Total Bilirubin July 19, 2025 2:53pm July 19, 2025 2:53pm 0.5 mg/dL 0.2-1.0 Platelet Count July 19, 2025 2:53pm July 19, 2025 2:53pm 279 10 3/uL 150-450 Total Protein July 19, 2025 2:53pm July 19, 2025 2:53pm 7.5 g/dL 6.4-8.2 Red Blood Count July 19, 2025 2:53pm July 19, 2025 2:53pm 4.27 10 6/uL 4.20-5.40 Red Cell Distribution Width July 19, 2025 2:53pm July 19, 2025 2:53pm 13.7 % 11.0-15.0 Corrected White Blood Count July 19, 2025 2:53pm July 19, 2025 2:53pm 8.9 10 3/uL 4.0-11.0 Corrected White Blood Count May 18, 2025 4:00pm May 18, 2025 4:50pm 6.6 10*3/uL 3.8-11.6 [facility] [id number] [address] [facility] [address] Uncorrected WBC Count May 18, 2025 4:00pm May 18, 2025 4:50pm 6.6 10*3/uL 3.8-11.6 [facility] [id number] [address] [facility] [address] Red Blood Count May 18, 2025 4:00pm May 18, 2025 4:50pm 4.35 10*6/uL 3.60-5.00 [facility] [id number] [address] [facility] [address] Hemoglobin May 18, 2025 4:00pm May 18, 2025 4:50pm 13.1 g/dL 11.8-15.4 [facility] [id number] [address] [facility] [address] Hematocrit May 18, 2025 4:00pm May 18, 2025 4:50pm 39.2 % 34.0-46.4 [facility] [id number] [address] [facility] [address] Mean Corpuscular Volume May 18, 2025 4:00pm May 18, 2025 4:50pm 90.1 fL 80-100 [facility] [id number] [address] [facility] [address] Mean Corpuscular Hemoglobin May 18, 2025 4:00pm May 18, 2025 4:50pm 30.1 pg 24.7-34.3 [facility] [id number] [address] [facility] [address] Mean Corpuscular Hemoglobin Concent May 18, 2025 4:00pm May 18, 2025 4:50pm 33.4 g/dL 32.0-35.0 [facility] [id number] [address] [facility] [address] Red Cell Distribution Width May 18, 2025 4:00pm May 18, 2025 4:50pm 14.1 % 11.9-15.3 [facility] [id number] [address] [facility] [address] Platelet Count May 18, 2025 4:00pm May 18, 2025 4:50pm 256 10*3/uL 150-450 [facility] [id number] [address] [facility] [address] Mean Platelet Volume May 18, 2025 4:00pm May 18, 2025 4:50pm 8.4 fL 6.3-10.7 [facility] [id number] [address] [facility] [address] Neutrophils (%) (Auto) May 18, 2025 4:00pm May 18, 2025 4:50pm 53.1 % . [facility] [id number] [address] [facility] [address] Lymphocytes (%) (Auto) May 18, 2025 4:00pm May 18, 2025 4:50pm 33.0 % . [facility] [id number] [address] [facility] [address] Monocytes (%) (Auto) May 18, 2025 4:00pm May 18, 2025 4:50pm 10.5 % . [facility] [id number] [address] [facility] [address] Eosinophils (%) (Auto) May 18, 2025 4:00pm May 18, 2025 4:50pm 2.4 % . [facility] [id number] [address] [facility] [address] Basophils (%) (Auto) May 18, 2025 4:00pm May 18, 2025 4:50pm 1.0 % . [facility] [id number] [address] [facility] [address] Nucleated RBC Relative Count (auto) May 18, 2025 4:00pm May 18, 2025 4:50pm 0.0 /100{WB C} 0-0.5 [facility] [id number] [address] [facility] [address] Neutrophils # (Auto) May 18, 2025 4:00pm May 18, 2025 4:50pm 3.5 10*3/uL 1.8-7.7 [facility] [id number] [address] [facility] [address] Lymphocytes # (Auto) May 18, 2025 4:00pm May 18, 2025 4:50pm 2.2 10*3/uL 1.00-4.8 [facility] [id number] [address] [facility] [address] Monocytes # (Auto) May 18, 2025 4:00pm May 18, 2025 4:50pm 0.7 10*3/uL 0.0-0.8 [facility] [id number] [address] [facility] [address] Eosinophils # (Auto) May 18, 2025 4:00pm May 18, 2025 4:50pm 0.2 10*3/uL 0.0-0.45 [facility] [id number] [address] [facility] [address] Basophils # (Auto) May 18, 2025 4:00pm May 18, 2025 4:50pm 0.1 10*3/uL 0.0-0.2 [facility] [id number] [address] [place] [id number] Glucose Level May 18, 2025 4:00pm May 18, 2025 5:28pm 80 mg/dL 70-100 [facility] [id number] [address] [place] [id number] Blood Urea Nitrogen May 18, 2025 4:00pm May 18, 2025 5:28pm 17 mg/dL 7-25 [facility] [id number] [address] [facility] [address] Creatinine May 18, 2025 4:00pm May 18, 2025 5:28pm 1.04 mg/dL 0.60-1.20 [facility] [id number] [address] [facility] [address] Estimated GFR (CKD-EPI) May 18, 2025 4:00pm May 18, 2025 5:28pm 57.820 mL/Min [facility] [id number] [address] [place] [id number] Sodium Level May 18, 2025 4:00pm May 18, 2025 5:28pm 142 mmol/L 136-145 [facility] [id number] [address] [place] [id number] Potassium Level May 18, 2025 4:00pm May 18, 2025 5:28pm 4.3 mmol/L 3.5-5.1 [facility] [id number] [address] [place] [id number] Chloride Level May 18, 2025 4:00pm May 18, 2025 5:28pm 107 mmol/L 98-107 [facility] [id number] [address] [place], [place] [id number] Carbon Dioxide Level May 18, 2025 4:00pm May 18, 2025 5:28pm 29.3 mmol/L 21.0-31.0 [facility] [id number] [address] [place] [id number] Anion Gap May 18, 2025 4:00pm May 18, 2025 5:28pm 10.0 mEq/L 6.0-15.0 [facility] [id number] [address] [place] [id number] Calcium Level May 18, 2025 4:00pm May 18, 2025 5:28pm 9.7 mg/dL 8.6-10.3 [facility] [id number] [address] [place] [id number] Total Protein May 18, 2025 4:00pm May 18, 2025 5:28pm 7.1 g/dL 6.4-8.9 [facility] [id number] [address] [place] [address] Albumin May 18, 2025 4:00pm May 18, 2025 5:28pm 4.4 g/dL 3.5-5.7 [facility] [id number] [address] [facility] [address] Globulin May 18, 2025 4:00pm May 18, 2025 5:28pm 2.7 g/dL [facility] [id number] [address] [place] [address] Albumin/Globu johnny Ratio May 18, 2025 4:00pm May 18, 2025 5:28pm 1.6 [facility] [id number] [address] [place] [address] Total Bilirubin May 18, 2025 4:00pm May 18, 2025 5:28pm 0.7 mg/dL 0.3-1.0 [facility] [id number] [address] [place] [address] Aspartate Amino Transf (AST/SGOT) May 18, 2025 4:00pm May 18, 2025 5:28pm 21 U/L 13-39 [facility] [id number] [address] [place] [address] Alanine Aminotransfer ase (ALT/SGPT) May 18, 2025 4:00pm May 18, 2025 5:28pm 22 U/L 7-52 [facility] [id number] [address] [place] [address] Alkaline Phosphatase May 18, 2025 4:00pm May 18, 2025 5:28pm 72 U/L 34-104 [facility] [id number] [address] [place] [address] Pharmacy Creatinine Clearance (Chem May 18, 2025 4:00pm May 18, 2025 5:28pm N/A [facility] [id number] [address] [place] [address] Vital Signs Vital Reading Result Reference Range Collection Date/Time Height 62 [in_i] May 28, 2025 2:27pm Weight 78.98 kg May 28, 2025 2:27pm Body Temperature 98.2 [degF] 97.6-99.0 May 28, 2025 2:27pm Heart Rate 67 /min 60-100 May 28, 2025 2:27pm Respiratory rate 16 /min 12-May 28, 2025 2:27pm Oxygen saturation by Pulse oximetry 98 % 95-100 May 28, 2025 2:27 pm BP Systolic 146 mm[Hg] 100-140 May 28, 2025 2:27pm BP Diastolic 77 mm[Hg] 60-100 May 28, 2025 2:27pm BMI (Body Mass Index) 31.8 kg/m2 May 162024 2:27pm Height 62 [in_i] May 31, 2025 10:40am Weight 79.00 kg May 31, 2025 10:40am Body Temperature 97.5 [degF] 97.6-99.0 May 31, 2025 10:40am Heart Rate 58 /min 60-100 May 31, 2025 2:18pm Respiratory rate 16 /min -May 31, 2025 2:18pm Oxygen saturation by Pulse oximetry 96 % 95-100 May 31, 2025 2:18 pm BP Systolic 143 mm[Hg] 100-140 May 31, 2025 2:18pm BP Diastolic 79 mm[Hg] 60-100 May 31, 2025 2:18pm Inhaled oxygen flow rate 6 L/min May 1:33pm Height 64 [in_i] July 11 11:00am Weight 78.01 kg July 11 11:00am BMI (Body Mass Index) 29.5 kg/m2 July 11, 2025 11:00am Height 64 [in_i] August 16 10:00am Weight 79.83 kg August 16 10:00am Heart Rate 64 /min 60-100 August 16 10:00am Respiratory rate 12 /min -August 10:00am Oxygen saturation by Pulse oximetry 99 % 95-100 August 16, 2025 10 :00am BP Systolic 131 mm[Hg] 100-140 August 16 10:00am BP Diastolic 83 mm[Hg] 60-100 August 16 10:00am BMI (Body Mass Index) 30.2 kg/m2 Octobe r 1st, 2025 10:00am Advance Directives Advance Directive Response Recorded Date/ Time Advance Directives No March 11 018 12:45pm Insurance Providers Guarantor Sandi Ramos Address [address] [place] [address] Contact Info. Home Phone: Payer Policy Id Subscriber's Name Subscriber Id Effectiv e Date Ex[place] Date [facility] [place] [id number] [employer] [id number] Medicare [id number] Sandi Ramos [id number] Encounters Encounter Location(s) Arrival/Admit Date Discharge/Depart Date Provider(s) Departed Clinical -Pre-Surgical Testing May 18, 2025 3:30pm May 18, 2025 3:31pm Yo Timmons DO Departed Physician/Prov ider Office Visit -[facility] May 28, 2025 2:25pm May 28, 2025 2:55pm Roxann Blake APRN Non-patient / Non-visit -[facility] May 31, 2025 10:03am Yo Timmons DO Departed Physician/Prov ider Office Visit -[facility] June 12, 2025 10:01am June 12, 2025 10:43am Yo Timmons DO Departed Physician/Prov ider Office Visit -[facility] July 11, 2025 10:55am July 11, 2025 11:37am Yo Timmons DO Non-patient / Non-visit -[facility] July 19, 2025 2:53pm Hima Renae MD Departed Physician/Prov ider Office Visit -[facility] August 16, 2025 9:58am August 16, 2025 10:42am Aurea Scott MD Recent Diagnosis Onset Date Admit Date Nostril infection Unknown May 28 2:25pm Bone spur Unknown June 12, 2025 10:01am De Quervain's tenosynovitis, left Unknown June 12, 2025 10:01am Other specified postprocedural states Unknown June 12, 2025 10:01am Bone spur Unknown July 11 10:55am De Quervain's tenosynovitis, left Unknown July 11, 2025 10:55am Osteoarthritis of carpometac arpal joint of left thumb Unknown July 11, 2025 10:55am Other specified postprocedural states Unknown July 11, 2025 10:55am Blood glucose elevated Unknown August 162024 9:58am Dyslipidemia Unknown August 16 9:58am Essential (primary) hypertension Unknown August 16, 2025 9:58am Skin yeast infection Unknown August 9:58am Weight gain, abnormal Unknown August 9:58am Assessments Diagnosis Onset Date Resolution Status Admit Date Nostril infection noneactive May 282024 2:25pm Bone spur acute June 12 10:01am De Quervain's tenosynovitis, left acute June 12, 2025 10:01am Other specified postprocedur al states acute June 12, 2025 10:01am Bone spur acute July 11, 025 10:55am De Quervain's tenosynovitis, left acute July 11 10:55am Osteoarthritis of carpometacarpal joint of left thumb acute July 11 10:55am Other specified postprocedur al states acute July 11 10:55am Blood glucose elevated acute Oc 2024 9:58am Dyslipidemia acute August 16, 2025 9:58am Essential (primary) hypertension acute August 16 9:58am Skin yeast infection acute 2024 9:58am Weight gain, abnormal acute Aug 9:58am Plan of Treatment Author Sera Maciel [facility] Authored June 12, 2025 10:3 9am She is slowly progressing fr om surgery. Sutures were removed. Incision continue to heal well. Incisional care was discussed. Advised she continue to wear the wrist brace for another 2-3 weeks. She can come out of the brace for hygiene and to work on light range of motion. We discussed continuing to progress activity as tolerated. She will follow up in 4 weeks. Author Roxann Blake [facility] Authored May 28, 2025 2:59 pm 69-year-old female presents today with c/o staph infection in her right nares. 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 clindamycin and mupirocin ointment. Patient states the ointment alone is never sufficient when she has an outbreak like this. PE of patient's right nares is consistent in appearance with MRSA. Prescriptions refilled, pt denies any further questions or concerns. Author Mae Mcclure [facility] Authored July 11, 2025 11 :40am Discussed with patient on he r symptoms, exam, and imaging. 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 We discussed the conservative treatment options which can be beneficial in relieving pain, including hand occupational therapy, wearing a brace, and non-steroidal anti-inflammatory medication. We discussed the use of occasional cortisone injections that can provide pain relief. We performed a 0.5/0.5 cc Marcaine/Kenalog cortisone injection into the left thumb CMC joint under sterile technique. The patient tolerated this well without complication. We discussed that the finger may feel numb and tingle for hours after this injection. Instructed patient to return to wearing thumb spica brace to help with any pain. Patient can follow up in 6 weeks or as needed. Note scribed by BHARAT Lockhart, reviewed and amended by myself Yo Timmons D.O. Future Tests Future scheduled test information is unavailable Pending Tests Test Name Ordered Date Scheduled Date Comprehensive Metabolic Panel August 16, 2025 10:34am Future Visits Future appointment information is unavailable Referrals to Other Providers Referral information is unavailable Future Procedures Procedure Name Ordered Date Scheduled Date Discharge Order May 17, 2025 8:41am May 31, 2025 1:27pm A1C with Estimated Average Glu August 16, 2025 10:35am Calcium August 16, 2025 10:34am Complete Blood Count Auto Diff August 16, 2025 10:34am Lipid Panel August 16, 2025 10:34am Parathyroid Hormone Intact August 16, 2025 10: 34am Thyroid Stim Hormone w/Rflx August 16, 2025 10 :38am Future Medications Future medication information is unavailable Patient Instructions Instruction Admit Date Know your Meds May 31, 2025 10:0 3am
--- OUTSIDE RECORDS SUMMARY | 2025-08-18 13:20 | XMS_ITS | Clinical Summary ---
Author Organization [facility] Address [address], [address] [place] [address] Care Team Providers Care Spinning Lathe Operator Hydraulic Name Role Phone Aurea Scott MD Primary Care Provider [phone] Allergies Active Allergy Reactions Criticality Noted Date [...] Treatment Not on file Insurance MEDICARE [employer] Care Teams Spinning Lathe Operator Hydraulic Relationship Specialty Start Date End Date Aurea Scott MD PCP - General Family Medicine 2/1/21
--- OUTSIDE RECORDS SUMMARY | 2025-08-18 13:20 | XMS_ITS | Patient Health Record ---
Author Organization [facility] [place] Address [address] [place] [address] Care Team Providers Care Shipyard Helper Name Role Phone Aurea Scott Primary Care Provider Julieta Ruvalcaba Unavailable [phone] Allergies Allergen (clinical drug ingredient) Drug/Non Drug Allergy documented on EMR Reaction Allergy Type Onset Date Status codeine Codeine (uncoded) Unknown Allergy Ac tive Iodine (uncoded) Unknown Allergy Act ken Substance with sulfonamide structure and antibacterial mechanism of action (substance) Sulfa (uncoded) Unknown Allergy Active metronidazole Flagyl Unknown Drug Allergy Act ken Reason For Referral No Information Medications Medication SIG (Take, Route, Frequency, Duration) Notes Start Date End Date Status Hydroxychloroquine Sulfate 2 00 MG as directed Orally Active Klor-Con M20 20 MEQ 1 tablet with food Orally BID Active clonazePAM 0.5 MG 1 tablet Orally TID Active FLUoxetine HCl 10 MG 1 capsule Orally On ce a day Active Pantoprazole Sodium 40 MG 1 tablet Orall y Once a day Active Metoprolol Tartrate 25 MG TAKE 1 TABLET BY MOUTH TWICE A DAY WITH FOOD FOR 90 DAYS Orally Twice a day; Duration: 90 days Active Losartan Potassium 50 MG 1 tablet Orally Once a day Active Atorvastatin Calcium 80 MG 1 tablet Oral ly Once a day; Duration: 90 days Active Social History Tobacco Use: Social History Observation Description Date Details (start date - stop date) Never Smoker NA - NA Tobacco Use/Smoking Question Answer Notes Patient is a nonsmoker Problems Problem Type SNOMED Code ICD Code Onset Dates Problem Status W/U Status Risk Notes Problem Mixed hyperlipidemia (933065346) Mixed hyperlipidemia (E78.2) Active confirmed Problem Bradycardia (40410784) Bradycardia, unspecified (R00.1) Active confirmed Secondary to medications Problem Coronary arteriosclerosis (disorder) (13643183) CAD in [place] artery (I25.10) Active confirmed Non-obructiv e; [facility] 12/17/2020 mild irregularities 10-20%, RCA mild irregularities 20-30%, Ramus mild irregularites 30-40% ostial. EF 60% Problem Cardiovascular stress test abnormal (516632095) Abnormal stress test (R94.39) Active confirmed Problem Family history of coronary artery disease (956242212) Family history of coronary artery disease (Z82.49) Active confirmed Problem Chest pain at rest (0555294) Chest pain at rest (R07.9) Active confirmed Problem Essential hypertension (37243940) Hypertension, unspecified type (I10) Active confirmed Vital Signs Heart Rate 64 /min 12/07/2024 Blood pressure diastolic 89 mm Hg 12/07/2024 Height 63 in 12/07/2024 Blood pressure systolic 144 mm Hg 12/07/2024 Weight 172 lbs 12/07/2024 BMI 30.47 kg/m2 12/07/2024 Procedures Procedure Date Ordered Date Performed Result Body Sit e CARDIO EKG - performed 12/07/2024 12/07/2024 N/A Encounters Encounter Location Date Provider Diagnosis Cardiology [facility] [address] [place] [address] 12/07/2024 Julieta Echavarria CAD in [place] artery I25.10 ; Chest pain at rest R07.9 ; Abnormal stress test R94.39 ; Hypertension, unspecified type I10 ; Family history of coronary artery disease Z82.49 ; Bradycardia, unspecified R00.1 and Mixed hyperlipidemia E78.2 Assessments Encounter Date Diagnosis (ICD Code) Assessment Notes Treatment Notes Treatment Clinical Notes Section Notes 12/07/2024 CAD in [place] artery (ICD-10 - I25.10) Non-obructive; [facility] 12/17/2020 mild irregularities 10-20%, RCA mild irregularities 20-30%, Ramus mild irregularites 30-40% ostial. EF 60% 12/07/2024 Chest pain at rest (ICD-10 - R07.9) 12/07/2024 Abnormal stress test (ICD-10 - R94.39) 12/07/2024 Hypertension, unspecified type (ICD-10 - I10) 12/07/2024 Family history of coronary artery disease (ICD-10 - Z82.49) 12/07/2024 Bradycardia, unspecified (ICD-10 - R00.1) Secondary to medications 12/07/2024 Mixed hyperlipidemia (ICD-10 - E78.2) 12/07/2024 Other Counseling was provided regarding healthy eating habits. Continue low cholesterol diet, low salt diet, and exercise program. Plan Of Treatment Pending Test Test Name Order Date CK (CPK) 12/07/2024 LIPID PANEL (CHOL/TRIG/HDL/LDL) 12/07/19 25 BMP (BASIC MET PANEL - W/GFR) 01/10/2021 LIVER (HEPATIC) PANEL 12/07/2024 Future Test Test Name Order Date CARD CHEMS (ALT, AST, CK, GT, LDH) 04/25 LIPID PANEL (CHOL/TRIG/HDL/LDL) 04/25/20 21 Insurance Providers Payer Name Payer Address Payer Phone Subscriber Number Group Number Insured Name Patient Relationship to Insured Coverage Start Date Coverage End Date MEDICARE [place] [address] [address] [place] [phone] [id number] Trinity Escalona Self - patient is the insured 9 O MEDICARE SUPPLEMEN T [address] [place] [phone] [id number] Trinity Escalona Self - patient is the insured 9 Medical (General) History Medical History History ICD Code Hypertension History of coronary artery disease Surgical History Surgery Date(Month/Year) Gallbladder 2004 Hospitalization History Reason Date(Month/Year) see above
--- OUTSIDE RECORDS SUMMARY | 2025-08-18 13:20 | XMS_ITS | Clinical Summary ---
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
--- OUTSIDE RECORDS SUMMARY | 2025-08-18 13:20 | XMS_ITS | Clinical Summary ---
Author Organization [facility] Address [address] [place] [address] Care Team Providers Care Science Interpreter Name Role Phone Aurea Scott MD Primary Care Provider [phone] Allergies Active Allergy Reactions Criticality Noted Date Comments Cephalexin 11/20/2023 Other Reaction(s): Unknown Clopidogrel Hives High 02/19/2010 Other Reaction(s): Unknown Codeine Swelling High 02/19/2010 Tachycardia Iodine Hives High 02/19/2010 Other Reaction(s): Unknown Metronidazole 12/14/2020 Other Reaction(s): Unknown Nabumetone Hives 11/20/2023 Other Reaction(s): Unknown Naproxen Hives 11/20/2023 Other Reaction(s): Unknown Penicillin G 11/20/2023 Other Reaction(s): Unknown Shellfish Protein-Containing Drug Products Anaphylaxis High 11/20/2023 Other Reaction(s): Unknown Sulfa Antibiotics Hives High [...] 01/03/2026 1:30 PM EST Office Visit [facility] [address] [place] [id number] Delores Callahaneen Zack [address] [place] [address] Health Maintenance Due Date Last Done Comments [...] Mammogram ELECTRONICALLY SIGNED BY: Moustapha Quezada M.D. us Ernestina Callahan DO IMG BI PROCEDURES Final Res ult from Last 3 Months or Most Recently Relevant to Health Maintenance [place] [address] [employer]ARE [employer] Care Teams Science Interpreter Relationship Specialty Start Date End Date Aurea Scott MD PCP - General Family Medicine 11/20/23
--- OUTSIDE RECORDS SUMMARY | 2025-08-18 13:27 | XMS_ITS | CCD ---
Author Organization [facility] Care Team Providers Care Major Gifts Officer Name Role Phone Cornelius De La Torre [...] De La Torre MD Primary Care Provider Brodie Pollack MD Attending Provider [phone] Yo Timmons DO Attending Provider Roxann Blake APRN Attending Provider [phone] Yo Timmons DO Other Provider Yo Timmons Attending Unavailable Cornelius De La Torre Primary Care Unavailable Hunter Timmonsin A Admitting Unavailable Yo Timmons Attending Unavailable Cornelius De La Torre Primary Care Unavailable Shanelle Yo Emmie Admitting Unavailable Yo Timmons Attending Unavailable Cornelius De La Torre Primary Care Unavailable Shanelle Yo A Admitting Unavailable Shanelle Yo A Admitting Unavailable Cornelius De La Torre Primary Care Unavailable Yo Timmons Attending Unavailable Cornelius De La Torre MD Primary Care Provider Cornelius De La Torre MD Primary Care Provider [phone] Yo Timmons DO Attending Provider [phone] Brodie Pollack MD Attending Provider [phone] Cornelius De La Torre MD Attending Provider [phone] Allergies Allergy Classification Reported Allergen(s) Allergy Type Date of Onset Reaction(s) Facility (20 sources) Codeine Drug Allergy 02-20-20 10 [place], [place] (20 sources) Iodine Drug Allergy 02-20-20 10 [place], [place] (20 sources) metroNIDAZOLE Drug Allergy 12-14-19 21 [place] (1 source) Sulfonamides (Antibiotic) Propensity to adverse reactions to drug 12-14-19 [place] (9 sources) Codeine Drug Allergy [facility] [employer] Other (9 sources) Sulfacetamide / Sulfur Drug Allergy [facility] [employer] Other (13 sources) Cephalexin Drug Allergy 07-14-20 24 Unknown Reaction, Hives [facility] (1 source) clopidogrel Drug Allergy [facility] (1 source) Codeine Drug Allergy 09-27-20 20 [facility] (1 source) Iodine Drug Allergy 09-27-20 20 [facility] (1 source) metroNIDAZOLE Drug Allergy 09-27-20 20 [facility] (1 source) nabumetone Drug Allergy [facility] (1 source) Naproxen Drug Allergy [facility] (1 source) pantoprazole Drug Allergy 09-27-20 20 [facility] (1 source) Penicillin Drug Allergy [facility] (1 source) Shellfish Drug allergy (disorder) [facility] (1 source) Sulfonamides (Antibiotic) Drug allergy (disorder) 09-27-20 20 [facility] (20 sources) Cephalexin Drug Allergy 11-20-19 24 Unknown [facility] (20 sources) clopidogrel Drug Allergy 02-20-20 10 [facility] [employer] Other (20 sources) nabumetone Drug Allergy 09-19-20 13 Unknown, Unknown Reaction [facility] (20 sources) Naproxen Drug Allergy 11-20-19 24 [facility] [employer] Other (6 sources) Shellfish Drug allergy Unknown [employer] Other (20 sources) Substance with sulfonamide structure and antibacterial mechanism of action (substance) Drug allergy 02-20-20 10 [facility] [employer] Other (6 sources) Substance with penicillin structure and antibacterial mechanism of action (substance) Drug allergy Unknown [employer] Other (20 sources) nabumetone Drug Allergy 11-20-19 24 [facility] (20 sources) Penicillin G Drug Allergy 11-20-19 24 [facility] (20 sources) Sulfamethoxazole / Trimethoprim Drug Allergy 11-20-19 24 [facility] (20 sources) Shellfish-Derived Products Drug Allergy 11-20-19 24 Anaphylaxis [facility] (13 sources) Penicillins; Translations: [Penicillins] Allergy to substance 07-14-20 Unknown Reaction, [facility] (13 sources) Shellfish; Translations: [shellfish derived] Allergy to substance 07-14-20 Unknown Reaction, Anaphylaxis [facility] (13 sources) Sulfonamides (Antibiotic); Translations: [Sulfa (Sulfonamide Antibiotics)] Allergy to substance 07-14-20 [facility] (1 source) Cephalexin Drug Allergy 05-31-20 25 [facility] (1 source) clopidogrel Drug Allergy 05-31-20 25 [facility] (1 source) Codeine Drug Allergy 05-31-20 25 [facility] (1 source) Iodine Drug Allergy 05-31-20 [facility] (1 source) metroNIDAZOLE Drug Allergy 05-31-20 [facility] (1 source) nabumetone Drug Allergy 05-31-20 [facility] (1 source) Naproxen Drug Allergy 05-31-20 [facility] Medications Current Medications Medication Drug Class(es) Dates Sig (Normalized) Sig (Original) Aspir-81 (3 sources) Aspir-81 Active aspirin 81 mg oral tablet (8 sources) Platelet Aggregation Inhibitor, Nonsteroidal Anti-inflammatory Drug [...] mouth in the morning. Active Lipitor Active ciprofloxacin 3 mg/ml ophthalmic solution (1 [...] 9 max 30 mL 08/01/2024 12/14/2024 Discontinued estrogens, conjugated (alf) 0.625 mg/ml vaginal cream (20 sources) Estrogen End: 12-14-2024 Estrogens Conjugated (Premarin) 0.625 MG/GM cream as directed Vaginal 12/14/2024 Discontinued Estrogens Conjug ated (Premarin) 0.625 MG/GM cream as directed Vaginal 0 Active FLUoxetine 10 mg oral capsule (20 [...] Active hydroxychloroquine sulfate 200 mg oral tablet (6 sources) Antimalarial, Antirheumatic Agent Start: 2024 take 1 tablet by mouth twice daily Hydroxychloroquine 200 mg tablet Active 200 MG PO Twice daily May 18, 2025 12:00am Complies with drug therapy losartan potassium 50 mg oral tablet (20 sources) Angiotensin 2 Receptor Quan Start: 2024 take 1 tablet by mouth once daily Losartan 50 mg tablet Active 0 .ROUTE .COMPLEX August 01, 2025 8:28am TAKE 1 TABLET BY MOUTH EVERY DAY Complies with drug therapy Start: 05-18-2025 End: 08-01-2025 take 1 tablet by mouth once daily in the morning Losartan 50 mg tablet Discontinued 50 MG PO Every morning May 18, 2025 12:00am August 01, 2025 8:28am TAKE 1 TABLET BY MOUTH EVERY DAY Start: 08-08-2024 take 1 tablet by miguelito [...] DAY WITH FOOD FOR 90 DAYS Active predniSONE 10 mg oral tablet (1 [...] / HYDROcodone bitartrate 5 mg oral tablet (12 sources) Opioid Agonist Start: 03-22-2018 End: 03-09-2024 take 1-2 tablets by mouth every six hours as needed for pain Hydrocodone-Acetam inophen ([place]) 5-325 mg tablet Discontinued 2 TAB PO [...] 29, 2023 1:00am March 09, 2024 9:18am benztropine mesylate 0.5 mg oral tablet (20 sources) Anticholinergic, Antihistamine Start: 05-18-2025 End: 08-16-2025 take 1 tablet by mouth once daily in the morning Benztropine 0.5 mg tablet Discontinued 0.5 MG PO Every morning May 18, 2025 12:00am August 16, 2025 10:06am Start: 11-28-2022 take 1 tablet by miguelito th at bedtime benztropine (Cogentin) 0.5 MG tablet Take 0.5 mg by mouth at bedtime 11/28/2022 Active clindamycin 300 mg oral capsule (10 sources) Lincosamide Antibacterial Start: 05-28-2025 End: 07-11-2025 [...] Active doxycycline hyclate 100 mg oral tablet (9 sources) Tetracycline-class Drug Start: 09-30-2024 End: 05-16-2025 take 1 tablet by mouth twice daily Doxycycline Hyclate 100 mg tablet Discontinued 100 MG PO Twice daily September 30, 2024 1:00am May 16, 2025 11:54am estradiol 0.01 mg vaginal insert (20 sources) Estrogen Start: 12-15-2024 End: 12-15-2025 Estradiol (Yuvafem) 10 mcg tablet Discontinued 10 MCG VAGINAL .twice per week May 18, 2025 12:00am August 16, 2025 10:06am Start: 08-15-2024 End: 12-14-2024 Yuvafem 10 MCG [...] week 24 tablet 3 11/23/2023 08/15/2024 Discontinued fluconazole 100 mg oral tablet (20 sources) Azole Antifungal Start: 06-08-2025 End: 08-16-2025 take 1 tablet by mouth once daily Fluconazole 100 mg tablet Discontinued 100 MG PO Daily June 08, 2025 9:58am August 16, 2025 10:06am Start: 07-07-2024 End: 05-18-2025 take 1 tablet by mouth once daily Fluconazole 100 mg tablet Discontinued 100 MG PO Daily September 27, 2024 1:08pm May 18, 2025 4:04pm take 1 tablet by mouth once Fluc onazole 150 MG 1 tablet Orally once for 10 days Active fluvoxaMINE maleate 100 mg oral tablet (12 sources) Serotonin Reuptake Inhibitor Start: 03-15-2018 End: [...] May, Active mupirocin 0.02 mg/mg topical ointment (20 sources) RNA Synthetase Inhibitor Antibacterial Start: 05-28-2025 End: 08-16-2025 Mupirocin 2 % ointment Discontinued 1 APPLIC TOPICAL Twice daily May 28, 2025 12:00am August 16, 2025 10:06am Start: 09-27-2024 End: 05-18-2025 Mupirocin 2 % [...] 0 Suspended oseltamivir 75 mg oral capsule (12 sources) Neuraminidase Inhibitor Start: 03-09-2024 End: 07-14-2024 [...] Discontinued 20 MEQ PO Twice daily 60 May 15, 2025 12:16pm May 18, 2025 [...] Suspended traMADol hydrochloride 50 mg oral tablet (4 sources) Opioid Agonist Start: 05-30-2025 End: 06-12-2025 take 1 tablet by mouth every six hours as needed for pain Tramadol 50 mg tablet Discontinued 50 MG PO Every 6 hours as needed for pain 08 20May 30, 2025 12:00am June 12, 2025 10:29am [...] the cause of diseases classified elsewhere Episodic Diabetes mellitus without complication (2 sources) Hyperglycemia; Translations: [Hyperglycemia, unspecified] 08-16-2025 Episodic Disorders of lipid metabolism (20 sources) [...] source) Unspecified acute conjunctivitis, bilateral Episodic Influenza (12 sources) Influenza; Translations: [Influenza due to unidentified influenza virus with other respiratory manifestations] 03-09-2024 Episodic Menopausal disorders (2 sources) Atrophy of vagina; Translations: [Postmenopausal atrophic vaginitis] 12-14-2024 Chronic Mycoses (2 sources) Candidiasis of skin; Translations: [Candidiasis of skin and nail] 08-16-2025 Episodic Osteoarthritis (20 sources) Bilateral arthritis of hip; [...] Translations: [Enthesopathy, unspecified] Onset: 05-11-2025 Episodic Other endocrine disorders (1 source) Measurement finding above reference range; Translations: [Endocrine disorder, unspecified] 08-16-2025 Episodic Other female genital disorders (4 sources) Other specified noninflammatory disorders of vagina; Translations: [OTH SPEC NONINFLAMMATORY D/O VAGINA] Onset: 08-19-2022 Episodic Other female genital disorders (2 sources) Pruritus of vagina; Translations: [Other specified noninflammatory disorders of vagina] 12-14-2024 Episodic Other non-traumatic joint disorders (8 sources) Pain of left wrist; Translations: [Pain in left wrist] 04-26-2025 Episodic Other non-traumatic joint disorders (1 source) Pain in left wrist; Translations: [Pain in left wrist] Onset: 04-27-2025 Episodic Other nutritional; endocrine; and metabolic disorders (2 sources) Abnormal weight gain; Translations: [Abnormal weight gain] 08-16-2025 Episodic Other screening for suspected conditions (not mental disorders or infectious disease) (14 sources) Encounter for screening for malignant neoplasm of cervix; Translations: [Encounter for screening mammogram for malignant neoplasm of breast] Onset: 09-18-2022 Episodic Other upper respiratory disease (5 sources) Nasal infection; Translations: [Other specified disorders [...] menopausal state] 12-14-2024 Episodic Residual codes; unclassified (9 sources) Postprocedural state finding; Translations: [Other specified [...] Reference Range Facility Basophils Auto (Bld) [#/Vol] Ordered By: Brodie Pollack on 07-19-2025 Basophils (Bld) [#/Vol] 0.1 10 3/uL 0.0-0.1 [facility] Basophils/100 WBC Auto (Bld) Ordered By: Brodie Pollack on 07-19-2025 Basophils/100 WBC (Bld) 0.8 % 0.2-2.0 F [facility] Eosinophils/100 WBC Auto (Bl d)Ordered By: Brodie Pollack on 07-19-2025 Eosinophils/100 WBC (Bld) 1.7 % 0.9-7.0 [facility] Erythrocyte distribution wid th Auto (RBC) [Ratio]Ordered By: Brodie Pollack on 07-19-2025 Erythrocyte distribution width (RBC) [Ratio] 13.7 % 11.0-15.0 [facility] Globulin Calc (S) [Mass/Vol] Ordered By: Brodie Pollack on 07-19-2025 Globulin (S) [Mass/Vol] 3.7 g/dL F [facility] Glomerular filtration rate ( GFR) estimation in non- AmericanOrdered By: Brodie Pollack on 07-19-2025 GFR/1.73 sq M.predicted among non-blacks MDRD (S/P/Bld) [Vol rate/Area] 53 mL/min/{1.73_m2} Low >=60 mL/min/1.73 m 2 [facility] Hematocrit Auto (Bld) [Volum e fraction]Ordered By: Brodie Pollack on 07-19-2025 Hematocrit (Bld) [Volume fraction] 38.8 % 36.0-48.0 [facility] Hemoglobin [Mass/volume] in BloodOrdered By: Brodie oPllack on 07-19-2025 Hemoglobin (Bld) [Mass/Vol] 12.9 g/dL 12.0-16.0 [facility] Laboratory - Chemistry and C hemistry - challengeOrdered By: Brodie Pollack on 07-19-2025 Albumin [Mass/Vol] 3.8 g/dL 3.4-5.0 [facility] ALP [Catalytic activity/Vol] 77 U/L 46-116 [facility] ALT [Catalytic activity/Vol] 28 U/L 14-59 [facility] AST [Catalytic activity/Vol] 24 U/L 15-37 [facility] Bilirubin [Mass/Vol] 0.5 mg/dL 0.2-1.0 [facility] Calcium [Mass/Vol] 9.3 mg/dL 8.5-10.1 [facility] Chloride [Moles/Vol] 107 mmol/L 98-107 [facility] CO2 [Moles/Vol] 25.5 mmol/L 21.0-32.0 [facility] Creatinine [Mass/Vol] 1.02 mg/dL 0.55-1.02 [facility] GFR/1.73 sq M.predicted MDRD (S/P/Bld) [Vol rate/Area] mL/min/{1.73_m2} >=60 mL/min/1.73 m 2 [facility] Glucose [Mass/Vol] 117 mg/dL High 74-106 [facility] Potassium [Moles/Vol] 3.6 mmol/L 3.5-5.1 [facility] Protein [Mass/Vol] 7.5 g/dL 6.4-8.2 [facility] Sodium [Moles/Vol] 143 mmol/L 136-145 [facility] Urea nitrogen [Mass/Vol] 14.0 mg/dL 7.0-18.0 [facility] Urea nitrogen/Creatinine [Mass ratio] 13.7 mg/mg [facility] - Hematology and Cell countsOrdered By: Brodie Pollack on 07-19-2025 Immature granulocytes/100 WBC (Bld) 0.2 % 0.0-0.5 [facility] Leukocytes [#/volume] correc annabelle for nucleated erythrocytes in Blood by Automated counOrdered By: Brodie Pollack on 07-19-2025 WBC corrected for nucl RBC Auto (Bld) [#/Vol] 8.9 10 3/uL 4.0-11.0 [facility] Lymphocytes Auto (Bld) [#/Vo l]Ordered By: Brodie Pollack on 07-19-2025 Lymphocytes (Bld) [#/Vol] 2.2 10 3/uL 1.2-3.8 [facility] Lymphocytes/100 WBC Auto (Bl d)Ordered By: Brodie Pollack on 07-19-2025 Lymphocytes/100 WBC (Bld) 24.9 % 20.5-60.0 [facility] MCH Auto (RBC) [Entitic mass ]Ordered By: Brodie Pollack on 07-19-2025 MCH (RBC) [Entitic mass] 30.2 pg 26.7-34.0 [facility] MCHC Auto (RBC) [Mass/Vol]Or dered By: Brodie Pollack on 07-19-2025 MCHC (RBC) [Mass/Vol] 33.2 g/dL 29.9-35.2 [facility] MCV Auto (RBC) [Entitic vol] Ordered By: Brodie Pollack on 07-19-2025 MCV (RBC) [Entitic vol] 90.9 fL 81.0-99.0 F [facility] Monocytes Auto (Bld) [#/Vol] Ordered By: Brodie Pollack on 07-19-2025 Monocytes (Bld) [#/Vol] 0.7 10 3/uL 0.3-0.8 [facility] Monocytes/100 WBC Auto (Bld) Ordered By: Brodie Pollack on 07-19-2025 Monocytes/100 WBC (Bld) 7.9 % 1.7-12.0 [facility] Neutrophils Auto (Bld) [#/Vo l]Ordered By: Brodie Pollack on 07-19-2025 Neutrophils (Bld) [#/Vol] 5.7 10 3/uL 1.4-6.5 [facility] Neutrophils/100 WBC Auto (Bl d)Ordered By: Brodie Pollack on 07-19-2025 Neutrophils/100 WBC (Bld) 64.5 % 43.0-75.0 [facility] No Panel InformationOrdered By: Brodie Pollack on 07-19-2025 Eosinophils # (Auto) 0.2 10 3/uL 0.0-0.7 [facility] Immature Granulocyte # (Auto) 0.02 10 3/uL 0.00-0.03 [facility] Platelet mean volume Auto (B ld) [Entitic vol]Ordered By: Brodie Pollack on 07-19-2025 Platelet mean volume (Bld) [Entitic vol] 10.7 fL 9.5-13.5 [facility] Platelets Auto (Bld) [#/Vol] Ordered By: Brodievasiliy Pollack on 07-19-2025 Platelets (Bld) [#/Vol] 279 10 3/uL 150-450 [facility] RBC Auto (Bld) [#/Vol]Ordere d By: Brodie Pollack on 07-19-2025 RBC (Bld) [#/Vol] 4.27 10 6/uL 4.20-5.40 [facility] Serum or plasma albumin/glob ulin mass ratioOrdered By: Brodie Pollack on 07-19-2025 Albumin/Globulin [Mass ratio] 1.0 {ratio} [facility] Serum or plasma anion gap de terminationOrdered By: Brodie Pollack on 07-19-2025 Anion gap [Moles/Vol] 14.1 mmol/L [facility] Alanine aminotransferase [En zymatic activity/volume] in Serum or PlasmaOrdered By: Yo Timmons on 05-18-2025 ALT [Catalytic activity/Vol] 22 U/L 7-52 [facility] Comment on above: Performed By: #### C MP wRFX A1C, CBC #### [address] Albumin [Mass/volume] in Ser um or Plasma by Bromocresol green (BCG) dye binding methoOrdered By: Yo Timmons on 05-18-2025 Albumin BCG dye [Mass/Vol] 4.4 g/dL 3.5-5.7 [facility] Alkaline phosphatase [Enzyma tic activity/volume] in Serum or PlasmaOrdered By: Yo Timmons on 05-18-2025 ALP [Catalytic activity/Vol] 72 U/L 34-104 [facility] Comment on above: Result Comment: PERF ORMED BY: [place] [address] PATHOLOGIST [employer]LINDER MACHINE OPERATOR VAUGHN ETIENNE M.D. Performed By: #### C MP wRFX A1C, CBC #### [facility] [address] Aspartate aminotransferase [ Enzymatic activity/volume] in Serum or PlasmaOrdered By: Yo Timmons on 05-18-2025 AST [Catalytic activity/Vol] 21 U/L 13-39 [facility] Comment on above: Performed By: #### C MP wRFX A1C, CBC #### [address] Basophils [#/volume] in Bloo d by Automated countOrdered By: Yo Timmons on 05-18-2025 Basophils (Bld) [#/Vol] 0.1 10*3/uL 0.0-0.2 [facility] Comment on above: Result Comment: PERF ORMED BY: [place] [address] PATHOLOGIST CYLINDER MACHINE OPERATOR VAUGHN ETIENNE M.D. Performed By: #### C MP wRFX A1C, CBC #### [address] Basophils/100 leukocytes in Blood by Automated countOrdered By: Yo Timmons on 05-18-2025 Basophils/100 WBC (Bld) 1.0 % . [facility] Comment on above: Performed By: #### C MP wRFX A1C, CBC #### [address] Bilirubin.total [Mass/volume ] in Serum or PlasmaOrdered By: Yo Timmons on 05-18-2025 Bilirubin [Mass/Vol] 0.7 mg/dL 0.3-1.0 [facility] Comment on above: Performed By: #### C MP wRFX A1C, CBC #### [facility] [address] [place] [address] CMP with reflex to A1Con Albumin [Mass/Vol] 4.4 g/dL Normal 3.5-5.7 [facility] Comment on above: Performed By: #### C MP wRFX A1C, CBC #### [place] [address] [place] GFR/1.73 sq M.predicted MDRD (S/P/Bld) [Vol rate/Area] 57.820 mL/min/{1.73_m2} Normal [facility] Comment on above: Performed By: #### C MP wRFX A1C, CBC #### [address] Calcium [Mass/volume] in Ser um or PlasmaOrdered By: Yo Timmons on 05-18-2025 Calcium [Mass/Vol] 9.7 mg/dL 8.6-10.3 [facility] Comment on above: Performed By: #### C MP wRFX A1C, CBC #### [address] Carbon dioxide, total [Moles /volume] in Serum or PlasmaOrdered By: Yo Timmons on 05-18-2025 CO2 [Moles/Vol] 29.3 mmol/L 21.0-31.0 [facility] Comment on above: Performed By: #### C MP wRFX A1C, CBC #### [address] Chloride [Moles/volume] in S nigel or PlasmaOrdered By: Yo Timmons on 05-18-2025 Chloride [Moles/Vol] 107 mmol/L 98-107 [facility] Comment on above: Performed By: #### C MP wRFX A1C, CBC #### [address] Complete Blood Count Auto Di ffon 05-18-2025 Mean Corpuscular HGB Conc 33.4 g/dL Normal 32.0-35.0 [facility] Comment on above: Performed By: #### C MP wRFX A1C, CBC #### [place] [address] [place] NRBC% 0.0 /100{WBC} Normal 0-0.5 [facility] Comment on above: Performed By: #### C MP wRFX A1C, CBC #### [place] [address] [place] White Blood Count 6.6 [CFU]/mL Normal 3.8-11.6 [facility] Comment on above: Performed By: #### C MP wRFX A1C, CBC #### [facility] [address] Creatinine [Mass/volume] in Serum or PlasmaOrdered By: Yo Timmons on 05-18-2025 Creatinine [Mass/Vol] 1.04 mg/dL 0.60-1.20 [facility] Comment on above: Performed By: #### C MP wRFX A1C, CBC #### [facility] [address] ECG 12 lead ECGon 05-18-2025 ECG 12 lead ECG [facility] [place] [address] [place] [address] Electrocardiograph Report Signed Patient: Bhargavi Chopra MR#: [id number] 180 : 1955 Acct:[id number] Age/Sex: 69 / F ADM Date: 05/18/25 Loc: Room: Type: [facility] Attending Dr: Yo Timmons DO Ordering Provider: [...] found Confirmed by FAUSTINO SAENZ [facility], LON ([id number]) on 05/19/2025 8:54:36 AM Referred By: Electronically Signed By: LON NEVILLE MD FAC Transcribed By: MUS Signed By Lon Neville MD, FACC 05/19/25 0854 Normal [facility] Phys[facility] Eosinophils [#/volume] in Bl ood by Automated countOrdered By: Yo Timmons on 05-18-2025 Eosinophils (Bld) [#/Vol] 0.2 10*3/uL 0.0-0.45 [facility] Comment on above: Performed By: #### C MP wRFX A1C, CBC #### [place] [address] [place] Eosinophils/100 leukocytes i n Blood by Automated countOrdered By: Yo Timmons on 05-18-2025 Eosinophils/100 WBC (Bld) 2.4 % . [facility] Comment on above: Performed By: #### C MP wRFX A1C, CBC #### [address] Erythrocyte distribution wid th [Ratio] by Automated countOrdered By: Yo Timmons on 05-18-2025 Erythrocyte distribution width (RBC) [Ratio] 14.1 % 11.9-15.3 [facility] Comment on above: Performed By: #### C MP wRFX A1C, CBC #### [place] [address] [place] Erythrocytes [#/volume] in B lood by Automated countOrdered By: Yo Timmons on 05-18-2025 RBC (Bld) [#/Vol] 4.35 10*6/uL 3.60-5.00 [facility] Comment on above: Performed By: #### C MP wRFX A1C, CBC #### [address] Glucose [Mass/volume] in Ser um or PlasmaOrdered By: Yo Timmons on 05-18-2025 Glucose [Mass/Vol] 80 mg/dL 70-100 [facility] Comment on above: Performed By: #### C MP wRFX A1C, CBC #### [place] [address] [place] Hematocrit [Volume Fraction] of Blood by Automated countOrdered By: Yo Timmons on 05-18-2025 Hematocrit (Bld) [Volume fraction] 39.2 % 34.0-46.4 [facility] Comment on above: Performed By: #### C MP wRFX A1C, CBC #### [place] [address] [place] Hemoglobin [Mass/volume] in BloodOrdered By: Yo Timmons on 05-18-2025 Hemoglobin (Bld) [Mass/Vol] 13.1 g/dL 11.8-15.4 [facility] Comment on above: Performed By: #### C MP wRFX A1C, CBC #### [facility] [address] [place] [address] Leukocytes [#/volume] correc annabelle for nucleated erythrocytes in Blood by Automated counOrdered By: Yo Timmons on 05-18-2025 WBC corrected for nucl RBC Auto (Bld) [#/Vol] 6.6 10*3/uL 3.8-11.6 [facility] Leukocytes [#/volume] in Blo od by Automated countOrdered By: Yo Timmons on 05-18-2025 WBC (Bld) [#/Vol] 6.6 10*3/uL 3.8-11.6 [facility] Comment on above: Performed By: #### C MP wRFX A1C, CBC #### [place] [address] [place] Lymphocytes [#/volume] in Bl ood by Automated countOrdered By: Yo Timmons on 05-18-2025 Lymphocytes (Bld) [#/Vol] 2.2 10*3/uL 1.00-4.8 [facility] Comment on above: Performed By: #### C MP wRFX A1C, CBC #### [facility] [address] [place] [address] [place] Lymphocytes/100 leukocytes i n Blood by Automated countOrdered By: Yo Timmons on 05-18-2025 Lymphocytes/100 WBC (Bld) 33.0 % . [facility] Comment on above: Performed By: #### C MP wRFX A1C, CBC #### [place] [address] [place] MCH [Entitic mass] by Automa annabelle countOrdered By: Yo Timmons on 05-18-2025 MCH (RBC) [Entitic mass] 30.1 pg 24.7-34.3 [facility] Comment on above: Performed By: #### C MP wRFX A1C, CBC #### [facility] [address] [place] [address] [place] MCHC Auto (RBC) [Mass/Vol]Or dered By: Yo Timmons on 05-18-2025 MCHC (RBC) [Mass/Vol] 33.4 g/dL 32.0-35.0 [facility] MCV [Entitic volume] by Auto mated countOrdered By: Yo Timmons on 05-18-2025 MCV (RBC) [Entitic vol] 90.1 fL 80-100 F [facility] Comment on above: Performed By: #### C MP wRFX A1C, CBC #### [facility] [address] [place] [address] [place] Monocytes [#/volume] in Bloo d by Automated countOrdered By: Yo Timmons on 05-18-2025 Monocytes (Bld) [#/Vol] 0.7 10*3/uL 0.0-0.8 [facility] Comment on above: Performed By: #### C MP wRFX A1C, CBC #### [facility] [address] [place] [address] [place] Monocytes/100 leukocytes in Blood by Automated countOrdered By: Yo Timmons on 05-18-2025 Monocytes/100 WBC (Bld) 10.5 % . F [facility] Comment on above: Performed By: #### C MP wRFX A1C, CBC #### [facility] [address] [place] [address] [place] Neutrophils [#/volume] in Bl ood by Automated countOrdered By: Yo Timmons on 05-18-2025 Neutrophils (Bld) [#/Vol] 3.5 10*3/uL 1.8-7.7 [facility] Comment on above: Performed By: #### C MP wRFX A1C, CBC #### [facility] [address] [place] [address] [place] Neutrophils/100 leukocytes i n Blood by Automated countOrdered By: Yo Timmons on 05-18-2025 Neutrophils/100 WBC (Bld) 53.1 % . [facility] Comment on above: Performed By: #### C MP wRFX A1C, CBC #### [address] No Panel InformationOrdered By: Yo Timmons on 05-18-2025 Estimated GFR (CKD-EPI) 57.820 mL/Min [facility] Creatinine Clearance (Chem N/A [facility] Nucleated erythrocytes [Pres ence] in Blood by Automated countOrdered By: Yo Timmons on 05-18-2025 Nucleated RBC Auto Ql (Bld) 0.0 /100{WBC} 0-0.5 [facility] Platelet mean volume [Entiti c volume] in Blood by Automated countOrdered By: Yo Timmons on 05-18-2025 Platelet mean volume (Bld) [Entitic vol] 8.4 fL 6.3-10.7 [facility] Comment on above: Performed By: #### C MP wRFX A1C, CBC #### [facility] [address] [place] [address] [place] Platelets [#/volume] in Bloo d by Automated countOrdered By: Yo Timmons on 05-18-2025 Platelets (Bld) [#/Vol] 256 10*3/uL 150-450 [facility] Comment on above: Performed By: #### C MP wRFX A1C, CBC #### [facility] [address] [place] [address] [place] Potassium [Moles/volume] in Serum or PlasmaOrdered By: Yo Timmons on 05-18-2025 Potassium [Moles/Vol] 4.3 mmol/L 3.5-5.1 [facility] Comment on above: Performed By: #### C MP wRFX A1C, CBC #### [facility] [address] [place] [address] [place] Protein [Mass/volume] in Ser um or PlasmaOrdered By: Yo Timmons on 05-18-2025 Protein [Mass/Vol] 7.1 g/dL 6.4-8.9 [facility] Comment on above: Performed By: #### C MP wRFX A1C, CBC #### [facility] [address] Serum globulin measurement b y calculation (mass/volume)Ordered By: Yo Timmons on 05-18-2025 Globulin (S) [Mass/Vol] 2.7 g/dL [facility] Comment on above: Performed By: #### C MP wRFX A1C, CBC #### [address] Serum or plasma albumin/glob ulin mass ratioOrdered By: Yo Timmons on 05-18-2025 Albumin/Globulin [Mass ratio] 1.6 {ratio} [facility] Comment on above: Performed By: #### C MP wRFX A1C, CBC #### [address] Serum or plasma anion gap de terminationOrdered By: Yo Timmons on 05-18-2025 Anion gap [Moles/Vol] 10.0 mmol/L 6.0-15.0 [facility] Comment on above: Performed By: #### C MP wRFX A1C, CBC #### [address] Sodium [Moles/volume] in Ser um or PlasmaOrdered By: Yo Timmons on 05-18-2025 Sodium [Moles/Vol] 142 mmol/L 136-145 [facility] Comment on above: Performed By: #### C MP wRFX A1C, CBC #### [facility] [address] [place] [address] Urea nitrogen [Mass/volume] in Serum or PlasmaOrdered By: Yo Timmons on 05-18-2025 Urea nitrogen [Mass/Vol] 17 mg/dL 7-25 [facility] Comment on above: Performed By: #### C MP wRFX A1C, CBC #### [address] wrist LT wo conon 025 CT wrist LT wo con [facility] [place] [address] [place] [address] CT Scan Report Signed Patient: Bhargavi Chopra MR#: [id number] 180 : 1955 Acct:[id number] Age/Sex: 69 / F ADM Date: 05/11/25 Loc: CT Room: Type: [facility] CLI Attending Dr: Yo Timmons DO [...] Paulino M.D. 05/11/2025 6:15 PM Dictation Location: [place] [address] Transcribed By: [facility] 05/11/251814 Dictated By: Everette Paulino MD 05/11/251809 Signed By: 05/11/251814 Normal [facility] XR hand BI 3Von 04-27-2025 XR hand BI 3V [facility] [address] [place] [address] XRay Report Signed Patient: Bhargavi Chopra MR#: [id number] 180 : 1955 Acct:[id number] Age/Sex: 69 / F ADM Date: 04/27/25 Loc: [facility] Room: Type: DEP CLI Attending Dr: Yo Timmons DO Copies [...] Kinney M.D. 04/27/2025 3:43 PM Dictation Location: [facility]--16 Transcribed By: [facility] 04/27/25 1543 Dictated By: Carmelo Kinney DO 04/27/25 1540 Signed By: 04/27/25 1543 Normal [facility] Basophils Auto (Bld) [#/Vol] on 03-30-2025 Basophils (Bld) [#/Vol] 0.1 10 3/uL 0.0-0.1 [facility] Basophils/100 WBC Auto (Bld) on 03-30-2025 Basophils/100 WBC (Bld) 0.8 % 0.2-2.0 F [facility] Eosinophils/100 WBC Auto (Bl d)on 03-30-2025 Eosinophils/100 WBC (Bld) 3.1 % 0.9-7.0 [facility] Erythrocyte distribution wid th Auto (RBC) [Ratio]on 03-30-2025 Erythrocyte distribution width (RBC) [Ratio] 14.6 % 11.0-15.0 [facility] Estimated glomerular filtrat ion rate (GFR) non- Americanon 03-30-2025 GFR/1.73 sq M.predicted among non-blacks MDRD (S/P/Bld) [Vol rate/Area] 45 mL/min/{1.73_m2} Low >=60 mL/min/1.73 m 2 [facility] Globulin Calc (S) [Mass/Vol] on 03-30-2025 Globulin (S) [Mass/Vol] 3.6 g/dL F [facility] Hematocrit Auto (Bld) [Volum e fraction]on 03-30-2025 Hematocrit (Bld) [Volume fraction] 38.0 % 36.0-48.0 [facility] Hemoglobin [Mass/volume] in Bloodon 03-30-2025 Hemoglobin (Bld) [Mass/Vol] 12.4 g/dL 12.0-16.0 [facility] - Chemistry and C hemistry - challengeon 03-30-2025 Albumin [Mass/Vol] 3.5 g/dL 3.4-5.0 [facility] ALP [Catalytic activity/Vol] 87 U/L 46-116 [facility] ALT [Catalytic activity/Vol] 24 U/L 14-59 [facility] AST [Catalytic activity/Vol] 21 U/L 15-37 [facility] Bilirubin [Mass/Vol] 0.5 mg/dL 0.2-1.0 [facility] Calcium [Mass/Vol] 9.2 mg/dL 8.5-10.1 [facility] Chloride [Moles/Vol] 109 mmol/L High 98-107 [facility] CO2 [Moles/Vol] 27.8 mmol/L 21.0-32.0 [facility] Creatinine [Mass/Vol] 1.18 mg/dL High 0.55-1.02 [facility] GFR/1.73 sq M.predicted MDRD (S/P/Bld) [Vol rate/Area] 55 mL/min/{1.73_m2} Low >=60 mL/min/1.73 m 2 [facility] Glucose [Mass/Vol] 83 mg/dL 74-106 [facility] Potassium [Moles/Vol] 4.2 mmol/L 3.5-5.1 [facility] Protein [Mass/Vol] 7.1 g/dL 6.4-8.2 [facility] Sodium [Moles/Vol] 145 mmol/L 136-145 [facility] Urea nitrogen [Mass/Vol] 17.0 mg/dL 7.0-18.0 [facility] Urea nitrogen/Creatinine [Mass ratio] 14.4 mg/mg [facility] Laboratory - Hematology and Cell countson 03-30-2025 Immature granulocytes/100 WBC (Bld) 0.2 % 0.0-0.5 [facility] Leukocytes [#/volume] correc annabelle for nucleated erythrocytes in Blood by Automated counon 03-30-2025 WBC corrected for nucl RBC Auto (Bld) [#/Vol] 6.1 10 3/uL 4.0-11.0 [facility] Lymphocytes Auto (Bld) [#/Vo l]on 03-30-2025 Lymphocytes (Bld) [#/Vol] 2.1 10 3/uL 1.2-3.8 [facility] Lymphocytes/100 WBC Auto (Bl d)on 03-30-2025 Lymphocytes/100 WBC (Bld) 33.8 % 20.5-60.0 [facility] MCH Auto (RBC) [Entitic mass ]on 03-30-2025 MCH (RBC) [Entitic mass] 29.7 pg 26.7-34.0 [facility] MCHC Auto (RBC) [Mass/Vol]on 03-30-2025 MCHC (RBC) [Mass/Vol] 32.6 g/dL 29.9-35.2 [facility] MCV Auto (RBC) [Entitic vol] on 03-30-2025 MCV (RBC) [Entitic vol] 91.1 fL 81.0-99.0 F [facility] Monocytes Auto (Bld) [#/Vol] on 03-30-2025 Monocytes (Bld) [#/Vol] 0.7 10 3/uL 0.3-0.8 [facility] Monocytes/100 WBC Auto (Bld) on 03-30-2025 Monocytes/100 WBC (Bld) 11.4 % 1.7-12.0 [facility] Neutrophils Auto (Bld) [#/Vo l]on 03-30-2025 Neutrophils (Bld) [#/Vol] 3.1 10 3/uL 1.4-6.5 [facility] Neutrophils/100 WBC Auto (Bl d)on 03-30-2025 Neutrophils/100 WBC (Bld) 50.7 % 43.0-75.0 [facility] No Panel Informationon 03-30 Eosinophils # (Auto) 0.2 10 3/uL 0.0-0.7 [facility] Immature Granulocyte # (Auto) 0.01 10 3/uL 0.00-0.03 [facility] Platelet mean volume Auto (B ld) [Entitic vol]on 03-30-2025 Platelet mean volume (Bld) [Entitic vol] 10.0 fL 9.5-13.5 [facility] Platelets Auto (Bld) [#/Vol] on 03-30-2025 Platelets (Bld) [#/Vol] 260 10 3/uL 150-450 [facility] RBC Auto (Bld) [#/Vol]on RBC (Bld) [#/Vol] 4.17 10 6/uL Low 4.20-5.40 [facility] Serum or plasma albumin/glob ulin mass ratioon 03-30-2025 Albumin/Globulin [Mass ratio] 1.0 {ratio} [facility] Serum or plasma anion gap de terminationon 03-30-2025 Anion gap [Moles/Vol] 12.4 mmol/L [facility] XR HAND 3+ VIEWS LEFTon 01-15 XR [...] Basophils (Bld) [#/Vol] 0.1 10 3/uL 0.0-0.1 [facility] Basophils (Bld) [#/Vol] Automated basoph il count 0.0-0.1 [facility] Basophils/100 WBC Auto (Bld) on 07-21-2024 Basophils/100 WBC (Bld) 0.7 % 0.2-2.0 F [facility] Basophils/100 WBC (Bld) Automated basophil % 0. 2-2.0 [facility] Cholesterol in LDL Calc [Mas s/Vol]on 07-21-2024 Cholesterol in LDL [Mass/Vol] 89.0 mg/dL [facility] Comment on above: <100 mg/dl [id number] 0-129 mg/dl NEAR OR ABOVE [id number] mg/dl BORDERLINE [id number] mg/dl HIGH>190 mg/dl VERY HIGH Cholesterol in LDL [Mass/Vol] Cholesterol in LDL [Mass/volume] in Serum or Plasma by calculation [facility] Comment on above: <100 mg/dl [id number] 0-129 mg/dl NEAR OR ABOVE [id number] mg/dl BORDERLINE [id number] mg/dl HIGH>190 mg/dl VERY HIGH Cholesterol in VLDL Calc [Ma ss/Vol]on 07-21-2024 Cholesterol in VLDL [Mass/Vol] 20.0 mg/dL [facility] Cholesterol in VLDL [Mass/Vol] Cholesterol in VLDL [Mass/volume] in Serum or Plasma by calculation [facility] Eosinophils/100 WBC Auto (Bl d)on 07-21-2024 Eosinophils/100 WBC (Bld) 2.7 % 0.9-7.0 [facility] Eosinophils/100 WBC (Bld) Automated eosinophil % 0.9-7.0 [facility] Erythrocyte distribution wid th Auto (RBC) [Ratio]on 07-21-2024 Erythrocyte distribution width (RBC) [Ratio] 13.9 % 11.0-15.0 [facility] Erythrocyte distribution width (RBC) [Ratio] Erythrocyte distribution width [Ratio] by Automated count 11.0-15.0 [facility] Estimated glomerular filtrat ion rate (GFR) non- Americanon 07-21-2024 GFR/1.73 sq M.predicted among non-blacks MDRD (S/P/Bld) [Vol rate/Area] 46 mL/min/{1.73_m2} Low >=60 [facility] GFR/1.73 sq M.predicted among non-blacks MDRD (S/P/Bld) [Vol rate/Area] Estimated glomerular filtration rate (GFR) non- Low >=60 [facility] Globulin Calc (S) [Mass/Vol] on 07-21-2024 Globulin (S) [Mass/Vol] 3.7 g/dL F [facility] Globulin (S) [Mass/Vol] Serum globulin measurement by calculation (mass/volume) [facility] Hematocrit Auto (Bld) [Volum e fraction]on 07-21-2024 Hematocrit (Bld) [Volume fraction] 41.6 % 36.0-48.0 [facility] Hematocrit (Bld) [Volume fraction] Hematocrit [Volume Fraction] of Blood by Automated count 36.0-48.0 [facility] Hemoglobin [Mass/volume] in Bloodon 07-21-2024 Hemoglobin (Bld) [Mass/Vol] 13.9 g/dL 12.0-16.0 [facility] Hemoglobin (Bld) [Mass/Vol] Hemoglobin [Mass/volume] in Blood 12.0-16.0 [facility] - Chemistry and C hemistry - challengeon 07-21-2024 Albumin [Mass/Vol] 3.5 g/dL 3.4-5.0 [facility] ALP [Catalytic activity/Vol] 102 U/L 46-116 [facility] ALT [Catalytic activity/Vol] 26 U/L 14-59 [facility] AST [Catalytic activity/Vol] 18 U/L 15-37 [facility] Bilirubin [Mass/Vol] 0.6 mg/dL 0.2-1.0 [facility] Calcium [Mass/Vol] 9.3 mg/dL 8.5-10.1 [facility] Chloride [Moles/Vol] 106 mmol/L 98-107 [facility] Cholesterol [Mass/Vol] 168 mg/dL <=200 [facility] Cholesterol in HDL [Mass/Vol] 59 mg/dL 40-60 [facility] Comment on above: > or =60 mg/dl - LOW CARDIOVASCULAR RISK<40 mg/dl - HIGH CARDIOVASCULAR RISK CO2 [Moles/Vol] 26.1 mmol/L 21.0-32.0 [facility] Creatinine [Mass/Vol] 1.17 mg/dL High 0.55-1.02 [facility] GFR/1.73 sq M.predicted MDRD (S/P/Bld) [Vol rate/Area] 55 mL/min/{1.73_m2} Low >=60 [facility] Glucose [Mass/Vol] 88 mg/dL 74-106 [facility] Potassium [Moles/Vol] 3.8 mmol/L 3.5-5.1 [facility] Protein [Mass/Vol] 7.2 g/dL 6.4-8.2 [facility] Sodium [Moles/Vol] 142 mmol/L 136-145 [facility] Triglyceride [Mass/Vol] 100 mg/dL <=150 F [facility] Urea nitrogen [Mass/Vol] 18.0 mg/dL 7.0-18.0 [facility] Urea nitrogen/Creatinine [Mass ratio] 15.4 mg/mg [facility] Laboratory - Hematology and Cell countson 07-21-2024 Immature granulocytes/100 WBC (Bld) 0.4 % 0.0-0.5 [facility] Leukocytes [#/volume] correc annabelle for nucleated erythrocytes in Blood by Automated counon 07-21-2024 WBC corrected for nucl RBC Auto (Bld) [#/Vol] 9.6 10 3/uL 4.0-11.0 [facility] WBC corrected for nucl RBC Auto (Bld) [#/Vol] Leukocytes [#/volume] corrected for nucleated erythrocytes in Blood by Automated coun 4.0-11.0 [facility] Lymphocytes Auto (Bld) [#/Vo l]on 07-21-2024 Lymphocytes (Bld) [#/Vol] 3.9 10 3/uL High 1.2-3.8 [facility] Lymphocytes (Bld) [#/Vol] Lymphocytes [#/volume] in Blood by Automated count High 1.2-3.8 [facility] Lymphocytes/100 WBC Auto (Bl d)on 07-21-2024 Lymphocytes/100 WBC (Bld) 41.0 % 20.5-60.0 [facility] Lymphocytes/100 WBC (Bld) Lymphocytes/100 leukocytes in Blood by Automated count 20.5-60.0 [facility] MCH Auto (RBC) [Entitic mass ]on 07-21-2024 MCH (RBC) [Entitic mass] 28.7 pg 26.7-34.0 [facility] MCH (RBC) [Entitic mass] MCH [Entitic mass] by Automated count 26.7-34.0 [facility] MCHC Auto (RBC) [Mass/Vol]on 07-21-2024 MCHC (RBC) [Mass/Vol] 33.4 g/dL 29.9-35.2 [facility] MCHC (RBC) [Mass/Vol] MCHC [Mass/volume] by Automated count 29.9-35.2 [facility] MCV Auto (RBC) [Entitic vol] on 07-21-2024 MCV (RBC) [Entitic vol] 85.8 fL 81.0-99.0 F [facility] MCV (RBC) [Entitic vol] MCV [Entitic vol ume] by Automated count 81.0-99.0 [facility] Monocytes Auto (Bld) [#/Vol] on 07-21-2024 Monocytes (Bld) [#/Vol] 1.0 10 3/uL High 0.3-0.8 [facility] Monocytes (Bld) [#/Vol] Automated blood monocyte count High 0.3-0.8 [facility] Monocytes/100 WBC Auto (Bld) on 07-21-2024 Monocytes/100 WBC (Bld) 10.4 % 1.7-12.0 [facility] Monocytes/100 WBC (Bld) Automated monocyte % 1. 7-12.0 [facility] Neutrophils Auto (Bld) [#/Vo l]on 07-21-2024 Neutrophils (Bld) [#/Vol] 4.3 10 3/uL 1.4-6.5 [facility] Neutrophils (Bld) [#/Vol] Neutrophils [#/volume] in Blood by Automated count 1.4-6.5 [facility] Neutrophils/100 WBC Auto (Bl d)on 07-21-2024 Neutrophils/100 WBC (Bld) 44.8 % 43.0-75.0 [facility] Neutrophils/100 WBC (Bld) Automated neutrophil % 43.0-75.0 [facility] No Panel Informationon 07-21 Eosinophils # (Auto) 0.3 10 3/uL 0.0-0.7 [facility] Immature Granulocyte # (Auto) 0.04 10 3/uL High 0.00-0.03 [facility] Platelet mean volume Auto (B ld) [Entitic vol]on 07-21-2024 Platelet mean volume (Bld) [Entitic vol] 10.2 fL 9.5-13.5 [facility] Platelet mean volume (Bld) [Entitic vol] Platelet mean volume [Entitic volume] in Blood by Automated count 9.5-13.5 [facility] Platelets Auto (Bld) [#/Vol] on 07-21-2024 Platelets (Bld) [#/Vol] 330 10 3/uL 150-450 [facility] Platelets (Bld) [#/Vol] Platelets [#/vol ume] in Blood by Automated count 150-450 [facility] RBC Auto (Bld) [#/Vol]on RBC (Bld) [#/Vol] 4.85 10 6/uL 4.20-5.40 [facility] RBC (Bld) [#/Vol] Erythrocytes [#/volume] in Blood by Automated count 4.20-5.40 [facility] Serum or plasma albumin/glob ulin mass ratioon 07-21-2024 Albumin/Globulin [Mass ratio] 0.9 {ratio} [facility] Albumin/Globulin [Mass ratio] Serum or plasma albumin/globulin mass ratio [facility] Serum or plasma anion gap de terminationon 07-21-2024 Anion gap [Moles/Vol] 13.7 mmol/L [facility] Anion gap [Moles/Vol] Serum or plasma an ion gap determination [facility] Serum or plasma total choles terol/high density lipoprotein (HDL) cholesterol mass abel 07-21-2024 Cholesterol.total/Malu sterol in HDL [Mass ratio] 2.8 {ratio} [facility] Comment on above: 3.3 - 4.4 LOW RISK4. 4 - 7.1 AVERAGE RISK7.1 - 11.0 MODERATE RISK>11.0 HIGH RISK Cholesterol.total/Malu sterol in HDL [Mass ratio] Serum or plasma total cholesterol/high density lipoprotein (HDL) cholesterol mass rat [facility] Comment on above: 3.3 - 4.4 [...] compatible with planter fasciitis. ELECTRONICALLY SIGNED BY: Aneglo Carlson, Normal Not Available RAP[employer] DNA COVIDon 12-26-2023 Interpretation and review of laboratory results Normal [facility] SARS-CoV-2 (COVID-19) RNA DBEORAH+probe Ql (Unsp spec) Negative [facility] Healthcare [facility] Healthcare RHEUMATOID FACTORon 07-29-20 23 RHEUMATOID FACTOR see note [employer] Other RHEUMATOID FACTOR <10.0 IU/mL <14.0 IU/mL [employer] Other PAP ACOG PANEL 2: 30 to 65on 11-15-2022 . . Normal [facility] Comment on above: Performed By: #### [id number] #### [facility] [address] [place] [address] Dr. Ricardo Malhotra Age Gdln ACOG Testing Comment Normal [facility] Comment on above: Result Comment: <21 or >65 or no age provided Performed By: #### [id number] #### [facility] [address] [place] [address] Dr. Ricardo Malhotra DIAGNOSIS: Comment Normal [facility] Comment on above: Result Comment: NEGA TIVE FOR INTRAEPITHELIAL LESION OR MALIGNANCY. Performed By: #### [id number] #### [facility] [address] [place] [address] Dr. Ricardo Malhotra Methodology: Comment Normal [facility] Comment on above: Result Comment: This liquid based ThinPrep(R) pap test was screened with the use of an image guided system. Performed By: #### [id number] #### [facility] [address] [place] [address] Dr. Ricardo Malhotra Note: Comment Normal [facility] Comment on above: Result Comment: The Pap smear is a screening test designed to aid in the detection of premalignant and malignant conditions of the uterine cervix. It is not a diagnostic procedure and should not be used as the sole means of detecting cervical cancer. Both false-positive and false-negative reports do occur. . Performed By: #### [id number] #### [facility] [address] [place] [address] Dr. Ricardo Malhotra Performed by: Comment Normal [place] Comment on above: Result Comment: Aimna Stephenson, [employer] Manager (ASCP) Performed By: #### [id number] #### [facility] [address] [place] [address] Dr. Ricardo Malhotra Specimen adequacy: Comment Normal [facility] Comment on above: Result Comment: Sati sfactory for evaluation. No endocervical component is identified. Performed By: #### [id number] #### [facility] [address] [place] [address] Dr. Ricardo Malhotra CBC AUTO DIFFon 09-18-2022 BASO # 0.1 103/ul Normal 0.0-0.1 [facility] Comment on above: Performed By: #### C BC #### [facility] [address] [address] [address] Ricardo Malhotra Basophils/100 WBC (Bld) 1.1 % Normal 0.2-2.0 [facility] Comment on above: Performed By: #### C BC #### [facility] [address] [address] [address] Ricardo Malhotra EO # 0.3 103/ul Normal 0.0-0.7 [facility] Comment on above: Performed By: #### C BC #### [facility] [address] [place] [address] Dr. Ricardo Malhotra Eosinophils/100 WBC (Bld) 3.6 % Normal 0.9-7.0 [facility] Comment on above: Performed By: #### C BC #### [facility] [address] [place] [address] Dr. Ricardo Malhotra Erythrocyte distribution width (RBC) [Ratio] 14.1 % Normal 11.0-15.0 [facility] Comment on above: Performed By: #### C BC #### [facility] [address] [place] [address] Dr. Ricardo Malhotra Hematocrit (Bld) [Volume fraction] 39.1 % Normal 36.0-48.0 [facility] Comment on above: Performed By: #### C BC #### [facility] [address] [place] [address] Dr. Ricardo Malhotra Hemoglobin (Bld) [Mass/Vol] 12.8 g/dL Normal 12.0-16.0 [facility] Comment on above: Performed By: #### C BC #### [facility] [address] [place] [address] Dr. Ricardo Malhotra IG # 0.02 10e3/ul Normal 0.00-0.03 [facility] Comment on above: Performed By: #### C BC #### [facility] [address] [place] [address] Dr. Ricardo Malhotra IG % 0.3 % Normal 0.0-0.5 [facility] Comment on above: Performed By: #### C BC #### [facility] [address] [place] [address] Dr. Ricardo Malhotra LYMPH # 2.2 103/ul Normal 1.2-3.8 [facility] Comment on above: Performed By: #### C BC #### [facility] [address] [place] [address] Dr. Ricardo Malhotra Lymphocytes/100 WBC (Bld) 32.0 % Normal 20.5-60.0 [facility] Comment on above: Performed By: #### C BC #### [facility] [address] [place] [address] Dr. Ricardo Malhotra MANUAL DIFF REQ NO Normal [facility] Comment on above: Performed By: #### C BC #### [facility] [address] [place] [address] Dr. Ricardo Malhotra MCH (RBC) [Entitic mass] 28.7 pg Normal 26.7-34.0 [facility] Comment on above: Performed By: #### C BC #### [facility] [address] [place] [address] Dr. Ricardo Malhotra MCHC (RBC) [Mass/Vol] 32.7 g/dL Normal 29.9-35.2 [facility] Comment on above: Performed By: #### C BC #### [facility] [address] [place] [address] Dr. Ricardo Malhotra MCV (RBC) [Entitic vol] 87.7 fL Normal 81.0-99.0 [facility] Comment on above: Performed By: #### C BC #### [facility] [address] [place] [address] Dr. Ricardo Malhotra MONO # 0.8 103/ul Normal 0.3-0.8 [facility] Comment on above: Performed By: #### C BC #### [facility] Laboratory [address] [place] [address] Dr. Ricardo Malhotra Monocytes/100 WBC (Bld) 10.9 % Normal 1.7-12.0 [facility] Comment on above: Performed By: #### C BC #### [facility] [address] [place] [address] Dr. Ricardo Malhotra NEUT # 3.7 103/ul Normal 1.4-6.5 [facility] Comment on above: Performed By: #### C BC #### [facility] [address] [place] [address] Dr. Ricardo Malhotra Neutrophils/100 WBC (Bld) 52.1 % Normal 43.0-75.0 [facility] Comment on above: Performed By: #### C BC #### [facility] [address] [place] [address] Dr. Ricardo Malhotra Platelet mean volume (Bld) [Entitic vol] 10.5 fL Normal 9.5-13.5 [facility] Comment on above: Performed By: #### C BC #### [facility] [address] [place] [address] Dr. Ricardo Malhotra PLT 301 103/ul Normal 150-450 [facility] Comment on above: Performed By: #### C BC #### [facility] [address] [place] [address] Dr. Ricardo Malhotra RBC 4.46 106/ul Normal 4.20-5.40 [facility] Comment on above: Performed By: #### C BC #### [facility] [address] [place] [address] Dr. Ricardo Malhotra WBC 7.0 103/ul Normal 4.0-11.0 [facility] Comment on above: Performed By: #### C BC #### [facility] [address] [place] [address] Dr. Ricardo Malhotra LIPID PROFILEon 09-18-2022 CHOL-HDL RATIO NORM SEE BELOW Normal [facility] Comment on above: Result Comment: 3.3 - 4.4 LOW RISK 4.4 - 7.1 AVERAGE RISK 7.1 - 11.0 MODERATE RISK >11.0 HIGH RISK Performed By: #### L IPID, BMP #### [facility] [address] [place] [address] Dr. Ricardo Malhotra Cholesterol [Mass/Vol] 154 mg/dL Normal <=200 [facility] Comment on above: Performed By: #### L IPID, BMP #### [facility] [address] [address] [address] Ricardo Malhotra Cholesterol in HDL [Mass/Vol] 54 mg/dL Normal 40-60 [facility] Comment on above: Performed By: #### L IPID, BMP #### [facility] [address] [address] [address] Ricardo Malhotra Cholesterol in LDL [Mass/Vol] 82.6 mg/dL Normal [facility] Comment on above: Performed By: #### L IPID, BMP #### [facility] [address] [address] [address] Ricardo Malhotra Cholesterol.total/Malu sterol in HDL [Mass ratio] 2.9 {ratio} Normal [facility] Comment on above: Performed By: #### L IPID, BMP #### [facility] [address] [address] [address] Ricardo Malhotra HDL NORMAL > or = 60 mg/dl - LO W CARDIOVASCULAR RISK <40 mg/dl - HIGH CARDIOVASCULAR RISK Normal [facility] Comment on above: Performed By: #### L IPID, BMP #### [facility] [address] [address] [address] Ricardo Malhotra LDL CALC NORMAL SEE BELOW Normal [facility] Comment on above: Result Comment: <100 mg/dl OPTIMAL 100 - 129 mg/dl NEAR OR ABOVE OPTIMAL 130 - 159 mg/dl BORDERLINE HIGH 160 - 189 mg/dl HIGH >190 mg/dl VERY HIGH Performed By: #### L IPID, BMP #### [facility] [address] [address] [address] Ricardo Malhotra Triglyceride [Mass/Vol] 87 mg/dL Normal <=150 T [facility] Comment on above: Performed By: #### L IPID, BMP #### [facility] [address] [address] [address] Ricardo Malhotra VLDL CALC 17.4 mg/dL Normal [facility] Comment on above: Performed By: #### L IPID, BMP #### [facility] [address] [address] [address] Ricardo Malhotra MG MAMM SCREEN 3D IRLANDA CADon 09-18-2022 MG MAMM SCREEN 3D IRLANDA CAD Patient: BHARGAVI CHOPRA Exam Date: 09/18/2022 : 1955 Gender:F Ordering : DR TAVO AHMADI . Admission #: [id number] Family : DR CORNELIUS DE LA TORRE M.D. Order #: [id number] CLICK HERE TO VIEW EXAM RADIOLOGY REPORT [...] renal cancer at age 82. LOCATION: [facility] BREAST COMPOSITION: Heterogeneously dense,which may obscure [...] Zuniga MD on 09/18/2022 at 13:42 Normal [facility] PROF CHEM 8 (BAS METB)on Anion gap [Moles/Vol] 11.0 mmol/L Normal [facility] Comment on above: Performed By: #### L IPID, BMP #### [facility] [address] [address] [address] Ricardo Malhotra Calcium [Mass/Vol] 8.7 mg/dL Normal 8.5-10.1 [facility] [place] Comment on above: Performed By: #### L IPID, BMP #### [facility] [address] [address] [address] Ricardo Malhotra Chloride [Moles/Vol] 107 mmol/L Normal 98-107 [facility] Comment on above: Performed By: #### L IPID, BMP #### [facility] [address] [address] [address] Ricardo Malhotra CO2 [Moles/Vol] 25.9 mmol/L Normal 21.0-32.0 [facility] Comment on above: Performed By: #### L IPID, BMP #### [facility] [address] [address] [address] Ricardo Malhotra Creatinine [Mass/Vol] 1.06 mg/dL Critically high 0.55-1.02 [facility] Comment on above: Performed By: #### L IPID, BMP #### [facility] [address] [place] [address] Dr. Ricardo Malhotra EGFR-AF MACEDONIAN >60 Normal >=60 [facility] Comment on above: Performed By: #### L IPID, BMP #### [facility] [address] [place] [address] Dr. Ricardo Malhotra EGFR-NON AF MACEDONIAN 52 mL/min/1.73m2 Critically low >=60 [facility] Comment on above: Performed By: #### L IPID, BMP #### [facility] [address] [place] [address] Dr. Ricardo Malhotra Glucose [Mass/Vol] 89 mg/dL Normal 74-106 [facility] [place] Comment on above: Performed By: #### L IPID, BMP #### [facility] [address] [address] [address] Ricardo Malhotra Potassium [Moles/Vol] 3.9 mmol/L Normal 3.5-5.1 [facility] Comment on above: Performed By: #### L IPID, BMP #### [facility] [address] [place] [address] Dr. Ricardo Malhotra Sodium [Moles/Vol] 140 mmol/L Normal 136-145 [facility] [place] Comment on above: Performed By: #### L IPID, BMP #### [facility] [address] [place] [address] Dr. Ricardo Malhotra Urea nitrogen [Mass/Vol] 18.0 mg/dL Normal 7.0-18.0 [facility] Comment on above: Performed By: #### L IPID, BMP #### [facility] [address] [place] [address] Dr. Ricardo Malhotra Urea nitrogen/Creatinine [Mass ratio] 17.0 mg/mg Normal [facility] Comment on above: Performed By: #### L IPID, BMP #### [facility] [address] [place] [address] Dr. Ricardo Malhotra VAGINITIS/VAGINOSIS DNA PROB Yifan 08-21-2022 Reba species Negative Normal Negative [facility] Comment on above: Performed By: #### V AGINT #### [facility] [address] [place] [address] Dr. Ricardo Malhotra Gardnerella vaginalis Negative Normal Negative [facility] Comment on above: Performed By: #### V AGINT #### [facility] [address] [place] [address] Dr. Ricardo Malhotra Trichomonas vaginalis Negative Normal Negative [facility] Comment on above: Performed By: #### V AGINT #### [facility] [address] [place] [address] Dr. Ricardo Malhotra VAGINITIS/VAGINOSIS DNA PROB Yifan 06-12-2022 Reba species Positive Abnormal Negative [facility] Comment on above: Performed By: #### V AGINT #### [facility] [address] [place] [address] Dr. Ricardo Malhotra Gardnerella vaginalis Positive Abnormal Negative [facility] Comment on above: Performed By: #### V AGINT #### [facility] [address] [place] [address] Dr. Ricardo Malhotra Trichomonas vaginalis Negative Normal Negative [facility] Comment on above: Performed By: #### V AGINT #### [facility] [address] [place] [address] Dr. Ricardo Malhotra VAGINITIS/VAGINOSIS DNA PROB Yifan 04-13-2022 Reba species Negative Normal Negative [facility] Comment on above: Performed By: #### V AGINT #### [facility] [address] [place] [address] Dr. Ricardo Malhotra Gardnerella vaginalis Negative Normal Negative [facility] Comment on above: Performed By: #### V AGINT #### [facility] [address] [place] [address] Dr. Ricardo Malhotra Trichomonas vaginalis Negative Normal Negative [facility] Comment on above: Performed By: #### V AGINT #### [facility] [address] [place] [address] Dr. Ricardo Malhotra VAGINITIS/VAGINOSIS DNA PROB Yifan 03-27-2022 Erba species Negative Normal Negative [facility] Comment on above: Performed By: #### V AGINT #### [facility] [address] [place] [address] Dr. Ricardo Malhotra Gardnerella vaginalis Positive Abnormal Negative [facility] Comment on above: Performed By: #### V AGINT #### [facility] [address] [place] [address] Dr. Ricardo Malhotra Trichomonas vaginalis Negative Normal Negative [facility] Comment on above: Performed By: #### V AGINT #### [facility] [address] [place] [address] Dr. Ricardo Malhotra VAGINITIS/VAGINOSIS DNA PROB Yifan 03-07-2022 Reba species Negative Normal Negative [facility] Comment on above: Performed By: #### V AGINT #### [facility] [address] [place] [address] Dr. Ricardo Malhotra Gardnerella vaginalis Positive Abnormal Negative [facility] Comment on above: Performed By: #### V AGINT #### [facility] [address] [place] [address] Dr. Ricardo Malhotra Trichomonas vaginalis Negative Normal Negative [facility] Comment on above: Performed By: #### V AGINT #### [facility] [address] [place] [address] Dr. Ricardo Malhotra Cardiac Catheterizationon Cardiac Diagnostic Report Demographics Patient KEYSHA BURK Date of Study 12/17/2020 Name Date of 1955 Gender Female Age 65 year(s) Race Room [id number]^GREGORIO Height: 62.99 inch, 160 cm Number Corporate [id number] Weight: 167 pounds, 75.9 kg ID # Patient [id number] BSA: 1.79 m^2 BMI: 29.65 Acct # kg/m^2 MR # [id number] Performing Physician Sunita Tomas Referring Physician # [...] as needed. GI work up Signature - Electronically signed by Sunita Tomas([facility] on 12/17/2020 12:46 - Angiographic Findings Cardiac Arteries and Lesion [...] for Left ventriculography. Contrast Material: - Isovue [id number] ml - Isovue 49400 ml Fluoroscopy Time: Diagnostic: 2:30 minutes. Total: [...] assessed as CCS II according to the Congolese clinical classification. Hemodynamics Condition: Baseline Room Air [...] +--------- + + Shunts Oxygen Values O2 [id number] [facility] [place], [place] Lazaro, Mhpn Incoming Cardio Results From [facility]/ - 12/17/2020 12:46 PM EST Cardiac Diagnostic Report Demographics Patient KEYSHA BURK Date of Study 12/17/2020 Name Date of 1955 Gender Female Age 65 year(s) Race Room [id number]^GREGORIO Height: 62.99 inch, 160 cm Number Corporate [id number] Weight: 167 pounds, 75.9 kg ID # Patient [id number] BSA: 1.79 m^2 BMI: 29.65 Acct # kg/m^2 MR # [id number] Performing Physician Sunita Tomas Referring Physician # [...] for Left ventriculography. Contrast Material: - Isovue [id number] ml - Isovue 06797 ml Fluoroscopy Time: Diagnostic: 2:30 minutes. Total: [...] assessed as CCS II according to the Congolese clinical classification. Hemodynamics Condition: Baseline Room Air [...] +--------- + + Shunts Oxygen Values O2 [id number] [place], [place] Vital Signs Date Time Vital Sign Value Performing Clinician Facility 08-16-2025 10:00-0400 Body height 162.56 cm Cornelius De La Torre MD Work Phone: [facility] 08-16-2025 10:00-0400 Body mass index (BMI) [Ratio] 30.2 kg/m2 Cornelius De La Torre MD Work Phone: [facility] 08-16-2025 10:00-0400 Body weight 79.83 kg Cornelius De La Torre MD Work Phone: [facility] 08-16-2025 10:00-0400 Diastolic blood pressure 83 mm[Hg] Cornelius De La Torre MD Work Phone: [facility] 08-16-2025 10:00-0400 Heart rate 64 /min Cornelius De La Torre MD Work Phone: [facility] 08-16-2025 10:00-0400 Respiratory rate 12 /min Cornelius De La Torre MD Work Phone: [facility] 08-16-2025 10:00-0400 SaO2% (BldA) [Mass fraction] 99 % Cornelius De La Torre MD Work Phone: [facility] 08-16-2025 10:00-0400 Systolic blood pressure 131 mm[Hg] Cornelius De La Torre MD Work Phone: [facility] 07-11-2025 11:00-0400 Body height 162.56 cm Cornelius De La Torre MD Work Phone: [facility] 07-11-2025 11:00-0400 Body mass index (BMI) [Ratio] 29.5 kg/m2 Cornelius De La Torre MD Work Phone: [facility] 07-11-2025 11:00-0400 Body weight 78.01 kg Cornelius De La Torre MD Work Phone: [phone] [place] [address] 05-31-2025 14:18-0400 Diastolic blood pressure 79 mm[Hg] Cornelius De La Torre MD Work Phone: [facility] 05-31-2025 14:18-0400 Heart rate 58 /min Cornelius De La Torre MD Work Phone: [facility] 05-31-2025 14:18-0400 Respiratory rate 16 /min Cornelius De La Torre MD Work Phone: [facility] 05-31-2025 14:18-0400 SaO2% (BldA) [Mass fraction] 96 % Cornelius De La Torre MD Work Phone: [facility] 05-31-2025 14:18-0400 Systolic blood pressure 143 mm[Hg] Cornelius De La Torre MD Work Phone: [facility] 05-31-2025 13:33-0400 Inhaled oxygen flow rate 6 L/min Cornelius De La Torre MD Work Phone: [facility] 05-31-2025 10:40-0400 Body height 157.48 cm Cornelius De La Torre MD Work Phone: [facility] 05-31-2025 10:40-0400 Body temperature 97.5 [degF] Cornelius De La Torre MD Work Phone: [facility] 05-31-2025 10:40-0400 Body weight 79 kg Cornelius De La Torre MD Work Phone: [facility] 05-28-2025 14:27-0400 Body height 157.48 cm Cornelius De La Torre MD Work Phone: [facility] 05-28-2025 14:27-0400 Body mass index (BMI) [Ratio] 31.8 kg/m2 Cornelius De La Torre MD Work Phone: [facility] 05-28-2025 14:27-0400 Body temperature 98.2 [degF] Cornelius De La Torre MD Work Phone: [facility] 05-28-2025 14:27-0400 Body weight 78.98 kg Cornelius De La Torre MD Work Phone: [facility] 05-28-2025 14:27-0400 Diastolic blood pressure 77 mm[Hg] Cornelius De La Torre MD Work Phone: [facility] 05-28-2025 14:27-0400 Heart rate 67 /min Cornelius De La Torre MD Work Phone: [facility] 05-28-2025 14:27-0400 Respiratory rate 16 /min Cornelius De La Torre MD Work Phone: [facility] 05-28-2025 14:27-0400 SaO2% (BldA) [Mass fraction] 98 % Cornelius De La Torre MD Work Phone: [facility] 05-28-2025 14:27-0400 Systolic blood pressure 146 mm[Hg] Cornelius De La Torre MD Work Phone: [facility] 05-16-2025 11:53-0400 Body height 157.48 cm Cornelius De La Torre MD Work Phone: [facility] 05-16-2025 11:53-0400 Body mass index (BMI) [Ratio] 31.8 kg/m2 Cornelius De La Torre MD Work Phone: [facility] 05-16-2025 11:53-0400 Body weight 78.92 kg Cornelius De La Torre MD Work Phone: [facility] 12-14-2024 13:32-0500 Body mass index (BMI) [Ratio] 31.97 kg/m2 Ernestina Rinkes DO Work Phone: [facility] 12-14-2024 13:32-0500 Body weight 78.02 kg Ernestina Rinkes DO Work Phone: [facility] 12-14-2024 13:32-0500 Diastolic blood pressure 80 mm[Hg] Ernestina Rinkes DO Work Phone: [facility] 12-14-2024 13:32-0500 Systolic blood pressure 126 mm[Hg] Ernestina Rinkes DO Work Phone: [facility] 09-27-2024 11:40-0500 Body height 157.48 cm [place] 09-27-2024 11:40-0500 Body mass index (BMI) [Ratio] 31.8 kg/m2 [facility] 09-27-2024 11:40-0500 Body weight 78.92 kg [place] 09-27-2024 11:40-0500 Diastolic blood pressure 88 mm[Hg] [facility] 09-27-2024 11:40-0500 Heart rate 61 /min [place] 09-27-2024 11:40-0500 Systolic blood pressure 151 mm[Hg] [facility] 07-14-2024 13:39-0400 Body height 157.48 cm [place] 07-14-2024 13:39-0400 Body mass index (BMI) [Ratio] 30.7 kg/m2 [facility] 07-14-2024 13:39-0400 Body weight 76.2 kg [place] 07-14-2024 13:39-0400 Diastolic blood pressure 85 mm[Hg] [facility] 07-14-2024 13:39-0400 Heart rate 64 /min [place] 07-14-2024 13:39-0400 Systolic blood pressure 134 mm[Hg] [facility] 06-13-2024 10:23-0400 Body temperature 97.2 [degF] Reyes Dumont DPM Work Phone: [facility] [employer] 06-13-2024 10:23-0400 Diastolic blood pressure 76 mm[Hg] Reyes Dumont DPM Work Phone: [facility] 06-13-2024 10:23-0400 Systolic blood pressure 129 mm[Hg] Reyes Dumont DPM Work Phone: [facility] 12-26-2023 12:58-0500 Body temperature 96.6 [degF] Marcos Rodriguez DO Work Phone: [facility] [employer] 12-26-2023 12:58-0500 Diastolic blood pressure 78 mm[Hg] Marcos Rodriguez DO Work Phone: [facility] 12-26-2023 12:58-0500 Heart rate 69 /min Marcos Rodriguez DO Work Phone: [facility] 12-26-2023 12:58-0500 SaO2% (BldA) [Mass fraction] 97 % Marcos Rodriguez DO Work Phone: [facility] [employer] 12-26-2023 12:58-0500 Systolic blood pressure 120 mm[Hg] Marcos Rodriguez DO Work Phone: [facility] [employer] 09-04-2023 11:00-0400 Body height 157.48 cm Jaqueline Huerta Other [employer] Other 09-04-2023 11:00-0400 Body mass index (BMI) [Ratio] 29.85 kg/m2 Jaqueline Huerta Other [employer] Other 09-04-2023 11:00-0400 Body weight 74.03 kg Jaqueline Huerta Other [employer] Other 09-04-2023 11:00-0400 Diastolic blood pressure 76 mm[Hg] Jaqueline Huerta Other [employer] Other 09-04-2023 11:00-0400 SaO2% (BldA) [Mass fraction] 97 % Jaqueline Huerta Other [employer] Other 09-04-2023 11:00-0400 Systolic blood pressure 138 mm[Hg] Jaqueline Huerta Other [employer] Other 08-04-2023 14:00-0400 Body height 157.48 cm Yo Timmons Other [employer] Other 08-04-2023 14:00-0400 Body mass index (BMI) [Ratio] 30.36 kg/m2 Yo Manleyley Other [employer] Other 08-04-2023 14:00-0400 Body weight 75.3 kg Yo Manleyley Other [employer] Other 07-29-2023 11:15-0400 Body height 157.48 cm Cornelius De La Torre Other [employer] Other 07-29-2023 11:15-0400 Body mass index (BMI) [Ratio] 30.4 kg/m2 Cornelius De La Torre Other [employer] Other 07-29-2023 11:15-0400 Body weight 75.39 kg Cornelius De La Torre Other [employer] Other 07-29-2023 11:15-0400 Diastolic blood pressure 76 mm[Hg] Cornelius De La Torre Other [employer] Other 07-29-2023 11:15-0400 Respiratory rate 12 /min Cornelius De La Torre Other [employer] Other 07-29-2023 11:15-0400 Systolic blood pressure 102 mm[Hg] Cornelius De La Torre Other [employer] Other 12-17-2020 15:15-0500 BP Diastolic 62 mm[Hg] [facility] [place] 12-17-2020 15:15-0500 BP Systolic 136 mm[Hg] [facility] [place] 12-17-2020 15:15-0500 Pulse (Heart Rate) 72 /min [facility] 12-17-2020 15:15-0500 Pulse Oximetry 99 % [facility] [place] 12-17-2020 15:15-0500 Respiratory Rate 16 /min [facility] 12-17-2020 13:10-0500 Body Temperature 97.81 [degF] [facility] 12-17-2020 10:39-0500 BMI (Body Mass Index) 29.65 kg/m2 [facility] 12-17-2020 10:39-0500 Body weight 75.93 kg [facility] [place] 12-17-2020 10:39-0500 Height 160 cm [place], [place] Encounters Encounter Date Encounter Type Care Provider Facility Start: 08-16-2025 End: 08-16-2025 ambulatory Cornelius De La Torre MD Work Phone: [facility] Work Phone: Start: 08-16-2025 End: 08-16-2025 Patient encounter procedure Cornelius De La Torre MD -[facility] Work Phone: Start: 07-19-2025 Non-patient / Non-visit Brodie chinchilla MD -[facility] Work Phone: Start: 07-11-2025 End: 07-11-2025 ambulatory Cornelius De La Torre MD Work Phone: [facility] Work Phone: Start: 07-11-2025 End: 07-11-2025 Patient encounter procedure Yo Olea Shanelle [facility] Work Phone: Start: 06-12-2025 End: 06-12-2025 ambulatory Cornelius De La Torre MD Work Phone: [facility] Work Phone: Start: 06-12-2025 End: 06-12-2025 Patient encounter procedure Yo Timmons [facility] Work Phone: Start: 05-31-2025 End: 05-31-2025 Admission to same day surgery center Yo Timmons DO [facility] [place] [facility] [place] Start: 05-31-2025 End: 05-31-2025 ambulatory Cornelius De La Torre MD Work Phone: [facility] Work Phone: Start: 05-31-2025 Non-patient / Non-visit Yo Emmie Kinsey lópez [facility] Work Phone: Start: 05-28-2025 End: 05-28-2025 ambulatory Cornelius De La Torre MD Work Phone: [facility] Work Phone: Start: 05-28-2025 End: 05-28-2025 Patient encounter procedure Roxann Blake [facility] Work Phone: Start: 05-18-2025 End: 05-18-2025 Patient encounter procedure Yo Timmons DO -Pre-Surgical Testing Work Phone: Start: 05-18-2025 End: 05-18-2025 ambulatory Cornelius De La Torre MD Work Phone: [facility] Work Phone: Start: 05-18-2025 Encounter for preprocedural laboratory examination Yo Timmons [facility] Start: 05-16-2025 End: 05-16-2025 ambulatory Cornelius De La Torre MD Work Phone: [facility] Work Phone: Start: 05-16-2025 End: 05-16-2025 Patient encounter procedure Yo Olea Shanelle -[facility] Work Phone: Start: 05-11-2025 End: 05-11-2025 Patient encounter procedure Yo Olea Shanelle JIMENEZ -[facility] [place] Work Phone: Start: 05-11-2025 End: 05-11-2025 ambulatory Cornelius De La Torre MD Work Phone: [facility] Work Phone: Start: 04-27-2025 End: 04-27-2025 Patient encounter procedure Yo Olea Shanelle JIMENEZ -[facility] Work Phone: Start: 04-27-2025 End: 04-27-2025 Patient encounter procedure Yo Timmons DO -[facility] Start: 04-27-2025 End: 04-27-2025 ambulatory Yo Timmons Facility:[facility] Start: 03-30-2025 Non-patient / Non-visit Brodie chinchilla [...] status Ernestina E Rinkes DO Work Phone: [facility] Work Phone: Start: 12-14-2024 End: 12-14-2024 Periodic preventive med est patient 65yrs& older Ernestina Callahan DO Work Phone: [facility] Comment on above: Encounter for gyneco logical examination without abnormal finding (Primary Dx); Screening for malignant neoplasm of cervix; Encounter for screening mammogram for breast cancer; Screening for osteoporosis; Postmenopausal status, age-related; Vaginal atrophy; Vaginal itching Start: 12-14-2024 End: 12-14-2024 ambulatory ERNESTINA CALLAHAN Not Available Start: 11-25-2024 End: 11-25-2024 Bamboo flowsheet Reyes Dumont DPM Work Phone: [facility] Start: 11-25-2024 End: 11-25-2024 Bamboo flowsheet Reyes Dumont DPM Work Phone: [facility] Start: 11-25-2024 End: 11-25-2024 ambulatory REYES DUMONT Not Available Start: 11-25-2024 End: 11-25-2024 Office outpatient visit 15 minutes Reyes Dumont DPM Work Phone: [facility] Comment on above: Plantar fasciitis of left foot (Primary Dx); Pain of left heel; Orthotic training Start: 10-06-2024 End: 10-06-2024 Bamboo flowsheet Antoinette Brink TOE PUNCHER [facility] Start: 10-06-2024 End: 10-06-2024 Bamboo flowsheet Antoinette Brink TOE PUNCHER [facility] Start: 10-06-2024 End: 10-06-2024 ambulatory Antoinette Brink TOE PUNCH[facility] Comment on above: Plantar fasciitis of left foot (Primary Dx); Pain of left heel Start: 09-29-2024 End: 09-29-2024 Bamboo flowsheet Antoinette Brink TOE PUNCHER [facility] Start: 09-29-2024 End: 09-29-2024 Bamboo flowsheet Antoinette Brink TOE PUNCHER [facility] Start: 09-29-2024 End: 09-29-2024 ambulatory Antoinette Brink TOE PUNCHER [facility] Comment on above: Plantar fasciitis of left foot (Primary Dx); Pain of left heel Start: 09-27-2024 End: 09-27-2024 ambulatory ANTOINETTE KITCHEN Not Available Start: 09-27-2024 End: 09-27-2024 ambulatory Antoinette Leivaink TOE PUNCHER [facility] Work Phone: Comment on above: Pain of left heel (P rimary Dx); Plantar fasciitis of left foot Start: 09-27-2024 End: 09-27-2024 Patient encounter procedure [facility] Work Phone: Start: 09-26-2024 End: 09-26-2024 Office outpatient visit 15 minutes Reyes Dumont DPM Work Phone: [facility] Comment on above: Plantar fasciitis of left foot (Primary Dx); Pain of left heel Start: 09-26-2024 End: 09-26-2024 ambulatory REYES DUMONT Not Available Start: 09-26-2024 End: 09-26-2024 Bamboo flowsheet Reyes Dumont DPM Work Phone: [facility] Start: 09-26-2024 End: 09-26-2024 Bamboo flowsheet Reyes Dumont DPM Work Phone: [facility] Start: 09-23-2024 End: 09-23-2024 Bamboo flowsheet Antoinette Brink TOE PUNCHER [facility] Start: 09-23-2024 End: 09-23-2024 Bamboo flowsheet Antoinette Brink TOE PUNCHER [facility] Start: 09-23-2024 End: 09-23-2024 ambulatory Antoinette Brink TOE PUNCHER [facility] Comment on above: Pain of left heel (P rimary Dx); Plantar fasciitis of left foot Start: 09-20-2024 End: 09-20-2024 Bamboo flowsheet Antoinette Brink TOE PUNCHER [facility] Start: 09-20-2024 End: 09-20-2024 Bamboo flowsheet Antoinette Brink TOE PUNCHER [facility] Start: 09-20-2024 End: 09-20-2024 ambulatory Antoinette Brink TOE PUNCHER [facility] Comment on above: Pain of left heel (P rimary Dx); Plantar fasciitis of left foot Start: 09-15-2024 End: 09-15-2024 Bamboo flowsheet Antoinette Brink TOE PUNCHER [facility] Start: 09-15-2024 End: 09-15-2024 Bamboo flowsheet Antoinette Brink TOE PUNCHER [facility] Start: 09-15-2024 End: 09-15-2024 ambulatory Antoinette Brink TOE PUNCHER [facility] Comment on above: Pain [...] 09-09-2024 End: 09-09-2024 Bamboo flowsheet Antoinette Brink TOE PUNCHER [facility] Start: 09-09-2024 End: 09-09-2024 Bamboo flowsheet Antoinette Brink TOE PUNCHER [facility] Start: 09-09-2024 End: 09-09-2024 ambulatory Antoinette Brink TOE PUNCHER [facility] Comment on above: Pain of left heel (P rimary Dx); Plantar fasciitis of left foot Start: 09-06-2024 End: 09-06-2024 Bamboo flowsheet Antoinette Brink TOE PUNCHER [facility] Start: 09-06-2024 End: 09-06-2024 Bamboo flowsheet Antoinette Brink TOE PUNCHER [facility] Start: 09-06-2024 End: 09-06-2024 ambulatory Antoinette Brink TOE PUNCHER [facility] Comment on above: Pain of left heel (P rimary Dx); Plantar fasciitis of left foot Start: 09-05-2024 End: 09-05-2024 ambulatory [facility] Work Phone: Start: 09-05-2024 End: 09-05-2024 Patient encounter procedure [facility] Work Phone: Start: 09-01-2024 End: 09-01-2024 Bamboo flowsheet Antoinette Brink TOE PUNCHER [facility] Start: 09-01-2024 End: 09-01-2024 Bamboo flowsheet Antoinette Brink TOE PUNCHER [facility] Start: 09-01-2024 End: 09-01-2024 ambulatory Antoinette Brink TOE PUNCHER [facility] Comment on above: Pain of left heel (P rimary Dx); Plantar fasciitis of left foot Start: 08-30-2024 End: 08-30-2024 Bamboo flowsheet Antoinette Brink TOE PUNCHER [facility] Start: 08-30-2024 End: 08-30-2024 Bamboo flowsheet Antoinette Brink TOE PUNCHER [facility] Start: 08-30-2024 End: 08-30-2024 ambulatory Antoinette Brink TOE PUNCHER [facility] Comment on above: Pain of left heel (P rimary Dx); Plantar fasciitis of left foot Start: 08-25-2024 End: 08-25-2024 Bamboo flowsheet Antoinette Brink TOE PUNCHER [facility] Start: 08-25-2024 End: 08-25-2024 Bamboo flowsheet Antoinette Brink TOE PUNCHER [facility] Start: 08-25-2024 End: 08-25-2024 ambulatory Antoinetet Brink TOE PUNCHER [facility] Comment on above: Pain of left heel (P rimary Dx); Plantar fasciitis of left foot Start: 08-23-2024 End: 08-23-2024 Bamboo flowsheet Antoinette Brink TOE PUNCHER [facility] Start: 08-23-2024 End: 08-23-2024 Bamboo flowsheet Antoinette Brink TOE PUNCHER [facility] Start: 08-23-2024 End: 08-23-2024 ambulatory Antoinette Brink TOE PUNCHER [facility] Comment on above: Pain [...] 15 minutes Reyes Dumont DPM Work Phone: [facility] Comment on above: Plantar fasciitis of left foot (Primary Dx); Pain of left heel Start: 08-16-2024 End: 08-16-2024 Bamboo flowsheet Reyes Dumont DPM Work Phone: [facility] Start: 08-16-2024 End: 08-16-2024 Bamboo flowsheet Reyes Dumont DPM Work Phone: [facility] Start: 08-15-2024 End: 08-15-2024 Bamboo flowsheet Antoinette Kitchen TOE PUNCHER [facility] Start: 08-15-2024 End: 08-15-2024 Bamboo flowsheet Antoinette Leivaink TOE PUNCHER [facility] Start: 08-15-2024 End: 08-15-2024 ambulatory Antoinette Kitchen TOE PUNCHER [facility] Comment on above: Pain of left heel (P rimary Dx); Plantar fasciitis of left foot Start: 08-11-2024 End: 08-11-2024 Bamboo flowsheet Poncho Callaway TOE PUNCHER [facility] Start: 08-11-2024 End: 08-11-2024 Bamboo flowsheet Poncho Callaway TOE PUNCHER [facility] Start: 08-11-2024 End: 08-11-2024 ambulatory Poncho Callaway TOE PUNCHER [facility] Comment on above: Pain of left heel (P rimary Dx); Plantar fasciitis of left foot Start: 08-09-2024 End: 08-09-2024 Bamboo flowsheet Clover Andrew PT Work Phone: [facility] Start: 08-09-2024 End: 08-09-2024 Bamboo flowsheet Clover Andrew PT Work Phone: [facility] Start: 08-09-2024 End: 08-09-2024 ambulatory Clover Andrew PT Work Phone: [facility] Comment on above: Pain of left heel (P rimary Dx); Plantar fasciitis of left foot Start: 08-01-2024 End: 08-01-2024 Bamboo flowsheet Reyes Dumont DPM Work Phone: [facility] Start: 08-01-2024 End: 08-01-2024 Bamboo flowsheet Reyes Dumont DPM Work Phone: [facility] Start: 08-01-2024 End: 08-01-2024 Office outpatient visit 25 minutes Reyes Dumont DPM Work Phone: [facility] Comment on above: Pain of left heel (P rimary Dx); Plantar fasciitis of left foot; Osteoporosis, unspecified osteoporosis type, unspecified pathological fracture presence ([facility]) Start: 08-01-2024 End: 08-01-2024 ambulatory REYES DUMONT Not Available Start: 07-28-2024 End: 07-28-2024 Telephone encounter Arabella Draper [facility] Comment on above: MRI results Start: 07-27-2024 End: 07-27-2024 ambulatory REYES DUMONT Not Available Start: 07-21-2024 Non-patient / Non-visit [facility] Work Phone: Start: 07-16-2024 Patient encounter procedure [facility] Start: 07-14-2024 End: 07-14-2024 ambulatory [facility] Work Phone: Start: 07-14-2024 End: 07-14-2024 Patient encounter procedure [facility] Work Phone: Start: 07-13-2024 End: 07-13-2024 Bamboo flowsheet Reyes Dumont DPM Work Phone: [facility] Start: 07-13-2024 End: 07-13-2024 Bamboo flowsheet Reyes Dumont DPM Work Phone: [facility] Start: 07-13-2024 End: 07-13-2024 Office outpatient visit 25 minutes Reyes Dumont DPM Work Phone: [facility] Comment on above: Pain of left heel (P rimary Dx); Bilateral plantar fasciitis; Plantar fasciitis of left foot; Osteoporosis, unspecified osteoporosis type, unspecified pathological fracture presence ([facility]) Start: 07-13-2024 End: 07-13-2024 ambulatory REYES DUMONT Not Available Start: 06-13-2024 End: 06-13-2024 ambulatory REYES DUMONT Not Available Start: 06-13-2024 End: 06-13-2024 Patient encounter procedure Reyes Dumont DPM Work Phone: [facility] Comment on above: Pain of left heel (P rimary Dx); Pain of right heel; Bilateral plantar fasciitis Start: 05-30-2024 End: 05-30-2024 ambulatory REYES DUMONT Not Available Start: 12-28-2023 End: 12-28-2023 ambulatory Cornelius De La Torre Other [facility] [employer] Other Start: 12-28-2023 Office outpatient vi sit 15 minutes Cornelius De La Torre [facility] Start: 12-26-2023 End: 12-26-2023 Office outpatient visit 25 minutes Marcos Rodriguez DO Work Phone: [facility] Comment on above: Viral URI (Primary D x); Exposure to COVID-19 virus Start: 11-04-2023 End: 11-04-2023 ambulatory Cornelius De La Torre Other [employer] Other Start: 11-04-2023 Telephone encounter Cornelius De La Torre [facility] Start: 09-07-2023 End: 09-07-2023 ambulatory Cornelius De La Torre Other [employer] Other Start: 09-07-2023 Nursing evaluation o f patient and report Cornelius De La Torre [facility] Start: 09-04-2023 End: 09-04-2023 ambulatory Jaqueline Huerta Other [employer] Other Start: 09-04-2023 Office outpatient vi sit 15 minutes Jaqueline Huerta [facility] Start: 08-04-2023 End: 08-04-2023 ambulatory Yo Timmons Other [employer] Other Start: 08-04-2023 Office outpatient ne w [address] [facility] Start: 07-29-2023 End: 07-29-2023 ambulatory Cornelius De La Torre Other [employer] Other Start: 07-29-2023 Office outpatient vi sit 15 minutes Cornelius De La Torre [facility] Start: 01-14-2023 End: 01-14-2023 ambulatory Cornelius De La Torre Other [employer] Other Start: 01-14-2023 Telephone encounter Cornelius De La Torre [facility] Start: 11-04-2022 End: 11-04-2022 ambulatory [...] 12-16-2021 End: 12-16-2021 ambulatory Nieves Adams Other [employer] Other Start: 12-16-2021 Telephone encounter Nieves Adams [facility] Start: 08-07-2021 Office outpatient vi sit [address] [facility] Start: 12-17-2020 End: 12-17-2020 Patient encounter procedure SUNITA TOMAS [facility] Start: 12-17-2020 End: 12-17-2020 Subsequent hospital visit by physician Sunita Tomas Work Phone: [facility] Procedures Date Procedure Procedure Detail Performing [...] DO Work Phone: Start: 12-17-2020 End: 12-17-2020 [employer] PROFESSOR REPORT Hpf Scanning Start: 12-17-2020 Catheterization and angiography procedure details panel Sunita Tomas Work Phone: Plan of Treatment Date Care Activity Detail Author Start: 05-31-2025 [facility] Start: 12-14-2024 End: 12-14-2024 Patient encounter procedure [facility] Comment on above: Encounter for gyneco logical examination without abnormal finding; Screening for malignant neoplasm of cervix; Encounter for screening mammogram for breast cancer Start: 10-27-2024 End: 10-27-2024 Patient encounter procedure 10/27/2024 11:00 AM EST Office Visit [facility] [address] [place] [address] Reyes Dumont, DPM [address] [place] [address] [facility] Start: 10-26-2024 End: 10-26-2024 Patient encounter procedure 10/26/2024 11:00 AM EST Office Visit [facility] [address] [place] [address] Reyes Dumont, DPM [address] [place] [address] [facility] Start: 10-06-2024 End: 10-06-2024 ambulatory 10/06/2024 1:00 PM EST Treatment [facility] [address] [place] [address] Antoinette Kitchen, TOE PUNCHER [facility] Start: 10-04-2024 End: 10-04-2024 ambulatory 10/04/2024 1:00 PM EST Treatment [facility] [address] [place] [address] Antoinette Kitchen, TOE PUNCHER [facility] Start: 10-03-2024 Patient referral [facility] Work Phone: Start: 09-29-2024 End: 09-29-2024 ambulatory 09/29/2024 1:00 PM EST Treatment [facility] [address] [place] [address] Antoinette Kitchen, TOE PUNCHER [facility] Start: 09-27-2024 End: 09-27-2024 ambulatory 09/27/2024 1:00 PM EST Treatment [facility] [address] [place] [address] Antoinette Kitchen, TOE PUNCHER [facility] Start: 09-26-2024 End: 09-26-2024 Patient encounter procedure 09/26/2024 4:00 PM EST Office Visit [facility] [address] [facility] [address] [place] [address] Reyes Dumont DPM [address] [facility] [address] [place] [address] [facility] Start: 09-23-2024 End: 09-23-2024 ambulatory 09/23/2024 1:00 PM EST Treatment [facility] [address] [facility] [address] [place] [address] Antoinette Kitchen, TOE PUNCHER [facility] Start: 09-20-2024 End: 09-20-2024 ambulatory 09/20/2024 1:00 PM EST Treatment [facility] [address] [facility] [address] [place] [address] Antoinette Kitchen TOE PUNCHER [facility] Start: 09-15-2024 End: 09-15-2024 ambulatory 09/15/2024 1:00 PM EDT Treatment [facility] [address] [facility] [address] [place] [address] Antoinette Kitchen, TOE PUNCHER [facility] Start: 09-14-2024 End: 09-14-2024 ambulatory 09/14/2024 11:00 AM EDT Treatment [facility] [address] [place] [address] Clover Andrew, PT [address] [place] [address] [facility] Start: 09-09-2024 End: 09-09-2024 ambulatory 09/09/2024 11:30 AM EDT Treatment [facility] [address] [place] [address] Antoinette Kitchen, TOE PUNCHER [facility] Start: 09-06-2024 End: 09-06-2024 ambulatory 09/06/2024 1:00 PM EDT Treatment [facility] [address] [place] [address] Antoinette Kitchen, TOE PUNCHER [facility] Start: 09-01-2024 End: 09-01-2024 ambulatory 09/01/2024 1:00 PM EDT Treatment [facility] [address] [place] [address] Antoinette Kitchen, TOE PUNCHER [facility] Start: 08-30-2024 End: 08-30-2024 ambulatory 08/30/2024 11:00 AM EDT Treatment [facility] [address] [place] [address] Antoinette Kitchen, TOE PUNCHER [facility] Start: 08-25-2024 End: 08-25-2024 ambulatory 08/25/2024 1:00 PM EDT Treatment [facility] [address] [place] [address] Antoinette Kitchen, TOE PUNCHER [facility] Start: 08-23-2024 End: 08-23-2024 ambulatory 08/23/2024 1:00 PM EDT Treatment [facility] [address] [place] [address] Antoinette Kitchen, TOE PUNCHER [facility] Start: 08-18-2024 End: 08-18-2024 ambulatory 08/18/2024 1:00 PM EDT Treatment [facility] [address] [place] [address] Clover Andrew, PT [address] [place] [address] [facility] Start: 08-16-2024 End: 08-16-2024 Patient encounter procedure 08/16/2024 2:45 PM EDT Office Visit [facility] [address] [place] [address] Reyes Dumont, DPM [address] [place] [address] [facility] Start: 08-15-2024 End: 08-15-2024 ambulatory 08/15/2024 1:00 PM EDT Treatment [facility] [address] [facility] [address] [place] [address] Antoinette Kitchen, TOE PUNCHER [facility] Start: 08-11-2024 End: 08-11-2024 ambulatory 08/11/2024 1:00 PM EDT Treatment [facility] [address] [facility] [address] [place] [address] Poncho Callaway, TOE PUNCHER [facility] Start: 08-01-2024 End: 08-01-2024 Patient encounter procedure [facility] Comment on above: Arrived Start: 07-17-2024 Influenza vaccination Influenza Vacc ine (#1) [facility] Start: 07-13-2024 End: 07-13-2024 Patient encounter procedure 07/13/2024 1:00 PM EDT Office Visit [facility] [address] [place] [address] Reyes Dumont, DPM [address] [place] [address] Arrived [facility] Comment on above: Arrived Start: 09-18-2023 Screening for malign ant neoplasm of breast Mammogram [facility] Start: 07-17-2023 Influenza vaccination Influenza Vacc ine (#1) [facility] Start: 12-08-2020 Annual Wellness Visi t (AWV) Annual Wellness Visit (AWV) [place] Start: 07-17-2020 Influenza vaccination Flu vaccine (# 1) [place] Start: 2019 Pneumococcal 65+ yea rs Vaccine (1 of 1 - PPSV23) Pneumococcal 65+ years Vaccine (1 of 1 - PPSV23) [place] Start: 2019 Pneumococcal Vaccine : 65+ Years (1 - PCV) Pneumococcal Vaccine: 65+ Years (1 - PCV) [facility] Start: 2019 Pneumococcal Vaccine : 65+ Years (1 of 1 - PCV) Pneumococcal Vaccine: 65+ Years (1 of 1 - PCV) [facility] Start: 2009 Screening for osteoporosis DEXA (modify frequency per FRAX score) [place], [place] Start: 2004 Screening for malign ant neoplasm of breast Breast cancer screen [place] Start: 2004 Screening for malign ant neoplasm of colon Colon cancer screen colonoscopy [place] Start: 2004 Shingles Vaccine (1 of 2) Shingles Vaccine (1 of 2) [place] Start: 1994 Diabetes screen Diabetes screen [place], [place] Start: 1994 Lipid panel Lipid screen [place], [place] Start: 1973 DTaP/Tdap/Td vaccine (1 - Tdap) DTaP/Tdap/Td vaccine (1 - Tdap) [place], [place] Start: 1954 Creatinine measurement Creatinine mo nitoring [place], [place] Start: 1954 Hepatitis C screening Hepatitis C sc reen [place], [place] Start: 1954 Potassium monitoring Potassium monit oring [place], [place] Start: 1954 Screening for malign ant neoplasm of colon [facility] Comprehensive metabo lic 2000 panel - Serum or Plasma [facility] Comprehensive metabo lic 2000 panel - Serum or Plasma [facility] DBT Breast - bilater al screening Bilateral screening mammogram with tomosynthesis Imaging Routine Encounter for screening mammogram for breast cancer Ordered: 12/14/2024 [facility] Comment on above: Ordered: 12/14/2024 DXA Skeletal system Views for bone density DEXA bone density Imaging Routine Screening for osteoporosis Postmenopausal status, age-related Ordered: 12/14/2024 [facility] Comment on above: Ordered: 12/14/2024 IGP, RFX APTIMA HPV ASCU IGP, RFX APTIMA HPV ASCU Lab Routine Screening for malignant neoplasm of cervix Ordered: 12/14/2024 [facility] Work Phone: Comment on above: Ordered: 12/14/2024 MR Ankle - left WO contrast MR ankle left wo IV contrast Imaging High Priority Pain of left heel Plantar fasciitis of left foot Ordered: 07/13/2024 [facility] Work Phone: Comment on above: Ordered: 07/13/2024 Patient Education Know your Meds [facility] Work Phone: Patient referral [facility] Work Phone: XR Hand - bilateral 3 Views [facility] Immunizations Immunization Date Immunization Notes Care Provider Fa cility 09-05-2024 influenza, high dose seasonal, preservative-free [facility] 09-05-2024 influenza virus vaccine, unspecified formulation Antoinette Kitchen PTA [facility] 11-22-2023 COVID-19 (PFIZER) 12Y and older Cornelius De La Torre MD Work Phone: [facility] 09-07-2023 influenza, high dose seasonal, preservative-free Cornelius De La Torre Other [facility] [employer] Other 09-07-2023 influenza virus vaccine, unspecified formulation Reyes GARBERM Work Phone: [facility] 08-27-2022 influenza virus vaccine, split virus (incl. purified surface antigen) Cornelius De La Torre Other [facility] [employer] Other 08-27-2022 influenza virus vaccine, unspecified formulation Marcos Rodriguez DO Work Phone: [facility] 09-21-2021 COVID-19 Vaccine Pfi zer - Documentation Purposes Only Cornelius De La Torre Other [facility] 08-29-2021 influenza virus vaccine, split virus (incl. purified surface antigen) Cornelius De La Torre Other [employer] Other 08-29-2021 influenza virus vaccine, unspecified formulation [facility] 02-05-2021 COVID-19 mRNA, Comirnaty (Pfizer) Cornelius De La Torre MD Work Phone: [facility] 01-14-2021 COVID-19 mRNA, Comirnaty (Pfizer) Cornelius De La Torre MD Work Phone: [facility] 08-28-2020 influenza virus vaccine, split virus (incl. purified surface antigen) Cornelius De La Torre Other [employer] Other 08-28-2020 influenza virus vaccine, unspecified formulation [facility] 09-15-2019 influenza virus vaccine, split virus (incl. purified surface antigen) Cornelius De La Torre Other [facility] [employer] Other 09-15-2019 influenza virus vaccine, unspecified formulation [facility] 09-01-2018 influenza virus vaccine, split virus (incl. purified surface antigen) Cornelius De La Torre Other [employer] Other 09-01-2018 influenza virus vaccine, unspecified formulation [facility] 08-31-2017 tetanus and diphther ia toxoids, adsorbed, preservative free, for adult use (5 Lf of tetanus toxoid and 2 Lf of diphtheria toxoid) Cornelius De La Torre Other [facility] 08-13-2016 tetanus and diphther ia toxoids, adsorbed, preservative free, for adult use (5 Lf of tetanus toxoid and 2 Lf of diphtheria toxoid) Cornelius De La Torre Other [facility] 08-24-2013 tetanus and diphther ia toxoids, adsorbed, preservative free, for adult use (5 Lf of tetanus toxoid and 2 Lf of diphtheria toxoid) Cornelius Tyler Other [facility] Payers Date Payer Category Payer Self-pay [id number] 2022 Private Health Insurance [employer] Member Subscriber Plan / Payer (Effective 2022-Present) Name: Bhargavi Chopra Relation to Subscriber: Self Name: Bhargavi Chopra Payer ID: Not on file Type: Not on file Address: [place] [id number] 2022 Unknown [id number] 2019 Medicare [id number] 1959 Medicare [id number] 1959 Unknown [id number] 1954 Unknown [id number]. 177 1954 Unknown [id number]. 593 1954 Unknown [id number]. 593 1954 Unknown [id number]. 593 1954 Unknown [id number]. 593 1954 Unknown [id number]. 593 1954 Unknown [id number]. 593 1954 Unknown [id number] [id number]. 593 1954 Unknown [id number] 2.16.840.1.082609.3.579.2. 593 1955 Unknown [id number] 2.840.1.348970.3.579.2. 125 1955 Unknown [id number] 2.840.1.625721.3.579.2. 125 1954 Unknown [id number] 2.840.1.471743.3.579.2. 125 1954 Unknown [id number] 2.840.1.789138.3.579.2. 125 1954 Unknown [id number] 2.840.1.626160.3.579.2. 125 1954 Unknown [id number] 2.16840.1.316351.3.579.2. 125 1954 Unknown [id number] 2.16840.1.392148.3.579.2. 125 1954 Unknown [id number] 2.16.840.1.404716.3.579.2. 125 1954 Unknown [id number] 2.16840.1.592187.3.579.2. 125 1954 Unknown [id number] 2.16.840.1.634398.3.579.2. 125 1954 Unknown [id number] 2.16840.1.238642.3.579.2. 125 1954 Unknown [id number] 2.16.840.1.164549.3.579.2. 1258 1954 Unknown [id number] 2.16.840.1.520684.3.579.2. 1258 1954 Unknown [id number] 2.16.840.1.407052.3.579.2. 1258 1954 Unknown [id number] 2.16.840.1.791649.3.579.2. 1258 1954 Unknown [id number] 2.16840.1.100575.3.579.2. 1258 1954 Unknown [id number] 2.16840.1.353722.3.579.2. 1258 1954 Unknown [id number] 2.840.1.381455.3.579.2. 1258 1954 Unknown [id number] 2.16840.1.572378.3.579.2. 1258 1954 Unknown [id number] 2.840.1.010457.3.579.2. 1258 1954 Unknown [id number] 2.16840.1.620889.3.579.2. 1258 1954 Unknown [id number] 2.840.1.179552.3.579.2. 1258 1954 Unknown [id number] 2.16840.1.700814.3.579.2. 1258 1954 Unknown [id number] 2.16840.1.238909.3.579.2. 1258 1954 Unknown [id number] 2.16840.1.802360.3.579.2. 1258 1954 Unknown [id number] 2.16840.1.981229.3.579.2. 1258 1954 Unknown [id number] 2.16.840.1.380270.3.579.2. 1259 1954 Unknown [id number] 2.16.840.1.987838.3.579.2. 1259 1954 Unknown [id number] 2.16.840.1.803150.3.579.2. 1259 Unknown [id number] 2.16.840.1.212091.3.579.2. 531 Unknown [id number] 2.16.840.1.411832.3.579.2. 531 Unknown [id number] 2.16.840.1.710112.3.579.2. 531 Unknown [id number] 2.16.840.1.660644.3.579.2. 531 Social History Date Type Detail Facility Start: 12-17-2020 End: 05-30-2024 Tobacco smoking status NVIS Never smoker [facility] Start: 12-17-2020 End: 05-30-2024 Tobacco use and exposure Never used [facility] Start: 12-17-2020 End: 12-14-2024 Alcohol intake Ex-drinker (finding) [facility] Sex Assigned At Not on file [facility] Start: 11-19-2023 End: 11-25-2024 Sex Assigned At [facility] Other Start: 11-19-2023 End: 11-25-2024 History of Social function [facility] Start: 11-19-2023 Alcohol Comment occasional [facility] Start: 1955 Sex Assigned At Female [facility] Start: 11-18-2023 Gender identity Identifies as female gender (finding) [facility] Start: 11-18-2023 Sexual orientation Heterosexual (finding) [facility] Start: 03-09-2024 End: 05-31-2025 Tobacco smoking status NVIS Ex-smoker (finding) [facility] Start: 09-27-2024 End: 10-03-2024 Sex Female (finding) [facility] Goals Date Patient Goal Desired Activity /State Clinical Notes 08-07-2021 to 05-28-2025 Note Date & Type Note Facility 05-28-2025 Evaluation note Diagnosis Onset Date Resolution Nostril infection noneactive May 282024 2:25pm Bone spur acute June 12 10:01am De Quervain's tenosynovitis, left acute June 12, 2 025 10:01am Other specified postprocedural states acute June 12, 2025 10:01am Bone spur acute July 11 025 10:55am De Quervain's tenosynovitis, left acute July 11, 2025 10:55am Osteoarthritis of carpometacarpal joint of left thumb acute July 11 10:55am Other specified postprocedural states acute June 10:55am Blood glucose elevated acute Oc 2024 9:58am Dyslipidemia acute August 16, 2025 9:58am Essential (primary) hypertension acute August 16 9:58am Skin yeast infection acute Oct2024 9:58am Weight gain, abnormal acute Aug angelica2024 9:58am [facility] Work Phone: 1([phone]) 578-347606-26-2025 Radiology Diagnostic study [facility] [place] [address] [place] [address] CT Scan Report Signed Patient: Bhargavi Chopra MR#: [id number] : 1955 Acct:[id number] Age/Sex: 69 / F ADM Date: Loc: CT Room: Type: [facility] Attending Dr: Yo Timmons DO Copies to: Yo Timmons DO~ Ordering Provider: Yo Timmons DO Date of Service: 05/11/25 CT/CT wrist LT wo con: eval for bony prominence of left wrist CT of the left wrist without INTRAVENOUS CONTRAST: CLINICAL HISTORY: Left wrist pain, bruising and swelling COMPARISON: 05/11/2025 TECHNIQUE: Spiral images were obtained through the left wrist without contrast. 3-D reconstruction.This CT exam was performed using one or [...] Paulino M.D. 05/11/2025 6:15 PM Dictation Location: [place] [address] Transcribed By: [facility] 05/11/251814 Dictated By: Everette Paulino MD 05/11/251809 Signed By: 05/11/251814 [facility] Work Phone: 1(416) 170-947006-12-2025 Evaluation note* Diagnosis Onset Date Resolution Status Admit Date Bone spur acute April 27 1:47pm De Quervain's tenosynovitis, left ac jackson April 27, 2025 1:47pm [facility] Work Phone: 1(183) 146-931006-12-2025 Evaluation note* Diagnosis Onset Date Resolution Status Admit Date Bone spur acute April 27 1:47pm De Quervain's tenosynovitis, left ac jackson April 27, 2025 1:47pm Bone spur acute May 16, 2025 11:38am De Quervain's tenosynovitis, left ac jackson May 16, 2025 11:38am [facility] Work Phone: 1(852) 946-557606-12-2025 Evaluation note* Diagnosis Onset Date Resolution Status Admit Date Bone spur acute April 27 1:47pm De Quervain's tenosynovitis, left acute April 27, 2025 1:47pm Bone spur acute May 16, 2025 11:38am De Quervain's tenosynovitis, left acute May 16, 2025 1 1:38am Nostril infection noneactive May 282024 2:25pm [facility] Work Phone: 1([phone]) 862-972706-12-2025 Evaluation note* Diagnosis Onset Date Resolution Status [...] al states acute June 12, 2025 10:01am [facility] Work Phone: 1([phone]) 547-563806-12-2025 Evaluation note* Diagnosis Onset Date Resolution Status [...] postprocedur al states acute July 11 10:55am [facility] Work Phone: [phone]) 386-605301-29-2025 History of Present illness Narrative* Ernestina Callahan DO - 12/14/2024 1:30 PM EST Images [...] a little while. (DEXA order sent to [facility]). Denies bowel/bladder/breast concerns. Denies vaginal bleeding/spotting. Visit [...] Obstetric Comments Pap smear 11/14/22 wnl W/ [place] Mammogram 09/18/22 @ [facility] Review of Systems - General: Chills denies. [...] Review Audit Reviewed by Hanny Grimm MA (Finisher Hand) on 12/14/24 at 1329 Medication Order Taking? Sig Documenting Provider Last Dose Status atorvastatin (Lipitor) 40 MG tablet [id number] Take 40 mg by mouth in the morning. Ernestina Callahan DO Active benztropine (Cogentin) 0.5 MG tablet [id number] Take 0.5 mg by mouth at bedtime Ernestina Callahan DOActive clonazePAM (KlonoPIN) 0.5 MG tablet [id number] TAKE 1 TO 2 TABLETS BY MOUTH AT BEDTIME NEEDED FOR ANXIETY Ernestina Callahan DO Active Patient not taking: Discontinued 12/14/24 1328 Discontinued 12/14/24 1329 FLUoxetine (PROzac) 10 MG capsule [id number] Take 10 mg by mouth in the morning. Ernestina Callahan DO Active losartan (Cozaar) 50 MG tablet [id number] 1 (one) time each day at the same time Ernestina Callahan DO Active losartan-hydroCHLOROthiazide (Hyzaar) 100-25 MG tablet [id number] Take by mouth Ernestina Callahan DOActive metoprolol tartrate (Lopressor) 25 MG tablet [id number] TAKE 1 TABLET BY MOUTH TWICE A DAY WITH FOOD FOR 90 DAYS Ernestina Callahan DO Active pantoprazole (ProtoNix) 40 MG EC tablet [id number] TAKE 1 TABLET BY MOUTH EVERY DAY FOR 90 DAYS Ernestina Callahan DO Active potassium chloride (Klor-Con) 20 MEQ packet [id number] 1 (one) time each day at the same time Ernestina Callahan DO Active Yuvafem 10 MCG tablet vaginal tablet [id number] INSERT 1 TABLET INTO THE VAGINA TWICE [...] MCG tablet vaginal tablet documented in this encounterSaint [facility]–SmithvilleVwveondrrx86-50-1182 History of Present illness Narrative* Reyes Dumont, MALLORIE - 11/25/2024 11:00 AM EST 8Reason for [...] MRI left ankle without contrast performed at [facility] shows: Findings compatible with [...] obtain the device through the front window dental office receptionist area she does not need to schedule a visit though was advised after she obtains a device to contact us to give update on status. Future modifications may still be required. documented in this encounterSaint Luke's North Hospital–SmithvilleYoyxzluwmz65-17-9066 Hospital Discharge instructionsAmbulatory Orders* Referral to Rheumatology Time Frame: 10/03/24, Location: None [facility] Work Phone: 1(693) 993-917011-14-2024 History of Present illness Narrative* Antoinette Kitchen, TOE PUNCHER - 09/29/2024 1:00 PM EST Physical Therapy [...] to be instructed in home exercise program. Manager Underwriting Goals: To be met in 10 weeks [...] Please sign below. Date: Cosigned by Clover Andrew PT at 09/29/2024 2:57 PM EST documented in this encounterSaint Luke's North Hospital–SmithvilleZwbykymiag13-45-7588 History of Present illness Narrative* Antoinette Kitchen [...] wearing them. Amb without devices. Pt can curbing stonecutter shower with minimal pain, but has numbness. [...] able. Asked Pt to follow up with site safety manager for insoles/further recommendation. Follow up with Jen when orthotics arrive Outcome Measure: 20/80 LEFS Short Term Goal: To be met in 2 weeks Goal 1: Pt to be instructed in home exercise program. Manager Underwriting Goals: To be met in 10 weeks [...] 09/28/2024 1:07 PM EST documented in this encounterSaint Luke's North Hospital–SmithvilleXfauwsnict75-68-6684 History of Present illness Narrative* Reyes Dumont, SHIRLENEM - 09/26/2024 4:00 PM EST 8Reason for [...] MRI left ankle without contrast performed at [facility] shows: Findings compatible with [...] 10. Reappoint: 3 weeks documented in this encounterSaint Luke's North Hospital–SmithvilleVtmbzckzev61-78-2190 History of Present illness Narrative* Clover Andrew, [...] weekly. Asked Pt to follow up with site safety manager for insoles/further recommendation. Follow up with Jen when orthotics arrive Outcome Measure: LEFS Short Term Goal: To be met in 2 weeks Goal 1: Pt to be instructed in home exercise program. Mcc Goals: To be met in 10 weeks [...] Please sign below. Date: documented in this encounterSaint Luke's North Hospital–SmithvilleSweqoyazwh50-92-4496 History of Present illness Narrative* Clover Andrew, [...] Continues to have severe foot pain. Pain: 1010 Objective: PT Evaluation (08/09/24) Left ankle ROM: [...] to be instructed in home exercise program. Manager Underwriting Goals: To be met in 10 weeks [...] Please sign below. Date: documented in this encounterSaint Luke's North Hospital–SmithvilleUvnraztbqn92-99-0688 History of Present illness Narrative* Reyes Draper Jen, DPM - 08/16/2024 2:45 PM EDT Images [...] Exam Results Assessment & Plan * Reyes Dumont, DPM - 08/16/2024 2:45 PM EDT Images [...] Right heel pain: Resolved. SHOE GEAR EVALUATION: Dominga slip on athletic shoes bilateral foot. Imaging: [...] MRI left ankle without contrast performed at [facility] shows: Findings compatible with planter fasciitis. Assessments [...] foot orthotics are available. documented in this encounterSaint Luke's North Hospital–SmithvilleHesayhtmel32-05-4900 History of Present illness Narrative* Reyes Dumont [...] MRI LT ankle without contrast performed at [facility] on 07-27-2024. Review of [...] MRI left ankle without contrast performed at [facility] shows: Findings compatible with planter [...] to the floor. NOTE: entire time in ncrk-hw-zhur interaction with provider pwcn-xq-sgfs was 36 minutes and seconds with documentation [...] weeks for recheck. documented in this encounterSaint Luke's North Hospital–SmithvilleFqgpptnxhf41-31-2911 Telephone encounter Note* Telephone Encounter - RT. Bonny Raymond - 07/28/2024 10:29 AM EDT Patient was notified of results. Advised to continue to use crutches to offload LT. Foot. She should ice and elevate as much as possible. She should apply her topical pain reliever as directed. Patient has appointment on 08-01-2024 for follow up. [facility]SmithvilleKedvifntsv24-89-7302 Miscellaneous Notes* Telephone Encounter - RT. Bonny Raymond - 07/28/2024 10:29 AM EDT Patient was notified of results. Advised to continue to use crutches to offload LT. Foot. She should ice and elevate as much as possible. She should apply her topical pain reliever as directed. Patient has appointment on 08-01-2024 for follow up. * Telephone Encounter - RT. Bonny Raymond - 07/28/2024 10:29 AM EDT ----- Message [...] and allow for healing. documented in this encounterSaint Luke's North Hospital–SmithvilleAhzqejolqy30-08-6892 Telephone encounter Note* Telephone Encounter - RT. Bonny Raymond - 07/28/2024 10:29 AM EDT ----- Message [...] pressure/ pain and allow for healing. [facility]SmithvilleCslqscjapb48-16-2935 Evaluation note* Diagnosis Onset Date Resolution Status Admit Date Dyslipidemia acute July 14, 2024 1:32pm Essential (primary) hypertension acute July 14 1:32pm Medicare annual wellness vis it, subsequent acute July 14 1:32pm Osteoarthritis acute September 162023 11:30am [facility] Work Phone: 1(609) 608-267208-28-2024 History of Present illness Narrative* Reyes Dumont DPM - 07/13/2024 2:45 PM EDT Images from [...] today for complaint of bilateral heel pain: Fnpu-dkcgrby-gdrd-right. Right heelpain has basically resolved. Patient is [...] to the floor. NOTE: entire time in trap-qa-nqqq interaction with provider mmso-pc-oglv was 34 minutes 31 seconds with documentation [...] weeks for recheck. documented in this encounterSaint Luke's North Hospital–SmithvilleLjfukvwwhw32-07-2985 History of Present illness Narrative* Reyes Dumont [...] Plantar fasciitis bilaterally at plantar fascial origin byqn-jynqlsz-otbb-right with increased plantar calcaneal bursitis left only. No gross deformities noted besides mild pes planovalgus deformity. PAIN WITH PALPATION: Plantar fascial origin bilaterally luxc-ehozaij-pazj-right, plantar calcaneus at the area of bursitis left heel only. PAIN WITH ROM: On end range dorsiflexion mild pulling bilaterally aaws-baudspu-wcyf-right. 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 Physical examination was performed And patient was [...] Marcaine with epinepherine ([facility]# [id number],LOT#[id number], EXP.04/09 ) and 1 cc of Celestone Soluspan 3mg ([facility]# [id number],LOT#[id number], EXP.09/08) . The site of injection was [...] weeks for recheck. documented in this encounterSaint Luke's North Hospital–SmithvilleVyvytgweaz00-17-6844 Evaluation note* Encounter Date Diagnosis Assessment Notes [...] conjunctivitis of both eyes (ICD-10 - H10.33) [place] eye is contagious. Wash hands frequently and try not to rub eyes. Use warm wash cloth to keep them clean or to remove discharge from eyes. Use drops until eyes are clear then 3 more days [employer] Other 02-10-2024 History of Present illness Narrative* Marcos Rodriguez DO - 12/26/2023 12:40 PM EST HPI: [...] fever. IH Testing: documented in this encounterSaint Luke's North Hospital–SmithvilleYfdckgbgsl73-09-5598 Evaluation note* Encounter Date Diagnosis Assessment Notes Treatment Notes Treatment Clinical Notes Oct, Essential (primary) hypertension (ICD-10 - I10) [employer] Other [id number] Evaluation note* Encounter Date Diagnosis Assessment Notes Treatment Notes Treatment Clinical Notes Aug, Local infection of the skin and subcutaneous tissue, unspecified (ICD-10 - L08.9) Discussed with pt symptoms and most likely staph infection as she has had in the past. Discussed treatment. Directed on use. Call if symptoms worsen or change. Aug, Blister (nonthermal) of nose, initial encounter (ICD-10 - S00.32XA) [facility] Other 09-19-2023 Evaluation note* Encounter Date Diagnosis [...] needed if she continues to have symptoms. [employer] Other 09-13-2023 Evaluation note* Encounter Date Diagnosis Assessment Notes Treatment Notes Treatment Clinical Notes Jul, Pain of left thumb (ICD-10 - M79.645) Pt has family history of RA. Would like to have labs and xray. Discussed ortho referral for possible injection [facility] Other 09-22-2021 Evaluation note* Encounter Date Diagnosis [...] accordingly but no treatment at this time [employer] Other Evaluation noteNo InformationNort [employer] Other Evaluation note* Diagnosis Viral URI- Primary Acute upper respiratory infections of unspecified site Exposure to COVID-19 virus [facility] encounter [facility]* Diagnosis Onset Date Resolution Status Dyslipidemia acute Essential (primary) hypertension acute [facility] Work Phone: Evaluation note* Diagnosis Pain of [...] acute Medicare annual wellness visit, subsequent acute [facility] Work Phone: Evaluation note* Diagnosis Pain of [...] of genital organs documented in this encounter [facility] HealthcareHistory general Narrative - Reported* Type Description Date Medical History hypertension Medical History mood disorder Medical History hiatal hernia Surgical History C section Surgical History cholecystectomy Surgical History heart cath 2020 Hospitalization History see above [facility] Other Hospital Discharge instructions Additional Instructions Post-operative Instructions De Quervain's Tenosynovitis Yo Timmons DO Orthopedic Surgeon [facility] The following instructions will help you know [...] or concerns. Yo Timmons DO Orthopedic Surgeon [facility] Office: [facility] [place] [address] Office number: [phone] [facility] Work Phone: Reason for referral (narrative)No reason for referral information availableAdena Regional [facility] Work Phone: [facility] for visit Narrative* Rehabilitation - Outpatient (Routine) - Authorized Specialty Diagnoses / Procedures Referred By Ayana azar Referred To Contact Physical Therapy Diagnoses Pain of left heel Plantar fasciitis of left foot Procedures SC OFFICE/OUTPATIENT NEW HIGH MDM 60 MINUTES Reyes Dumont, DPM [address] [place] [address] Phone: tel: fax: Clover Andrew T, PT [address] [facility] [address] [place] [address] Phone: tel: fax: Referral ID Status Reason Start Date Expiration Date Visits Requested Visits Authorized [id number] Authorized Specialty Services Required 08/01/2024 01/28/2025 20 [...] Time Advance Directives No March 11 12:45pm Advance Directive Response Recorded Date/ Time Advance Directives No March 11 11:45am Reason for Referral Specialty Diagnoses / Procedures Referred By Ayana azar Referred To Contact Radiology Diagnoses Pain of left heel Plantar fasciitis of left foot Procedures MR ankle left wo IV contrast Reyes Dumont, DPM [address] [facility] [address] [place] [address] [facility] [address] [place] [address] Referral ID Status Reason Start Date Expiration Date V isits Requested Visits Authorized [id number] Authorized 07/13/2024 01/09/2025 1 1 Reason [facility] - Bone cre ek - OV, xray, labs Diagnosis 1 Pain of left thumb ( M79.645) Referral Organization [facility] Ivan peña Referring Provider First Name Cornelius Referring Provider Last Name Tyler Referring Provider Specialty [facility] Referred Organization Unknown Facility Referred Provider Specialty [...] September 05, 2024 1 :46pm 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 September 11:30am Reason for Visit Admit Date Dyslipidemia July 14, 2024 1: 32pm Essential (primary) hypertension July 14, 2024 1:32pm Medicare annual wellness visit, subseque nt July 14, 2024 1:32pm Osteoarthritis September 27, 2024 11:30am Chief Complaint Admit Date M25.532 [...] May 11, 2025 2:[address] RESULTS [facility] May 16, 2025 11:38 am Reason for [...] May 11, 2025 2:[address] RESULTS [facility] May 16, 2025 11:38 am Wrist Pain May 18, 2025 3:30p m Chief Complaint Admit Date M25.532 April 27, 2025 12:0 0pm OP SP LT WRIST PAIN April 27, 2025 1:47 pm M77.9 May 11, 2025 2:[address] RESULTS [facility] May 16, 2025 11:38 am Wrist Pain [...] May 11, 2025 2:[address] RESULTS [facility] May 16, 2025 11:38 am Wrist Pain May 18, 2025 3:30p m staph infection on nose May 28, 2025 2:25pm Wrist Pain May 31, 2025 10:0 3am Chief Complaint Admit Date M25.532 April 27, 2025 12:0 0pm OP SP LT WRIST PAIN April 27, 2025 1:47 pm M77.9 May 11, 2025 2:[address] RESULTS [facility] May 16, 2025 11:38 am Wrist Pain [...] specified postprocedural states Ju ly 2024 10:01am Chief Complaint Admit Date M25.532 April 27, 2025 12:0 0pm OP SP LT WRIST PAIN April 27, 2025 1:47 pm M77.9 May 11, 2025 2:[address] RESULTS [facility] May 16, 2025 11:38 am Wrist Pain [...] specified postprocedural states Au zac 2024 10:55am Chief Complaint Admit Date Wrist Pain May [...] Weight gain, abnormal August 16, 2025 9:58am Additional Source Comments Reason for Visit (unrecogniz ed section and content) Status Reason Specialty Diagnoses / Procedures Referre d By Contact Referred To Contact [employer] Specialty Diagnoses / Procedures Referred By Contac t Referred To Contact Physical Therapy Diagnoses Pain of left heel Plantar fasciitis of left foot Procedures SC OFFICE/OUTPATIENT NEW HIGH MDM 60 MINUTES Reyes Dumont, MALLORIE [address] [place] [address] Clover Andrew T, PT [address] [facility] [address] [place] [address] Referral ID Status Reason Start Date Expiration Date Visits Requested Visits Authorized [id number] Authorized Specialty Services Required 08/01/2024 01/28/2025 20 30 Reason Onset Date Comments MRI results 07/28/2024 Referral ID Status Reason Start Date Expiration Date Visits Requested Visits Authorized [id number] Authorized Specialty Services Required 08/01/2024 01/28/2025 20 20 Referral ID Status Reason Start Date Expiration Date Visits Requested Visits Authorized [id number] Authorized Specialty Services Required 08/01/2024 01/28/2025 10 10 Reason Comments Gynecologic Exam Pt states in the pas t was on medication for her bones. Pt states been off medication for a couple of years. Pt states has not had DEXA done in a little while. (DEXA order sent to [facility]). Denies bowel/bladder/breast concerns. Denies vaginal bleeding/spotting. INFORMATION SOURCE (unrecogn ized section and content) DATE CREATED AUTHOR 12/17/2020 [facility] DATE CREATED AUTHOR AUTHOR'S ORGANIZ ATION 11/15/2022 [facility] DATE CREATED AUTHOR AUTHOR'S ORGANIZ ATION 04/02/2025 [facility] EPIC DATE CREATED AUTHOR AUTHOR'S ORGANIZ ATION 06/13/2025 [facility] Care Teams (unrecognized sec tion and [...] Provider Active Start: May 31, 2025 Yo Timmosn , DO Attending Provider Active St art: May 31, 2025 Yo Timmons , DO Other Provider Active Start: May 31, 2025 Team Status: Inactive Member Role Status Dates Cornelius De La Torre MD Primary Care Provider Active Start: June 12, 2025 End: June 12, 2025 Yo Timmons , DO Attending Provider Active St art: June 12, 2025 End: June 12, 2025 Team Status: Inactive Member Role Status Dates Cornelius De La Torre MD Primary Care Provider Active Start: July 11, 2025 End: July 11, 2025 Yo Timmons , Attending Provider Active St art: July 11, 2025 End: July 11, 2025 Team Status: Active Member Role Status Dates Cornelius De La Torre MD Primary Care Provider Active Start: March 30, 2025 Brodie Pollack MD Attending Provider Active St art: March 30, 2025 Major Gifts Officer Relationship Specialty Start Date End Date Cornelius De La Torre MD [address] [place] [id number] PCP - General Family Medicine 11/20/23 Team Status: Inactive Member Role Status Dates Cornelius De La Torre MD Primary Care Provide r, Attending Provider Active Start: July 14, 2024 End: July 14, 2024 Major Gifts Officer Relationship Specialty Start Date End Date Cornelius De La Torre MD [address] [facility] [place] [phone] PCP - General Family Medicine 11/20/23 Major Gifts Officer Relationship Specialty Start Date End Date Cornelius De La Torre MD [address] [facility] [phone] PCP - General Family Medicine 11/20/23 Major Gifts Officer Relationship Specialty Start Date End Date Cornelius De La Torre MD [address] [facility] [phone] PCP - General Family Medicine 11/20/23 Major Gifts Officer Relationship Specialty Start Date End Date Cornelius De La Torre MD [address] [facility] [phone] PCP - General Family Medicine 11/20/23 Major Gifts Officer Relationship Specialty Start Date End Date Cornelius De La Torre MD [address] [facility] [phone] PCP - General Family Medicine 11/20/23 Major Gifts Officer Relationship Specialty Start Date End Date Cornelius De La Torre MD [address] [facility] [place] [phone] PCP - General Family Medicine 11/20/23 Major Gifts Officer Relationship Specialty Start Date End Date Cornelius De La Torre MD [address] [facility] [place] [phone] PCP - General Family Medicine 11/20/23 Team [...] September 05, 2024 End: September 05, 2024 Major Gifts Officer Relationship Specialty Start Date End Date Cornelius De La Torre MD [address] [facility] [phone] PCP - General Family Medicine 11/20/23 Major Gifts Officer Relationship Specialty Start Date End Date Cornelius De La Torre MD [address] [facility] [place] [phone] PCP - General Family Medicine 11/20/23 Major Gifts Officer Relationship Specialty Start Date End Date Cornelius De La Torre MD [address] [facility] [place] [phone] PCP - General Family Medicine 11/20/23 Team Status: Inactive Member Role Status Dates Cornelius De La Torre MD Primary Care Provide r, Attending Provider Active Start: September 27, 2024 End: September 27, 2024 Major Gifts Officer Relationship Specialty Start Date End Date Cornelius De La Torre MD [address] [facility] [place] [phone] PCP - General Family Medicine 11/20/23 Major Gifts Officer Relationship Specialty Start Date End Date Cornelius De La Torre MD [address] [facility] [place] [address] PCP - General Family Medicine 11/20/23 Major Gifts Officer Relationship Specialty Start Date End Date Cornelius De La Torre MD [address] [facility] [place] [phone] PCP - General Family Medicine 11/20/23 Major Gifts Officer Relationship Specialty Start Date End Date Cornelius De La Torre MD [address] [facility] [place] [phone] PCP - General Family Medicine [...] Care Provider Active Start: July 19, 2025 Brodie Pollack MD Attending Provider Active St art: July 19, 2025 Team Status: Inactive Member Role Status Dates Cornelius De La Torre MD Primary Care Provider Active Start: August 16, 2025 End: August 16, 2025 Cornelius De La Torre MD Attending Provider Active St art: August 16, 2025 End: August 16, 2025 Goals (unrecognized section and content) Goals [...] BE BASED ON THE PRIMARY CLINICAL RECORDS. [employer] provides no warranty or guarantee of the accuracy or completeness of information in this document.
[2025-08-18 14:06] LABS: Hematocrit 41.5 % (36.0-48.0); Hemoglobin 13.6 g/dL (12.0-16.0); Immature Granulocytes Abs Auto 0.01 10^3/uL (0.00-0.03); Immature Granulocytes Pct Auto 0.2 % (0.0-0.5); Lymphocytes Absolute Auto 2.4 10^3/uL (1.2-3.8); Mean Corpuscular HGB Conc 32.8 g/dL (29.9-35.2); Mean Corpuscular Hemoglobin 30.1 pg (26.7-34.0); Mean Corpuscular Volume 91.8 fL (81.0-99.0); Platelet Count 234 10^3/uL (150-450); Red Blood Count 4.52 10^6/uL (4.20-5.40); White Blood Count 6.4 10^3/uL (4.0-11.0)
[2025-08-18 14:20] LABS: Alanine Aminotransferase 33 U/L (14-59); Albumin Globulin Ratio 1.1; Albumin Level 4.2 g/dL (3.4-5.0); Alkaline Phosphatase 84 U/L (46-116); Anion Gap 13.3; Aspartate Amino Transferase 26 U/L (15-37); Blood Urea Nitrogen 18.0 mg/dL (7.0-18.0); Calcium 9.4 mg/dL (8.5-10.1); Carbon Dioxide 28.0 mmol/L (21.0-32.0); Chloride 110 mmol/L (98-107); Cholesterol 159 mg/dL (<=200); Estimated GFR (African America >60 (>=60 mL/min/1.73m^2); Estimated GFR (Non-African Ame 50 (>=60 mL/min/1.73m^2); Globulin 3.9 g/dL; Glucose 77 mg/dL (74-106); HDL Cholesterol 63 mg/dL (40-60); Potassium 4.3 mmol/L (3.5-5.1); Sodium 147 mmol/L (136-145); TSH W/ REFLEX FT4 0.649 uIU/mL (0.358-3.740); Total Protein 8.1 g/dL (6.4-8.2); Triglycerides 53 mg/dL (<=150); VLDL CHOLESTEROL 10.6 mg/dL
== END 2025-08-18 13:17 | disposition home or self-care (01) ==
LOC: LAB 13:18
PROVIDERS: PCP Family Medicine; Visit Provider Family Medicine
DX: E34.9 Endocrine disorder, unspecified (principal); E78.5 Hyperlipidemia, unspecified; I10 Essential (primary) hypertension; B37.2 Candidiasis of skin and nail; R73.9 Hyperglycemia, unspecified; R63.5 Abnormal weight gain
CPT/HCPCS: 36415; 80053; 80061; 83036; 83970; 84443; 85025